=== PATIENT | male | born 1950 | race Caucasian/White ===

== ENCOUNTER 2016-10-20 20:02 | Emergency (ER) | payer OTHER, MEDICAID ==
[2016-10-20 20:21] VITALS: RESP 16; TEMP 97.9
--- NOTE | 2016-10-20 20:59 | DX ---
Chest, PA and Lateral History: Dyspnea, possible pneumonia, chest tightness, anxiety COMPARISON: October 10, 2015 AP, July 23, 2014 PA and lateral Findings: An element of interstitial lung disease is stable since 2013. There is no focal infiltrate, consolidation or pleural effusion. Heart size and pulmonary vascularity remain normal. Lung volumes are moderately prominent and there is chronic bronchial wall thickening consistent with underlying CO PD. There is stable orthopedic fixation hardware of the thoracic spine. No new thoracic compressions have developed. There are new healed left anterior sixth and seventh rib fractures. There is no mass or adenopathy or mass lesion. There is no pneumothorax. Impression: COPD/interstitial lung disease. Nothing acute identified.
--- NOTE | 2016-10-20 21:22 | EDPHY ---
HPI/HX/ROS/PE/MDM Narrative: Chief complaint: Shortness of breath, sent in by PCP for chest x-ray. HPI: 66-year-old male who states he has been having brief episodes of shortness of breath for the last week or so that last 2-3 minutes. He states these episodes make him very anxious and then resolve. He is having them to 3 times a day. States that mainly occurs at rest. No chest pain. No fevers or chills. No nausea or vomiting. He called his primary care physician 5 days ago and was told to come in for chest x-ray. He states he has not come until today because he has just been very anxious about this. Denies any fevers or chills. No nausea or vomiting. No recent leg swelling. He is a chronic smoker. Denies being told he has emphysema. ROS: 10 point Review of Systems is negative except as noted in the HPI. Physical exam: Gen: Awake, Alert, No Distress HEENT: Nose: no rhinorrhea Eyes: PERRLA, EOMI Mouth: Moist mucosa Neck: Supple, no JVD Chest: nontender, lungs clear to auscultation Heart: S1, S2 normal, no murmur Abd: Soft, non-tender, no guarding Back: no CVA tenderness, no midline tenderness Ext: no edema, non-tender Skin: no rash Neuro: CN II-XII intact, Sensation grossly intact, Strength 5/5 in bilateral upper and lower extremities ED Course: Chest x-ray:Impression: COPD/interstitial lung disease. Nothing acute identified. Dictated By: Daniel Swanson MD 66-year-old male with COPD with episodes of shortness of breath for 2-3 minutes and go away. These are associated with periods of anxious. His lungs are completely clear here. He is mildly hypoxemic which is his baseline. Not is not any chest pain or shortness of breath. Does not have any infectious symptoms. He is not wheezing on exam. Does not want to stay in the hospital for further evaluation. He would like to go home with follow-up with primary care physician. Patient is currently at his baseline. General Time Seen by Provider: 10/20/16 20:53 Initial Vital Signs: Initial Vital Signs Temperature (C) 36.6 C 10/20/16 20:18 Heart Rate 99 10/20/16 20:18 Respiratory Rate 16 10/20/16 20:18 Blood Pressure 182/123 H 10/20/16 20:18 O2 Sat (%) 89 L 10/20/16 20:18 O2 Delivery Mode Room Air Allergies/Adverse Reactions: No Known Allergies Allergy (Verified 10/20/16 20:16) Home Medications: Medication Instructions Recorded Donepezil HCl [Aricept] 20 mg PO HS 07/22/14 Promethazine HCl [Phenergan 25mg 25 mg PO DAILY PRN 07/22/14 (*)] tiaGABine [Gabitril 2MG (*)] 2 mg PO DAILY 07/22/14 tiaGABine [Gabitril 2MG (*)] 4 mg PO HS 07/22/14 Acetaminophen/ASA/Caffeine 1 each PO DAILY PRN 10/10/15 [Excedrin Tablet (*)] Centrum Silver Tablet 1 tab PO DAILY 10/10/15 Latanoprost 1 drop EACHEYE HS 10/10/15 SERTRALINE HCL 100 mg PO HS 10/10/15 ALPRAZolam [Xanax 1 MG (*)] 0.5 - 1 mg PO Q6 PRN #0 tab 10/15/15 Acetaminophen [Tylenol 325mg (*)] 650 mg PO Q4 PRN #0 tab 10/15/15 Tramadol HCl 50 mg PO Q6 PRN #0 tablet 10/15/15 Zolpidem Tartrate [Ambien 5MG (*)] 5 mg PO HS #0 tab 10/15/15 amLODIPine BESYLATE [Norvasc 10 mg 10 mg PO DAILY #0 tab 10/15/15 (*)] DIAZEPAM 10/20/16 Departure - Departure Disposition: Home, Routine, Self-Care Clinical Impression: Chronic obstructive pulmonary disease Condition: Good Instructions: COPD (Chronic Obstructive Pulmonary Disease) (ED) Additional Instructions: Follow up with her primary care physician in the next 1-2 days for further evaluation. Return to the emergency depart for increasing chest pain, shortness of breath, fevers, chills, or any other concerns. Referrals: Alcides Singh MD [Primary Care Provider] - As per Instructions
[2016-10-20 21:54] VITALS: BP 144/110; PULSE 88; O2SAT 90
== END 2016-10-20 21:54 | disposition home or self-care (01) ==
DX: J44.9 Chronic obstructive pulmonary disease, unspecified (principal)

== ENCOUNTER 2017-03-01 21:45 | Emergency (ER) | payer OTHER, MEDICAID ==
[2017-03-01 21:54] VITALS: TEMP 97.9
--- NOTE | 2017-03-01 21:54 | EDPHY ---
H & P HPI/ROS: HPI CHIEF COMPLAINT: Abdominal pain, bright red blood per rectum HISTORY OF PRESENT ILLNESS: This patient is a very pleasant 67-year-old male, significant past medical history for hypertension, anxiety, TBI, presents emergency room with 2 weeks of lower abdominal pain. Patient presents to the emergency room by EMS for 2 weeks of lower abdominal pain. He states this evening he had a bowel movement and there was dark red blood present with his stool. Denies a history of GI bleed. Denies surgical history of his abdomen. Denies fever. Denies nausea vomiting denies chest pain or shortness of breath. Main complaint is lower abdominal pain and then bright red blood per rectum this evening. Pain has been present for 2 weeks. Past Medical History: Anxiety, traumatic brain injury, hypertension Past Surgical History: Denies any surgical history Social History: Smokes tobacco, marijuana, occasional alcohol use, denies drugs Family History: Noncontributory ROS REVIEW OF SYSTEMS: A comprehensive 10 point review of systems is otherwise negative aside from elements mentioned in the history of present illness. Exam Constitutional triage nursing summary reviewed, vital signs reviewed, awake/ alert. Eyes normal conjunctivae and sclera, EOMI, PERRLA. HENT normal inspection, atraumatic, moist mucus membranes, no epistaxis, neck supple/ no meningismus, no raccoon eyes. Respiratory clear to auscultation bilaterally, normal breath sounds, no respiratory distress, no wheezing. Cardiovascular rate normal, regular rhythm, no murmur, no edema, distal pulses normal. Gastrointestinal soft, mild tender palpation lower abdomen, left lower quadrant and right lower quadrant, no rebound, no guarding, normal bowel sounds , no distension, no pulsatile mass. Genitourinary no CVA tenderness. Musculoskeletal no midline vertebral tenderness, full range of motion, no calf swelling, no tenderness of extremities, no meningismus, good pulses, neurovascularly intact. Skin pink, warm, & dry, no rash, skin atraumatic. Neurologic awake, alert and oriented x 3, AAOx3, moves all 4 extremities equally, motor intact, sensory intact, CN II-XII intact, normal cerebellar, normal vision, normal speech. Psychiatric normal mood/affect. Heme/Lymph/Immune no lymphadenopathy. Differential diagnosis includes but is not limited to and in no particular order : Bowel obstruction, appendicitis, gallbladder disease, diverticulitis, colitis , enteritis, perforated viscus, gastritis, GERD, esophagitis, urinary tract infection, pyelonephritis, kidney stones Medical Decision Making: Plan for this patient IV establishment, blood work, CT abdomen pelvis with IV contrast, IV fluid bolus, Zofran for nausea Dilaudid for acute pain control. Re-evaluation: 2257: Patient remained stable. Rectal exam shows bright red blood per rectum. No palpable mass. No palpable hemorrhoids. CT scan of the abdomen pelvis with IV contrast. The results of the study are this shows acute diverticulosis without diverticulitis no other acute inflammatory process The study was read by Dr. Feliciano. I viewed the images myself on the PACS system. 2316: This patient is hemodynamically stable. CT scan shows diverticulosis. Bright red blood per rectum on exam without palpable mass or hemorrhoids. I am concerned this may be a diverticular bleed. Patient will need admission to the hospital. He is hemodynamically stable this time. 2342: This patient remains hemodynamically stable. No active rectal bleeding here in emergency room. However given CT scan findings of diverticulosis, bright red blood per rectum this patient will need to be admitted to the hospital for further evaluation of bright red blood per rectum and most likely colonoscopy. Unfortunately the hospital is full and cannot accept the admission of this patient. We will need to transfer this patient to another hospital. I spoke with Dr. Vogt at [facility] who is accepted the transfer for lower GI bleed. The patient is completely stable hemodynamically H &H are stable. Patient is stable for transfer. EMTALA form filled out. Patient be transferred by ALS transport. I have updated this patient. Source: Patient - Personal History Tetanus Vaccine Date: no known - Medical/Surgical History Hx Asthma: No Hx Chronic Respiratory Disease: No Hx Diabetes: No Hx Cardiac Disease: No Hx Renal Disease: No Hx Cirrhosis: No Hx Alcoholism: No Hx HIV/AIDS: No Hx Splenectomy or Spleen Trauma: No Other PMH: CONSTIPATION,SPINAL FUSION, HTN, TBI in 1999, subdural bleed, anxiety , tremors - Social History Smoking Status: Current every day smoker Constitutional: Initial Vital Signs Temperature (C) 36.6 C 03/01/17 21:51 Heart Rate 91 03/01/17 21:51 Respiratory Rate 18 03/01/17 21:51 Blood Pressure 140/111 H 03/01/17 21:51 O2 Sat (%) 94 03/01/17 21:51 O2 Delivery Mode Room Air O2 (L/minute) 2 Allergies/Adverse Reactions: No Known Allergies Allergy (Verified 10/20/16 20:16) Home Medications: Medication Instructions Recorded Donepezil HCl [Aricept] 20 mg PO HS 07/22/14 Promethazine HCl [Phenergan 25mg 25 mg PO DAILY PRN 07/22/14 (*)] tiaGABine [Gabitril 2MG (*)] 2 mg PO DAILY 07/22/14 tiaGABine [Gabitril 2MG (*)] 4 mg PO HS 07/22/14 Acetaminophen/ASA/Caffeine 1 each PO DAILY PRN 10/10/15 [Excedrin Tablet (*)] Centrum Silver Tablet 1 tab PO DAILY 10/10/15 Latanoprost 1 drop EACHEYE HS 10/10/15 SERTRALINE HCL 100 mg PO HS 10/10/15 ALPRAZolam [Xanax 1 MG (*)] 0.5 - 1 mg PO Q6 PRN #0 tab 10/15/15 Acetaminophen [Tylenol 325mg (*)] 650 mg PO Q4 PRN #0 tab 10/15/15 Tramadol HCl 50 mg PO Q6 PRN #0 tablet 10/15/15 Zolpidem Tartrate [Ambien 5MG (*)] 5 mg PO HS #0 tab 10/15/15 amLODIPine BESYLATE [Norvasc 10 mg 10 mg PO DAILY #0 tab 10/15/15 (*)] DIAZEPAM 10/20/16 Donepezil HCl 03/01/17 Meloxicam 03/01/17 Medical Decision Making - Diagnostics Imaging Results: Imaging Impressions Abdomen CT 03/01/17 22:01 Impression: 1. Diverticulosis without diverticulitis. A source for rectal bleeding is not definitely identified. 2. See above report for additional findings. Results called and discussed with Dario Castillo MD on 03/01/2017 at 23:09 - Data Points Laboratory Results: Laboratory Results 03/01/17 21:40 03/01/17 21:40 03/01/17 03/01/17 03/01/17 23:00 22:34 21:46 WBC RBC Hgb POC Hgb 15.6 gm/dL gm/dL (13.7-17.5) Hct POC Hct 46 % % (40-51) MCV MCH MCHC RDW Plt Count MPV Neut % (Auto) Lymph % (Auto) [place] % (Auto) Eos % (Auto) Baso % (Auto) Nucleat RBC Rel Count Absolute Neuts (auto) Absolute Lymphs (auto) Absolute Monos (auto) Absolute Eos (auto) Absolute Basos (auto) Absolute Nucleated RBC Immature Gran % Immature Gran # PT INR APTT VBG Lactic Acid 0.9 mmol/L mmol/L (0.7-2.1) POC Sodium 144 mEq/L mEq/L (134-144) Sodium POC Potassium 4.0 mEq/L mEq/L (3.3-5.0) Potassium POC Chloride 106 mEq/L mEq/L (97-110) Chloride Carbon Dioxide Anion Gap POC BUN 15 mg/dL mg/dL (7-23) BUN Creatinine POC Creatinine 1.2 mg/dL mg/dL (0.7-1.3) Estimated GFR Glucose POC Glucose 87 mg/dL mg/dL (70-100) Calcium Total Bilirubin Conjugated Bilirubin Unconjugated Bilirubin AST ALT Alkaline Phosphatase Total Protein Albumin Lipase Stool Occult Bld Scrn Pending 03/01/17 03/01/17 03/01/17 21:40 21:40 21:40 WBC 9.96 10^3/uL H 10^3/uL (3.80-9.50) RBC 5.60 10^6/uL 10^6/uL (4.40-6.38) Hgb 15.1 g/dL g/dL (13.7-17.5) POC Hgb Hct 47.6 % % (40.0-51.0) POC Hct MCV 85.0 fL fL (81.5-99.8) MCH 27.0 pg L pg (27.9-34.1) MCHC 31.7 g/dL L g/dL (32.4-36.7) RDW 14.0 % % (11.5-15.2) Plt Count 325 10^3/uL 10^3/uL (150-400) MPV 10.7 fL fL (8.7-11.7) Neut % (Auto) 77.3 % H % (39.3-74.2) Lymph % (Auto) 11.3 % L % (15.0-45.0) Ell[place] % (Auto) 7.3 % % (4.5-13.0) Eos % (Auto) 2.9 % % (0.6-7.6) Baso % (Auto) 0.6 % % (0.3-1.7) Nucleat RBC Rel Count 0.0 % % (0.0-0.2) Absolute Neuts (auto) 7.69 10^3/uL H 10^3/uL (1.70-6.50) Absolute Lymphs (auto) 1.13 10^3/uL 10^3/uL (1.00-3.00) Absolute Monos (auto) 0.73 10^3/uL 10^3/uL (0.30-0.80) Absolute Eos (auto) 0.29 10^3/uL 10^3/uL (0.03-0.40) Absolute Basos (auto) 0.06 10^3/uL 10^3/uL (0.02-0.10) Absolute Nucleated RBC 0.00 10^3/uL 10^3/uL (0-0.01) Immature Gran % 0.6 % % (0.0-1.1) Immature Gran # 0.06 10^3/uL 10^3/uL (0.00-0.10) PT 14.1 SEC SEC (12.0-15.0) INR 1.10 (0.83-1.16) APTT 32.6 SEC SEC (23.0-38.0) VBG Lactic Acid POC Sodium Sodium 144 mEq/L mEq/L (134-144) POC Potassium Potassium 4.5 mEq/L mEq/L (3.5-5.2) POC Chloride Chloride 106 mEq/L mEq/L (97-110) Carbon Dioxide 26 mEq/l mEq/l (22-31) Anion Gap 12 mEq/L mEq/L (8-16) POC BUN BUN 16 mg/dL mg/dL (7-23) Creatinine 1.1 mg/dL mg/dL (0.7-1.3) POC Creatinine Estimated GFR > 60 Glucose 84 mg/dL mg/dL (70-100) POC Glucose Calcium 9.7 mg/dL mg/dL (8.5-10.4) Total Bilirubin 0.7 mg/dL mg/dL (0.1-1.4) Conjugated Bilirubin 0.6 mg/dL H mg/dL (0.0-0.5) Unconjugated Bilirubin 0.1 mg/dL mg/dL (0.0-1.1) AST 28 IU/L IU/L (17-59) ALT 32 IU/L IU/L (21-72) Alkaline Phosphatase 113 IU/L IU/L (38-126) Total Protein 7.6 g/dL g/dL (6.3-8.2) Albumin 4.4 g/dL g/dL (3.5-5.0) Lipase 49.0 IU/L IU/L (23-300) Stool Occult Bld Scrn Medications Given: Discontinued Medications Hydromorphone HCl (Dilaudid) 0.5 mg IVP EDNOW ONE Stop: 03/01/17 22:08 Last Admin: 03/01/17 22:39 Dose: 0.5 mg Sodium Chloride (Ns) 1,000 mls @ 0 mls/hr IV ONCE ONE PRN Reason: Wide Open Stop: 03/01/17 22:02 Last Admin: 03/01/17 22:05 Dose: 1,000 mls Point of Care Test Results: 03/01/17 21:46 POC Sodium 144 POC Potassium 4.0 POC Chloride 106 POC BUN 15 POC Creatinine 1.2 POC Glucose 87 Departure - Departure Disposition: Acute Care Hospital Critical access hospital Clinical Impression: Lower gastrointestinal bleed Diverticulosis Qualifiers: Diverticulosis site: unspecified location Diverticulosis bleeding: diverticulosis with bleeding Qualified Code(s): K57.91 - Diverticulosis of intestine, part unspecified, without perforation or abscess with bleeding Condition: Fair Referrals: Patient,NotPresent [Unknown] - As per Instructions
[2017-03-01] MEDS ORDERED: NS 1,000 ML IV ONE (22:01)
[2017-03-01] MEDS ORDERED: HYDROmorphONE/DILAUDID 1 MG/ML SYR IVP ONE (22:07)
[2017-03-01] MEDS ORDERED: IOPAMIDOL (ISOVUE-300) 100 ML BTL ONE (22:08)
[2017-03-01 22:09] LABS: % IMMATURE GRANULYOCYTES 0.6 % (0.0-1.1); ABSOLUTE IMMATURE GRANULOCYTES 0.06 10^3/uL (0.00-0.10); ADD DIFF? NO; ADD MORPH? NO; ADD SCAN? NO; ATYPICAL LYMPHOCYTE FLAG 0 (0-99); FRAGMENT RBC FLAG 0 (0-99); HEMATOCRIT 47.6 % (40.0-51.0); HEMOGLOBIN 15.1 g/dL (13.7-17.5); LEFT SHIFT FLG 0 (0-99); LIPEMIA HEMOLYSIS FLAG 80 (0-99); MEAN CELL HEMOGLOBIN CONCENTR. 31.7 g/dL (32.4-36.7); MEAN PLATELET VOLUME 10.7 fL (8.7-11.7); PLATELET CLUMPS FLAG 10 (0-99); PLATELET COUNT 325 10^3/uL (150-400)
[2017-03-01 22:17] LABS: ALANINE AMINOTRANSFERASE 32 IU/L (21-72); ALBUMIN 4.4 g/dL (3.5-5.0); ALKALINE PHOSPHATASE 113 IU/L (38-126); ANION GAP 12 mEq/L (8-16); ASPARTATE AMINOTRANSFERASE 28 IU/L (17-59); BILIRUBIN,TOTAL 0.7 mg/dL (0.1-1.4); BILIRUBIN-CONJUGATED 0.6 mg/dL (0.0-0.5); BILIRUBIN-UNCONJUGATED 0.1 mg/dL (0.0-1.1); CALCIUM 9.7 mg/dL (8.5-10.4); CARBON DIOXIDE 26 mEq/l (22-31); CHLORIDE 106 mEq/L (97-110); CREATININE 1.1 mg/dL (0.7-1.3); GLOMERULAR FILTRATION RATE > 60; GLUCOSE 84 mg/dL (70-100); POTASSIUM 4.5 mEq/L (3.5-5.2); SODIUM 144 mEq/L (134-144); TOTAL PROTEIN 7.6 g/dL (6.3-8.2)
[2017-03-01 22:18] LABS: INR 1.1 (0.83-1.16); PROTIME(PATIENT) 14.1 SEC (12.0-15.0)
[2017-03-01 22:19] LABS: APTT 32.6 SEC (23.0-38.0)
[2017-03-01] MEDS ORDERED: LORazepam 2 MG/ML INJ ONE (23:49)
[2017-03-01] MEDS ORDERED: LORazepam 2 MG/ML INJ IVP ONE (23:55)
[2017-03-02 02:15] VITALS: BP 143/99; PULSE 86; RESP 14; O2SAT 96
== END 2017-03-02 02:12 | disposition short-term general hospital (02) ==
LOC: EDUNIT#
DX: K57.91 Diverticulosis of intestine, part unspecified, without perforation or abscess with bleeding (principal); I10 Essential (primary) hypertension; F17.200 Nicotine dependence, unspecified, uncomplicated
CPT/HCPCS: 74177; 96361; 96374; 96375; 99285; J1170; J2060; Q9967; 82947-QW

== ENCOUNTER 2017-04-14 22:08 | Emergency (ER) | payer OTHER, MEDICAID ==
[2017-04-14] MEDS ORDERED: HYDROmorphONE/DILAUDID 1 MG/ML SYR IVP ONE (22:18)
[2017-04-14] MEDS ORDERED: ONDANSETRON 4 MG/2 ML VIAL IVP ONE (22:18)
[2017-04-14] MEDS ORDERED: NS 1,000 ML IV ONE (22:18)
[2017-04-14 22:28] LABS: % IMMATURE GRANULYOCYTES 0.4 % (0.0-1.1); ABSOLUTE IMMATURE GRANULOCYTES 0.04 10^3/uL (0.00-0.10); ADD DIFF? NO; ADD MORPH? NO; ADD SCAN? NO; ATYPICAL LYMPHOCYTE FLAG 10 (0-99); FRAGMENT RBC FLAG 0 (0-99); HEMOGLOBIN 14.1 g/dL (13.7-17.5); LEFT SHIFT FLG 0 (0-99); LIPEMIA HEMOLYSIS FLAG 80 (0-99); MEAN CELL HEMOGLOBIN 25.7 pg (27.9-34.1); MEAN CELL VOLUME 80.1 fL (81.5-99.8); MEAN PLATELET VOLUME 10.7 fL (8.7-11.7); PLATELET CLUMPS FLAG 0 (0-99); PLATELET COUNT 301 10^3/uL (150-400); RED BLOOD CELL COUNT 5.49 10^6/uL (4.40-6.38); RED CELL DISTRIBUTION WIDTH 13.7 % (11.5-15.2)
--- NOTE | 2017-04-14 22:28 | EDPHY ---
H & P Stated Complaint: ABD PAIN,SELF MED WITH VODKA, ULCER CAUTERIZE 2 MO AGO, CONSTIPATED Time Seen by Provider: 04/14/17 22:10 HPI/ROS: CHIEF COMPLAINT: Abdominal pain HISTORY OF PRESENT ILLNESS: The patient is a 67-year-old man who comes to the emergency department by ambulance complaining of diffuse abdominal pain. He told paramedics that was near his umbilicus. He also states that he has not had a bowel movement in 3 days. He denies chest pain or shortness of breath. He denies nausea vomiting or diarrhea. He has not had a fever. He does have a history of mild respiratory disease and wears oxygen occasionally at baseline but denies history of asthma or COPD. He is a smoker. He does have a history of traumatic brain injury. He is also slightly hypoxic on arrival but denies shortness of breath cough or recent infections. REVIEW OF SYSTEMS: Constitutional: denies: chills, fever, recent illness, recent injury EENTM: denies: blurred vision, double vision, nose congestion Respiratory: denies: cough, shortness of breath Cardiac: denies: chest pain, irregular heart rate, lightheadedness, palpitations Gastrointestinal/Abdominal: See HPIdenies: diarrhea, nausea, vomiting, blood streaked stools Genitourinary: denies: dysuria, frequency, hematuria, pain Musculoskeletal: denies: joint pain, muscle pain Skin: denies: lesions, rash, jaundice, bruising Neurological: denies: headache, numbness, paresthesia, tingling, dizziness, weakness Hematologic/Lymphatic: denies: blood clots, easy bleeding, easy bruising Immunologic/allergic: denies: HIV/AIDS, transplant EXAM: GENERAL: Well-appearing, well-nourished and in no acute distress. HEAD: Atraumatic, normocephalic. EYES: Pupils equal round and reactive to light, extraocular movements intact, sclera anicteric, conjunctiva are normal. ENT: TMs normal, nares patent, oropharynx clear without exudates. Moist mucous membranes. NECK: Normal range of motion, supple without lymphadenopathy or JVD. LUNGS: Breath sounds clear to auscultation bilaterally and equal. No wheezes rales or rhonchi. HEART: Regular rate and rhythm without murmurs, rubs or gallops. ABDOMEN: Mildly distended, right upper quadrant pain but nontender, normoactive bowel sounds. No guarding, no rebound. No masses appreciated. BACK: No CVA tenderness, no spinal tenderness, step-offs or deformities EXTREMITIES: Normal range of motion, no pitting or edema. No clubbing or cyanosis. NEUROLOGICAL: Cranial nerves II through XII grossly intact. Normal speech, normal gait. 5/5 strength, normal movement in all extremities, normal sensation PSYCH: Normal mood, normal affect. SKIN: Warm, dry, normal turgor, no visible rashes or lesions. Source: Patient Exam Limitations: No limitations - Personal History Tetanus Vaccine Date: no known - Medical/Surgical History Hx Asthma: No Hx Chronic Respiratory Disease: No Hx Diabetes: No Hx Cardiac Disease: No Hx Renal Disease: No Hx Cirrhosis: No Hx Alcoholism: No Hx HIV/AIDS: No Hx Splenectomy or Spleen Trauma: No Other PMH: CONSTIPATION,SPINAL FUSION, HTN, TBI in 1999, subdural bleed, anxiety , tremors, ULCER- CAUTERIZED 01/2017 - Family History Significant Family History: No pertinent family hx - Social History Smoking Status: Current every day smoker Alcohol Use: Sober Drug Use: None Constitutional: Initial Vital Signs Temperature (C) 36.9 C 04/14/17 22:10 Heart Rate 75 04/14/17 22:10 Respiratory Rate 20 04/14/17 22:10 Blood Pressure 169/111 H 04/14/17 22:10 O2 Sat (%) 75 L 04/14/17 22:10 O2 Delivery Mode Nasal Cannula O2 (L/minute) 3 Allergies/Adverse Reactions: No Known Allergies Allergy (Verified 10/20/16 20:16) Home Medications: Medication Instructions Recorded Donepezil HCl [Aricept] 20 mg PO HS 07/22/14 Promethazine HCl [Phenergan 25mg 25 mg PO DAILY PRN 07/22/14 (*)] Acetaminophen/ASA/Caffeine 1 each PO DAILY PRN 10/10/15 [Excedrin Tablet (*)] Centrum Silver Tablet 1 tab PO DAILY 10/10/15 Latanoprost 1 drop EACHEYE HS 10/10/15 SERTRALINE HCL 100 mg PO HS 10/10/15 ALPRAZolam [Xanax 1 MG (*)] 0.5 - 1 mg PO Q6 PRN #0 tab 10/15/15 Acetaminophen [Tylenol 325mg (*)] 650 mg PO Q4 PRN #0 tab 10/15/15 Tramadol HCl 50 mg PO Q6 PRN #0 tablet 10/15/15 Zolpidem Tartrate [Ambien 5MG (*)] 5 mg PO HS #0 tab 10/15/15 DIAZEPAM 10/20/16 Donepezil HCl 03/01/17 Meloxicam 03/01/17 Metoprolol Tartrate 04/14/17 Medical Decision Making - Diagnostics Imaging Results: Imaging Impressions Abdomen CT 04/14/17 22:19 Impression: 1. Stable diverticulosis without diverticulitis. 2. Normal appendix. A message was left for Dr. YOSELYN DAMON, at 04/14/2017 23:29 General information for patients regarding this examination can be found at [email or web address] If you have questions or comments about this report, please contact me at (hospital) or [phone] (cell). Abdomen Ultrasound 04/14/17 22:28 Impression: 1. New gallstones without biliary obstruction or ultrasound evidence of acute cholecystitis. The patient is not tender directly over the gallbladder. 2. Benign right renal cyst. Results discussed with Dr. Damon at 11:12 PM. Procedures: Ultrasound: Limited bedside ultrasonography performed. Gallbladder seen without wall thickening or distention. Multiple gallstones visible with shadowing. Common bile duct not visualized. ED Course/Re-evaluation: On bedside ultrasound the patient has multiple gallstones but no visible wall thickening. No gallbladder distension. Negative sonographic Scales's 11:35 p.m. the patient is feeling completely well. He states he is currently pain free. His abdominal exam is benign. His CT and ultrasound are reassuring. We discussed his gallstones visible. I will start him on MiraLax and have him follow up with his regular physician. I instructed him how to titrate MiraLax. He is happy with this and declines any further workup or testing at this time. Differential Diagnosis: Partial list of the Differential diagnosis considered include but were not limited to; constipation, biliary disease, appendicitis and although unlikely based on the history and physical exam, I also considered diverticulitis, obstruction, ischemia. I discussed these differential diagnoses and the plan with the patient as well as the usual and expected course. The patient understands that the diagnosis is provisional and that in medicine we are not always correct and that further workup is often warranted. Usual and customary warnings were given. All of the patient's questions were answered. The patient was instructed to return to the emergency department should the symptoms at all worsen or return, otherwise to followup with the physician as we discussed. - Data Points Laboratory Results: Laboratory Results 04/14/17 22:10 04/14/17 22:10 04/14/17 04/14/17 22:10 22:10 WBC 9.87 10^3/uL H 10^3/uL (3.80-9.50) RBC 5.49 10^6/uL 10^6/uL (4.40-6.38) Hgb 14.1 g/dL g/dL (13.7-17.5) Hct 44.0 % % (40.0-51.0) MCV 80.1 fL L fL (81.5-99.8) MCH 25.7 pg L pg (27.9-34.1) MCHC 32.0 g/dL L g/dL (32.4-36.7) RDW 13.7 % % (11.5-15.2) Plt Count 301 10^3/uL 10^3/uL (150-400) MPV 10.7 fL fL (8.7-11.7) Neut % (Auto) 77.8 % H % (39.3-74.2) Lymph % (Auto) 13.8 % L % (15.0-45.0) Cole % (Auto) 6.8 % % (4.5-13.0) Eos % (Auto) 0.7 % % (0.6-7.6) Baso % (Auto) 0.5 % % (0.3-1.7) Nucleat RBC Rel Count 0.0 % % (0.0-0.2) Absolute Neuts (auto) 7.68 10^3/uL H 10^3/uL (1.70-6.50) Absolute Lymphs (auto) 1.36 10^3/uL 10^3/uL (1.00-3.00) Absolute Monos (auto) 0.67 10^3/uL 10^3/uL (0.30-0.80) Absolute Eos (auto) 0.07 10^3/uL 10^3/uL (0.03-0.40) Absolute Basos (auto) 0.05 10^3/uL 10^3/uL (0.02-0.10) Absolute Nucleated RBC 0.00 10^3/uL 10^3/uL (0-0.01) Immature Gran % 0.4 % % (0.0-1.1) Immature Gran # 0.04 10^3/uL 10^3/uL (0.00-0.10) Sodium 146 mEq/L H mEq/L (134-144) Potassium 4.0 mEq/L mEq/L (3.5-5.2) Chloride 109 mEq/L mEq/L (97-110) Carbon Dioxide 19 mEq/l L mEq/l (22-31) Anion Gap 18 mEq/L H mEq/L (8-16) BUN 13 mg/dL mg/dL (7-23) Creatinine 1.1 mg/dL mg/dL (0.7-1.3) Estimated GFR > 60 Glucose 83 mg/dL mg/dL (70-100) Calcium 10.2 mg/dL mg/dL (8.5-10.4) Total Bilirubin 0.5 mg/dL mg/dL (0.1-1.4) Conjugated Bilirubin 0.4 mg/dL mg/dL (0.0-0.5) Unconjugated Bilirubin 0.1 mg/dL mg/dL (0.0-1.1) AST 23 IU/L IU/L (17-59) ALT 27 IU/L IU/L (21-72) Alkaline Phosphatase 102 IU/L IU/L (38-126) Total Protein 7.8 g/dL g/dL (6.3-8.2) Albumin 4.6 g/dL g/dL (3.5-5.0) Lipase 57.0 IU/L IU/L (23-300) Medications Given: Discontinued Medications Sodium Chloride (Ns) 1,000 mls @ 0 mls/hr IV EDNOW ONE; Wide Open PRN Reason: Protocol Stop: 04/14/17 22:19 Last Admin: 04/14/17 22:45 Dose: 1,000 mls Departure - Departure Disposition: Home, Routine, Self-Care Clinical Impression: Constipation Qualifiers: Constipation type: unspecified constipation type Qualified Code(s): K59.00 - Constipation, unspecified Condition: Fair Instructions: Polyethylene Glycol 3350 (By mouth), Constipation (ED) Additional Instructions: Take a cap full of MiraLax every 3 hours as we discussed until you have satisfactory bowel movements then discontinue or decrease as discussed. Referrals: Patient,NotPresent [Unknown] - As per Instructions
[2017-04-14 22:37] LABS: ALANINE AMINOTRANSFERASE 27 IU/L (21-72); ALBUMIN 4.6 g/dL (3.5-5.0); ALKALINE PHOSPHATASE 102 IU/L (38-126); ANION GAP 18 mEq/L (8-16); ASPARTATE AMINOTRANSFERASE 23 IU/L (17-59); BILIRUBIN,TOTAL 0.5 mg/dL (0.1-1.4); BILIRUBIN-CONJUGATED 0.4 mg/dL (0.0-0.5); BILIRUBIN-UNCONJUGATED 0.1 mg/dL (0.0-1.1); CALCIUM 10.2 mg/dL (8.5-10.4); CARBON DIOXIDE 19 mEq/l (22-31); CHLORIDE 109 mEq/L (97-110); CREATININE 1.1 mg/dL (0.7-1.3); GLOMERULAR FILTRATION RATE > 60; GLUCOSE 83 mg/dL (70-100); SODIUM 146 mEq/L (134-144); TOTAL PROTEIN 7.8 g/dL (6.3-8.2)
[2017-04-14] MEDS ORDERED: IOPAMIDOL (ISOVUE-300) 100 ML BTL ONE (22:53)
[2017-04-14 23:02] VITALS: RESP 18
--- NOTE | 2017-04-14 23:40 | CPEKG ---
Heart Rate: 60 RR Interval: 1000 P-R Interval: 172 QRSD Interval: 106 QT Interval: 476 QTC Interval: 476 P Story: 46 QRS Story: -43 T Wave Story: 36 EKG Severity - BORDERLINE ECG - EKG Impression: SINUS RHYTHM EKG Impression: ATRIAL PREMATURE COMPLEX EKG Impression: BORDERLINE IVCD WITH LAD EKG Impression: BORDERLINE PROLONGED QT INTERVAL Electronically Signed By: Erik Bernal 14-Apr-2017 23:40:39
[2017-04-15 00:02] LABS: COLOR YELLOW; LEUKOCYTE ESTERASE,URINE NEGATIVE (NEGATIVE); NITRITE,URINE NEGATIVE (NEGATIVE)
[2017-04-15 00:39] VITALS: BP 132/71; PULSE 73; TEMP 98.1; O2SAT 90
== END 2017-04-15 00:39 | disposition home or self-care (01) ==
LOC: EDUNIT#
DX: K59.00 Constipation, unspecified (principal); I10 Essential (primary) hypertension; F17.200 Nicotine dependence, unspecified, uncomplicated; E86.9 Volume depletion, unspecified
CPT/HCPCS: 74177; 76705; 93005; 96360; 99285; Q9967

== ENCOUNTER 2017-09-11 10:45 | Emergency (ER) | payer OTHER, MEDICAID ==
--- NOTE | 2017-09-11 10:55 | EDPHY ---
H & P Time Seen by Provider: 09/11/17 10:46 HPI/ROS: CHIEF COMPLAINT: Anxiety HISTORY OF PRESENT ILLNESS: The patient is a 67-year-old man with a history of severe anxiety who takes Xanax daily. He called EMS today because he states that his Xanax is not working. He told paramedics that his Xanax is usually filled at [facility] but he now has a new case management type service that filled his Xanax prescription at [facility]. He states that since that time it does not seem like it is working. He is followed by Dr. Orozco. He denies any chest pain or palpitations. He denies any recent fevers or illness. No nausea vomiting or diarrhea. He has some difficulty voicing his complaint here and primarily talks about his work history and things that he did when he worked for [employer]. Paramedics state that he is living at a hotel. He was admitted here in July for a bowel perforation from a chicken bone. He currently has no abdominal pain. REVIEW OF SYSTEMS: Constitutional: denies: chills, fever, recent illness, recent injury EENTM: denies: blurred vision, double vision, nose congestion Respiratory: denies: cough, shortness of breath Cardiac: denies: chest pain, irregular heart rate, lightheadedness, palpitations Gastrointestinal/Abdominal: denies: abdominal pain, diarrhea, nausea, vomiting, blood streaked stools Genitourinary: denies: dysuria, frequency, hematuria, pain Musculoskeletal: denies: joint pain, muscle pain Skin: denies: lesions, rash, jaundice, bruising Neurological: denies: headache, numbness, paresthesia, tingling, dizziness, weakness Hematologic/Lymphatic: denies: blood clots, easy bleeding, easy bruising Immunologic/allergic: denies: HIV/AIDS, transplant EXAM: GENERAL: Well-appearing, overweight, HEAD: Atraumatic, normocephalic. EYES: Pupils equal round and reactive to light, extraocular movements intact, sclera anicteric, conjunctiva are normal. ENT: TMs normal, nares patent, oropharynx clear without exudates. Moist mucous membranes. NECK: Normal range of motion, supple without lymphadenopathy or JVD. LUNGS: Breath sounds clear to auscultation bilaterally and equal. No wheezes rales or rhonchi. HEART: Regular rate and rhythm without murmurs, rubs or gallops. ABDOMEN: Soft, nontender, normoactive bowel sounds. No guarding, no rebound. No masses appreciated. BACK: No CVA tenderness, no spinal tenderness, step-offs or deformities EXTREMITIES: Normal range of motion, no pitting or edema. No clubbing or cyanosis. NEUROLOGICAL: Cranial nerves II through XII grossly intact. Normal speech, normal gait. 5/5 strength, normal movement in all extremities, normal sensation PSYCH: Anxious SKIN: Warm, dry, normal turgor, no visible rashes or lesions. Source: Patient, EMS Exam Limitations: No limitations - Personal History Tetanus Vaccine Date: no known - Medical/Surgical History Hx Asthma: No Hx Chronic Respiratory Disease: No Hx Diabetes: No Hx Cardiac Disease: No Hx Renal Disease: No Hx Cirrhosis: No Hx Alcoholism: No Hx HIV/AIDS: No Hx Splenectomy or Spleen Trauma: No Other PMH: CONSTIPATION,SPINAL FUSION, HTN, TBI in 1999, subdural bleed, anxiety , tremors, ULCER- CAUTERIZED 01/2017 - Family History Significant Family History: No pertinent family hx - Social History Smoking Status: Current every day smoker (50 pack-year history) Alcohol Use: Sober Constitutional: Initial Vital Signs Temperature (C) 36.8 C 09/11/17 11:09 Heart Rate 64 09/11/17 11:09 Respiratory Rate 16 09/11/17 11:09 Blood Pressure 175/100 H 09/11/17 11:09 O2 Sat (%) 96 09/11/17 11:09 O2 Delivery Mode Room Air Allergies/Adverse Reactions: No Known Allergies Allergy (Verified 07/11/17 10:59) Home Medications: Medication Instructions Recorded Promethazine HCl [Phenergan 25mg 25 mg PO Q6HRS PRN 07/22/14 (*)] Multivitamins [Multivitamin (*)] 1 each PO DAILY #0 10/10/15 ALPRAZolam [Xanax 1 MG (*)] 0.5 - 1 mg PO Q6 PRN #0 tab 10/15/15 Diazepam [Valium 5 MG (*)] 5 mg PO TID PRN 10/20/16 Donepezil HCl [Aricept 5 MG (*)] 20 mg PO HS 03/01/17 Meloxicam 15 mg PO DAILY 03/01/17 Metoprolol Succinate Xr [Toprol Xl 100 mg PO DAILY 04/14/17 100 mg (*)] Herbals/Supplements -Info Only 1 ea PO DAILY 07/11/17 Latanoprost 0.005% [Xalatan 0.005% 1 drops EACHEYE HS 07/11/17 (*)] Levocetirizine Dihydrochloride 5 mg PO DAILY PRN 07/11/17 [Xyzal] Pantoprazole Sodium [Protonix 40mg 40 mg PO DAILY 07/11/17 (*)] Sennosides/Docusate Sodium 1 each PO DAILY PRN 07/11/17 [Senna-S Tablet] Sertraline HCl [Zoloft 100mg (*)] 250 mg PO HS 07/11/17 Vitamin B Complex [B Complex] 1 each PO DAILY 07/11/17 Zolpidem Tartrate [Ambien 5MG (*)] 5 mg PO HS PRN 07/11/17 amLODIPine BESYLATE [Norvasc 10 mg 10 mg PO DAILY 07/11/17 (*)] diphenhydrAMINE [Benadryl 25 MG 25 mg PO DAILY PRN 07/11/17 (*)] hydrOXYzine HCL [hydrOXYzine HCL 37.5 mg PO HS PRN 07/11/17 (RX)] tiaGABine [Gabitril 2MG (*)] 2 mg PO DAILY 07/11/17 tiaGABine [Gabitril 2MG (*)] 4 mg PO HS 07/11/17 Amoxicillin/Clavulanate Pot 875 mg PO BID #14 tab 07/18/17 [Augmentin 875 MG TAB (*)] Fluconazole [Diflucan (*)] 400 mg PO DAILY #7 tab 07/18/17 Hydrocodone/APAP 5/325 [Latimer 1 - 2 tab PO Q4HRS PRN #20 tab 07/18/17 5/325 (*)] Nicotine [Nicoderm Cq 21 mg (*)] 21 mg TD DAILY #14 patch 07/18/17 Medical Decision Making ED Course/Re-evaluation: 11:00 a.m. after much discussion it is determined that the patient simply is requesting Ativan. He states that this works better than the Xanax. He has received it lately at several different hospitals. We will give him a dose here to help with his acute symptoms but otherwise he will have to follow up with his primary for prescription. I do not feel comfortable writing long-term prescription of benzodiazepines. He is already on Xanax. Differential Diagnosis: Partial list of the Differential diagnosis considered include but were not limited to; anxiety, substance abuse, bipolar and although unlikely based on the history and physical exam, I also considered suicidality, infection, head injury. - Data Points Medications Given: Discontinued Medications Lorazepam (Ativan) 1 mg PO EDNOW ONE Stop: 09/11/17 11:06 Last Admin: 09/11/17 12:09 Dose: 1 mg Departure - Departure Disposition: Home, Routine, Self-Care Clinical Impression: Anxiety Condition: Fair Instructions: Anxiety (ED) Referrals: Patient,NotPresent [Unknown] - As per Instructions Alcides Singh MD [Medical Doctor] - As per Instructions
[2017-09-11] MEDS ORDERED: LORazepam 1 MG TAB PO ONE (11:05)
[2017-09-11 11:12] VITALS: PULSE 64; RESP 16
--- NOTE | 2017-09-11 12:42 | ASMTCMCOM ---
CM Note CM Note Notes: Patient presented to the ED via EMS for anxiety, reporting that his Xanax prescription "wasn't working." This CM spoke with patient extensively about his current living situation and being a client/patient of the [facility] program. Patient had been enrolled in [facility] at the end of this last August. Patient had been followed by Dr Alcides Singh for around 6 years prior to switching to [facility]. 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 Patient gave verbal permission for me to contact [facility] ([phone]) and notify them of patient being in the ED. Patient specifically requested this CM speak to Katelyn Heredia. Spoke with ROSMERY Manriquez, and Teresa Flores NP ([phone]) at [facility]. They said patient has an appointment today at 1pm and would recommend he be provided a cab ride to keep the appointment. Patient agreeable to this plan. Can arranged and patient discharged to make his 1 pm appt with [facility]. CM available for further assistance if needed. Date Signed: 09/11/2017 12:41 PM Electronically Signed By:Hailey Maynard RN
--- NOTE | 2017-09-11 12:45 | ASDISCHSUM ---
Discharge Information Plan Status:Home with No Needs Medically Cleared to Leave: Discharge Date: CM D/C Disposition:Home, Routine, Self-Care ADT D/C Disposition:Home, Routine, Self-Care Projected Discharge Date: Transportation at D/C:Cab Voucher Discharge Delay Reason: Follow-Up Date: Discharge Slot: Final Diagnosis: Placement Information Patient Contact Information Contact Name:HOWIE Relationship:Alon Address: Work Phone: City: [facility] Phone: State/[place] Code: Email: Financial Information Financial Class: Primary Plan Desc:MEDICARE OUTPATIENT Primary Plan Number:[id number] Secondary Plan Desc:MEDICAID HEALTH FIRST [place] OP Secondary Plan Number:[id number] Assessment Information [facility] CM Progress Note CM Note CM Note Notes: Patient presented to the ED via EMS for anxiety, reporting that his Xanax prescription "wasn't working." This CM spoke with patient extensively about his current living situation and being a client/patient of the [facility]. Patient had been enrolled in [facility] at the end of this last August. Patient had been followed by Dr Alcides Singh for around 6 years prior to switching to [facility]. 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 Patient gave verbal permission for me to contact [facility] ([phone]) and notify them of patient being in the ED. Patient specifically requested this CM speak to Katelyn Heredia. Spoke with ROSMERY Manriquez, and Teresa Flores NP ([phone]) at [facility]. They said patient has an appointment today at 1pm and would recommend he be provided a cab ride to keep the appointment. Patient agreeable to this plan. Can arranged and patient discharged to make his 1 pm appt with [facility]. CM available for further assistance if needed. Date Signed: 09/11/2017 12:41 PM Electronically Signed By:Hailey Maynard RN [facility]ACE LACE Acuity / Level of Care Answers: No. Emergency dept visits in Answers: 4+ last 6 months Score: 4 Date Signed: 09/11/2017 12:42 PM Electronically Signed By:Hailey Maynard RN Intervention Information Intervention Type:Cab Vouchers Date of Service:09/11/2017 12:42 PM Patient Type:Emergency Room Staff Member:DORIS Maynard Sharon Hours:0.25 Discipline:Label Rewinder Severity: Comment:[facility] arranged to take patient to [facility]. Intervention Type:Health Clinic Date of Service:09/11/2017 12:42 PM Patient Type:Emergency Room Staff Member:DORIS Maynard Sharon Hours:0.5 Discipline:Label Rewinder Severity: Comment:[facility]
[2017-09-11 12:50] VITALS: BP 135/74; TEMP 97.7; O2SAT 98
== END 2017-09-11 12:56 | disposition home or self-care (01) ==
LOC: EDUNIT#
DX: F41.9 Anxiety disorder, unspecified (principal); I10 Essential (primary) hypertension; F17.200 Nicotine dependence, unspecified, uncomplicated

== ENCOUNTER 2017-10-12 22:01 | Emergency (ER) | payer OTHER, MEDICAID ==
[2017-10-12] MEDS ORDERED: ATENOLOL 50 MG TAB PO ONE (22:07)
--- NOTE | 2017-10-12 22:08 | EDPHY ---
H & P Stated Complaint: elevated blood pressure HPI/ROS: HPI The patient presents brought in by ambulance for elevated blood pressures found at [facility]. He was there this evening because he is out of his medications including his Xanax which she takes 1 mg every 6 hr of. He is having difficulties with his insurance and his medications have not been filled in the last 2 days. He has a plan in place to meet with an organization that may be able to help him with his medications tomorrow. He says he generally feels like his stomach is tight, he is having hot and cold flashes. Also his blood pressures have been elevated in the 200 systolic over 110 range. He does not have any chest pain. He has had a cough and paramedics gave him a nebulizer EN route. He says he takes atenolol for his blood pressure and says he took a dose today. REVIEW OF SYSTEMS Constitutional: No fever, no chills. Eyes: No discharge. ENT: No sore throat. Cardiovascular: No chest pain, no palpitations. Respiratory: No cough, no shortness of breath. Gastrointestinal: No abdominal pain, no vomiting. Genitourinary: No hematuria. Musculoskeletal: No back pain. Skin: No rashes. Neurological: No headache. PMHx: History of benzodiazepine use, anxiety, COPD, hypertension on atenolol Soc Hx: Lives at home, has a cat PHYSICAL General Appearance: Alert, no distress Eyes: Pupils equal and round no pallor or injection ENT, Mouth: Mucous membranes moist Respiratory: There are no retractions, lungs are clear to auscultation Cardiovascular: Regular rate and rhythm Gastrointestinal: Abdomen is soft and non-tender, no masses, bowel sounds normal Neurological: A&O, moves all extremities Skin: Warm and dry, no rashes Musculoskeletal: Neck is supple non tender Extremities: symmetrical, full range of motion Psychiatric: Patient is oriented X 3, there is no agitation Source: Patient Exam Limitations: No limitations - Personal History Tetanus Vaccine Date: no known - Medical/Surgical History Hx Asthma: No Hx Chronic Respiratory Disease: No Hx Diabetes: No Hx Cardiac Disease: No Hx Renal Disease: No Hx Cirrhosis: No Hx Alcoholism: No Hx HIV/AIDS: No Hx Splenectomy or Spleen Trauma: No Other PMH: CONSTIPATION,SPINAL FUSION, HTN, TBI in 1999, subdural bleed, anxiety , tremors, ULCER- CAUTERIZED 01/2017 - Social History Smoking Status: Current every day smoker (50 pack-year history) Constitutional: Initial Vital Signs Temperature (C) 36.8 C 10/12/17 22:06 Heart Rate 78 10/12/17 22:06 Respiratory Rate 16 10/12/17 22:06 Blood Pressure 202/124 H 10/12/17 22:06 O2 Sat (%) 94 10/12/17 22:06 O2 Delivery Mode Room Air O2 (L/minute) 2 Allergies/Adverse Reactions: No Known Allergies Allergy (Verified 07/11/17 10:59) Home Medications: Medication Instructions Recorded Promethazine HCl [Phenergan 25mg 25 mg PO Q6HRS PRN 07/22/14 (*)] Multivitamins [Multivitamin (*)] 1 each PO DAILY #0 10/10/15 ALPRAZolam [Xanax 1 MG (*)] 0.5 - 1 mg PO Q6 PRN #0 tab 10/15/15 Diazepam [Valium 5 MG (*)] 5 mg PO TID PRN 10/20/16 Donepezil HCl [Aricept 5 MG (*)] 20 mg PO HS 03/01/17 Meloxicam 15 mg PO DAILY 03/01/17 Metoprolol Succinate Xr [Toprol Xl 100 mg PO DAILY 04/14/17 100 mg (*)] Herbals/Supplements -Info Only 1 ea PO DAILY 07/11/17 Latanoprost 0.005% [Xalatan 0.005% 1 drops EACHEYE HS 07/11/17 (*)] Levocetirizine Dihydrochloride 5 mg PO DAILY PRN 07/11/17 [Xyzal] Pantoprazole Sodium [Protonix 40mg 40 mg PO DAILY 07/11/17 (*)] Sennosides/Docusate Sodium 1 each PO DAILY PRN 07/11/17 [Senna-S Tablet] Sertraline HCl [Zoloft 100mg (*)] 250 mg PO HS 07/11/17 Vitamin B Complex [B Complex] 1 each PO DAILY 07/11/17 Zolpidem Tartrate [Ambien 5MG (*)] 5 mg PO HS PRN 07/11/17 amLODIPine BESYLATE [Norvasc 10 mg 10 mg PO DAILY 07/11/17 (*)] diphenhydrAMINE [Benadryl 25 MG 25 mg PO DAILY PRN 07/11/17 (*)] hydrOXYzine HCL [hydrOXYzine HCL 37.5 mg PO HS PRN 07/11/17 (RX)] tiaGABine [Gabitril 2MG (*)] 2 mg PO DAILY 07/11/17 tiaGABine [Gabitril 2MG (*)] 4 mg PO HS 07/11/17 Amoxicillin/Clavulanate Pot 875 mg PO BID #14 tab 07/18/17 [Augmentin 875 MG TAB (*)] Fluconazole [Diflucan (*)] 400 mg PO DAILY #7 tab 07/18/17 Hydrocodone/APAP 5/325 [[place] 1 - 2 tab PO Q4HRS PRN #20 tab 07/18/17 5/325 (*)] Nicotine [Nicoderm Cq 21 mg (*)] 21 mg TD DAILY #14 patch 07/18/17 Medical Decision Making - Diagnostics EKG Interpretation: EKG: Complete interpretation has been separately recorded in the [facility] archive. Summary impression: Normal sinus rhythm, no ischemic change Imaging Results: Imaging Impressions Chest X-Ray 10/12/17 22:06 Impression: Chronic interstitial lung disease. No evidence for acute pneumonia. Chest x-ray two views shows COPD, unchanged from prior x-ray about 1 year ago, interpreted by me, radiology interpretation is pending. Imaging: I viewed and interpreted images myself Differential Diagnosis: This is a 67-year-old male, history of anxiety with extensive benzodiazepine use , hypertension, COPD who presents from [facility] with elevated blood pressure readings. On exam, his blood pressure is quite elevated about 200/100., otherwise his exam is normal. Plan for the basic labs, dose of his outpatient medication. Labs were checked and were unremarkable. Chest x-ray is normal and unchanged from prior. Patient was given a dose of atenolol with improvement in his blood pressures. He has no symptoms of hypertensive emergency. He will be discharged. He says he is homeless and does not have a place to go. We contacted [facility], and they will take him if he has Librium for benzodiazepine withdrawal. We will give him a pill pack of this. He is happy with this plan. - Data Points Laboratory Results: Laboratory Results 10/12/17 22:20 01/11/18 22:20 10/12/17 10/12/17 22:20 22:20 WBC 9.26 10^3/uL 10^3/uL (3.80-9.50) RBC 5.21 10^6/uL 10^6/uL (4.40-6.38) Hgb 14.0 g/dL g/dL (13.7-17.5) Hct 41.8 % % (40.0-51.0) MCV 80.2 fL L fL (81.5-99.8) MCH 26.9 pg L pg (27.9-34.1) MCHC 33.5 g/dL g/dL (32.4-36.7) RDW 16.1 % H % (11.5-15.2) Plt Count 279 10^3/uL 10^3/uL (150-400) MPV 10.1 fL fL (8.7-11.7) Neut % (Auto) 82.9 % H % (39.3-74.2) Lymph % (Auto) 7.0 % L % (15.0-45.0) [place] % (Auto) 9.1 % % (4.5-13.0) Eos % (Auto) 0.4 % L % (0.6-7.6) Baso % (Auto) 0.2 % L % (0.3-1.7) Nucleat RBC Rel Count 0.0 % % (0.0-0.2) Absolute Neuts (auto) 7.67 10^3/uL H 10^3/uL (1.70-6.50) Absolute Lymphs (auto) 0.65 10^3/uL L 10^3/uL (1.00-3.00) Absolute Monos (auto) 0.84 10^3/uL H 10^3/uL (0.30-0.80) Absolute Eos (auto) 0.04 10^3/uL 10^3/uL (0.03-0.40) Absolute Basos (auto) 0.02 10^3/uL 10^3/uL (0.02-0.10) Absolute Nucleated RBC 0.00 10^3/uL 10^3/uL (0-0.01) Immature Gran % 0.4 % % (0.0-1.1) Immature Gran # 0.04 10^3/uL 10^3/uL (0.00-0.10) Sodium 143 mEq/L mEq/L (135-145) Potassium 4.4 mEq/L mEq/L (3.5-5.2) Chloride 108 mEq/L mEq/L (97-110) Carbon Dioxide 21 mEq/l L mEq/l (22-31) Anion Gap 14 mEq/L mEq/L (8-16) BUN 13 mg/dL mg/dL (7-23) Creatinine 0.9 mg/dL mg/dL (0.7-1.3) Estimated GFR > 60 Glucose 117 mg/dL H mg/dL (70-100) Calcium 9.3 mg/dL mg/dL (8.5-10.4) Total Bilirubin 0.6 mg/dL mg/dL (0.1-1.4) AST 33 IU/L IU/L (17-59) ALT 40 IU/L IU/L (21-72) Alkaline Phosphatase 103 IU/L IU/L (38-126) Total Protein 6.3 g/dL g/dL (6.3-8.2) Albumin 3.6 g/dL g/dL (3.5-5.0) Medications Given: Discontinued Medications Atenolol (Tenormin) 50 mg PO EDNOW ONE Stop: 10/12/17 22:08 Last Admin: 10/12/17 22:34 Dose: 50 mg Chlordiazepoxide (Librium 25 Mg Prepack#6) 1 btl TAKEHOME EDNOW ONE Stop: 10/12/17 23:11 Last Admin: 10/12/17 23:26 Dose: 1 btl Departure - Departure Disposition: Home, Routine, Self-Care Clinical Impression: Anxiety HTN (hypertension) Qualifiers: Hypertension type: unspecified Qualified Code(s): I10 - Essential (primary) hypertension Benzodiazepine withdrawal Qualifiers: Complication of substance-induced condition: uncomplicated Qualified Code(s): F13.230 - Sedative, hypnotic or anxiolytic dependence with withdrawal, uncomplicated Condition: Good Instructions: Chlordiazepoxide (By mouth), Chronic Hypertension (ED) Additional Instructions: Please follow-up with your regular doctor as planned. You should return to the emergency department if your worse in any way. Referrals: [facility],. [Clinic] - As per Instructions
[2017-10-12 22:11] VITALS: TEMP 98.2
[2017-10-12 22:31] LABS: PLATELET COUNT 279 10^3/uL (150-400)
--- NOTE | 2017-10-12 22:38 | CPEKG ---
Heart Rate: 68 RR Interval: 882 P-R Interval: 144 QRSD Interval: 112 QT Interval: 444 QTC Interval: 473 P Rawson: 64 QRS Rawson: -51 T Wave Rawson: 35 EKG Severity - ABNORMAL ECG - EKG Impression: SINUS RHYTHM EKG Impression: LAD, CONSIDER LEFT ANTERIOR FASCICULAR BLOCK Electronically Signed By: Angelo Boyd 13-Oct-2017 12:38:32
[2017-10-12] MEDS ORDERED: CHLORDIAZEPOXIDE 25MG PREPK#6 BTL TAKEHOME ONE (23:10)
[2017-10-12 23:33] VITALS: BP 190/104; PULSE 74; RESP 16; O2SAT 92
== END 2017-10-12 23:33 | disposition home or self-care (01) ==
LOC: EDUNIT#
DX: I10 Essential (primary) hypertension (principal); F41.9 Anxiety disorder, unspecified; F13.230 Sedative, hypnotic or anxiolytic dependence with withdrawal, uncomplicated; J44.9 Chronic obstructive pulmonary disease, unspecified; F17.200 Nicotine dependence, unspecified, uncomplicated

== ENCOUNTER 2017-10-16 04:36 | Emergency (ER) | payer OTHER, MEDICAID ==
[2017-10-16] MEDS ORDERED: NS 1,000 ML IV ONE (04:46)
[2017-10-16] MEDS ORDERED: ACETAMINOPHEN 500 MG TAB PO ONE (04:46)
[2017-10-16 04:52] VITALS: BP 142/118; PULSE 76; RESP 20; TEMP 97.9; O2SAT 92
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
[2017-10-16 05:01] LABS: PLATELET COUNT 331 10^3/uL (150-400)
--- NOTE | 2017-10-16 10:18 | ASMTCMCOM ---
CM Note CM Note Notes: This CM and a [facility] RN Hendrum found pt sitting on stairs in parking garage this morning. He had been seen in ED and released. He is homeless and was transported from [facility] early this morning after calling 911. He was staying there for the night. Per Eulogio, [facility] and he has an appt at 1:00 with [facility] about housing. Given the weather and pt's difficulty walking, a cab voucher was provided to take him to his car. ED CM informed. Date Signed: 10/16/2017 10:17 AM Electronically Signed By:ROSMERY Veliz
== END 2017-10-16 07:01 | disposition home or self-care (01) ==
LOC: EDUNIT#
DX: R25.2 Cramp and spasm (principal); I10 Essential (primary) hypertension; F17.200 Nicotine dependence, unspecified, uncomplicated

== ENCOUNTER 2017-10-27 20:51 | Emergency (ER) | payer OTHER, MEDICAID ==
[2017-10-27 22:04] VITALS: TEMP 98.6
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
[2017-10-27 23:26] VITALS: BP 145/97; PULSE 71; RESP 12; O2SAT 93
== END 2017-10-27 23:30 | disposition home or self-care (01) ==
LOC: EDUNIT#
DX: S39.012A Strain of muscle, fascia and tendon of lower back, initial encounter (principal); I10 Essential (primary) hypertension; F17.200 Nicotine dependence, unspecified, uncomplicated; V43.02XA Car driver injured in collision with other type car in nontraffic accident, initial encounter; Y92.410 Unspecified street and highway as the place of occurrence of the external cause; Y93.89 Activity, other specified

== ENCOUNTER 2017-10-30 13:47 | Emergency (ER) | payer OTHER, MEDICAID ==
[2017-10-30 13:59] VITALS: BP 151/98; PULSE 100; RESP 20; TEMP 98.2; O2SAT 92
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
== END 2017-10-30 14:35 | disposition home or self-care (01) ==
DX: S20.219D Contusion of unspecified front wall of thorax, subsequent encounter (principal); F17.200 Nicotine dependence, unspecified, uncomplicated; I10 Essential (primary) hypertension; V89.2XXD Person injured in unspecified motor-vehicle accident, traffic, subsequent encounter

== ENCOUNTER 2017-10-31 10:56 | Emergency (ER) | payer OTHER, MEDICAID ==
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
[2017-10-31 11:34] LABS: PLATELET COUNT 334 10^3/uL (150-400)
[2017-10-31] MEDS ORDERED: METOPROLOL TARTRATE 5 MG/5 ML INJ IVP ONE (12:46)
[2017-10-31] MEDS ORDERED: METOPROLOL TARTRATE 5 MG/5 ML INJ ONE (12:58)
[2017-10-31] MEDS: ONDANSETRON 4 MG/2 ML VIAL IVP ONE ×2 (14:10→14:14)
[2017-10-31] MEDS ORDERED: ONDANSETRON DISINTEGRATING 4 MG TAB ONE (14:12)
[2017-10-31] MEDS ORDERED: ONDANSETRON DISINTEGRATING 4 MG TAB PO ONE (14:14)
--- NOTE | 2017-10-31 14:18 | CPEKG ---
Heart Rate: 74 RR Interval: 811 P-R Interval: 148 QRSD Interval: 108 QT Interval: 412 QTC Interval: 457 P Clyde: 61 QRS [place]de: -52 T Wave [place]: 48 EKG Severity - ABNORMAL ECG - EKG Impression: SINUS RHYTHM EKG Impression: LAD, CONSIDER LEFT ANTERIOR FASCICULAR BLOCK Electronically Signed By: Daniel Barragan 31-Oct-2017 14:50:55
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
[2017-10-31 15:09] VITALS: BP 165/90; PULSE 75; RESP 16; TEMP 98.1; O2SAT 95
--- NOTE | 2017-10-31 15:45 | ASMTCMCOM ---
CM Note CM Note Notes: Patient discharged from the ER with thorough instructions for follow up provided, including picking up medications at his pharmacy-[facility] , continued follow up with case management at [facility] and his care coordinators at [facility] and Dr. Singh. Patient's friend "Trae" is picking patient up and I have called Clara, patient's therapist at [facility] to inform her of patient's discharge from the ED Date Signed: 10/31/2017 03:45 PM Electronically Signed By:Mary Gibson RN
== END 2017-10-31 15:32 | disposition home or self-care (01) ==
LOC: EDUNIT#
DX: I10 Essential (primary) hypertension (principal)
CPT/HCPCS: 96374; J2405

== ENCOUNTER 2017-11-02 09:44 | Inpatient (IN) | payer OTHER, MEDICAID ==
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
[2017-11-02 10:30] LABS: PLATELET COUNT 280 10^3/uL (150-400)
[2017-11-02] MEDS ORDERED: IOPAMIDOL (ISOVUE 370) 100 ML BTL IV ONE (10:52)
[2017-11-02] MEDS ORDERED: NS 1,000 ML IV ONE ×2 (10:58→12:46)
[2017-11-02] MEDS ORDERED: LORazepam 2 MG/ML INJ IVP ONE ×2 (10:58→12:46)
--- NOTE | 2017-11-02 12:40 | CPEKG ---
Heart Rate: 81 RR Interval: 741 P-R Interval: 144 QRSD Interval: 106 QT Interval: 388 QTC Interval: 451 P [place]: 53 QRS [place]: -58 T Wave [place]: 48 EKG Severity - ABNORMAL ECG - EKG Impression: SINUS TACHYCARDIA EKG Impression: LAD, CONSIDER LEFT ANTERIOR FASCICULAR BLOCK Electronically Signed By: Kiara Guerrero 02-Nov-2017 15:10:42
[2017-11-02] MEDS ORDERED: ONDANSETRON DISINTEGRATING 4 MG TAB PO PRN (12:59)
[2017-11-02] MEDS ORDERED: ONDANSETRON 4 MG/2 ML VIAL IVP PRN (12:59)
[2017-11-02] MEDS: ACETAMINOPHEN 325 MG TAB PO PRN (14:23)
[2017-11-02] MEDS ORDERED: ZOLPIDEM TARTRATE 5 MG TAB PO PRN (14:27)
[2017-11-02] MEDS ORDERED: hydrOXYzine HCL 25 MG TAB PO PRN (14:27)
[2017-11-02] MEDS ORDERED: PROMETHAZINE HCL 25 MG TAB PO PRN (14:27)
[2017-11-02] MEDS ORDERED: ACETAMINOPHEN/ASA/CAFFEINE 1 EACH TAB PO PRN (14:27)
[2017-11-02] MEDS ORDERED: METOPROLOL SUCCINATE XR 100 MG TAB PO SCH (14:30)
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
[2017-11-02] MEDS: METOPROLOL SUCCINATE XR 50 MG TAB PO SCH (15:46)
[2017-11-02] MEDS: DIAZEPAM 5 MG TAB PO PRN (16:00)
[2017-11-02] MEDS: SUCRALFATE 1 GM/10 ML UDCUP PO SCH ×2 (17:26→22:31)
[2017-11-02] MEDS: BECLOMETHASONE QVAR 80 MDI IH SCH (18:07)
[2017-11-02] MEDS: traMADol 50 MG TAB PO PRN (18:09)
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
[2017-11-02] MEDS ORDERED: hydrALAZINE 20 MG/ML VIAL IVP PRN ×2 (18:26→20:28)
[2017-11-02] MEDS ORDERED: PROMETHAZINE HCL 25 MG/ML INJ IVP PRN (20:29)
[2017-11-02] MEDS ORDERED: hydrALAZINE 20 MG/ML VIAL IVP ONE (20:30)
[2017-11-02] MEDS ORDERED: ENOXAPARIN 100 MG/ML SYR SC SCH (21:00)
[2017-11-02] MEDS: DONEPEZIL HCL 5 MG TAB PO SCH (22:29)
[2017-11-02] MEDS: PANTOPRAZOLE SODIUM 40 MG TAB PO SCH (22:30)
[2017-11-02] MEDS: SERTRALINE HCL 100 MG TAB PO SCH (22:30)
[2017-11-02] MEDS: FLUTICASONE/SALMETER 250/50MCG DISKUS IH SCH (22:32)
[2017-11-02] MEDS: LATANOPROST 0.005% 2.5 ML OPHT DROPS EACHEYE SCH (22:35)
[2017-11-02] MEDS: oxyCODONE IR 5 MG TAB PO PRN (22:59)
[2017-11-02] MEDS: ENOXAPARIN 100 MG/ML SYR SC SCH (23:53)
[2017-11-03] MEDS: BECLOMETHASONE QVAR 80 MDI IH SCH ×4 (04:31→17:38)
[2017-11-03] MEDS: SUCRALFATE 1 GM/10 ML UDCUP PO SCH ×5 (05:50→21:57)
[2017-11-03] MEDS: traMADol 50 MG TAB PO PRN (06:05)
[2017-11-03 06:59] LABS: PLATELET COUNT 265 10^3/uL (150-400)
[2017-11-03 07:03] LABS: INR 1.22 (0.83-1.16); PROTIME(PATIENT) 15.6 SEC (12.0-15.0)
[2017-11-03] MEDS: METHOCARBAMOL 500 MG TAB PO PRN ×3 (08:17→20:00)
[2017-11-03] MEDS: ALPRAZolam 1 MG TAB PO PRN ×3 (08:18→19:59)
[2017-11-03] MEDS: METOPROLOL SUCCINATE XR 50 MG TAB PO SCH (08:18)
[2017-11-03] MEDS: PANTOPRAZOLE SODIUM 40 MG TAB PO SCH ×2 (09:04→21:56)
[2017-11-03] MEDS: MULTIVITAMINS 1 EACH TAB PO SCH (09:04)
[2017-11-03] MEDS: ENOXAPARIN 100 MG/ML SYR SC SCH ×2 (09:04→21:54)
[2017-11-03] MEDS ORDERED: PROMETHAZINE HCL 25 MG/ML INJ IVP PRN (09:09)
--- NOTE | 2017-11-03 09:10 | HOSPPROG ---
Hospitalist Progress Note Assessment/Plan: 67 yo M w pe PE: suspect acute and subacute on lmwh ideally would receive NOAc as outpt given homelessness and mental illness CM investigating a payer source htn: metoprolol improved mental illness: continue meds i suspect this is the etiology of his homelessness dispo: inpt Subjective: feels well. complimentary re: care Objective: Vital Signs Temp Pulse Resp BP Pulse Ox 36.4 C 98 16 184/96 H 95 11/03/17 07:52 11/03/17 08:18 11/03/17 07:52 11/03/17 08:18 11/03/17 07:52 Laboratory Results 11/03/17 04:16 11/03/17 04:16 11/02/17 11/03/17 11/04/17 05:59 05:59 05:59 Intake Total 2100 Output Total 1080 Balance 1020 PT 15.6 SEC (12.0-15.0) H 11/03/17 04:16 INR 1.22 (0.83-1.16) H 11/03/17 04:16 - Physical Exam Constitutional: no apparent distress, appears nourished Eyes: PERRL, anicteric sclera Ears, Nose, Mouth, Throat: moist mucous membranes, hearing normal Cardiovascular: regular rate and rhythym, no murmur, rub, or gallop, No tachycardia Respiratory: no respiratory distress, no rales or rhonchi Gastrointestinal: normoactive bowel sounds, soft, non-tender abdomen Genitourinary: no bladder fullness, No okeefe in urethra Skin: warm, normal color Musculoskeletal: full muscle strength Neurologic: AAOx3 ICD10 Worksheet Patient Problems: Problems Problem Status Onset Pulmonary embolism Acute Acute encephalopathy Acute Afib - Atrial fibrillation Acute Aspiration into airway Acute Assistance needed for ambulation and movement Acute Chest pain Acute Ubly toxicity Acute Perforation of sigmoid colon Acute
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
[2017-11-03] MEDS: FLUTICASONE/SALMETER 250/50MCG DISKUS IH SCH ×2 (10:40→20:10)
[2017-11-03] MEDS: PERMETHRIN 5% 60 GM CREAM TP SCH (10:41)
[2017-11-03] MEDS: TIOTROPIUM INHALER 18 MCG/DOSE 5 DOSE/MDI IH SCH (10:41)
[2017-11-03] MEDS: Meloxicam [Meloxicam] 15 MG PO SCH (10:43)
[2017-11-03] MEDS: TAMSULOSIN HCL 0.4 MG CAP PO SCH (11:25)
--- NOTE | 2017-11-03 15:46 | ASMTCMCOM ---
CM Note CM Note Notes: Valeriano from [facility] returned Hailey's phone call regarding admission to ED and up to floor. Valeriano expressed concerns for pt whereabouts and relayed that the pt has a significant TBI and has difficulty with Q/A on some occasions. Valeriano can be reached directly at [phone] EX 1 Date Signed: 11/03/2017 03:45 PM Electronically Signed By:Nathan Jacome LCSW
--- NOTE | 2017-11-03 16:07 | ASMTCMCOM ---
CM Note CM Note Notes: Pt was able to receive his Xarelto today, [facility] staff found out pt is covered for prescriptions with [employer] Pt D plan. Pt will d/c to care home. Date Signed: 11/03/2017 04:07 PM Electronically Signed By:ROSMERY Hayden
[2017-11-03] MEDS: oxyCODONE IR 5 MG TAB PO PRN (17:00)
[2017-11-03] MEDS: ACETAMINOPHEN 325 MG TAB PO PRN (19:59)
[2017-11-03] MEDS: DONEPEZIL HCL 5 MG TAB PO SCH (21:54)
[2017-11-03] MEDS: LATANOPROST 0.005% 2.5 ML OPHT DROPS EACHEYE SCH (21:56)
[2017-11-03] MEDS: SERTRALINE HCL 100 MG TAB PO SCH (21:56)
[2017-11-04] MEDS: METHOCARBAMOL 500 MG TAB PO PRN (04:41)
[2017-11-04] MEDS: DIAZEPAM 5 MG TAB PO PRN (04:42)
[2017-11-04] MEDS: ACETAMINOPHEN 325 MG TAB PO PRN (04:42)
[2017-11-04] MEDS: SUCRALFATE 1 GM/10 ML UDCUP PO SCH ×3 (06:09→13:56)
[2017-11-04] MEDS: BECLOMETHASONE QVAR 80 MDI IH SCH (06:16)
[2017-11-04] MEDS: ALPRAZolam 1 MG TAB PO PRN ×2 (06:41→15:16)
[2017-11-04 08:06] VITALS: RESP 16
[2017-11-04] MEDS: TIOTROPIUM INHALER 18 MCG/DOSE 5 DOSE/MDI IH SCH (08:38)
[2017-11-04] MEDS: FLUTICASONE/SALMETER 250/50MCG DISKUS IH SCH (08:38)
[2017-11-04] MEDS: ENOXAPARIN 100 MG/ML SYR SC SCH (10:06)
[2017-11-04] MEDS: TAMSULOSIN HCL 0.4 MG CAP PO SCH (10:09)
[2017-11-04] MEDS: METOPROLOL SUCCINATE XR 50 MG TAB PO SCH (10:09)
[2017-11-04] MEDS: MULTIVITAMINS 1 EACH TAB PO SCH (10:09)
[2017-11-04] MEDS: PANTOPRAZOLE SODIUM 40 MG TAB PO SCH (10:09)
[2017-11-04] MEDS: Meloxicam [Meloxicam] 15 MG PO SCH (10:14)
[2017-11-04] MEDS: PERMETHRIN 5% 60 GM CREAM TP SCH (10:14)
[2017-11-04 12:10] VITALS: BP 154/94; PULSE 77; TEMP 97.9; O2SAT 92
[2017-11-04] MEDS: oxyCODONE IR 5 MG TAB PO PRN (16:26)
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
--- NOTE | 2017-11-04 20:20 | GDS ---
[f rep st] DISCHARGE SUMMARY DISCHARGE DIAGNOSES: 1. Acute pulmonary emboli. 2. Hypertension, chronic. 3. History of atrial fibrillation. 4. Chronic obstructive pulmonary disease. 5. Traumatic brain injury. 6. Anxiety. 7. Chronic tremor. HISTORY OF PRESENT ILLNESS: A 67-year-old homeless male who presents with complaints of shortness of breath and needing medication refills. For details of the patient's initial presentation, please se e the history and physical dated 11/02/2017. CONSULTS ON THIS PATIENT: Case Management. PROCEDURES: On 11/02/2017, the patient had a CT of the chest with contrast that showed left lower lo be pulmonary emboli. HOSPITAL COURSE: 1. Acute pulmonary emboli. The patient was initially started on Lovenox, and is being transitioned at disposition to Xarelto. He had his script effectively filled through his insurance, and has medic ations in hand to leave the hospital. He will initiate his Xarelto dosing this evening. 2. Homelessness. Case management has put extensive time into supporting disposition for this patien t, including clothing and other resources. 3. Hypertension. The patient will be continued on his chronic home medications without change. MEDICATIONS AT THE TIME OF DISPOSITION: Please reference the med rec printed on 11/04/2017. FOLLOWUP APPOINTMENTS: Primary care provider in the next 2-3 weeks before the completion of his Xare lto load. PENDING STUDIES: At the time of this dictation are none. TIME SPENT: I spent greater than 30 minutes in the planning and coordination of this discharge. /[id number]/MODL
== END 2017-11-04 16:37 | disposition home or self-care (01) | DRG 176 ==
LOC: EDUNIT# → OBSVTOIN 12:59 → F3N 13:58
PROVIDERS: ADMIT Internal Medicine; ATTEND Internal Medicine
PROC: B32S1ZZ Computerized Tomography (CT Scan) of Right Pulmonary Artery using Low Osmolar Contrast (ICD-10-PCS; principal; 2017-11-02)
DX: I26.99 Other pulmonary embolism without acute cor pulmonale (principal); I10 Essential (primary) hypertension; I48.91 Unspecified atrial fibrillation; J44.9 Chronic obstructive pulmonary disease, unspecified; F41.9 Anxiety disorder, unspecified; G25.2 Other specified forms of tremor; Z59.0 Homelessness; Z72.0 Tobacco use
CPT/HCPCS: 92523-GN; 96374; 97161-GP; 97165-GO; G8978-GP-CI; G8979-GP-CI; G8980-GP-CI; G8987-GO-CI; G8988-GO-CI; G9165-GN-CH; G9166-GN-CH; G9167-GN-CH; J0360; J1650; J2060; J2405; J2550; Q9967

== ENCOUNTER 2017-11-05 09:48 | Emergency (ER) | payer OTHER, MEDICAID ==
--- NOTE | 2017-11-05 10:42 | CPEKG ---
Heart Rate: 62 RR Interval: 968 P-R Interval: 148 QRSD Interval: 104 QT Interval: 440 QTC Interval: 447 P Bryan: 54 QRS Bryan: -49 T Wave Bryan: 51 EKG Severity - ABNORMAL ECG - EKG Impression: SINUS RHYTHM EKG Impression: PROBABLE LEFT ATRIAL ABNORMALITY EKG Impression: LAD, CONSIDER LEFT ANTERIOR FASCICULAR BLOCK Electronically Signed By: Shayna Brito 06-Nov-2017 07:15:27
[2017-11-05 10:49] LABS: PLATELET COUNT 279 10^3/uL (150-400)
[2017-11-05 11:03] VITALS: RESP 18
[2017-11-05] MEDS ORDERED: traMADol 50 MG TAB PO ONE (13:11)
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
[2017-11-05 15:42] VITALS: BP 164/101; PULSE 75; TEMP 98.1; O2SAT 95
--- NOTE | 2017-11-05 16:29 | ASMTCMCOM ---
CM Note CM Note Notes: Pt presented to the ED via EMS for chest and back pain, from the [facility]. Patient reports onset of pain was "after the alf closed." Pt recently admitted to [facility] 11/02-11/04 for pulmonary embolisms. Pt dc'd yesterday to [facility], with Xarelto medication and instructions to follow up with his PCP Dr Singh. Patient states he has been taking the Xarelto as prescribed. Patient is current with [facility] case management. Spoke with Niraj at [facility] front load trash truck driver ([phone]) and he says patient was assessed at [facility] to be "a higher functional adult who will likely return to housing soon." Housing is still not available for patient at this time but Niraj and the other family service caseworker who knows the patient, Valeriano Marquez, will look for him tomorrow morning and try to assist him in any way they can. Patient requesting refills of his home medications (primarily asking for Xanax) and he was reminded that during his 11/02/17 ED visit his PDMP records were reviewed and he appears to have filled high-quanity amounts of his home medications multiple times in the last few weeks (most recently confirmed refills picked up on 10/31/17). Pt states he doesn't have the medications and doesn't know where they are. Patient has a long-standing history of abusing his Xanax and other controlled medications. Pt provided one dose of Tramadol in the ED today. Spoke with Batsheva at [facility] (pt signed an ED for [facility] to talk to [facility] during a previous visit) and pt doesn't have any appointments scheduled until December 03 with a prescriber. Batsheva is not able to find any information regarding [facility] helping pt with housing. Patient will be strongly encouraged to follow up with Clara (randee Shaffer) his therapist at [facility] this week for his ongoing anxiety. This CM to follow up with Clara tomorrow. Patient requesting to be admitted. Patient's ED labs and testing do not indicate criteria for admission. Patient dc'd to [facility] with instructions to follow up with PCP, [facility] and [facility] case mgmt. Date Signed: 11/05/2017 04:29 PM Electronically Signed By:Hailey Maynard RN
--- NOTE | 2017-11-05 16:33 | ASDISCHSUM ---
Discharge Information Plan Status:Homeless/Long-Term Medically Cleared to Leave: Discharge Date:11/05/2017 03:39 PM CM D/C Disposition:Streets (Homeless) ADT D/C Disposition:Home, Routine, Self-Care Projected Discharge Date:11/05/2017 03:39 PM Transportation at D/C:None or Unknown Discharge Delay Reason: Follow-Up Date:11/05/2017 03:39 PM Discharge Slot: Final Diagnosis: Placement Information Patient Contact Information Contact Name:PTDPTNONE Relationship:Friend Address: Work Phone: City: [facility] Phone: State/Zip Code: Email: Financial Information Financial Class: Primary Plan Desc:MEDICARE OUTPATIENT Primary Plan Number:[id number] Secondary Plan Desc:MEDICAID HEALTH FIRST 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 Patient reports onset of pain was "after the care home closed." Pt recently admitted to [facility] 11/02-11/04 for pulmonary embolisms. Pt dc'd yesterday to [facility], with Xarelto medication and instructions to follow up with his PCP Dr Singh. Patient states he has been taking the Xarelto as prescribed. Patient is current with [facility] case management. Spoke with Niraj at [facility] front counter clerk ([phone]) and he says patient was assessed at [facility] to be "a higher functional adult who will likely return to housing soon." Housing is still not available for patient at this time but Niraj and the other hospice case manager who knows the patient, Valeriano Marquez, will look for him tomorrow morning and try to assist him in any way they can. Patient requesting refills of his home medications (primarily asking for Xanax) and he was reminded that during his 11/02/17 ED visit his PDMP records were reviewed and he appears to have filled high-quanity amounts of his home medications multiple times in the last few weeks (most recently confirmed refills picked up on 10/31/17). Pt states he doesn't have the medications and doesn't know where they are. Patient has a long-standing history of abusing his Xanax and other controlled medications. Pt provided one dose of Tramadol in the ED today. Spoke with Batsheva at [facility] (pt signed an ED for [facility] to talk to [facility] during a previous visit) and pt doesn't have any appointments scheduled until December 03 with a prescriber. Batsheva is not able to find any information regarding [facility] helping pt with housing. Patient will be strongly encouraged to follow up with Clara (randee Shaffer) his therapist at [facility] this week for his ongoing anxiety. This CM to follow up with Clara tomorrow. Patient requesting to be admitted. Patient's ED labs and testing do not indicate criteria for admission. Patient dc'd to [facility] care home with instructions to follow up with PCP, P and [facility] case mgmt. Date Signed: 11/05/2017 04:29 PM Electronically Signed By:Hailey Maynard RN LACE LACE Acuity / Level of Answers: No Care: Did the patient have an inpatient admission? Comorbidities - select Answers: Chronic pulmonary disease all that apply Other # of Emergency department Answers: 9-12 visits in the last 6 months Social determinants Answers: History of substance abuse (ETHO, street drugs, prescription drugs, etc.) Homelessness (street, care home) Mental health diagnosis (anxiety, depression, pers onality disorders, etc.) Lack of community resources and/or lack of social support (no pcp, lives alone, transportation, rhea d) Score: 21 Date Signed: 11/05/2017 04:32 PM Electronically Signed By:Hailey Maynard RN Intervention Information
--- NOTE | 2017-11-06 11:09 | ASMTCMCOM ---
CM Note CM Note Notes: Call from Niraj at [facility] re: patient's recent ED visit yesterday. Per Niraj, patient has a bed at [facility], and they are working with him to help with better management of his anxiety. They have been in touch with EPS to consider a 12 day respite stay; however, they are also considering a referral to [facility] due to patient's inability to manage himself (has 7 ED visits already in 2018) and his prescription medications, most notably the benzodiazepines. If patient presents to the ED again, we should call [facility] at [phone] ext 1 Date Signed: 11/06/2017 11:08 AM Electronically Signed By:Carmina Howell RN
== END 2017-11-05 15:39 | disposition home or self-care (01) ==
LOC: EDUNIT#
DX: I26.99 Other pulmonary embolism without acute cor pulmonale (principal); I10 Essential (primary) hypertension; J44.9 Chronic obstructive pulmonary disease, unspecified; F17.200 Nicotine dependence, unspecified, uncomplicated

== ENCOUNTER 2017-11-06 11:35 | Emergency (ER) | payer OTHER, MEDICAID ==
--- NOTE | 2017-11-06 12:19 | CPEKG ---
Heart Rate: 73 RR Interval: 822 P-R Interval: 148 QRSD Interval: 102 QT Interval: 424 QTC Interval: 468 P [place]: 59 QRS [place]: -60 T Wave [place]: 49 EKG Severity - ABNORMAL ECG - EKG Impression: SINUS RHYTHM EKG Impression: MULTIPLE ATRIAL PREMATURE COMPLEXES EKG Impression: LAD, CONSIDER LEFT ANTERIOR FASCICULAR BLOCK Electronically Signed By: Sam Merrill 08-Nov-2017 17:29:06
[2017-11-06] MEDS ORDERED: ALPRAZolam 0.25 MG TAB PO ONE (12:57)
[2017-11-06] MEDS ORDERED: traMADol 50 MG TAB PO ONE (12:58)
--- NOTE | 2017-11-06 14:25 | EDPHY ---
H & P Time Seen by Provider: 11/06/17 12:21 HPI/ROS: CHIEF COMPLAINT: Shortness of breath, diffuse pain, anxiety HISTORY OF PRESENT ILLNESS: 67-year-old male presents to the emergency department with multiple complaints including feeling extremely anxious, shortness of breath and having diffuse pain. Patient was recently admitted to the hospital and diagnosed with bilateral pulmonary embolism. He has been taking Xarelto as prescribed. He states that he has been without his Xanax for several days and he feels extremely anxious. He is having difficulty controlling his pain. He is currently homeless. REVIEW OF SYSTEMS: Constitutional: No fever, no chills. Eyes: No double or blurry vision. ENT: No sore throat. Respiratory: Shortness of breath. No cough Cardiac: No chest pain. Gastrointestinal: Abdominal pain. No vomiting or diarrhea Genitourinary: No dysuria. Musculoskeletal: Neck and back pain Skin: No rashes. Neurological: No headache. Past Medical/Surgical History: Spinal fusion, hypertension, traumatic brain injury, subdural hematoma, anxiety , ulcer, pulmonary embolism Social History: Homeless Smoking Status: Light smoker Physical Exam: General Appearance: Extremely anxious. Hyperventilating. Vital signs are stable. Eyes: Pupils equal and round. Extraocular motions are all intact. ENT: Mouth: Mucous membranes moist. Respiratory: No wheezing, rhonchi, or rales, lungs are clear to auscultation. Cardiovascular: Regular rate and rhythm. Gastrointestinal: Abdomen is soft. Diffusely tender to palpate. No masses, rebound or guarding noted. Neurological: Uncooperative, cannot determine. Skin: Warm and dry, no rashes. Musculoskeletal: Nontender to palpate along the cervical, thoracic or lumbar spine. Neck is supple. Extremities: Full range of motion and no peripheral edema. Psychiatric: Agitated. Constitutional: Initial Vital Signs Temperature (C) 36.3 C 11/06/17 12:00 Heart Rate 90 11/06/17 12:00 Respiratory Rate 20 11/06/17 12:00 Blood Pressure 146/111 H 11/06/17 12:00 O2 Sat (%) 93 11/06/17 12:00 O2 Delivery Mode Room Air Allergies/Adverse Reactions: Penicillins Allergy (Verified 11/05/17 10:07) preservative in Lidocaine Allergy (Uncoded 10/27/17 21:46) Home Medications: Medication Instructions Recorded Promethazine HCl [Phenergan 25mg 25 mg PO Q6HRS PRN 07/22/14 (*)] Multivitamins [Multivitamin (*)] 1 each PO DAILY #0 10/10/15 ALPRAZolam [Xanax 1 MG (*)] 0.5 - 1 mg PO Q6 PRN #0 tab 10/15/15 Diazepam [Valium 5 MG (*)] 5 mg PO TID PRN 10/20/16 Meloxicam 15 mg PO DAILY 03/01/17 Metoprolol Succinate Xr [Toprol Xl 50 mg PO DAILY 04/14/17 100 mg (*)] Latanoprost 0.005% [Xalatan 0.005% 1 drops EACHEYE HS 07/11/17 (*)] Pantoprazole Sodium [Protonix 40mg 40 mg PO BID 07/11/17 (*)] Sertraline HCl [Zoloft 100mg (*)] 250 mg PO HS 07/11/17 hydrOXYzine HCL [hydrOXYzine HCL 37.5 mg PO HS PRN 07/11/17 (RX)] Acetaminophen [Tylenol 325mg (*)] 650 mg PO Q4HRS PRN 11/02/17 Acetaminophen/ASA/Caffeine 1 each PO DAILY PRN 11/02/17 [Excedrin Tablet (*)] Beclomethasone Qvar 80 [Qvar 80 1 puffs IH BIDI 11/02/17 (*)] Donepezil HCl [Aricept 5 MG (*)] 20 mg PO HS 11/02/17 Fluticasone/Salmeter 250/50Mcg 1 puffs IH BID 11/02/17 [Advair 250/50 (*)] Methocarbamol [Robaxin 500 mg (*)] 1,000 mg PO QID PRN 11/02/17 Permethrin 5% [Elimite 5%] 1 maximo TP DAILY 11/02/17 Sucralfate [Carafate 1gm/10ml Oral 1 gm PO 5XD 11/02/17 Liquid (*)] Tamsulosin HCl [Flomax 0.4 MG (*)] 0.4 mg PO DAILY 11/02/17 Tiotropium Inhaler [Spiriva 1 inh IH DAILY 11/02/17 Inhaler (RX)] Triamcinolone 0.1% [Triamcinolone 1 maximo TP BID PRN 11/02/17 0.1% Cream (*)] Zolpidem Tartrate [Ambien 5MG (*)] 5 mg PO HS PRN 11/02/17 traMADol [Ultram 50 mg (*)] 50 mg PO Q6HRS PRN 11/02/17 Rivaroxaban [Xarelto 15mg (*)] 15 mg PO BID #42 tab 11/04/17 Rivaroxaban [Xarelto] 20 mg PO DAILY #30 tab 11/04/17 Medical Decision Making ED Course/Re-evaluation: 67-year-old male presents to the emergency department feeling extremely anxious. He was recently discharged to the hospital with diagnosis of pulmonary embolism and anxiety. He was given all his medications. He states that the [employer] police took his medications. Patient was given 1 mg of Xanax p. o.. We are waiting case consultant who is in a meeting currently. I did speak with the [facility] where the patient was this morning and they sent him here for possible mental health evaluation for respite treatment. When I talked with the patient about this, the patient after he received his medications, was dressed and walking around and clearly in no apparent distress. I did explain to the patient that is very concerning that he continues to have ongoing symptoms of anxiety. The it sounds like he is having difficulty he controlling his medications. The staff from [facility] came to pick the patient up from the hospital and is taking him to [facility]. Patient was comfortable with this plan. The patient is not suicidal homicidal. I do not think the patient needs admission to the hospital. He has been taking his medications as prescribed with the exception of his Xanax which apparently was taken by the police. Differential Diagnosis: Including but not limited to drug-seeking behavior, anxiety, hyperventilation syndrome, pulmonary embolism, pulmonary infarct, pulmonary infectious process, COPD, asthma, congestive heart failure. - Data Points Medications Given: Discontinued Medications Alprazolam (Xanax) 1 mg PO EDNOW ONE Stop: 11/06/17 12:58 Last Admin: 11/06/17 13:15 Dose: 1 mg Tramadol HCl (Ultram) 50 mg PO EDNOW ONE Stop: 11/06/17 12:59 Last Admin: 11/06/17 13:15 Dose: 50 mg Departure - Departure Disposition: Home, Routine, Self-Care Clinical Impression: Anxiety Back pain Qualifiers: Back pain location: low back pain Chronicity: chronic Back pain laterality: unspecified Sciatica presence: without sciatica Qualified Code(s): M54.5 - Low back pain; G89.29 - Other chronic pain; G89.29 - Other chronic pain Condition: Good Instructions: Back Pain (ED), Anxiety (ED) Additional Instructions: Go directly to EPS for mental health evaluation. Continue your medications as prescribed. Referrals: Alcides Singh MD [Primary Care Provider] - As per Instructions
[2017-11-06 14:40] VITALS: BP 144/83; PULSE 80; RESP 18; TEMP 97.5; O2SAT 95
--- NOTE | 2017-11-07 20:59 | ASMTCMCOM ---
CM Note CM Note Notes: Late Entry from yesterday 11/06/17: Patient presented to the ED for chest and back pain and anxiety Patient's protective services case worker, Stacie, from [facility] ([phone]) later arrived to the ED and wanted to transport patient to [facility] for an emergency mental health eval and possible respite bed placement. Patient was medically stable for discharge and agreeable to this plan. Patient was discharged with tSacie. Today 11/07/17: [phone][facility] and she looked up patient's chart from his P/EPS visit yesterday. Patient was evaluated, assessed and accepted at [facility] for Withdrawal Management to detox off of his benzodiazepines. CM available for further assistance if needed. Date Signed: 11/07/2017 08:58 PM Electronically Signed By:Hailey Maynard RN
--- NOTE | 2017-11-07 21:00 | ASDISCHSUM ---
Discharge Information Plan Status:Home with No Needs Medically Cleared to Leave: Discharge Date:11/06/2017 02:45 PM CM D/C Disposition:Home, Routine, Self-Care ADT D/C Disposition:Home, Routine, Self-Care Projected Discharge Date:11/06/2017 02:45 PM Transportation at D/C:Friend Discharge Delay Reason: Follow-Up Date:11/06/2017 02:45 PM Discharge Slot: Final Diagnosis: Placement Information Patient Contact Information Contact Name:TOCLIFFEPATH Relationship:Other Address: Work Phone: City: [facility] Phone: State/Zip Code: Email: Financial Information Financial Class: Primary Plan Desc:MEDICARE OUTPATIENT Primary Plan Number:[id number] Secondary Plan Desc:MEDICAID HEALTH FIRST [place] Secondary Plan Number:[id number] Assessment Information [facility] CM Progress Note CM Note CM Note Notes: Late Entry from yesterday 11/06/17: Patient presented to the ED for chest and back pain and anxiety Patient's adult protective caseworker, Stacie, from [facility] ([phone]) later arrived to the ED and wanted to transport patient to [facility] for an emergency mental health eval and possible respite bed placement. Patient was medically stable for discharge and agreeable to this plan. Patient was discharged with Stacie. Today 11/07/17: [facility][phone][facility] and she looked up patient's [facility]. Patient was evaluated, assessed and accepted at [facility] for Withdrawal Management to detox off of his benzodiazepines. CM available for further assistance if needed. Date Signed: 11/07/2017 08:58 PM Electronically Signed By:Hailey Maynard RN Intervention Information
== END 2017-11-06 14:45 | disposition home or self-care (01) ==
LOC: EDUNIT# → EDBD
DX: F41.9 Anxiety disorder, unspecified (principal); M54.5 Low back pain; G89.29 Other chronic pain; I10 Essential (primary) hypertension; F17.200 Nicotine dependence, unspecified, uncomplicated

== ENCOUNTER 2017-11-25 08:05 | Emergency (ER) | payer OTHER, MEDICAID ==
--- NOTE | 2017-11-25 09:21 | EDPHY ---
H & P Time Seen by Provider: 11/25/17 08:20 HPI/ROS: CHIEF COMPLAINT: Fall, left hip pain HISTORY OF PRESENT ILLNESS: 67-year-old homeless male presents to the emergency department by ambulance complaining of pain in his left hip after he slipped on some ice around 7:00 p.m. Last night and fell on his left hip. He thinks that he also hit the left side of his head. He did not lose consciousness. He has a mild left-sided headache. Denies neck or back pain. Denies chest pain or difficulty breathing. Denies any presyncopal symptoms prior to his fall. Patient states when he woke up this morning he was unable to bear weight on his left hip because of pain. He denies pain in his left knee or ankle. Denies symptoms in the right lower extremity or in his upper extremities bilaterally. He denies paresthesias in his upper or lower extremities. REVIEW OF SYSTEMS: Constitutional: No fever, no chills. Eyes: No double or blurry vision. ENT: No sore throat. Respiratory: No cough, no shortness of breath. Cardiac: No chest pain. Gastrointestinal: No abdominal pain, vomiting or diarrhea. Genitourinary: No dysuria. Musculoskeletal: No neck or back pain. Skin: No rashes. Neurological: No headache. Past Medical/Surgical History: Traumatic brain injury with subdural hematoma, colon perforation due to bone fragment and diverticula hospitalized July 2017, atrial fibrillation, hypertension, COPD, pulmonary embolism with moderate clot burden November of 2017, spinal fusion, anxiety, tremor Social History: Currently homeless, Smoking Status: Light smoker Physical Exam: General Appearance: Alert, no distress. No visible signs of trauma to his head. He is mentating normally and answering questions appropriately. Eyes: Pupils equal and round. Extraocular motions are all intact. ENT: Mouth: Mucous membranes moist. Serous otitis noted on the left. Tympanic membrane is intact. There is some scarring noted on the most inferior aspect of the left tympanic membrane. There is no erythema or bulging. Right tympanic membrane is clear. Respiratory: No wheezing, rhonchi, or rales, lungs are clear to auscultation. Cardiovascular: Regular rate and rhythm. Gastrointestinal: Abdomen is soft and nontender, no masses, no rebound or guarding, bowel sounds normal. Neurological: Alert and oriented x 3, cranial nerves II through XII grossly intact Skin: Warm and dry, no rashes. Musculoskeletal: Nontender to palpate along the cervical, thoracic or lumbar spine. Neck is supple. Extremities: Patient has mild pain with palpation to the lateral aspect of the left hip. There is no abrasion or ecchymosis noted. He has pain with external and internal rotation of the left hip. He is unable to flex his left hip secondary to pain. I am unable to passively flex his left hip secondary to pain. Unable to flex the left knee secondary to pain in his hip. He has normal sensation to light touch with normal 2 point discrimination. Strong dorsalis pedis pulse on the dorsal aspect of the left foot. Full range of motion of the right lower extremity upper extremities bilaterally. Psychiatric: Patient is oriented X 3, there is no agitation. Constitutional: Initial Vital Signs O2 Sat (%) 95 11/25/17 09:09 O2 Delivery Mode Room Air O2 (L/minute) 2 Allergies/Adverse Reactions: Penicillins Allergy (Verified 11/05/17 10:07) preservative in Lidocaine Allergy (Uncoded 10/27/17 21:46) Home Medications: Medication Instructions Recorded Promethazine HCl [Phenergan 25mg 25 mg PO Q6HRS PRN 07/22/14 (*)] Multivitamins [Multivitamin (*)] 1 each PO DAILY #0 10/10/15 ALPRAZolam [Xanax 1 MG (*)] 0.5 - 1 mg PO Q6 PRN #0 tab 10/15/15 Diazepam [Valium 5 MG (*)] 5 mg PO TID PRN 10/20/16 Meloxicam 15 mg PO DAILY 03/01/17 Metoprolol Succinate Xr [Toprol Xl 50 mg PO DAILY 04/14/17 100 mg (*)] Latanoprost 0.005% [Xalatan 0.005% 1 drops EACHEYE HS 07/11/17 (*)] Pantoprazole Sodium [Protonix 40mg 40 mg PO BID 07/11/17 (*)] Sertraline HCl [Zoloft 100mg (*)] 250 mg PO HS 07/11/17 hydrOXYzine HCL [hydrOXYzine HCL 37.5 mg PO HS PRN 07/11/17 (RX)] Acetaminophen [Tylenol 325mg (*)] 650 mg PO Q4HRS PRN 11/02/17 Acetaminophen/ASA/Caffeine 1 each PO DAILY PRN 11/02/17 [Excedrin Tablet (*)] Beclomethasone Qvar 80 [Qvar 80 1 puffs IH BIDI 11/02/17 (*)] Donepezil HCl [Aricept 5 MG (*)] 20 mg PO HS 11/02/17 Fluticasone/Salmeter 250/50Mcg 1 puffs IH BID 11/02/17 [Advair 250/50 (*)] Methocarbamol [Robaxin 500 mg (*)] 1,000 mg PO QID PRN 11/02/17 Permethrin 5% [Elimite 5%] 1 maximo TP DAILY 11/02/17 Sucralfate [Carafate 1gm/10ml Oral 1 gm PO 5XD 11/02/17 Liquid (*)] Tamsulosin HCl [Flomax 0.4 MG (*)] 0.4 mg PO DAILY 11/02/17 Tiotropium Inhaler [Spiriva 1 inh IH DAILY 11/02/17 Inhaler (RX)] Triamcinolone 0.1% [Triamcinolone 1 maximo TP BID PRN 11/02/17 0.1% Cream (*)] Zolpidem Tartrate [Ambien 5MG (*)] 5 mg PO HS PRN 11/02/17 traMADol [Ultram 50 mg (*)] 50 mg PO Q6HRS PRN 11/02/17 Rivaroxaban [Xarelto 15mg (*)] 15 mg PO BID #42 tab 11/04/17 Rivaroxaban [Xarelto] 20 mg PO DAILY #30 tab 11/04/17 Medical Decision Making - Diagnostics Imaging Results: Imaging Impressions Head CT 11/25/17 08:20 Impression: 1. No acute intracranial findings. 2. Stable opacification of the right mastoid air cells and middle ear without evidence of osseous destruction. 3. Additional findings as above. Findings discussed with Key Han on November 25, 2017 at 9:01 a.m. Hip X-Ray 11/25/17 08:21 Impression: 1. No acute osseous findings. 2. Severe osteoarthritis. 3. Atherosclerosis. Extremity CT 11/25/17 09:15 Impression: Severe osteoarthritis with no acute findings. Findings discussed with Key Han on November 25, 2017 at 10:32 a.m. Imaging: Discussed imaging studies w/ banquet server on call Radiologist, I viewed and interpreted images myself ED Course/Re-evaluation: 67-year-old male presents to the emergency department with left hip pain. The patient is on Xarelto and hit his head last evening. CT scan of the brain has been ordered. X-rays of the left hip reveal no obvious fractures, however the patient has significant degenerative changes noted and is difficult to fully excluded fracture. Patient is unable to ambulate due to the pain. CT imaging of the left hip has been ordered. CT imaging reveals no evidence of fracture of the left hip. CT imaging of the brain was normal. The patient was able to ambulate in the emergency department. He was given a meal. [facility]. Patient was given orthopedic referral as he has significant degenerative changes noted in the left hip. Differential Diagnosis: Head injury including but not limited to concussion, skull fracture, intraparenchymal contusion, subarachnoid, subdural and epidural hematoma. Hip injury including but not limited to fracture, dislocation, contusion, sprain , osteoarthritis Departure - Departure Disposition: Home, Routine, Self-Care Clinical Impression: Contusion of left hip Qualifiers: Encounter type: initial encounter Qualified Code(s): S70.02XA - Contusion of left hip, initial encounter Degenerative joint disease (DJD) of hip Qualifiers: Osteoarthritis type: unspecified Laterality: left Qualified Code(s): M16.12 - Unilateral primary osteoarthritis, left hip Condition: Good Instructions: Osteoarthritis (ED), Contusion in Adults (ED) Additional Instructions: Weightbear and activity as tolerated. Return to the emergency department if you develop increasing pain or swelling or any other concerns. Referrals: Lawrence Farley MD [Medical Doctor] - 2-3 days, call for appt. (Orthopedic surgeon on-call)
[2017-11-25 10:55] VITALS: PULSE 87
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
[2017-11-25 18:50] VITALS: BP 176/92; RESP 17; TEMP 97.5; O2SAT 91
== END 2017-11-25 13:08 | disposition home or self-care (01) ==
LOC: EDUNIT#
DX: S70.02XA Contusion of left hip, initial encounter (principal); M16.12 Unilateral primary osteoarthritis, left hip; J44.9 Chronic obstructive pulmonary disease, unspecified; F17.200 Nicotine dependence, unspecified, uncomplicated; W00.0XXA Fall on same level due to ice and snow, initial encounter

== ENCOUNTER 2017-11-29 08:07 | Emergency (ER) | payer OTHER, MEDICAID ==
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
[2017-11-29 08:16] VITALS: TEMP 97.9
[2017-11-29 09:47] VITALS: BP 177/102; PULSE 89; RESP 16; O2SAT 92
== END 2017-11-29 10:30 | disposition home or self-care (01) ==
LOC: EDUNIT#
DX: S79.912A Unspecified injury of left hip, initial encounter (principal); I10 Essential (primary) hypertension; J44.9 Chronic obstructive pulmonary disease, unspecified; F17.200 Nicotine dependence, unspecified, uncomplicated; V78 Bus occupant injured in noncollision transport accident

== ENCOUNTER 2017-12-04 09:52 | Inpatient (IN) | payer OTHER, MEDICAID ==
--- NOTE | 2017-12-04 10:02 | CPEKG ---
Heart Rate: 75 RR Interval: 800 P-R Interval: 148 QRSD Interval: 102 QT Interval: 416 QTC Interval: 465 P [place]: 51 QRS [place]: -55 T Wave [place]: 44 EKG Severity - ABNORMAL ECG - EKG Impression: SINUS RHYTHM EKG Impression: MULTIPLE ATRIAL PREMATURE COMPLEXES EKG Impression: LAD, CONSIDER LEFT ANTERIOR FASCICULAR BLOCK Electronically Signed By: Bharat Gonsales 04-Dec-2017 10:53:47
[2017-12-04 10:38] LABS: PLATELET COUNT 248 10^3/uL (150-400)
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
--- NOTE | 2017-12-04 13:33 | ASMTCMCOM ---
CM Note CM Note Notes: Patient well known to CM and this ER presnts today and will likely be admitted with PNA. Patient is a high utilizer of the ER and details are available per CM notes from various ER visits. I have contacted patient's CM from [id number], Niraj to inform him of patient's visit and to discuss current alf/respite status. Per Niraj, patient did complete a 10 plus day stay at [facility] in November after coordination with our CM (Hailey Zuniga) during an ER visit on 11/07/17. Niraj and Valeriano from [facility] (pt's CM's) picked patient up from the ER at that time. They attempted to get patient into a medical respite bed after D/C from [facility] but patient was denied due to drug testing positive for benzodiazapines and/or barbituates. Niraj confirms that patient has been staying at the alf but does believe patient could benefit from a respite bed through [facility] if he were able to test "clean". I have LM for patient's therapist at [facility], Clara to inform of patient's visit today At this time it appears that patient will be admitted to the hospital for his PNA. I have met with patient and encouraged him to continue following up with Clara at [facility], as well as his CM's at [facility]. Patient tell's me, "I don't abuse any drugs and have no idea how I tested positive for barbituates". He admits to taking Benzodiazapines "infrequently" but denies that he has a "prescription" for them. If patient is not admitted today, patient is in agreement to take a Medicaid cab to [facility] to inquire about a respite bed and is able to take a cab from there to the alf this evening if need be CM will continue to follow this patient with his [facility] and community resources Date Signed: 12/04/2017 01:32 PM Electronically Signed By:Mary Gibson RN
--- NOTE | 2017-12-04 13:53 | ASMTLACE ---
ESAU Acuity / Level of Answers: Yes Care: Did the patient have an inpatient admission? # of Emergency department Answers: 12+ visits in the last 6 months Social determinants Answers: History of substance abuse (ETOH, street drugs, prescription drugs, etc.) Homelessness (street, alf) Mental health diagnosis (anxiety, depression, pers onality disorders, etc.) Score: 18 Date Signed: 12/04/2017 01:52 PM Electronically Signed By:Mary Gibson RN
[2017-12-04] MEDS ORDERED: ENOXAPARIN 100 MG/ML SYR SC ONE (13:59)
[2017-12-04 14:16] LABS: INR 1.11 (0.83-1.16); PROTIME(PATIENT) 14.5 SEC (12.0-15.0)
[2017-12-04] MEDS ORDERED: TRIAMCINOLONE 0.1% 15 GM CRTUBE TP PRN (14:56)
[2017-12-04] MEDS ORDERED: hydrOXYzine HCL 25 MG TAB PO PRN (14:56)
[2017-12-04] MEDS ORDERED: ACETAMINOPHEN/ASA/CAFFEINE 1 EACH TAB PO PRN (14:56)
[2017-12-04] MEDS ORDERED: IBUPROFEN 200 MG TAB PO PRN (14:56)
[2017-12-04] MEDS ORDERED: ALBUTEROL 60 PUFFS/8 GM MDI IH PRN (14:56)
[2017-12-04] MEDS ORDERED: ONDANSETRON 4 MG/2 ML VIAL IVP PRN (15:04)
[2017-12-04] MEDS: RIVAROXABAN 20 MG TAB PO SCH (16:55)
[2017-12-04] MEDS: BECLOMETHASONE QVAR 80 MDI IH SCH (16:58)
--- NOTE | 2017-12-04 17:51 | GHP ---
[f rep st] HISTORY AND PHYSICAL DATE OF ADMISSION: 12/04/2017 HISTORY OF PRESENT ILLNESS: The patient is a pleasant 67-year-old gentleman with a history of homele ssness, VTE and anxiety, who presents to the emergency department today with uncertain complaints. [place] I speak with him, he immediately starts discussing his story about how his longstanding primary c are physician is limiting his visits from 40 minutes down to 30 minutes, feels as if he is being brus hed off and he took the sign that he called in 12 months of prescriptions as a sign for his primary c are physician beginning to end his relationship with him. Once redirected, the patient comments that yesterday he felt generalized weakness. He has not had co ugh. He has not had sputum. He has not had shortness of breath. He is not on oxygen at home. He d id not get a flu shot this year. He has not had hemoptysis or sputum. He smokes 5 cigarettes a day. The ER note comments on chest pain, weakness, and decreased ability to ambulate. He has not had fever or chills, although he notes he is quite sensitive to the ambient temperature ou tside. It is not clear that he has been on Xarelto since psychiatric hospitalization at [facility]. I t appears to have been over the last few weeks. The patient relays that that was fairly upsetting to him and looking at the EMR looks like he was in there from the and for about 10 days. REVIEW OF SYSTEMS: Complete 10-point review of systems conducted, negative as noted in HPI. PAST MEDICAL HISTORY: 1. Anxiety with chronic benzodiazepine dependence sounds like somewhat stable use. 2. Colon perforation secondary bone fragment and diverticula in July 2017. 3. Atrial fibrillation. 4. Hypertension. 5. [place] toxicity. 6. COPD. 7. TBI with subdural hematoma. 8. Diverticulosis. 9. Upper GI bleed. 10. Spinal fusion. 11. Anxiety. 12. VTE. 13. Tremor. FAMILY HISTORY: No family history of venous thromboembolism. SOCIAL HISTORY: , homeless. 5 cigarettes a day. No alcohol. ALLERGIES: Penicillin. HOME MEDICATIONS: Excedrin, albuterol, alprazolam, beclomethasone 80, diphenhydramine, donepezil, Ad vair, hydroxyzine, ibuprofen, latanoprost, meloxicam, methocarbamol, metoprolol-XL 100, multivitamin, pantoprazole, permethrin, promethazine, rivaroxaban, sertraline, tamsulosin, tiotropium, tramadol, t riamcinolone cream, Ambien. PHYSICAL EXAMINATION: VITAL SIGNS: Temp 36.8, blood pressure 166/112, pulse 72, breathing 18 times a minute, 86% on room air, 92 on 2 L. GENERAL: No acute distress. HEENT: Sclerae anicteric. Orop harynx clear. Mucous membranes moist. NECK: Supple. No lymphadenopathy or JVD. LUNGS: Clear to auscultation bilaterally. HEART: S1, S2. ABDOMEN: Soft, nontender, nondistended. LOWER EXTREMITI ES: No edema, calves nontender. SKIN: Without rash. NEUROLOGIC: Nonfocal. LABS: White count 7.7, hematocrit 45, platelets are 240,000. INR is 1.11. Sodium 144, potassium 4. 4, chloride 106, bicarb 27, BUN 18, creatinine 0.9. Troponin less than 0.012. Procalcitonin is pend ing. Chest x-ray interpreted by me shows bilateral lower lobe airspace disease as well some hardware . EKG interpreted by me shows sinus with PACs, left axis deviation, normal intervals, no ST or T-wav e changes. I have discussed the case Dr. Valeriano Gonsales. ASSESSMENT/PLAN: A 67-year-old gentleman with nonspecific complaints, bilateral airspace disease and history of venous thromboembolism. 1. Query pneumonia. The patient has a chest x-ray very suggestive of pneumonia and he does have hyp oxemia, but he really has no infectious symptoms. We will check a procalcitonin. He received levofl oxacin in the emergency department. I will not continue antibiotics unless his procalcitonin is quit e high or he declares himself over the next 12 hours. 2. Acute hypoxemic respiratory failure. This is possibly secondary to what is going on his lungs ve rsus chronic smoking-related lung disease. I will add an incentive spirometer. 3. Pulmonary embolism. I have restarted his Xarelto, he received 100 mg of Lovenox in the emergency department. 4. Atrial fibrillation. He shows sinus, with premature atrial contractions now. 5. Benzodiazepine dependence. We will continue those. 6. Prophylaxis. He is therapeutically anticoagulated. DISPOSITION: He is admitted to observation status. This could change if he has pneumonia, but for n ow, I will leave him observation status. I have written for PT and OT to see him, he can go tomorrow if everything turns out okay. /[id number]/MODL
[2017-12-04] MEDS: FLUTICASONE/SALMETER 250/50MCG DISKUS IH SCH (20:48)
[2017-12-04] MEDS: PROMETHAZINE HCL 25 MG TAB PO PRN (22:44)
[2017-12-04] MEDS: PANTOPRAZOLE SODIUM 40 MG TAB PO SCH (22:44)
[2017-12-04] MEDS: SERTRALINE HCL 100 MG TAB PO SCH (22:45)
[2017-12-04] MEDS: METHOCARBAMOL 500 MG TAB PO PRN (22:45)
[2017-12-04] MEDS: DONEPEZIL HCL 5 MG TAB PO SCH (22:47)
[2017-12-04] MEDS: diphenhydrAMINE 25 MG CAP PO PRN (22:47)
[2017-12-04] MEDS: ZOLPIDEM TARTRATE 5 MG TAB PO PRN (22:49)
[2017-12-04] MEDS: LATANOPROST 0.005% 2.5 ML OPHT DROPS EACHEYE SCH (22:51)
[2017-12-05 05:20] LABS: PLATELET COUNT 226 10^3/uL (150-400)
[2017-12-05] MEDS: ALPRAZolam 1 MG TAB PO PRN ×4 (05:43→23:40)
[2017-12-05] MEDS: diphenhydrAMINE 25 MG CAP PO PRN ×2 (05:43→23:40)
[2017-12-05] MEDS: BECLOMETHASONE QVAR 80 MDI IH SCH ×2 (06:31→17:07)
[2017-12-05] MEDS: METOPROLOL SUCCINATE XR 50 MG TAB PO SCH (08:34)
[2017-12-05] MEDS: RIVAROXABAN 20 MG TAB PO SCH (08:35)
[2017-12-05] MEDS: PANTOPRAZOLE SODIUM 40 MG TAB PO SCH ×2 (08:35→23:40)
[2017-12-05] MEDS: TAMSULOSIN HCL 0.4 MG CAP PO SCH (08:35)
[2017-12-05] MEDS: MULTIVITAMINS 1 EACH TAB PO SCH (08:35)
--- NOTE | 2017-12-05 08:35 | HOSPPROG ---
Hospitalist Progress Note Assessment/Plan: 67-year-old man who is homeless and lifelong smoker comes in with exhaustion and confusion by history. Chest x-ray was personally reviewed and did show bilateral diffuse infiltrates in the lower lobes. His previous CT angiogram in early November noted subsegmental pulmonary embolism as well as a non distinct left lower lobe nodule versus atelectasis she recommendations for follow-up in 1 -3 months. He continues to be hypoxic but with fairly nonspecific complaints today. # history of pulmonary embolism currently on Xarelto. He was off his medication for at least a week possibly longer. Now he is more hypoxic than previous. * Recheck CT given recommendations from previous CT angiogram * Continue Xarelto # acute respiratory failure with abnormal chest x-ray findings consistent with either viral pneumonia versus bacterial pneumonia. He does not have a significant cough and a negative procalcitonin. * Follow-up CTA as above * Check renal panel * Treat for COPD exacerbation # acute COPD exacerbation with hypoxia and acute respiratory failure secondary to above * Add steroids * Scheduled duo nebs * Albuterol as needed * Because he is homeless he may not be able to be discharged until he is satting over 89% on room air * He will need greater than 2 midnight stay for the above issues # homelessness, per patient this is a relatively new problem for him will have case management work with us. # elevated blood pressure has been consistently high throughout his stay. * Currently on metoprolol daily * Will add amlodipine for blood pressure control and follow his readings. # history of dementia currently on Aricept will continue same # history of anxiety and panic disorder currently on sertraline and Valium. This may be contributing to some of his nonspecific symptoms that he presented with * Continue home meds # BPH on Flomax # chronic pain on some muscle relaxants as well as tramadol Subjective: Patient new to me and chart reviewed. Has some nonspecific complaints including exhaustion and anxiety. He denies cough has some shortness of breath. His oxygen saturations do drop in the 87-88 range on room air Objective: Vital Signs Temp Pulse Resp BP Pulse Ox 36.7 C 80 20 165/98 H 98 12/05/17 04:00 12/05/17 04:00 12/05/17 04:00 12/05/17 04:00 12/05/17 04:00 Laboratory Results 12/05/17 04:32 12/05/17 04:32 12/04/17 12/05/17 12/06/17 05:59 05:59 05:59 Intake Total 450 Output Total 450 Balance 0 PT 14.5 SEC (12.0-15.0) 12/04/17 10:03 INR 1.11 (0.83-1.16) 12/04/17 10:03 - Physical Exam Constitutional: no apparent distress, unkempt Eyes: PERRL, anicteric sclera Ears, Nose, Mouth, Throat: moist mucous membranes Cardiovascular: regular rate and rhythym, no murmur, rub, or gallop Respiratory: no respiratory distress, reduced air movement, No inspiratory crackles Gastrointestinal: normoactive bowel sounds, soft, non-tender abdomen Genitourinary: no bladder fullness Skin: warm, No rash Musculoskeletal: full muscle strength Neurologic: No facial droop Psychiatric: interacting appropriately, anxious ICD10 Worksheet Patient Problems: Problems Problem Status Onset Chronic pulmonary embolism Acute Pneumonia Acute Acute encephalopathy Acute Afib - Atrial fibrillation Acute Anxiety Acute Aspiration into airway Acute Assistance needed for ambulation and movement Acute Back pain Acute Chest pain Acute [place] toxicity Acute Perforation of sigmoid colon Acute Pulmonary embolism Acute
[2017-12-05] MEDS ORDERED: ALBUTEROL 3 ML DEYVIAL IH PRN (08:42)
[2017-12-05] MEDS ORDERED: IOPAMIDOL (ISOVUE 370) 100 ML BTL IV ONE (08:45)
[2017-12-05] MEDS: amLODIPine BESYLATE 5 MG TAB PO SCH (08:47)
[2017-12-05] MEDS: predniSONE 20 MG TAB PO SCH (08:47)
[2017-12-05] MEDS: TIOTROPIUM INHALER 18 MCG/DOSE 5 DOSE/MDI IH SCH (08:49)
[2017-12-05] MEDS: FLUTICASONE/SALMETER 250/50MCG DISKUS IH SCH ×2 (08:50→21:28)
[2017-12-05] MEDS ORDERED: PERMETHRIN 5% 60 GM CREAM TP SCH (09:00)
[2017-12-05] MEDS: IPRATROPIUM/ALBUTEROL 3 ML DEYVIAL IH SCH ×3 (11:23→21:32)
--- NOTE | 2017-12-05 13:55 | PDMN ---
Medical Necessity Medical necessity: change to IP; los>2mn for acute resp failure r/t viral vs bacterial PNA, acute COPD exacerbation w/ hypoxia, and elevated blood pressure; requires steroid initiation, scheduled nebs, supplemental O2 @ 5L, BP management ; may need to stay until O2 sat>89% r/t homelessness; comorbid dementia, anxiety , panic disorder, and hx recent PE on AC; per order and progress note 12/05/17
[2017-12-05] MEDS: PROMETHAZINE HCL 25 MG TAB PO PRN (14:07)
--- NOTE | 2017-12-05 16:47 | ASMTCMCOM ---
CM Note CM Note Notes: Pt has been admitted with PNA. He is homeless and has had multiple admissions over the past 6 months. Spoke with his [facility] direct casting operator Clara. Pt is thinking about signing a release of information for [facility] however Clara said he signed one at [facility] for [facility] a couple months ago. She provided information which coincides with ED CM information. She has only seen him twice and said he does not always follow through with appointments and there is a concern about his refusal to acknowledge his benzo abuse. She feels an APS report will put him on their radar. PT/OT are seeing pt, PT has not made recommendation yet; OT recommending SNF. CM will follow for any d/c needs. Date Signed: 12/05/2017 04:46 PM Electronically Signed By:ROSMERY Veliz
[2017-12-05] MEDS: traMADol 50 MG TAB PO PRN (17:56)
[2017-12-05] MEDS: LATANOPROST 0.005% 2.5 ML OPHT DROPS EACHEYE SCH (23:34)
[2017-12-05] MEDS: METHOCARBAMOL 500 MG TAB PO PRN (23:39)
[2017-12-05] MEDS: SERTRALINE HCL 100 MG TAB PO SCH (23:39)
[2017-12-05] MEDS: DONEPEZIL HCL 5 MG TAB PO SCH (23:39)
[2017-12-05] MEDS: ZOLPIDEM TARTRATE 5 MG TAB PO PRN (23:40)
[2017-12-06] MEDS: IPRATROPIUM/ALBUTEROL 3 ML DEYVIAL IH SCH ×4 (04:53→23:05)
[2017-12-06] MEDS: BECLOMETHASONE QVAR 80 MDI IH SCH ×2 (04:53→17:52)
[2017-12-06 07:42] LABS: PLATELET COUNT 219 10^3/uL (150-400)
[2017-12-06] MEDS: MULTIVITAMINS 1 EACH TAB PO SCH (08:17)
[2017-12-06] MEDS: amLODIPine BESYLATE 5 MG TAB PO SCH (08:18)
[2017-12-06] MEDS: RIVAROXABAN 20 MG TAB PO SCH (08:18)
[2017-12-06] MEDS: METHOCARBAMOL 500 MG TAB PO PRN ×3 (08:18→22:03)
[2017-12-06] MEDS: METOPROLOL SUCCINATE XR 50 MG TAB PO SCH (08:18)
[2017-12-06] MEDS: TAMSULOSIN HCL 0.4 MG CAP PO SCH (08:18)
[2017-12-06] MEDS: predniSONE 20 MG TAB PO SCH (08:18)
[2017-12-06] MEDS: ALPRAZolam 1 MG TAB PO PRN ×3 (08:19→22:01)
[2017-12-06] MEDS: PANTOPRAZOLE SODIUM 40 MG TAB PO SCH ×2 (08:19→21:10)
[2017-12-06] MEDS: TIOTROPIUM INHALER 18 MCG/DOSE 5 DOSE/MDI IH SCH (09:16)
[2017-12-06] MEDS: FLUTICASONE/SALMETER 250/50MCG DISKUS IH SCH ×2 (09:16→21:08)
[2017-12-06] MEDS ORDERED: ASCORBIC ACID 1000 MG PO PRN (12:43)
--- NOTE | 2017-12-06 17:01 | ASMTCMCOM ---
CM Note CM Note Notes: Reviewed chart. DC plan not clear yet. Awaiting PT's recommendation, OT recommending SNF. Pt asked to speak w/CM regarding concerns about obtaining documentation from his PCP, Dr Singh, regarding his prescription xanax. Pt is in [facility] program and is hoping to get respit housing prior to finding housing but he feels he needs to provide documnentation and justification of why he is on Xanax. Pt told me he di not want career development coordinator, Elsy from Dr De Los Santos office, involved but he said it would be ok for us to talk with Harper at his office. Pt left our # with Harper today but asked if we don't receive call from her if we could give her a call tomorrow ([phone]). Pt also signed release us to release info to [facility]. Also, received call from CRISTELA Hein w/[facility] [place]. She said that pt is in their system and his Behavioral health Mathematics Faculty Member is Christy Hernandez, . DC plan not clear yet but CM will follow. Date Signed: 12/06/2017 05:00 PM Electronically Signed By:Nahed Go RN
--- NOTE | 2017-12-06 17:48 | HOSPPROG ---
Hospitalist Progress Note Assessment/Plan: 67-year-old man who is homeless and lifelong smoker comes in with exhaustion and confusion by history. Chest x-ray was personally reviewed and did show bilateral diffuse infiltrates in the lower lobes. His previous CT angiogram in early November noted subsegmental pulmonary embolism as well as a non distinct left lower lobe nodule versus atelectasis she recommendations for follow-up in 1 -3 months. He continues to be hypoxic but with fairly nonspecific complaints today. # hx PE - cont Xarelto; no residual embolus seen on CTA # acute resp failure - suspect may be chronic with emphysema on CTA - cont pred, inhalers # acute COPD exacerbation - prednisone, inhalers # BCx with strep and GPR - suspect contaminant? - appreciate ID involvement; cont rocephin for now # homelessness # htn - cont metop - norvasc added her, may need to increase dose # dementia - aricept # history of anxiety and panic disorder currently on sertraline, xanax, hydroxyzine - may contribute to presentation # BPH - flomax # chronic pain on some muscle relaxants as well as tramadol Subjective: feels better today; breathing ok Objective: Vital Signs Temp Pulse Resp BP Pulse Ox 36.7 C 77 18 167/100 H 96 12/06/17 15:16 12/06/17 15:16 12/06/17 15:16 12/06/17 15:16 12/06/17 15:16 Microbiology 12/05/17 11:30 Respiratory Panel (PCR) - Final Nasal, Sinus - Swab No Organism Detected Laboratory Results 12/06/17 07:30 12/06/17 07:30 12/05/17 12/06/17 12/07/17 05:59 05:59 05:59 Intake Total 1900 650 Balance 1900 650 PT 14.5 SEC (12.0-15.0) 12/04/17 10:03 INR 1.11 (0.83-1.16) 12/04/17 10:03 chart reviewed CTA reviewed - Physical Exam Constitutional: no apparent distress, appears nourished Cardiovascular: regular rate and rhythym, no murmur, rub, or gallop Respiratory: no respiratory distress, no rales or rhonchi Gastrointestinal: soft, non-tender abdomen, no palpable masses ICD10 Worksheet Patient Problems: Problems Problem Status Onset Aspiration into airway Acute Afib - Atrial fibrillation Acute Assistance needed for ambulation and movement Acute Chest pain Acute [place] toxicity Acute Acute encephalopathy Acute Perforation of sigmoid colon Acute Pulmonary embolism Acute Anxiety Acute Back pain Acute Pneumonia Acute Chronic pulmonary embolism Acute
--- NOTE | 2017-12-06 20:55 | GCON ---
[f rep st] CONSULTATION INFECTIOUS DISEASE CONSULTATION DATE OF CONSULTATION: 12/06/2017 REFERRING PHYSICIAN: Jama Avalos MD REASON FOR CONSULTATION: Positive blood cultures. HISTORY OF PRESENT ILLNESS: Patient is a 67-year-old male, with a past medical history of perforated diverticulitis and anxiety, whom I am asked to see in consultation for positive blood cultures. Nichol narvaez is currently homeless and presented to the emergency department on 12/04/2017, with complaints o f exhaustion. History is difficult to obtain as the patient is significantly tangential in his descr iption of illness. Patient describes feeling extremely exhausted and notes that he was sleeping at [facility] with numerous other ill persons with respiratory symptoms. He describes being hospitalize d at [facility] at some point in the recent past. Patient does not note any preceding fevers, chills, cough, shortness of breath, chest pain, nausea, vomiting, or diarrhea. He has not had any ab dominal pain. He denies any recent skin issues. He has been noted to be hypoxic during his stay her e at [facility]. A CT scan of the chest was performed, which showed findings consistent with emphysema with some diffuse peribronchial thickening; atelectasis was noted in the inferior lingula a nd posterolateral right lower lobe. Patient did not have a fever documented at the time of presentat ion and white blood cell count was normal with neutrophil predominance. Blood cultures were obtained at the time of his presentation with 1 of 2 sets showing growth of a Streptococcus species, which is not group A, B or Streptococcus pneumoniae. The other set is currently showing growth of a gram-pos itive mariana. In discussion with the microbiology lab, culture plates from the initial positive specime n are showing probable Streptococcus as well as possible Corynebacterium. Respiratory pathogen PCR p james was performed and showed no organisms. Patient notes he feels significantly improved since hosp italization. Given the above findings, I am now asked to assist in his ongoing management. PAST MEDICAL HISTORY: 1. Perforated diverticulitis in July 2017. 2. Atrial fibrillation. 3. Hypertension. 4. COPD. 5. History of traumatic brain injury. 6. Upper GI bleed. 7. Anxiety. 8. History of VTE. PAST SURGICAL HISTORY: Partial colectomy. CURRENT MEDICATIONS: 1. Ceftriaxone 1 g IV daily. 2. Albuterol nebs. 3. Excedrin 1 p.o. daily as needed. 4. DuoNeb q.6 hours. 5. Norvasc 5 mg p.o. daily. 6. QVAR 1 puff twice daily. 7. Aricept 20 mg p.o. at bedtime. 8. Metoprolol XL 50 mg p.o. daily. 9. Multivitamin p.o. daily. 10. Protonix 40 mg p.o. twice daily. 11. Prednisone 60 mg p.o. daily. 12. Xarelto 20 mg p.o. daily. 13. Advair 1 puff twice daily. 14. Zoloft 250 mg p.o. at bedtime. 15. Flomax 0.4 mg p.o. daily. 16. Spiriva inhaler daily. ALLERGIES: Patient notes adverse reactions with preservatives. SOCIAL HISTORY: Patient smokes 5 cigarettes per day. No alcohol use. He is currently homeless, sta rosalie in the [facility]. FAMILY HISTORY: Noncontributory. REVIEW OF SYSTEMS: Outside that noted in the HPI, the remainder of a 10-system review is unremarkabl e. PHYSICAL EXAMINATION: VITAL SIGNS: Temperature 36.8, heart rate 71, respiratory rate 20, blood pres sure 169/101, oxygen saturation 94% on 2 L. GENERAL: Well-nourished, well-developed, in no acute di stress. He appears nontoxic. HEENT: No scleral icterus, conjunctival injection, or conjunctival pe techiae. Oropharynx shows moist mucous membranes. Dentition is in poor repair. There is no nasal d ischarge. There is no tenderness over the sinuses. NECK: Supple without palpable lymphadenopathy o r thyromegaly. CHEST: Clear to auscultation bilaterally without adventitious sounds. Respiratory e ffort is normal. CARDIOVASCULAR: Regular rate and rhythm without murmurs, gallops, or rubs. ABDOME N: Soft, nontender, nondistended. There is no palpable organomegaly. Bowel sounds are present. We ll-healed surgical scar. MUSCULOSKELETAL: 1+ lower extremity edema bilaterally. There is hyperpigm ented skin over the shins bilaterally. NEUROLOGIC: Patient is alert and interacts appropriately wit h examiner. Tangential in responses. Muscle tone and bulk are normal. SKIN: No stigmata of endoca rditis. Skin is warm and dry to touch. LYMPHATICS: No cervical or supraclavicular lymph nodes palp able. LABORATORY DATA: White blood cell count 7.2, hematocrit 39.7, platelets 219, neutrophils 75%. Serum creatinine 0.8. AST 21, ALT 36, bilirubin 0.5, alkaline phosphatase 90. Albumin 3.4, procalcitonin 0.05. INR is 1.1. Blood cultures with 1 of 2 sets showing gram-positive cocci and growth of Strept ococcus species, not A, B, or Streptococcus pneumoniae with possible other gram-positive organism altagracia wing on same plate; other set of blood culture shows gram-positive mariana in 1 bottle. Respiratory path ogen panel is negative by PCR. Chest CT as outlined above which was reviewed and interpreted by me mercy cameron. IMPRESSION: Positive blood cultures: Suspect positive blood cultures represent skin contaminant giv en multiplicity of organisms which likely will be consistent with skin palma. Presentation did not s uggest infection and patient has not demonstrated fever or leukocytosis. Additionally, procalcitonin is normal. CT of chest when reviewed does not show evidence of concomitant pneumonia. RECOMMENDATIONS: 1. Discontinue ceftriaxone. 2. Observe off antibiotics. 3. Await further identification of microorganisms from blood cultures to further assess and ensure o rganisms suggestive of skin contaminants. 4. Above findings and plan were discussed with patient and Dr. Avalos. Thank you for this consultation. We will continue to follow blood cultures over time. /[id number]/MODL
[2017-12-06] MEDS: DONEPEZIL HCL 5 MG TAB PO SCH (21:08)
[2017-12-06] MEDS: SERTRALINE HCL 100 MG TAB PO SCH (21:09)
[2017-12-06] MEDS: LATANOPROST 0.005% 2.5 ML OPHT DROPS EACHEYE SCH (21:20)
[2017-12-07] MEDS: IPRATROPIUM/ALBUTEROL 3 ML DEYVIAL IH SCH ×4 (05:10→22:27)
[2017-12-07] MEDS: BECLOMETHASONE QVAR 80 MDI IH SCH ×2 (05:10→17:02)
[2017-12-07] MEDS: ALPRAZolam 1 MG TAB PO PRN ×3 (06:20→20:54)
[2017-12-07] MEDS: traMADol 50 MG TAB PO PRN (06:20)
[2017-12-07] MEDS: predniSONE 20 MG TAB PO SCH (09:49)
[2017-12-07] MEDS: MULTIVITAMINS 1 EACH TAB PO SCH (09:49)
[2017-12-07] MEDS: TAMSULOSIN HCL 0.4 MG CAP PO SCH (09:50)
[2017-12-07] MEDS: diphenhydrAMINE 25 MG CAP PO PRN ×2 (09:50→18:48)
[2017-12-07] MEDS: METOPROLOL SUCCINATE XR 50 MG TAB PO SCH (09:50)
[2017-12-07] MEDS: METHOCARBAMOL 500 MG TAB PO PRN ×3 (09:50→20:53)
[2017-12-07] MEDS: RIVAROXABAN 20 MG TAB PO SCH (09:51)
[2017-12-07] MEDS: PANTOPRAZOLE SODIUM 40 MG TAB PO SCH ×2 (09:51→20:54)
[2017-12-07] MEDS: amLODIPine BESYLATE 5 MG TAB PO SCH ×2 (09:51→20:54)
[2017-12-07] MEDS: FLUTICASONE/SALMETER 250/50MCG DISKUS IH SCH ×2 (11:06→21:06)
[2017-12-07] MEDS: TIOTROPIUM INHALER 18 MCG/DOSE 5 DOSE/MDI IH SCH (11:06)
[2017-12-07] MEDS: ACETAMINOPHEN 325 MG TAB PO PRN ×3 (12:32→20:55)
--- NOTE | 2017-12-07 14:07 | HOSPPROG ---
Hospitalist Progress Note Assessment/Plan: 67-year-old man who is homeless and lifelong smoker comes in with exhaustion and confusion by history. CTA showed no residual thrombus and emphysema. # hx PE 11/02/17 - cont Xarelto; no residual embolus seen on CTA # acute resp failure - suspect may be chronic with emphysema on CTA - cont pred, inhalers # acute COPD exacerbation - prednisone, inhalers # BCx with strep and GPR - suspect contaminant? - appreciate ID involvement; abx stopped # homelessness # htn - cont metop - norvasc, increase dose today # dementia - aricept # history of anxiety and panic disorder currently on sertraline, xanax, hydroxyzine - may contribute to presentation # BPH - flomax # chronic pain on some muscle relaxants as well as tramadol Subjective: ambulated outside with PT Objective: Vital Signs Temp Pulse Resp BP Pulse Ox 36.6 C 70 17 163/105 H 92 12/07/17 11:17 12/07/17 11:17 12/07/17 11:17 12/07/17 11:17 12/07/17 11:17 Laboratory Results 12/06/17 07:30 12/06/17 07:30 12/06/17 12/07/17 12/08/17 05:59 05:59 05:59 Intake Total 1900 800 Balance 1900 800 PT 14.5 SEC (12.0-15.0) 12/04/17 10:03 INR 1.11 (0.83-1.16) 12/04/17 10:03 - Physical Exam Constitutional: no apparent distress, appears nourished Cardiovascular: regular rate and rhythym, no murmur, rub, or gallop Respiratory: no respiratory distress, other (diminished air movement) Gastrointestinal: soft, non-tender abdomen, no palpable masses ICD10 Worksheet Patient Problems: Problems Problem Status Onset Aspiration into airway Acute Afib - Atrial fibrillation Acute Assistance needed for ambulation and movement Acute Chest pain Acute [place] toxicity Acute Acute encephalopathy Acute Perforation of sigmoid colon Acute Pulmonary embolism Acute Anxiety Acute Back pain Acute Pneumonia Acute Chronic pulmonary embolism Acute
--- NOTE | 2017-12-07 17:35 | ASMTCMCOM ---
CM Note CM Note Notes: Cm was asked by pt to call his PCP's office, Dr Mccarthy to get info on why he takes xanax. Pt needs this for the [facility] program because he tested positive for benzodiazepines and barbiturates Harper at Dr Mccarthy's office stated that they are no longer the prescriber and to contact [facility]. Spoke with pt about this who denied that [facility] had prescribed and stated he would call Dr Mccarthy's office. Plan is to call pt's housing case manager Niraj with [facility] to see what other info they need and what their plan is. PT/OT are recommending SNF at this time. Pt has been at [facility] in past. They will consider him at this admission. He has become homeless since his adm to [facility] last Jul. Referral will be faxed tomorrow. Date Signed: 12/07/2017 05:34 PM Electronically Signed By:Opal Canales LCSW
[2017-12-07] MEDS: SERTRALINE HCL 100 MG TAB PO SCH (20:55)
[2017-12-07] MEDS: DONEPEZIL HCL 5 MG TAB PO SCH (20:56)
[2017-12-07] MEDS: PROMETHAZINE HCL 25 MG TAB PO PRN (23:10)
[2017-12-07] MEDS: ZOLPIDEM TARTRATE 5 MG TAB PO PRN (23:10)
[2017-12-07] MEDS: LATANOPROST 0.005% 2.5 ML OPHT DROPS EACHEYE SCH (23:14)
[2017-12-08] MEDS: ALPRAZolam 1 MG TAB PO PRN ×4 (03:13→21:22)
[2017-12-08] MEDS: IPRATROPIUM/ALBUTEROL 3 ML DEYVIAL IH SCH ×4 (05:41→23:16)
[2017-12-08] MEDS: BECLOMETHASONE QVAR 80 MDI IH SCH ×2 (05:43→17:14)
[2017-12-08] MEDS: amLODIPine BESYLATE 5 MG TAB PO SCH ×2 (08:33→21:23)
[2017-12-08] MEDS: METOPROLOL SUCCINATE XR 50 MG TAB PO SCH (08:34)
[2017-12-08] MEDS: PANTOPRAZOLE SODIUM 40 MG TAB PO SCH ×2 (08:35→21:21)
[2017-12-08] MEDS: MULTIVITAMINS 1 EACH TAB PO SCH (08:35)
[2017-12-08] MEDS: RIVAROXABAN 20 MG TAB PO SCH (08:35)
[2017-12-08] MEDS: predniSONE 20 MG TAB PO SCH (08:36)
[2017-12-08] MEDS: TAMSULOSIN HCL 0.4 MG CAP PO SCH (08:36)
[2017-12-08] MEDS: FLUTICASONE/SALMETER 250/50MCG DISKUS IH SCH ×2 (10:51→21:41)
[2017-12-08] MEDS: TIOTROPIUM INHALER 18 MCG/DOSE 5 DOSE/MDI IH SCH (10:51)
[2017-12-08] MEDS: PROMETHAZINE HCL 25 MG TAB PO PRN (11:20)
--- NOTE | 2017-12-08 14:14 | HOSPPROG ---
Hospitalist Progress Note Assessment/Plan: 67-year-old man who is homeless and lifelong smoker comes in with exhaustion and confusion by history. CTA showed no residual thrombus and emphysema. # anxiety/panic attacks - he has been on Xanax for a long time; he is concerned about who is going to prescribe on discharge - cont xanax for now # hx PE 11/02/17 - cont Xarelto; no residual embolus seen on CTA # acute resp failure - suspect may be chronic with emphysema on CTA - cont pred, inhalers # acute COPD exacerbation - prednisone, inhalers # BCx with strep and GPR - suspect contaminant? - appreciate ID involvement; abx stopped # homelessness # htn - cont metop - norvasc started here # dementia - aricept # history of anxiety and panic disorder currently on sertraline, xanax, hydroxyzine - may contribute to presentation # BPH - flomax # chronic pain on some muscle relaxants as well as tramadol Subjective: panic attack this morning; initially endorsed SI; he was seen by [facility] who cleared him from a psychiatric perspective; when i am seeing him the attack has resolved and he is clear that he does not have any SI Objective: Vital Signs Temp Pulse Resp BP Pulse Ox 36.5 C 73 16 134/96 H 94 12/08/17 11:30 12/08/17 11:30 12/08/17 11:30 12/08/17 11:30 12/08/17 11:30 Laboratory Results 12/06/17 07:30 12/06/17 07:30 12/07/17 12/08/17 12/09/17 05:59 05:59 05:59 Intake Total 800 1000 Balance 800 1000 PT 14.5 SEC (12.0-15.0) 12/04/17 10:03 INR 1.11 (0.83-1.16) 12/04/17 10:03 - Time Spent With Patient Time Spent with Patient: greater than 35 minutes Time Spent with Patient: Greater than 35 minutes spent on this patients care, greater than 50% of time spent counseling, educating, and coordinating care regarding the above mentioned plan. - Physical Exam Constitutional: no apparent distress, appears nourished ICD10 Worksheet Patient Problems: Problems Problem Status Onset Aspiration into airway Acute Afib - Atrial fibrillation Acute Assistance needed for ambulation and movement Acute Chest pain Acute [place] toxicity Acute Acute encephalopathy Acute Perforation of sigmoid colon Acute Pulmonary embolism Acute Anxiety Acute Back pain Acute Pneumonia Acute Chronic pulmonary embolism Acute
[2017-12-08] MEDS: diphenhydrAMINE 25 MG CAP PO PRN (15:10)
[2017-12-08] MEDS: METHOCARBAMOL 500 MG TAB PO PRN ×2 (15:10→21:22)
--- NOTE | 2017-12-08 16:56 | ASMTCMCOM ---
CM Note CM Note Notes: Pt interested in rehab. [facility] declined pt due to his [employer] Medicare insurance. They referred pt to their sister facility in [facility]. Have not heard back yet. Will send referral out to other facilities as well. Mike Mendes from [facility] met with pt today to discuss his anxiety and use of xanax. See his note under [facility] notes section. CM will continue to follow. Date Signed: 12/08/2017 04:56 PM Electronically Signed By:Opal Canales LCSW
[2017-12-08] MEDS: ACETAMINOPHEN 325 MG TAB PO PRN ×2 (17:21→21:21)
[2017-12-08] MEDS: DONEPEZIL HCL 5 MG TAB PO SCH (21:22)
[2017-12-08] MEDS: SERTRALINE HCL 100 MG TAB PO SCH (21:23)
[2017-12-08] MEDS: ZOLPIDEM TARTRATE 5 MG TAB PO PRN (21:29)
[2017-12-08] MEDS: LATANOPROST 0.005% 2.5 ML OPHT DROPS EACHEYE SCH (21:30)
[2017-12-09] MEDS: ALPRAZolam 1 MG TAB PO PRN ×4 (03:10→21:53)
[2017-12-09] MEDS: IPRATROPIUM/ALBUTEROL 3 ML DEYVIAL IH SCH ×4 (05:23→22:22)
[2017-12-09] MEDS: BECLOMETHASONE QVAR 80 MDI IH SCH ×2 (05:23→18:42)
[2017-12-09] MEDS: TAMSULOSIN HCL 0.4 MG CAP PO SCH (09:47)
[2017-12-09] MEDS: MULTIVITAMINS 1 EACH TAB PO SCH (09:47)
[2017-12-09] MEDS: RIVAROXABAN 20 MG TAB PO SCH (09:47)
[2017-12-09] MEDS: predniSONE 20 MG TAB PO SCH (09:47)
[2017-12-09] MEDS: PANTOPRAZOLE SODIUM 40 MG TAB PO SCH ×2 (09:47→21:54)
[2017-12-09] MEDS: amLODIPine BESYLATE 5 MG TAB PO SCH ×2 (09:48→21:53)
[2017-12-09] MEDS: METOPROLOL SUCCINATE XR 50 MG TAB PO SCH (09:49)
[2017-12-09] MEDS: ONDANSETRON DISINTEGRATING 4 MG TAB PO PRN ×2 (09:51→16:06)
[2017-12-09] MEDS: TIOTROPIUM INHALER 18 MCG/DOSE 5 DOSE/MDI IH SCH (09:58)
[2017-12-09] MEDS: FLUTICASONE/SALMETER 250/50MCG DISKUS IH SCH ×2 (09:58→22:23)
[2017-12-09] MEDS: PROMETHAZINE HCL 25 MG TAB PO PRN (13:48)
--- NOTE | 2017-12-09 13:54 | HOSPPROG ---
Hospitalist Progress Note Assessment/Plan: 67-year-old man who is homeless and lifelong smoker comes in with exhaustion and confusion by history. He also had respiratory complaints. CTA showed no residual thrombus and emphysema. # anxiety/panic attacks - he has been on Xanax for a long time; he is concerned about who is going to prescribe on discharge - cont xanax # hx PE 11/02/17 - cont Xarelto; no residual embolus seen on CTA # acute resp failure - suspect may be chronic with emphysema on CTA # acute COPD exacerbation - stop prednisone today with his panic attacks - cont inhalers # BCx with strep and GPR - suspect contaminant? - appreciate ID involvement; abx stopped # homelessness # htn - cont metop - norvasc started here # dementia - aricept # history of anxiety and panic disorder currently on sertraline, xanax, hydroxyzine - may contribute to presentation # BPH - flomax # chronic pain on some muscle relaxants as well as tramadol Subjective: we discussed his xanax use in detail today; he had a mild panic attack this morning Objective: Vital Signs Temp Pulse Resp BP Pulse Ox 36.8 C 75 18 140/90 H 93 12/09/17 11:25 12/09/17 11:25 12/09/17 11:25 12/09/17 11:25 12/09/17 11:25 Laboratory Results 12/06/17 07:30 12/06/17 07:30 12/08/17 12/09/17 12/10/17 05:59 05:59 06:59 Intake Total 1000 300 Balance 1000 300 PT 14.5 SEC (12.0-15.0) 12/04/17 10:03 INR 1.11 (0.83-1.16) 12/04/17 10:03 - Physical Exam Constitutional: appears nourished Eyes: anicteric sclera Ears, Nose, Mouth, Throat: hearing normal Cardiovascular: No edema Respiratory: no respiratory distress Gastrointestinal: No distension Genitourinary: No okeefe in urethra Skin: warm Musculoskeletal: full muscle strength Neurologic: AAOx3 Psychiatric: not anxious ICD10 Worksheet Patient Problems: Problems Problem Status Onset Aspiration into airway Acute Afib - Atrial fibrillation Acute Assistance needed for ambulation and movement Acute Chest pain Acute [place] toxicity Acute Acute encephalopathy Acute Perforation of sigmoid colon Acute Pulmonary embolism Acute Anxiety Acute Back pain Acute Pneumonia Acute Chronic pulmonary embolism Acute
--- NOTE | 2017-12-09 14:51 | ASMTCMCOM ---
CM Note CM Note Notes: Cleo from [facility] met with pt today. Cleo is not sure pt will be good fit but will discuss it with staff and let us know. Pt's level 2 PASRR is pending. CM to follow. Date Signed: 12/09/2017 02:50 PM Electronically Signed By:Opal Canales LCSW
[2017-12-09] MEDS: METHOCARBAMOL 500 MG TAB PO PRN ×2 (16:06→21:54)
[2017-12-09] MEDS: DONEPEZIL HCL 5 MG TAB PO SCH (21:53)
[2017-12-09] MEDS: ZOLPIDEM TARTRATE 5 MG TAB PO PRN (21:54)
[2017-12-09] MEDS: LATANOPROST 0.005% 2.5 ML OPHT DROPS EACHEYE SCH (21:54)
[2017-12-09] MEDS: SERTRALINE HCL 100 MG TAB PO SCH (21:54)
[2017-12-09] MEDS: diphenhydrAMINE 25 MG CAP PO PRN (21:58)
[2017-12-10] MEDS: ALPRAZolam 1 MG TAB PO PRN ×2 (04:08→11:06)
[2017-12-10] MEDS: METHOCARBAMOL 500 MG TAB PO PRN (04:08)
[2017-12-10] MEDS: IPRATROPIUM/ALBUTEROL 3 ML DEYVIAL IH SCH ×4 (06:17→23:32)
[2017-12-10] MEDS: MULTIVITAMINS 1 EACH TAB PO SCH (08:39)
[2017-12-10] MEDS: PANTOPRAZOLE SODIUM 40 MG TAB PO SCH ×2 (08:39→21:49)
[2017-12-10] MEDS: RIVAROXABAN 20 MG TAB PO SCH (08:39)
[2017-12-10] MEDS: TAMSULOSIN HCL 0.4 MG CAP PO SCH (08:39)
[2017-12-10] MEDS: amLODIPine BESYLATE 5 MG TAB PO SCH ×2 (08:43→21:48)
[2017-12-10] MEDS: METOPROLOL SUCCINATE XR 50 MG TAB PO SCH (08:43)
[2017-12-10] MEDS: BECLOMETHASONE QVAR 80 MDI IH SCH ×2 (08:49→17:34)
[2017-12-10] MEDS: TIOTROPIUM INHALER 18 MCG/DOSE 5 DOSE/MDI IH SCH (08:50)
[2017-12-10] MEDS: FLUTICASONE/SALMETER 250/50MCG DISKUS IH SCH ×2 (08:52→21:22)
[2017-12-10] MEDS ORDERED: ALPRAZolam 1 MG TAB PO SCH (12:02)
--- NOTE | 2017-12-10 12:05 | HOSPPROG ---
Hospitalist Progress Note Assessment/Plan: 67-year-old man who is homeless and lifelong smoker comes in with exhaustion and confusion by history. He also had respiratory complaints. CTA showed no residual thrombus and emphysema. He has been on high dose Xanax for about a decade. Today, he expresses frustration with his hospital care overall. # anxiety/panic attacks - he has been on Xanax for a long time; he is concerned about who is going to prescribe on discharge - cont xanax for now; he clearly has an addiction and immediate discontinuation would be physically dangerous - cont sertraline and hydroxyzine # hx PE 11/02/17 - cont Xarelto; no residual embolus seen on CTA # acute resp failure - suspect may be chronic with emphysema on CTA - will likely need O2 on dc # acute COPD exacerbation - prednisone stopped given his panic attacks - cont inhalers # BCx with multiple bacteria - suspect contaminant - appreciate ID involvement; abx stopped # homelessness # htn - cont metop - norvasc started here # dementia - aricept # BPH - flomax # chronic pain on some muscle relaxants as well as tramadol Subjective: frustrated with lack of consistency of his care Objective: Vital Signs Temp Pulse Resp BP Pulse Ox 36.5 C 63 18 149/93 H 95 12/10/17 08:00 12/10/17 10:38 12/10/17 10:38 12/10/17 08:43 12/10/17 10:38 Laboratory Results 12/06/17 07:30 12/06/17 07:30 12/09/17 12/10/17 12/11/17 04:59 05:59 05:59 Intake Total Balance PT 14.5 SEC (12.0-15.0) 12/04/17 10:03 INR 1.11 (0.83-1.16) 12/04/17 10:03 - Physical Exam Constitutional: no apparent distress, appears nourished Eyes: anicteric sclera Ears, Nose, Mouth, Throat: hearing normal Cardiovascular: No edema Respiratory: no respiratory distress Gastrointestinal: No distension Genitourinary: No okeefe in urethra Skin: warm Neurologic: AAOx3 Psychiatric: anxious ICD10 Worksheet Patient Problems: Problems Problem Status Onset Aspiration into airway Acute Afib - Atrial fibrillation Acute Assistance needed for ambulation and movement Acute Chest pain Acute [place] toxicity Acute Acute encephalopathy Acute Perforation of sigmoid colon Acute Pulmonary embolism Acute Anxiety Acute Back pain Acute Pneumonia Acute Chronic pulmonary embolism Acute
[2017-12-10] MEDS: traMADol 50 MG TAB PO PRN (15:36)
[2017-12-10] MEDS: ALPRAZolam 1 MG TAB PO SCH ×2 (16:49→23:00)
[2017-12-10] MEDS: diphenhydrAMINE 25 MG CAP PO PRN (16:49)
--- NOTE | 2017-12-10 18:02 | ASMTCMCOM ---
CM Note CM Note Notes: [facility] will not know until Monday if they can take pt. [facility] will also consider pt. Pt's level 2 should be approved Monday or Monday. CM to follow. Date Signed: 12/10/2017 03:19 PM Electronically Signed By:Opal Canales LCSW
[2017-12-10] MEDS: ACETAMINOPHEN 325 MG TAB PO PRN (21:47)
[2017-12-10] MEDS: DONEPEZIL HCL 5 MG TAB PO SCH (21:48)
[2017-12-10] MEDS: SERTRALINE HCL 100 MG TAB PO SCH (21:48)
[2017-12-10] MEDS: LATANOPROST 0.005% 2.5 ML OPHT DROPS EACHEYE SCH (21:50)
[2017-12-11 04:51] LABS: PLATELET COUNT 252 10^3/uL (150-400)
[2017-12-11] MEDS: ALPRAZolam 1 MG TAB PO SCH ×4 (05:06→23:06)
[2017-12-11] MEDS: BECLOMETHASONE QVAR 80 MDI IH SCH ×2 (05:48→16:12)
[2017-12-11] MEDS: IPRATROPIUM/ALBUTEROL 3 ML DEYVIAL IH SCH ×4 (05:48→23:10)
[2017-12-11] MEDS: amLODIPine BESYLATE 5 MG TAB PO SCH ×2 (08:24→21:29)
[2017-12-11] MEDS: METOPROLOL SUCCINATE XR 50 MG TAB PO SCH (08:24)
[2017-12-11] MEDS: PANTOPRAZOLE SODIUM 40 MG TAB PO SCH ×2 (08:25→21:29)
[2017-12-11] MEDS: MULTIVITAMINS 1 EACH TAB PO SCH (08:25)
[2017-12-11] MEDS: TAMSULOSIN HCL 0.4 MG CAP PO SCH (08:25)
[2017-12-11] MEDS: RIVAROXABAN 20 MG TAB PO SCH (08:25)
[2017-12-11] MEDS: TIOTROPIUM INHALER 18 MCG/DOSE 5 DOSE/MDI IH SCH (08:26)
[2017-12-11] MEDS: FLUTICASONE/SALMETER 250/50MCG DISKUS IH SCH ×2 (08:26→20:27)
[2017-12-11] MEDS: METHOCARBAMOL 500 MG TAB PO PRN ×2 (10:52→23:32)
[2017-12-11] MEDS ORDERED: FLU VACC QS 2017-18 (3YR+)/PF 0.5 ML SYR (FLUARIX QUAD) IM ONE (11:41)
[2017-12-11] MEDS ORDERED: PNEUMOC 13-VAL CONJ-DIP CRM/PF 0.5 ML SYR IM ONE (11:41)
--- NOTE | 2017-12-11 15:17 | HOSPPROG ---
Hospitalist Progress Note Assessment/Plan: # anxiety/panic attacks - he has been on Xanax for a long time but per review of [facility] his PCP Dr Singh had referred him to P for any further Rxs after his recent admission to [facility] for BDZ withdrawal - CM notes from [facility] revwd, need to discuss with CM here - cont sertraline and hydroxyzine -pending consult with Latasha Daniel -did not discuss with him today as info gathered after rounds, will discuss tomorrow -needs to discuss transition off short acting BDZ to longer acting # hx PE 11/02/17 - cont Xarelto; no residual embolus seen on CTA # acute resp failure - suspect may be chronic with emphysema on CTA - will likely need O2 on dc # acute COPD exacerbation - prednisone stopped given his panic attacks - cont inhalers # BCx with multiple bacteria - suspect contaminant - appreciate ID involvement; abx stopped # homelessness -CM working on placement # htn - cont metoprolol - norvasc started here # dementia - aricept as a home med, but needs formal psych eval ([facility] referral done prev as above) # BPH - flomax # chronic pain on some muscle relaxants as well as tramadol DISPO- awaiting placement per CM Subjective: Denies CP/SOB/v/d/pain. Awaititng PT session today. Objective: Vital Signs Temp Pulse Resp BP Pulse Ox 97.7 F 57 L 16 123/78 H 88 L 12/11/17 11:58 12/11/17 11:58 12/11/17 11:58 12/11/17 11:58 12/11/17 13:45 Laboratory Results 12/11/17 04:24 12/11/17 04:24 12/10/17 12/11/17 12/12/17 11:59 11:59 11:59 Intake Total 2810 Balance 2810 PT 14.5 SEC (12.0-15.0) 12/04/17 10:03 INR 1.11 (0.83-1.16) 12/04/17 10:03 - Time Spent With Patient Time Spent with Patient: greater than 35 minutes Time Spent with Patient: Greater than 35 minutes spent on this patients care, greater than 50% of time spent counseling, educating, and coordinating care regarding the above mentioned plan. - Physical Exam Constitutional: no apparent distress, appears nourished, not in pain Eyes: anicteric sclera, EOMI Ears, Nose, Mouth, Throat: moist mucous membranes, hearing normal Cardiovascular: regular rate and rhythym Respiratory: no respiratory distress, no rales or rhonchi, clear to auscultation Skin: warm Psychiatric: interacting appropriately, not anxious, not encephalopathic ICD10 Worksheet Patient Problems: Problems Problem Status Onset Chronic pulmonary embolism Acute Pneumonia Acute Acute encephalopathy Acute Afib - Atrial fibrillation Acute Anxiety Acute Aspiration into airway Acute Assistance needed for ambulation and movement Acute Back pain Acute Chest pain Acute [place] toxicity Acute Perforation of sigmoid colon Acute Pulmonary embolism Acute
[2017-12-11] MEDS: diphenhydrAMINE 25 MG CAP PO PRN (15:19)
--- NOTE | 2017-12-11 15:47 | ASMTCMCOM ---
CM Note CM Note Notes: [facility] has accepted pt. Still waiting for L2 PASRR - emailed Hailey José at [facility] to ask for anticipated completion. Apparently she never received it - refaxed L1 PASRR today and asked that it be expedited. Spoke with Rishabh to update her re PASRR delay. Date Signed: 12/11/2017 03:47 PM Electronically Signed By:ROSMERY Veliz
[2017-12-11] MEDS: DONEPEZIL HCL 5 MG TAB PO SCH (21:28)
[2017-12-11] MEDS: SERTRALINE HCL 100 MG TAB PO SCH (21:30)
[2017-12-11] MEDS: LATANOPROST 0.005% 2.5 ML OPHT DROPS EACHEYE SCH (21:32)
[2017-12-11] MEDS: ACETAMINOPHEN 325 MG TAB PO PRN (23:32)
[2017-12-12] MEDS: ZOLPIDEM TARTRATE 5 MG TAB PO PRN ×2 (00:14→22:51)
[2017-12-12] MEDS: ALPRAZolam 1 MG TAB PO SCH ×3 (04:33→22:51)
[2017-12-12] MEDS: IPRATROPIUM/ALBUTEROL 3 ML DEYVIAL IH SCH (05:25)
[2017-12-12] MEDS: BECLOMETHASONE QVAR 80 MDI IH SCH ×2 (05:25→15:56)
[2017-12-12] MEDS ORDERED: IPRATROPIUM/ALBUTEROL 3 ML DEYVIAL IH PRN (07:33)
[2017-12-12] MEDS: TIOTROPIUM INHALER 18 MCG/DOSE 5 DOSE/MDI IH SCH (10:15)
[2017-12-12] MEDS: FLUTICASONE/SALMETER 250/50MCG DISKUS IH SCH ×2 (10:15→20:35)
[2017-12-12] MEDS: RIVAROXABAN 20 MG TAB PO SCH (10:19)
[2017-12-12] MEDS: MULTIVITAMINS 1 EACH TAB PO SCH (10:19)
[2017-12-12] MEDS: amLODIPine BESYLATE 5 MG TAB PO SCH ×2 (10:19→20:49)
[2017-12-12] MEDS: PANTOPRAZOLE SODIUM 40 MG TAB PO SCH ×2 (10:19→20:44)
[2017-12-12] MEDS: METOPROLOL SUCCINATE XR 50 MG TAB PO SCH (10:20)
[2017-12-12] MEDS: TAMSULOSIN HCL 0.4 MG CAP PO SCH (10:20)
[2017-12-12] MEDS ORDERED: clonazePAM 1 MG TAB PO ONE (12:16)
--- NOTE | 2017-12-12 12:42 | PDIAF ---
- Diagnosis Code Status: Full Code - Medication Management Discharge Medications: Medications to Continue on Transfer Promethazine HCl [Phenergan 25mg (*)] 25 mg PO Q6HRS PRN 07/22/14 [Last Taken ] Multivitamins [Multivitamin (*)] 1 each PO DAILY #0 10/10/15 [Last Taken ] Meloxicam 15 mg PO HS 03/01/17 [Last Taken 12/03/17] Metoprolol Succinate Xr [Toprol Xl 100 mg (*)] 50 mg PO DAILY 04/14/17 [Last Taken 12/03/17] Latanoprost 0.005% [Xalatan 0.005% (*)] 1 drops EACHEYE HS 07/11/17 [Last Taken 3 Days Ago ~12/01/17] Pantoprazole Sodium [Protonix 40mg (*)] 40 mg PO BID 07/11/17 [Last Taken 21:00] Sertraline HCl [Zoloft 100mg (*)] 250 mg PO HS 07/11/17 [Last Taken 12/03/17] hydrOXYzine HCL [hydrOXYzine HCL (RX)] 37.5 mg PO HS PRN 07/11/17 [Last Taken ] Beclomethasone Qvar 80 [Qvar 80] 1 puffs IH BIDI 11/02/17 [Last Taken 12/03/17] Donepezil HCl [Aricept 5 MG (*)] 20 mg PO HS 11/02/17 [Last Taken 12/03/17] Fluticasone/Salmeter 250/50Mcg [Advair 250/50 (*)] 1 puffs IH BID 11/02/17 [ Last Taken 12/03/17] Methocarbamol [Robaxin 500 mg (*)] 1,000 mg PO QID PRN 11/02/17 [Last Taken Unknown] Tamsulosin HCl [Flomax 0.4 MG (*)] 0.4 mg PO DAILY 11/02/17 [Last Taken 12/03/17 ] Tiotropium Inhaler [Spiriva Inhaler (RX)] 1 inh IH DAILY 11/02/17 [Last Taken ] Triamcinolone 0.1% [Triamcinolone 0.1% Cream (*)] 1 maximo TP BID PRN 11/02/17 [ Last Taken Unknown] traMADol [Ultram 50 mg (*)] 50 mg PO Q6HRS PRN 11/02/17 [Last Taken 12/03/17 21: 00] Rivaroxaban [Xarelto] 20 mg PO DAILY #30 tab 11/04/17 [Last Taken 12/03/17] Albuterol [Proventil Inhaler HFA (*)] 1 - 2 puffs IH Q4H PRN 12/04/17 [Last Taken Unknown] Ibuprofen [Motrin (*)] 200 - 400 mg PO Q6HRS PRN 12/04/17 [Last Taken Unknown] Ascorbic Acid [Vitamin C] 1,000 mg PO TID 12/06/17 [Last Taken Unknown] ALPRAZolam [Xanax 1 MG (*)] 1 mg PO Q6H tab 12/12/17 [Last Taken Unknown] Acetaminophen [Tylenol 325mg (*)] 650 mg PO Q4HRS PRN tab 12/12/17 [Last Taken Unknown] Albuterol [Proventil Neb] 3 ml IH Q2 PRN deyvial 12/12/17 [Last Taken Unknown] Ondansetron Odt [Zofran Odt 4 mg (*)] 4 mg PO Q4HRS PRN tab 12/12/17 [Last Taken Unknown] amLODIPine BESYLATE [Norvasc 5 mg (*)] 5 mg PO BID tab 12/12/17 [Last Taken Unknown] Additional Medication Instructions: NEEDS close monitoring of benzo use, has been taking xanax q6 hours but agreeable and understands need for long acting ( does not want to taper/change at this time but suggest doing RYLAN upon arrival) , NEEDS [facility]/close follow up Discharge Medications: Refer to the Discharge Home Medication list for PRN reason. PICC Care - Routine: N/A - Orders Home Care Face to Face: 12/12/2017 Courtney Soto Isolation Type: None Diet Recommendation: no restrictions on diet Diet Texture: Regular Texture Diet Activity/Weight Bearing Restrictions: per pt/ot recommendations - Follow Up Care Current Providers and Referrals: Patient,NotPresent [Unknown] - As per Instructions
--- NOTE | 2017-12-12 14:04 | ASMTCMCOM ---
CM Note CM Note Notes: Received approved Level 2 PASSR; faxed PASSR to Jasmine at [facility]. Confirmed [facility] is willing to accept pt. Spoke with RN & . interested in discontinuing pt's Xanax & starting pt on Klonopin. Discussed medication change with Jasmine at [facility]; informed if pt discharges today, [facility] would prefer pt to remain on current medication regimen & have Lui ESCALONA switch meds once pt is at facility; [facility] agree[facility] to doing Dr to report to discuss. If meds are switched prior to dc, a new PASSR would need to be done & pt would need to remain here at the hospital until approval is received. Discussed with ; decision made to keep pt on current regimen & change meds once pt is at [facility]; agreeable to Dr to report; phone number provided. Updated RN. Pt provided with info on [facility]; agreeable to dc poc. Transportation arranged; pt & RN updated. Date Signed: 12/12/2017 02:04 PM Electronically Signed By:Elda Shaffer RN
--- NOTE | 2017-12-12 14:07 | ASDISCHSUM ---
Discharge Information Plan Status:SNF Medically Cleared to Leave:12/12/2017 Discharge Date:12/12/2017 CM D/C Disposition:Care Home Facility ADT D/C Disposition:Home, Routine, Self-Care Projected Discharge Date:12/12/2017 06:00 PM Transportation at D/C:Wheelchair Van Discharge Delay Reason: Follow-Up Date:12/12/2017 06:00 PM Discharge Slot: Final Diagnosis: Placement Information Referral Type:*Penitentiary/SNF Referral ID[facility]-[id number] [facility] [facility] Address 2: City:[place] Selection Factors: State:[place] Patient Contact Information Contact Name:HOWIE Relationship:Other Address: Work Phone: City: [facility] Phone: State/Zip Code: Email: Financial Information Financial Class:Medicare Primary Plan Desc:MEDICARE INPATIENT Primary Plan Number:[id number] Secondary Plan Desc:MED[place] Secondary Plan Number:[id number] Assessment Information [facility] Progress Note CM Note CM Note Notes: Patient well known to CM and this ER presnts today and will likely be admitted with PNA. Patient is a high utilizer of the ER and details are available per CM notes from various ER visits. I have contacted patient's CM from [id number], Niraj to inform him of patient's visit and to discuss current skilled nursing/respite status. Per Niraj, patient did complete a [address] [facility] in November after coordination with our CM (Hailey Zuniga) during an ER visit on 11/07/17. Niraj and Valeriano from [facility] (pt's CM's) picked patient up from the ER at that time. They attempted to get patient into a medical respite bed after D/C from [facility] but patient was denied due to drug testing positive for benzodiazapines and/or barbituates. Niraj confirms that patient has been staying at the skilled nursing but does believe patient could benefit from a respite bed through [facility] if he were able to test "clean". I have LM for patient's therapist at [facility], Clraa to inform of patient's visit today At this time it appears that patient will be admitted to the hospital for his PNA. I have met with patient and encouraged him to continue following up with Clara at [facility], as well as his CM's at [facility]. Patient tell's me, "I don't abuse any drugs and have no idea how I tested positive for barbituates". He admits to taking Benzodiazapines "infrequently" but denies that he has a "prescription" for them. If patient is not admitted today, patient is in agreement to take a Medicaid cab to [facility] to inquire about a respite bed and is able to take a cab from there to the skilled nursing this evening if need be CM will continue to follow this patient with his care and community resources Date Signed: 12/04/2017 01:32 PM Electronically Signed By:Mary Gibson RN ESAU ESAU Acuity / Level of Answers: Yes Care: Did the patient have an inpatient admission? # of Emergency department Answers: 12+ visits in the last 6 months Social determinants Answers: History of substance abuse (ETOH, street drugs, prescription drugs, etc.) Homelessness (street, skilled nursing) Mental health diagnosis (anxiety, depression, pers onality disorders, etc.) Score: 18 Date Signed: 12/04/2017 01:52 PM Electronically Signed By:Mary Gibson RN [facility] Progress Note CM Note CM Note Notes: Pt has been admitted with PNA. He is homeless and has had multiple admissions over the past 6 months. Spoke with his [facility] forest practices field coordinator Clara. Pt is thinking about signing a release of information for [facility] however Clraa said he signed one at [facility] for [facility] a couple months ago. She provided information which coincides with ED CM information. She has only seen him twice and said he does not always follow through with appointments and there is a concern about his refusal to acknowledge his benzo abuse. She feels an APS report will put him on their radar. PT/OT are seeing pt, PT has not made recommendation yet; OT recommending SNF. CM will follow for any d/c needs. Date Signed: 12/05/2017 04:46 PM Electronically Signed By:ROSMERY Veliz [facility] CM Progress Note CM Note CM Note Notes: Reviewed chart. DC plan not clear yet. Awaiting PT's recommendation, OT recommending SNF. Pt asked to speak w/CM regarding concerns about obtaining documentation from his PCP, Dr Singh, regarding his prescription xanax. Pt is in Path to Home program and is hoping to get respit housing prior to finding housing but he feels he needs to provide documnentation and justification of why he is on Xanax. Pt told me he di not want home care associate, Elsy from Dr De Los Santos office, involved but he said it would be ok for us to talk with aHrper at his office. Pt left our # with Harper today but asked if we don't receive call from her if we could give her a call tomorrow ([phone]). Pt also signed release us to release info to [facility]. Also, received call from CRISTELA Hein w/[facility]. She said that pt is in their system and his Behavioral health Broadcast Technician is Christy Hernandez, . DC plan not clear yet but CM will follow. Date Signed: 12/06/2017 05:00 PM Electronically Signed By:Nahed Go RN [facility] CM Progress Note CM Note CM Note Notes: Cm was asked by pt to call his PCP's office, Dr Mccarthy to get info on why he takes xanax. Pt needs this for the [facility] To Home program because he tested positive for benzodiazepines and barbiturates Harper at Dr Mccarthy's office stated that they are no longer the prescriber and to contact [facility]. Spoke with pt about this who denied that [facility] had prescribed and stated he would call Dr Mccarthy's office. Plan is to call pt's wrapper caser Niraj with [facility] to see what other info they need and what their plan is. PT/OT are recommending SNF at this time. Pt has been at [facility] in past. They will consider him at this admission. He has become homeless since his adm to [facility] last Jul. Referral will be faxed tomorrow. Date Signed: 12/07/2017 05:34 PM Electronically Signed By:Opal Canales LCSW [facility] CM Progress Note CM Note CM Note Notes: Pt interested in rehab. [facility] declined pt due to his [employer] Medicare insurance. They referred pt to their sister facility in [facility]. Have not heard back yet. Will send referral out to other facilities as well. Mike Mendes from [facility] met with pt today to discuss his anxiety and use of xanax. See his note under [facility] notes section. CM will continue to follow. Date Signed: 12/08/2017 04:56 PM Electronically Signed By:Opal Canales LCSW [facility] CM Progress Note CM Note CM Note Notes: Cleo from [facility] met with pt today. Cleo is not sure pt will be good fit but will discuss it with staff and let us know. Pt's level 2 PASRR is pending. CM to follow. Date Signed: 12/09/2017 02:50 PM Electronically Signed By:Opal Canales LCSW [facility] CM Progress Note CM Note CM Note Notes: [facility] will not know until Monday if they can take pt. [facility] will also consider pt. Pt's level 2 should be approved Monday or Monday. CM to follow. Date Signed: 12/10/2017 03:19 PM Electronically Signed By:Opal Canales LCSW [facility] CM Progress Note CM Note CM Note Notes: [facility] pt. Still waiting for L2 PASRR - emailed Hailey José at [facility] to ask for anticipated completion. Apparently she never received it - refaxed L1 PASRR today and asked that it be expedited. Spoke with Rishabh to update her re PASRR delay. Date Signed: 12/11/2017 03:47 PM Electronically Signed By:ROSMERY Veliz [facility] Progress Note CM Note CM Note Notes: Received approved Level 2 PASSR; faxed PASSR to Jasmine at [facility]. Confirmed [facility] is willing to accept pt. Spoke with RN & . interested in discontinuing pt's Xanax & starting pt on Klonopin. Discussed medication change with Jasmine at [facility]; informed if pt discharges today, [facility] would prefer pt to remain on current medication regimen & have [facility] switch meds once pt is at facility; [facility] agreeable to doing to report to discuss. If meds are switched prior to dc, a new PASSR would need to be done & pt would need to remain here at the hospital until approval is received. Discussed with ; decision made to keep pt on current regimen & change meds once pt is at [facility]; agreeable to Dr pankaj Herzog report; phone number provided. Updated RN. Pt provided with info on [facility]; agreeable to dc poc. Transportation arranged; pt & RN updated. Date Signed: 12/12/2017 02:04 PM Electronically Signed By:Elda Shaffer RN Intervention Information
--- NOTE | 2017-12-12 14:38 | ASMTCMCOM ---
CM Note CM Note Notes: Left a message with Kev ([phone]), at [facility], alerting him of pt dc. Also left VM for Clara ([phone]), at [facility] alerting her of pt's dc to [facility] today. Date Signed: 12/12/2017 02:37 PM Electronically Signed By:Elda Shaffer RN
[2017-12-12] MEDS ORDERED: ALPRAZolam 1 MG TAB PO ONE (17:03)
[2017-12-12] MEDS: SERTRALINE HCL 100 MG TAB PO SCH (20:44)
[2017-12-12] MEDS: DONEPEZIL HCL 5 MG TAB PO SCH (20:44)
[2017-12-12] MEDS: LATANOPROST 0.005% 2.5 ML OPHT DROPS EACHEYE SCH (20:51)
[2017-12-12] MEDS: ONDANSETRON DISINTEGRATING 4 MG TAB PO PRN (21:16)
[2017-12-13] MEDS: ALPRAZolam 1 MG TAB PO SCH ×2 (05:23→11:16)
[2017-12-13] MEDS: BECLOMETHASONE QVAR 80 MDI IH SCH (05:32)
[2017-12-13 06:27] VITALS: O2SAT 92
[2017-12-13 08:21] VITALS: BP 134/93; TEMP 98.3
--- NOTE | 2017-12-13 08:32 | GDS ---
[f rep st] DISCHARGE SUMMARY SERVICE: [facility] Hospitalist. CONSULTS: Infectious Disease. PROCEDURES: Chest thorax CTA showing resolution of previously seen small volume pulmonary thromboembolism in comparison to 12/05/2017 study. Moderately advanced central lobe lobular emphysema, residual atelectasis/infiltrates, extensive right left-sided coronary artery atherosclerosis, old compression fractures of thoracic spine, old healed bilateral rib fractures, mildly displaced mid sternal fracture, renal cortical cysts. H and P: please see previously dictated note by Dr. Avalos. ADMISSION DIAGNOSES: 1. Acute chronic obstructive pulmonary disease exacerbation. 2. History of pulmonary embolism diagnosed 11/02/2017. 3. Acute respiratory hypoxic failure. 4. Chronic emphysema. 5. Hypertension. 6. Dementia. 7. Anxiety, panic disorder with chronic benzodiazepine use. 8. Chronic pain. 9. Homelessness. DISCHARGE DIAGNOSES: 1. Acute chronic obstructive pulmonary disease exacerbation, resolved 2. History of pulmonary embolism diagnosed 11/02/2017. 3. Acute respiratory hypoxic failure, resolved 4. Chronic emphysema. 5. Hypertension. 6. Dementia. 7. Anxiety, panic disorder with chronic benzodiazepine use. 8. Chronic pain. 9. Homelessness. DISCHARGE MEDICATIONS: Please see [facility]. Please note: strong recommendation to change him from short-acting benzodiazepine to a longer-acting benzodiazepine with the ultimate goal of perhaps tapering off. This change was not made on the day of discharge, despite discussing it with the patient and his agreement to plan because of issues involved in transfer to the SNF. However, accepting facility was contacted and informed of this recommendation by Case Management also. HOSPITAL COURSE: The patient was readmitted to the hospital after multiple ER visits in October and November and a recent hospitalization in early November for new onset PE diagnosis. He had symptoms of COPD exacerbation and was admitted to the floor for stabilization/evaluattion and pulmonary toilet. There was initial concern of pneumonia on his chest x-ray and he was given a dose of Levaquin in the emergency department, but antibiotics were not continued. Over the course of his stay, his respiratory status greatly improved. Steroids were not needed during his stay as his pulmonary symptoms improved with more regularity of inhalers and nebulizers. He has required oxygen throughout his stay, varying between 2-3 L, mainly when he is sleeping. Initial blood culture was positive for Actinomyces, Streptococcus mitis and streptococcal. Respiratory panel showed no organisms. Infectious Disease was asked to consult regarding these findings and did not recommend any antibiotic treatment, felt to be a contaminant. He initially stated that he was taking alprazolam regularly as an outpatient. This was continued throughout his stay. However, on the day prior to discharge, I reviewed his outpatient medical record through [facility] [employer] system. Multiple entries are noted in his primary care provider's and care management team's notes of concerns about benzodiazepine use as he was requesting refills, which his primary care provider denied. A referral was made to [facility], but does not look like he ever followed through with that referral. On admission, he stated he was taking this medication as scheduled, so it was continued as scheduled. On the day of discharge, I had a ezequiel discussion with him regarding the increased withdrawal and addiction potential of benzodiazepines, but specifically very short-acting benzodiazepines. He is willing to try a longer- acting benzodiazepine and Klonopin was prescribed on the day of discharge. However, as noted above, because of issues with the accepting facility, it was changed back to Xanax with a strong recommendation that it be changed to a long- acting benzodiazepine for management by a psychiatric professional in the future , in line with his primary care provider's previous recommendations. On the day of discharge to [facility], he is ambulating, but does require rehab and therapy per Physical Therapy and Occupational Therapy evaluations. Otherwise, he is medically stable for transfer at this time. Follow up with Dr. Singh within a few days of discharge from [facility] is recommended. /[id number]/MODL MTDD
--- NOTE | 2017-12-13 08:37 | PDDCSUM ---
Discharge Summary Discharge Summary: Please see d/c summary dated 12/12/2017. Pt was discharged yesterday, but did not leave because he was unwilling to give up his marijuana supply and facility would not receive him in possession of marijuana. Therefore, his hospitalization was prolonged while he waited for his friend to come pick up man his marijuana today.
[2017-12-13] MEDS: amLODIPine BESYLATE 5 MG TAB PO SCH (08:53)
[2017-12-13] MEDS: RIVAROXABAN 20 MG TAB PO SCH (08:53)
[2017-12-13] MEDS: TAMSULOSIN HCL 0.4 MG CAP PO SCH (08:53)
[2017-12-13] MEDS: METOPROLOL SUCCINATE XR 50 MG TAB PO SCH (08:53)
[2017-12-13] MEDS: PANTOPRAZOLE SODIUM 40 MG TAB PO SCH (08:53)
[2017-12-13] MEDS: MULTIVITAMINS 1 EACH TAB PO SCH (08:53)
[2017-12-13] MEDS: TIOTROPIUM INHALER 18 MCG/DOSE 5 DOSE/MDI IH SCH (10:14)
[2017-12-13] MEDS: FLUTICASONE/SALMETER 250/50MCG DISKUS IH SCH (10:14)
[2017-12-13 10:23] VITALS: PULSE 65; RESP 14
[2017-12-13] MEDS: diphenhydrAMINE 25 MG CAP PO PRN (11:19)
--- NOTE | 2017-12-13 16:48 | ASMTCMCOM ---
CM Note CM Note Notes: Pt was unable to DC last night as planned because, per nurse charge rn, pt had a knife and marijuan in his backpack and transport plus [facility] would not take him. Pt's friend picked up his items and pt was able to go to [facility] at 1400 today. Date Signed: 12/13/2017 04:47 PM Electronically Signed By:Opal Canales LCSW
== END 2017-12-13 14:23 | disposition home or self-care (01) | DRG 189 ==
LOC: EDUNIT# → INTOOBSV 14:01 → F1N 15:19 → OBSVTOIN 12-05 11:03 → UNDODISIN 12-06 16:55
PROVIDERS: ADMIT Internal Medicine; ATTEND Internal Medicine
DX: J96.01 Acute respiratory failure with hypoxia (principal); J44.1 Chronic obstructive pulmonary disease with (acute) exacerbation; I10 Essential (primary) hypertension; F03.90 Unspecified dementia, unspecified severity, without behavioral disturbance, psychotic disturbance, mood disturbance, and anxiety; F41.0 Panic disorder [episodic paroxysmal anxiety]; G89.29 Other chronic pain; Z59.0 Homelessness; Z86.711 Personal history of pulmonary embolism; Z23 Encounter for immunization; Z79.01 Long term (current) use of anticoagulants; Z72.0 Tobacco use
CPT/HCPCS: 97116-GP; 97161-GP; 97165-GO; 97530-GO; 97535-GO; G0008; G0009; G0378; G8978-GP-CJ; G8979-GP-CH; G8979-GP-CI; G8980-GP-CI; G8987-GO-CJ; G8988-GO-CI; J0696; J1650; J1956; J7512; Q9967

== ENCOUNTER 2018-03-20 13:37 | Inpatient (IN) | payer OTHER, MEDICAID ==
--- NOTE | 2018-03-20 14:08 | EDPHY ---
HPI/HX/ROS/PE/MDM - Data Points Imaging: I viewed and interpreted images myself <Daniel Barragan - Last Filed: 03/20/18 15:27> - Data Points Imaging: Discussed imaging studies w/ outbound call center representative Radiologist <Shayna Brito - Last Filed: 03/22/18 16:05> Narrative: CHIEF COMPLAINT: Malaise, dyspnea. HPI: This patient is a homeless 68 year old male with history of hypertension, COPD, anxiety, and atrial fibrillation. He arrives via EMS for evaluation of mild dyspnea. He states this has been intermittent for "quite some time". He denies fever or cough. Yesterday morning, he had a syncopal episode while sitting and drinking coffee. He struck his chest during this fall. He denies striking his head or any loss of consciousness. He denies chest pain. He denies any other recent trauma. He is anticoagulated (Xarelto). Further HPI difficult to obtain as patient is rather sleepy and will not provide much history. REVIEW OF SYSTEMS: Aside from elements discussed in the HPI, a comprehensive 10-point review of systems was reviewed and is negative. PMH: Anxiety with chronic benzodiazepine dependence. Atrial fibrillation. Hypertension. COPD. HIstory of TBI. Diverticulosis. GI bleed. Colon perforation. Spinal fusion. VTE. Tremor. SOCIAL HISTORY: Homeless. . Daily tobacco use. Denies illicit drug use. PHYSICAL EXAM: General: Sleeping, had to wake patient. Patient is alert, in no acute distress. ENT:Eyes are normal to inspection. ENT inspection normal. Neck: Normal inspection. Full range of motion. Respiratory: No respiratory distress. Mild wheezes bilaterally. Cardiovascular: Regular rate and rhythm. Strong peripheral pulses. Normal cap refill. Abdomen:The abdomen is nontender to palpation. There are no peritoneal signs. There are normal bowel sounds. Back: Normal to inspection. No tenderness to palpation. Skin: Ecchymosis to right chest. Normal color. No rash. Warm and dry. Extremities: Normal appearance. Full range of motion. Neuro: Oriented x3. Normal motor function. Normal sensory function. (Daniel Barragan) ED Course: 68 y/o male presents with malaise and shortness of breath. Exam reveals a small area of ecchymosis over the patient's right chest wall. Plan for x-ray of ribs to rule out fracture or other acute processes. Plan for labs including CBC, chemistries, POC troponin. X-ray of ribs is negative for acute fracture. Troponin pending. Plan to consult with case management regarding follow up for this patient. ( Daniel Barragan) The patient is a 68 y/o male who presented initially complaining of malaise and dyspnea, but on my assessment is now complaining of severe upper abdominal pain. He is sitting up on the edge of the bed belching, coughing, and retching. He has no significant abdominal tenderness on exam and has not produced much emesis here. No hematemesis. No bowel movement since yesterday. He has a LLQ abdominal scar that is from "something caught in my colon." Current vitals: BP 220/145, HR 79, SpO2 variable between 88-92% on room air while talking. He is not compliant with his hypertension medications. Plan for pain medication and abdominal CT to rule out obstruction. 1mg IV Dilaudid, 12.5mg IV Phenergan, IV Metoprolol, and 1L IV NS ordered. LFTs and lipase reviewed and unremarkable. CT is negative for acute process. Gastric antrum thickening, possible gastritis /peptic ulcer disease. Plan for Protonix IV. Reassessed patient and discussed results. He continues to complain of abdominal pain and nausea. His BP has remained hypertensive above 220 systolic. I've ordered another dose of Metoprolol. I hoped that resuming his home medications would result in blood pressure control. However, he has been unable to take oral medication due to his persistent abdominal pain and retching. It is clear that IV metoprolol is not adequate for blood pressure control. I have not found an acute respiratory illness that would account for his dyspnea. No evidence of pneumonia or PE although PE has not been formally ruled out and he reportedly had a syncopal episode yesterday morning. He is anticoagulated, as he has a history of venous thromboembolic disease (DVT). He was given a DuoNeb in the emergency department, as he was wheezing with diminished air exchange at the time of my initial exam. He has a history of COPD and is not compliant with his home medications. COPD exacerbation seems a likely explanation for his dyspnea. He has a history of benzodiazepine use and did take a Xanax while in the emergency department--he took 1 of his own pills and then told the nurse that he had done so. I wonder if there is a component of withdrawal in his presentation. His mentation has remained normal throughout my exams. He has been on 1-2 L nasal cannula oxygen with saturation in mid 90s. Oxygen saturation low nineties on room air at time of my evaluation. Spoke with hospitalist service. Dr. Smith accepts admission. Will start nicardipine drip as per my discussion with Dr. Smith. He has multiple complaints but I feel that his blood pressure is the most pressing problem at this time. (Shayna Brito) - Data Points Imaging Results: Imaging Impressions Ribs w/Chest X-Ray 03/20/18 14:07 Impression: No acute fracture identified. Abdomen CT 03/20/18 18:44 Impression: 1. Mildly thickened gastric antrum. Consider gastritis or possible focal ulcer. 2. Emphysematous changes at the lung bases noted. 3. Nonobstructive 2 mm calculus at the right UVJ. 4. Stable central compression of L1 with new fractures posterior right ninth, 10th, and 11th ribs with nonunion. The rib fractures were actually present on prior CT chest study from 12/05/2017. Findings discussed with Shayna Brito M.D. at 19:56 hour, 03/20/2018. Laboratory Results: Laboratory Results 03/20/18 13:37 03/20/18 13:37 03/20/18 03/20/18 03/20/18 15:44 13:37 13:37 WBC RBC Hgb Hct MCV MCH MCHC RDW Plt Count MPV Neut % (Auto) Lymph % (Auto) [place] % (Auto) Eos % (Auto) Baso % (Auto) Nucleat RBC Rel Count Absolute Neuts (auto) Absolute Lymphs (auto) Absolute Monos (auto) Absolute Eos (auto) Absolute Basos (auto) Absolute Nucleated RBC Immature Gran % Immature Gran # Sodium 143 mEq/L mEq/L (135-145) Potassium 4.5 mEq/L mEq/L (3.3-5.0) Chloride 106 mEq/L mEq/L (97-110) Carbon Dioxide 25 mEq/l mEq/l (22-31) Anion Gap 12 mEq/L mEq/L (8-16) BUN 13 mg/dL mg/dL (7-23) Creatinine 0.9 mg/dL mg/dL (0.7-1.3) Estimated GFR > 60 Glucose 105 mg/dL H mg/dL (70-100) Calcium 9.6 mg/dL mg/dL (8.5-10.4) Total Bilirubin 0.9 mg/dL mg/dL (0.1-1.4) Conjugated Bilirubin 0.6 mg/dL H mg/dL (0.0-0.5) Unconjugated Bilirubin 0.3 mg/dL mg/dL (0.0-1.1) AST 40 IU/L IU/L (17-59) ALT 39 IU/L IU/L (21-72) Alkaline Phosphatase 120 IU/L IU/L (38-126) POC Troponin I 0.01 ng/mL ng/mL (0.00-0.08) Total Protein 7.3 g/dL g/dL (6.3-8.2) Albumin 4.1 g/dL g/dL (3.5-5.0) Lipase 80 IU/L IU/L (23-300) 03/20/18 13:37 WBC 8.47 10^3/uL 10^3/uL (3.80-9.50) RBC 6.35 10^6/uL 10^6/uL (4.40-6.38) Hgb 17.0 g/dL g/dL (13.7-17.5) Hct 50.8 % % (40.0-51.0) MCV 80.0 fL L fL (81.5-99.8) MCH 26.8 pg L pg (27.9-34.1) MCHC 33.5 g/dL g/dL (32.4-36.7) RDW 15.5 % H % (11.5-15.2) Plt Count 265 10^3/uL 10^3/uL (150-400) MPV 10.9 fL fL (8.7-11.7) Neut % (Auto) 84.6 % H % (39.3-74.2) Lymph % (Auto) 7.4 % L % (15.0-45.0) [place] % (Auto) 5.9 % % (4.5-13.0) Eos % (Auto) 1.3 % % (0.6-7.6) Baso % (Auto) 0.4 % % (0.3-1.7) Nucleat RBC Rel Count 0.0 % % (0.0-0.2) Absolute Neuts (auto) 7.17 10^3/uL H 10^3/uL (1.70-6.50) Absolute Lymphs (auto) 0.63 10^3/uL L 10^3/uL (1.00-3.00) Absolute Monos (auto) 0.50 10^3/uL 10^3/uL (0.30-0.80) Absolute Eos (auto) 0.11 10^3/uL 10^3/uL (0.03-0.40) Absolute Basos (auto) 0.03 10^3/uL 10^3/uL (0.02-0.10) Absolute Nucleated RBC 0.00 10^3/uL 10^3/uL (0-0.01) Immature Gran % 0.4 % % (0.0-1.1) Immature Gran # 0.03 10^3/uL 10^3/uL (0.00-0.10) Sodium Potassium Chloride Carbon Dioxide Anion Gap BUN Creatinine Estimated GFR Glucose Calcium Total Bilirubin Conjugated Bilirubin Unconjugated Bilirubin AST ALT Alkaline Phosphatase POC Troponin I Total Protein Albumin Lipase Medications Given: Albuterol/Ipratropium (Duoneb) 3 ml IH QID SALMA Stop: 09/16/18 20:59 Last Admin: 03/20/18 21:42 Dose: Not Given Amlodipine Besylate (Norvasc) 10 mg PO DAILY SALMA Stop: 09/16/18 20:31 Last Admin: 03/20/18 22:05 Dose: 10 mg Nicardipine/Sodium Chloride (Cardene 0.1 Mg/Ml (Premix)) 200 mls @ 0 mls/hr IV CONT SALMA; Titrate PRN Reason: Protocol Stop: 09/16/18 20:29 Last Admin: 03/20/18 20:42 Dose: 200 mls Miscellaneous Medication (Fluticasone/Vilanterol [Breo Ellipta 200-25 Mcg Inh]) 1 puffs IH DAILY SALMA Stop: 09/16/18 20:29 Last Admin: 03/20/18 21:43 Dose: Not Given Pantoprazole Sodium (Protonix) 40 mg IVP BID SALMA Stop: 09/16/18 20:59 Last Admin: 03/20/18 23:17 Dose: 40 mg Promethazine HCl (Phenergan) 25 mg PO Q6H PRN PRN Reason: Nausea/Vomiting, Use 1st Stop: 09/16/18 20:29 Last Admin: 03/20/18 23:15 Dose: 25 mg Sertraline HCl (Zoloft) 250 mg PO HS SALMA Stop: 09/16/18 20:59 Last Admin: 03/20/18 23:15 Dose: 250 mg Discontinued Medications Albuterol/Ipratropium (Duoneb) 3 ml IH EDNOW ONE Stop: 03/20/18 17:45 Last Admin: 03/20/18 19:35 Dose: 3 ml Hydromorphone HCl (Dilaudid) 1 mg IVP EDNOW ONE Stop: 03/20/18 18:41 Last Admin: 03/20/18 18:49 Dose: 1 mg Sodium Chloride (Ns) 1,000 mls @ 0 mls/hr IV EDNOW ONE; Wide Open PRN Reason: Protocol Stop: 03/20/18 18:41 Last Admin: 03/20/18 18:51 Dose: 1,000 mls Lisinopril (Zestril) 10 mg PO EDNOW ONE Stop: 03/20/18 17:28 Last Admin: 03/20/18 18:41 Dose: Not Given Metoprolol Tartrate (Lopressor) 50 mg PO EDNOW ONE Stop: 03/20/18 17:28 Last Admin: 03/20/18 23:02 Dose: Not Given Metoprolol Tartrate (Lopressor Injection) 5 mg IVP EDNOW ONE Stop: 03/20/18 17:46 Last Admin: 03/20/18 17:51 Dose: 5 mg Metoprolol Tartrate (Lopressor Injection) 5 mg IVP EDNOW ONE Stop: 03/20/18 18:36 Last Admin: 03/20/18 18:49 Dose: 5 mg Metoprolol Tartrate (Lopressor Injection) 10 mg IVP EDNOW ONE Stop: 03/20/18 19:50 Last Admin: 03/20/18 20:02 Dose: 10 mg Ondansetron HCl (Zofran) 4 mg IVP EDNOW ONE Stop: 03/20/18 16:04 Last Admin: 03/20/18 16:06 Dose: 4 mg Promethazine HCl (Phenergan) 12.5 mg IVP EDNOW ONE Stop: 03/20/18 17:36 Last Admin: 03/20/18 17:44 Dose: 12.5 mg Promethazine HCl (Phenergan) 12.5 mg IVP EDNOW ONE Stop: 03/20/18 18:43 Last Admin: 03/20/18 18:50 Dose: 12.5 mg Promethazine HCl (Phenergan) 12.5 mg IVP EDNOW ONE Stop: 03/20/18 18:41 Last Admin: 03/20/18 18:50 Dose: Not Given Point of Care Test Results: Chemistry 03/20/18 15:44 POC Troponin I 0.01 ng/mL ng/mL (0.00-0.08) General <Daniel Barragan - Last Filed: 03/20/18 15:27> <Shayna Brito - Last Filed: 03/22/18 16:05> Time Seen by Provider: 03/20/18 14:03 Initial Vital Signs: Initial Vital Signs Temperature (C) 36.9 C 03/20/18 13:43 Heart Rate 74 03/20/18 13:43 Respiratory Rate 14 03/20/18 13:43 Blood Pressure 168/117 H 03/20/18 13:43 O2 Sat (%) 84 L 03/20/18 13:43 O2 Delivery Mode Nasal Cannula O2 (L/minute) 4 Allergies/Adverse Reactions: preservative in Lidocaine Allergy (Uncoded 10/27/17 21:46) Home Medications: Medication Instructions Recorded ALPRAZolam [Xanax 1 MG (*)] 1 mg PO Q6H PRN 03/20/18 Donepezil HCl 20 mg PO HS 03/20/18 Fluticasone/Vilanterol [Breo 1 puffs IH DAILY 03/20/18 Ellipta 200-25 Mcg INH] Lisinopril [Zestril 10 mg (*)] 10 mg PO DAILY 03/20/18 Metoprolol Succinate Xr [Toprol Xl 50 mg PO DAILY 03/20/18 50 mg (*)] Promethazine HCl [Phenergan 25mg 25 mg PO Q6H PRN 03/20/18 (*)] Rivaroxaban [Xarelto] 20 mg PO DAILY 03/20/18 Sertraline HCl [Zoloft 100mg (*)] 250 mg PO HS 03/20/18 Tamsulosin HCl [Flomax 0.4 MG (*)] 0.4 mg PO DAILY 03/20/18 Tiotropium Inhaler [Spiriva 18 mcg IH DAILY 03/20/18 Handihaler] amLODIPine BESYLATE [Norvasc 5 mg 5 mg PO DAILY 03/20/18 (*)] hydrOXYzine HCL [hydrOXYzine HCL 25 mg PO HS PRN 03/20/18 (RX)] traMADol [Ultram 50 mg (*)] 50 mg PO Q6H PRN 03/20/18 Departure <Daniel Barragan - Last Filed: 03/20/18 15:27> <Shayna Brito - Last Filed: 03/22/18 16:05> - Departure Disposition: [facility] Inpatient Acute Clinical Impression: Malaise, Hypertensive emergency without congestive heart failure Abdominal pain Qualifiers: Abdominal location: epigastric Qualified Code(s): R10.13 - Epigastric pain Condition: Fair Report Scribed for: Daniel Barragan Report Scribed by: Nayana Hsu Date of Report: 03/20/18 Time of Report: 14:07 Physician Review and Approval Statement: Portions of this note were transcribed by an ED scribe. I personally performed the history, physical exam, and medical decision making; and confirm the accuracy of the information in the transcribed note. <Daniel Barragan - Last Filed: 03/20/18 15:27>
[2018-03-20 15:15] LABS: PLATELET COUNT 265 10^3/uL (150-400)
[2018-03-20] MEDS ORDERED: ONDANSETRON 4 MG/2 ML VIAL IVP ONE (16:03)
[2018-03-20] MEDS ORDERED: LISINOPRIL 20 MG TAB PO ONE (17:27)
[2018-03-20] MEDS ORDERED: METOPROLOL TARTRATE 50 MG TAB PO ONE (17:27)
[2018-03-20] MEDS ORDERED: PROMETHAZINE HCL 25 MG/ML INJ IVP ONE ×3 (17:35→18:42)
[2018-03-20] MEDS ORDERED: IPRATROPIUM/ALBUTEROL 3 ML DEYVIAL IH ONE (17:44)
[2018-03-20] MEDS ORDERED: METOPROLOL TARTRATE 5 MG/5 ML INJ IVP ONE ×3 (17:45→19:49)
[2018-03-20] MEDS ORDERED: HYDROmorphONE/DILAUDID 2 MG/ML INJ IVP ONE (18:40)
[2018-03-20] MEDS ORDERED: NS 1,000 ML IV ONE (18:40)
[2018-03-20] MEDS ORDERED: IOPAMIDOL (ISOVUE-300) 100 ML BTL ONE (19:03)
--- NOTE | 2018-03-20 19:39 | ASMTLACE ---
LORENZOE Comorbidities - select Answers: Chronic pulmonary disease all that apply Other Notes: A-fib, HTN, hx of TBI, hx of colon perforation # of Emergency department Answers: 9-12 visits in the last 6 months Social determinants Answers: History of substance abuse (ETOH, street drugs, prescription drugs, etc.) Homelessness (street, [place] [facility]) Mental health diagnosis (anxiety, depression, pers onality disorders, etc.) Lack of community resources and/or lack of social support (no pcp, lives alone, transportation, rhea d) Score: 21 Date Signed: 03/20/2018 07:38 PM Electronically Signed By:Hailey Maynard RN
--- NOTE | 2018-03-20 20:12 | ASMTCMCOM ---
CM Note CM Note Notes: Pt presented to the ED via ambulance for malaise, dyspnea and nausea. Pt reports he had a syncopal episode yesterday morning while sitting, and he fell and hit his chest. Pt has history of PE, rib fractures. Please refer to last CM notes under Reports 12/12/17 and various CM notes prior to that admission for additional background. While in the ED, pt then started experiencing severe upper abdominal pain. Pt's SpO2 varies between 88-92% on Room Air. Pt has a history of COPD. Pt to be admitted for further eval and monitoring. Pt is homeless and states he is still staying at the [facility]. Pt reports his CM at [facility] range between Valeriano Healy and other CMs; he is still working with them to find transitional housing. Pt states he still follows up regularly with his therapist, Jose Juan (last [facility] visit his therapist was Clara) at [facility] ([phone]). Pt's PCP is still Dr Singh and his last visit w/him was this past Monday03/14/18. When asked if patient has been contacted by/followed up with [facility] ([phone]) through [facility], or by Kaylee cheng/[facility] but pt seemed to not know who they were or what [facility] is. Pt had a friend, Jose Juan, stop by in the ED and visit him. Pt states Jose Juan also stays at [facility] and "is a good friend." Pt feels like things have been going well the past few months and that his medication regimen is working out well for him (as r/t to his anxiety, chronic pain, etc). Pt was d/c'd to [facility] 12/[facility]. Pt has also been to [facility] in the past. Exact DC needs unknown/TBD. CM to follow. Date Signed: 03/20/2018 08:12 PM Electronically Signed By:Hailey Maynard RN
[2018-03-20] MEDS ORDERED: ALBUTEROL 3 ML DEYVIAL IH PRN (20:26)
[2018-03-20] MEDS ORDERED: ALPRAZolam 1 MG TAB PO PRN (20:30)
[2018-03-20] MEDS ORDERED: hydrOXYzine HCL 25 MG TAB PO PRN (20:30)
[2018-03-20] MEDS: niCARdipine/NACL 200 ML IV SCH (20:42)
--- NOTE | 2018-03-20 21:33 | PDGENHP ---
History and Physical - Chief Complaint abdominal pain, N/V, headache, recent syncope - History of Present Illness 68 yo homeless male with h/o hypertension, COPD and DVT on Xarelto presents to ED with abdominal pain and recent syncope. He states he passed out yesterday while eating breakfast. He denies pre-syncopal symptoms such as dizziness, lightheadedness or heart palpitations. When he regained consciousness, he began to have epigastric abdominal pain. Today, he presented to the ED for evaluation. At this time, he complains of headache. He denies CP or SOB. He vomited multiple times in the ED. He denies hematemesis, coffee ground emesis, hematochezia or melanotic stools. He denies recent alcohol use. In the ED, he had severely elevated blood pressure, as high as 230/160. He received several doses of IV Metoprolol with little effect. He is admitted to the hospital for further management. History Information - Allergies/Home Medication List Allergies/Adverse Reactions: preservative in Lidocaine Allergy (Uncoded 10/27/17 21:46) Home Medications: ALPRAZolam [Xanax 1 MG (*)] 1 mg PO Q6H PRN 03/20/18 [Last Taken 03/19/18] Donepezil HCl 20 mg PO HS 03/20/18 [Last Taken 03/19/18] Fluticasone/Vilanterol [Breo Ellipta 200-25 Mcg INH] 1 puffs IH DAILY 03/20/18 [ Last Taken 03/19/18] Lisinopril [Zestril 10 mg (*)] 10 mg PO DAILY 03/20/18 [Last Taken 03/20/18] Metoprolol Succinate Xr [Toprol Xl 50 mg (*)] 50 mg PO DAILY 03/20/18 [Last Taken 03/19/18] Promethazine HCl [Phenergan 25mg (*)] 25 mg PO Q6H PRN 03/20/18 [Last Taken Unknown] Rivaroxaban [Xarelto] 20 mg PO DAILY 03/20/18 [Last Taken 03/19/18 14:00] Sertraline HCl [Zoloft 100mg (*)] 250 mg PO HS 03/20/18 [Last Taken 03/19/18] Tamsulosin HCl [Flomax 0.4 MG (*)] 0.4 mg PO DAILY 03/20/18 [Last Taken 03/19/18 ] Tiotropium Inhaler [Spiriva Handihaler] 18 mcg IH DAILY 03/20/18 [Last Taken ] amLODIPine BESYLATE [Norvasc 5 mg (*)] 5 mg PO DAILY 03/20/18 [Last Taken ] hydrOXYzine HCL [hydrOXYzine HCL (RX)] 25 mg PO HS PRN 03/20/18 [Last Taken ] traMADol [Ultram 50 mg (*)] 50 mg PO Q6H PRN 03/20/18 [Last Taken 03/19/18] I have personally reviewed and updated: family history, medical history, social history, surgical history - Past Medical History COPD, DVT, hypertension Additional medical history: H/O GIB. Colon perforation 07/2017. A fib. Anxiety. Chronic bzd dependence. TBI. H/O subdural hematoma - Surgical History Reports: no pertinent surgical hx - Family History Positive for: non-pertinent - Social History Smoking Status: Light smoker Alcohol Use: None Drug Use: None Additional social history: Homeless, says he hasn't had etoh for months. Denies drug use. Review of Systems Review of Systems: ROS: 10pt was reviewed & negative except for what was stated in HPI & below Physical Exam Physical Exam: Temp Pulse Resp BP Pulse Ox 36.9 C 80 14 182/119 H 99 03/20/18 13:43 03/20/18 20:46 03/20/18 20:46 03/20/18 21:03 03/20/18 20:46 O2 (L/minute) 4 Constitutional: no apparent distress Eyes: PERRL Ears, Nose, Mouth, Throat: moist mucous membranes Cardiovascular: regular rate and rhythym Respiratory: no respiratory distress, reduced air movement Gastrointestinal: normoactive bowel sounds, soft, non-tender abdomen Skin: warm Musculoskeletal: full muscle strength Neurologic: AAOx3, CN II-XII Intact, other (no facial droop, neg pronator drift) Psychiatric: interacting appropriately Lab Data & Imaging Review 03/20/18 13:37 03/20/18 13:37 WBC 8.47 10^3/uL (3.80-9.50) 03/20/18 13:37 RBC 6.35 10^6/uL (4.40-6.38) 03/20/18 13:37 Hgb 17.0 g/dL (13.7-17.5) 03/20/18 13:37 Hct 50.8 % (40.0-51.0) 03/20/18 13:37 MCV 80.0 fL (81.5-99.8) L 03/20/18 13:37 MCH 26.8 pg (27.9-34.1) L 03/20/18 13:37 MCHC 33.5 g/dL (32.4-36.7) 03/20/18 13:37 RDW 15.5 % (11.5-15.2) H 03/20/18 13:37 Plt Count 265 10^3/uL (150-400) 03/20/18 13:37 MPV 10.9 fL (8.7-11.7) 03/20/18 13:37 Neut % (Auto) 84.6 % (39.3-74.2) H 03/20/18 13:37 Lymph % (Auto) 7.4 % (15.0-45.0) L 03/20/18 13:37 [place] % (Auto) 5.9 % (4.5-13.0) 03/20/18 13:37 Eos % (Auto) 1.3 % (0.6-7.6) 03/20/18 13:37 Baso % (Auto) 0.4 % (0.3-1.7) 03/20/18 13:37 Nucleat RBC Rel Count 0.0 % (0.0-0.2) 03/20/18 13:37 Absolute Neuts (auto) 7.17 10^3/uL (1.70-6.50) H 03/20/18 13:37 Absolute Lymphs (auto) 0.63 10^3/uL (1.00-3.00) L 03/20/18 13:37 Absolute Monos (auto) 0.50 10^3/uL (0.30-0.80) 03/20/18 13:37 Absolute Eos (auto) 0.11 10^3/uL (0.03-0.40) 03/20/18 13:37 Absolute Basos (auto) 0.03 10^3/uL (0.02-0.10) 03/20/18 13:37 Absolute Nucleated RBC 0.00 10^3/uL (0-0.01) 03/20/18 13:37 Immature Gran % 0.4 % (0.0-1.1) 03/20/18 13:37 Immature Gran # 0.03 10^3/uL (0.00-0.10) 03/20/18 13:37 Sodium 143 mEq/L (135-145) 03/20/18 13:37 Potassium 4.5 mEq/L (3.3-5.0) 03/20/18 13:37 Chloride 106 mEq/L (97-110) 03/20/18 13:37 Carbon Dioxide 25 mEq/l (22-31) 03/20/18 13:37 Anion Gap 12 mEq/L (8-16) 03/20/18 13:37 BUN 13 mg/dL (7-23) 03/20/18 13:37 Creatinine 0.9 mg/dL (0.7-1.3) 03/20/18 13:37 Estimated GFR > 60 03/20/18 13:37 Glucose 105 mg/dL (70-100) H 03/20/18 13:37 Calcium 9.6 mg/dL (8.5-10.4) 03/20/18 13:37 Total Bilirubin 0.9 mg/dL (0.1-1.4) 03/20/18 13:37 Conjugated Bilirubin 0.6 mg/dL (0.0-0.5) H 03/20/18 13:37 Unconjugated Bilirubin 0.3 mg/dL (0.0-1.1) 03/20/18 13:37 AST 40 IU/L (17-59) 03/20/18 13:37 ALT 39 IU/L (21-72) 03/20/18 13:37 Alkaline Phosphatase 120 IU/L (38-126) 03/20/18 13:37 POC Troponin I 0.01 ng/mL (0.00-0.08) 03/20/18 15:44 Total Protein 7.3 g/dL (6.3-8.2) 03/20/18 13:37 Albumin 4.1 g/dL (3.5-5.0) 03/20/18 13:37 Lipase 80 IU/L (23-300) 03/20/18 13:37 Visualized and Interpreted Chest x-ray results: Yes Chest X-Ray results: no infiltrate Assessment & Plan Assessment: Hypertensive emergency - Currently with headache, vision changes and N/V. BP did not respond to multiple doses of Metoprolol in ED. -start nicardipine drip for target SBP 170-180 over next several hours -resume oral meds (Toprol XL, Lisinopril, and increased norvasc 10 mg) and titrate down drip as able -EKG now, trend trop -brain MRI now Epigastric abdominal pain - suspect gastritis or PUD based on gastric antral thickening on CT. -IV Protonix 40 mg BID -Sucralfate N/V - suspect 2/2 to gastritis / PUD process. However, given severe hypertension, consider central source -brain MRI to r/o cerebellar stroke or increased intra-cranial pressure -PPI, supportive care as above -consider GI consult for consideration of EGD if symptoms not improving, but need better BP control prior to procedure AHRF 2/2 COPD - no significant wheezing on exam, requiring 2 LPM -scheduled duonebs, prn albuterol nebs -defer steroids for now H/O DVT - cont Xarelto Syncope - occurred >24 hrs prior to arrival, possibly vasovagal event -check echo -trend trop A fib - rate controlled on Toprol, CVA prevention with Xarelto Anxiety with chronic BZD dependence - cont outpt bzd regimen to prevent w/d TBI H/O SDH Full code Dispo - admit to inpt, anticipate >48 hrs hospitalization for ongoing management of hypertensive crisis, abdominal pain, N/V
[2018-03-20] MEDS: IPRATROPIUM/ALBUTEROL 3 ML DEYVIAL IH SCH (21:42)
[2018-03-20] MEDS: VILANTEROL IH SCH (21:43)
[2018-03-20] MEDS: FLUTICASONE IH SCH (21:43)
--- NOTE | 2018-03-20 21:55 | CPEKG ---
Heart Rate: 95 RR Interval: 632 P-R Interval: 172 QRSD Interval: 108 QT Interval: 388 QTC Interval: 488 P [place]: 61 QRS [place]: -68 T Wave [place]: 51 EKG Severity - ABNORMAL ECG - EKG Impression: SINUS RHYTHM EKG Impression: PROBABLE LEFT ATRIAL ABNORMALITY EKG Impression: LEFT ANTERIOR FASCICULAR BLOCK EKG Impression: BORDERLINE PROLONGED QT INTERVAL Electronically Signed By: Sam Merrill 21-Mar-2018 11:01:44
[2018-03-20] MEDS: amLODIPine BESYLATE 5 MG TAB PO SCH (22:05)
[2018-03-20] MEDS: PROMETHAZINE HCL 25 MG TAB PO PRN (23:15)
[2018-03-20] MEDS: SERTRALINE HCL 100 MG TAB PO SCH (23:15)
[2018-03-20] MEDS: PANTOPRAZOLE SODIUM 40 MG VIAL IVP SCH (23:17)
[2018-03-21] MEDS: ALPRAZolam 1 MG TAB PO PRN ×4 (00:05→19:19)
[2018-03-21] MEDS: ONDANSETRON DISINTEGRATING 4 MG TAB PO PRN (00:39)
[2018-03-21] MEDS ORDERED: SUCRALFATE 1 GM TAB PO ONE (00:45)
[2018-03-21] MEDS: niCARdipine/NACL 200 ML IV SCH (02:14)
[2018-03-21] MEDS: IPRATROPIUM/ALBUTEROL 3 ML DEYVIAL IH SCH ×4 (04:49→21:15)
[2018-03-21] MEDS: SUCRALFATE 1 GM/10 ML UDCUP PO SCH ×2 (08:13→13:32)
[2018-03-21] MEDS: PANTOPRAZOLE SODIUM 40 MG VIAL IVP SCH ×2 (08:15→20:56)
[2018-03-21] MEDS: ONDANSETRON 4 MG/2 ML VIAL IVP PRN (08:35)
[2018-03-21] MEDS ORDERED: METOPROLOL SUCCINATE XR 50 MG TAB PO SCH (09:00)
[2018-03-21] MEDS: PROMETHAZINE HCL 25 MG/ML INJ IVP PRN (09:34)
[2018-03-21] MEDS ORDERED: NS 1,000 ML IV ONE (10:29)
[2018-03-21] MEDS ORDERED: NALOXONE HCL 0.4 MG/ML INJ IVP PRN (10:34)
[2018-03-21] MEDS ORDERED: HYDROmorphONE/DILAUDID 1 MG/ML INJ IVP ONE (10:34)
[2018-03-21 10:51] LABS: PLATELET COUNT 281 10^3/uL (150-400)
[2018-03-21] MEDS: VILANTEROL IH SCH (11:04)
[2018-03-21] MEDS: FLUTICASONE IH SCH (11:04)
[2018-03-21] MEDS: HYDROmorphONE/DILAUDID 6 MG/30 ML PCA IV PRN (11:39)
[2018-03-21] MEDS: NS 1,000 ML IV SCH ×2 (12:15→20:32)
--- NOTE | 2018-03-21 12:16 | PDMN ---
Medical Necessity Medical necessity: Pt meets IP criteria per MD; est los >2 mn for eval/tx of hypertensive emergency w/BP as high as 230/160, headache, vision changes, N/V, abdominal pain & recent syncope; admit for further workup/monitoring, Nicardipine drip, IVFs, IV Protonix & med management; hx homelessness, HTN, COPD , DVT on AC; per H&P & order 03/20/18
--- NOTE | 2018-03-21 12:36 | ASMTCMCOM ---
CM Note CM Note Notes: Pts case discussed in morning rounds. Pt is a 68 y/o man admitted for hypertensive emergency and vomiting. OT has been ordered and awaiting recommendations. Needs are TBD at this time. CM to follow. Plan: TBD Date Signed: 03/21/2018 12:35 PM Electronically Signed By:VAN Parks
[2018-03-21] MEDS: amLODIPine BESYLATE 5 MG TAB PO SCH (13:30)
[2018-03-21] MEDS: LISINOPRIL 10 MG TAB PO SCH (13:30)
[2018-03-21] MEDS: RIVAROXABAN 20 MG TAB PO SCH (13:31)
[2018-03-21] MEDS: TAMSULOSIN HCL 0.4 MG CAP PO SCH (13:31)
--- NOTE | 2018-03-21 14:52 | ECHO ---
[email or web address] [address] [address] Main: [phone] Fax: Transthoracic Echocardiogram Name: LUCHO MONTEIRO MR#: [id number] Study Date: 03/21/2018 Study Time: 09:25 AM Date of : 1950 Age: 68 year(s) Height: 188 cm (74 in.) Weight: 89.36 kg (197 lb.) BSA: 2.16 m2 Gender: Male Examination: Echo Indication: Hypertensive Crisis, COPD, Vomiting Image Quality: Contrast: Requested by: Jazmyne Smith BP: 159 mmHg/87 mmHg Heart Rate: Rhythm: Tachycardia Indication: Hypertensive Crisis, COPD, Vomiting Procedure Staff Primer And Powder Canning Leader: Micah Figueroa RDCS Reading Physician: Jordon Ramon MD Requesting Provider: Conclusions: Normal size left ventricle. No LV hypertrophy. Normal global systolic LV function. EF is 69 %. No regional wall motion abnormality. Diastolic dysfunction is present. . Normal RV function. Mild mitral valve leaflet calcification is present. There is no mitral valve regurgitation. The aortic valve is normal in appearance and function. The tricuspid valve is normal in appearance and function. Trivial tricuspid valve regurgitation. No previous Measurements: Chambers Valvular Assessment AV/MV Valvular Assessment TV/PV Normal Normal Normal Name Value Range Name Value Range Name Value Range Ao Melanie (MM): 3.3 cm (2.2 cm-3.7 AV Vmax: 1.55 m/s (1 m/s-1.7 TR Vmax: 2.08 mm/s ( - ) cm) m/s) TR PGmax: 17 mmHg ( - ) IVSd (2D): 0.8 cm (0.6 cm-1.1 AV maxP mmHg ( - ) syst. PAP: 22 mmHg ( - ) cm) LVOT Vmax: 1.15 m/s (0.7 m/s-1.1 PV Vmax: 0.79 m/s (0.6 m/s-0.9 LVDd (2D): 5.3 cm (4.2 cm-5.9 m/s) m/s) cm) MV E Vmax: 0.40 m/s ( - ) PV PGmax: 2 mmHg ( - ) LVDs (2D): 3.2 cm (2.1 cm-4 MV A Vmax: 0.92 m/s ( - ) cm) MV E/A: 0.43 ( - ) LVPWd (2D): 1.1 cm (0.6 cm-1 cm) LVEF (2D): 69 (>=54 %) Patient: LUCHO MONTEIRO Study Date: 03/21/2018 Page 1 of 2 09:25 AM Continued Measurements: Chambers Valvular Assessment AV/MV Valvular Assessment TV/PV Name Value Name Value Name Value LADs Lon.3 cm MV E' Septal: 0.05 m/s CVP (est.): 5 mmHg LA Area: 15.5 cm2 MV E/E' Septal: 8.30 LA Volume: 48 ml MV E/E' Lateral: 6.80 LA Volume Index: 22.2 ml/m2 Findings: Left Ventricle: Normal size left ventricle. No LV hypertrophy. Normal global systolic LV function. EF is 69 %. No regional wall motion abnormality. Diastolic dysfunction is present. . Right Ventricle: Normal size right ventricle. Normal RV function. Left Atrium: The left atrium is normal in size. Right Atrium: The right atrium is normal in size. Mitral Valve: The mitral valve is normal in appearance and function. Mild mitral valve leaflet calcification is present. There is no mitral valve regurgitation. Aortic Valve: The aortic valve is tri-leaflet. The aortic valve is normal in appearance and function. Tricuspid Valve: The tricuspid valve appears normal. The tricuspid valve is normal in appearance and function. Trivial tricuspid valve regurgitation. Pulmonic Valve: The pulmonic valve is normal in appearance and function. Aorta: The aorta is normal. Pericardium: No pericardial effusion. (No Signature Object) Patient: LUCHO MONTEIRO Study Date: 03/21/2018 Page 2 of 2 09:25 AM [id number]
[2018-03-21] MEDS: ACETAMINOPHEN 325 MG TAB PO PRN (20:33)
[2018-03-21] MEDS: SERTRALINE HCL 100 MG TAB PO SCH (20:55)
--- NOTE | 2018-03-21 21:22 | HOSPPROG ---
Hospitalist Progress Note Assessment/Plan: DIAGNOSES: -acute abdominal pain of uncertain etiology, but given the x-ray findings would be concerned about the possibility of partial small bowel obstruction or some type of focal inflammatory process not currently identified; CT and normal lipase rule out pancreatitis; so far nothing to suggest ischemia -hypertension and tachycardia likely represent a combination of response to pain as well as some withdrawal from beta-jack as he is not likely been able to take his oral medicines at home -syncope at home approximately 24 hr prior to presentation; uncertain etiology -microcytosis but without anemia and with high red cell count likely represent a hemoglobinopathy and not iron deficiency -chronic hypoxemic respiratory failure due to COPD appears stable at this time -history of DVT on anticoagulant -AFib rate controlled on beta-jack at home, on chronic anticoagulant PLANS: -continue pain management -follow his abdominal exam very closely -repeat abdominal x-rays in the morning -NPO for now -continue IV hydration -will try and begin his oral medicines again at this time -continue observe on monitoring and evaluation advisor Patient seen by me on hospitalist rounds with 2 visits today Also seen by me on multidisciplinary rounds SUBJECTIVE: This morning had dramatically increased abdominal pain with some nausea but no vomiting; the pain is diffuse States no bowel movement for the last 2-3 days Not short of breath No chills or sweats OBJECTIVE Vitals reviewed: The his blood pressure and pulse were both quite high this morning but are improving through the day with improved pain control; no fevers 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, my review: Sinus tach Exam: alert oriented skin warm dry color ok resps not labored lungs clear BSs heart regular abd soft nondistended nontender, bowel sounds present limbs warm, no edema iv site ok Laboratory data: White blood cell count higher 11,000 but still no anemia and platelets good Metabolic panel and liver panel both normal Ordered x-rays of the abdomen today which on my review of the images showed some dilated loops of small bowel with air-fluid levels in the left mid and upper abdomen, these were not seen on the CT scan on my review of those images from yesterday Objective: Vital Signs Temp Pulse Resp BP Pulse Ox 36.8 C 102 H 16 95/64 L 93 03/21/18 20:14 03/21/18 20:14 03/21/18 20:14 03/21/18 20:14 03/21/18 20:14 Laboratory Results 03/21/18 10:35 03/21/18 10:35 03/20/18 03/21/18 03/22/18 06:59 06:59 06:59 Intake Total 1604 1735 Output Total 1175 555 Balance 429 1180 - Time Spent With Patient Time Spent with Patient: greater than 35 minutes Time Spent with Patient: Greater than 35 minutes spent on this patients care, greater than 50% of time spent counseling, educating, and coordinating care regarding the above mentioned plan. ICD10 Worksheet Patient Problems: Problems Problem Status Onset Abdominal pain Acute Hypertensive emergency without congestive heart failure Acute Malaise Acute Acute encephalopathy Acute Afib - Atrial fibrillation Acute Anxiety Acute Aspiration into airway Acute Assistance needed for ambulation and movement Acute Back pain Acute Chest pain Acute Chronic pulmonary embolism Acute [place] toxicity Acute Perforation of sigmoid colon Acute Pneumonia Acute Pulmonary embolism Acute
[2018-03-22] MEDS: HYDROmorphONE/DILAUDID 6 MG/30 ML PCA IV PRN ×2 (00:08→19:16)
[2018-03-22] MEDS: ALPRAZolam 1 MG TAB PO PRN ×4 (01:19→20:29)
[2018-03-22] MEDS: IPRATROPIUM/ALBUTEROL 3 ML DEYVIAL IH SCH ×5 (05:51→19:57)
[2018-03-22] MEDS: NS 1,000 ML IV SCH ×2 (06:03→16:38)
[2018-03-22] MEDS: TAMSULOSIN HCL 0.4 MG CAP PO SCH (08:14)
[2018-03-22] MEDS: PANTOPRAZOLE SODIUM 40 MG VIAL IVP SCH ×2 (08:15→20:29)
--- NOTE | 2018-03-22 11:02 | HOSPPROG ---
Hospitalist Progress Note Assessment/Plan: DIAGNOSES: -acute abdominal pain of uncertain etiology, but given the x-ray findings would be concerned about the possibility of partial small bowel obstruction or some type of focal inflammatory process not currently identified; CT and normal lipase rule out pancreatitis; so far nothing to suggest ischemia -hypertension and tachycardia likely represent a combination of response to pain as well as some withdrawal from beta-jack and they have resolved at present -syncope at home approximately 24 hr prior to presentation; uncertain etiology -microcytosis but without anemia and with high red cell count likely represent a hemoglobinopathy and not iron deficiency -chronic hypoxemic respiratory failure due to COPD appears stable at this time -history of DVT on anticoagulant -AFib rate controlled on beta-jack at home, on chronic anticoagulant PLANS: -continue pain management -repeat abdominal x-rays today and if this still shows dilated loops of bowel will get small-bowel follow-through; if no dilated bowel will consider trial of p.o. 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: Sinus tach Exam: alert oriented skin warm dry color ok resps not labored lungs clear BSs heart regular abd soft nondistended but there is some tenderness particular in the left abdomen today, bowel sounds present limbs warm, no edema iv site ok Objective: Vital Signs Temp Pulse Resp BP Pulse Ox 36.7 C 67 15 126/78 H 95 03/22/18 08:00 03/22/18 08:00 03/22/18 08:00 03/22/18 08:00 03/22/18 08:00 Laboratory Results 03/21/18 10:35 03/21/18 10:35 03/21/18 03/22/18 03/23/18 06:59 06:59 06:59 Intake Total 1604 3091 Output Total 1175 755 Balance 429 4416 - Time Spent With Patient Time Spent with Patient: greater than 35 minutes Time Spent with Patient: Greater than 35 minutes spent on this patients care, greater than 50% of time spent counseling, educating, and coordinating care regarding the above mentioned plan. ICD10 Worksheet Patient Problems: Problems Problem Status Onset Abdominal pain Acute Hypertensive emergency without congestive heart failure Acute Malaise Acute Acute encephalopathy Acute Afib - Atrial fibrillation Acute Anxiety Acute Aspiration into airway Acute Assistance needed for ambulation and movement Acute Back pain Acute Chest pain Acute Chronic pulmonary embolism Acute [place] toxicity Acute Perforation of sigmoid colon Acute Pneumonia Acute Pulmonary embolism Acute
[2018-03-22] MEDS: FLUTICASONE IH SCH (11:58)
[2018-03-22] MEDS: VILANTEROL IH SCH (11:58)
[2018-03-22] MEDS: ENOXAPARIN 40 MG/0.4 ML SYR SC SCH (14:24)
[2018-03-22] MEDS: ACETAMINOPHEN 325 MG TAB PO PRN (16:32)
[2018-03-22] MEDS: SERTRALINE HCL 100 MG TAB PO SCH (20:28)
[2018-03-23] MEDS: NS 1,000 ML IV SCH ×2 (01:44→11:34)
[2018-03-23] MEDS: ALPRAZolam 1 MG TAB PO PRN ×4 (02:52→21:43)
[2018-03-23] MEDS: IPRATROPIUM/ALBUTEROL 3 ML DEYVIAL IH SCH ×3 (05:34→16:12)
[2018-03-23] MEDS: ENOXAPARIN 40 MG/0.4 ML SYR SC SCH (09:13)
[2018-03-23] MEDS: PANTOPRAZOLE SODIUM 40 MG VIAL IVP SCH (09:13)
[2018-03-23] MEDS: TAMSULOSIN HCL 0.4 MG CAP PO SCH (09:13)
[2018-03-23] MEDS: VILANTEROL IH SCH (10:48)
[2018-03-23] MEDS: FLUTICASONE IH SCH (10:48)
[2018-03-23] MEDS ORDERED: POLYETHYLENE GLYCOL 3350 17 GM PKT PO PRN (11:11)
[2018-03-23] MEDS ORDERED: MAGNESIUM HYDROXIDE 30 ML UDCUP PO PRN (11:11)
[2018-03-23] MEDS ORDERED: LACTULOSE 20 GM/30 ML UDCUP PO PRN (11:11)
[2018-03-23] MEDS ORDERED: BISACODYL 10 MG SUPP PR PRN (11:11)
[2018-03-23] MEDS ORDERED: MAGNESIUM CITRATE 300 ML BOTTLE PO ONE (11:11)
[2018-03-23] MEDS: ACETAMINOPHEN 325 MG TAB PO PRN (11:33)
--- NOTE | 2018-03-23 12:41 | ASMTCMCOM ---
CM Note CM Note Notes: Pts case discussed in tx rounds. PT has been ordered. OT has cleared pt. CM met w/ pt for dispo planning. Pt reports feeling out of it and not thinking straight because he has not had anything to eat. CM encouraged pt to take a walk around the unit and get some fresh air outside. Pt needs to have a BM before his diet can be advanced. CM to follow. Plan: TBD Date Signed: 03/23/2018 12:40 PM Electronically Signed By:VAN Parks
[2018-03-23] MEDS: SENNOSIDES/DOCUSATE SODIUM TAB PO SCH ×2 (13:04→21:32)
[2018-03-23] MEDS: METOPROLOL SUCCINATE XR 50 MG TAB PO SCH (14:48)
[2018-03-23] MEDS: PROMETHAZINE HCL 25 MG TAB PO PRN (16:39)
--- NOTE | 2018-03-23 18:35 | HOSPPROG ---
Hospitalist Progress Note Assessment/Plan: Assessment: 68-year-old male presents with acute syncope in the setting of hypertensive crisis, acute abdominal pain, suspected chronic hypoxic respiratory failure Plan: 1. Syncope. Unclear etiology, occurred 24 hr prior to presentation, most likely multifactorial in the setting of possible hypoxia, pain, hypertensive crisis -no recurrence -continue monitor on telemetry 2. Suspected chronic hypoxic respiratory failure. Patient with underlying COPD , no evidence of acute exacerbation, patient reports that he has not been using supplemental oxygen prior to admission but he may have an underlying oxygen need -suspect a component of acute atelectasis, encourage incentive spirometer -continue to encourage ambulation -continue attempts to wean oxygen to room air and gauge effect 3. Hypertensive crisis. Evidenced by systolic blood pressure in the 200s as well as brain MRI demonstrating some mild blood in the left medial thalamus, unclear whether this contributed to patient's syncopal presentation -systolic blood pressure has been substantially improved, continue current meds and pain control 4. Acute abdominal pain. 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 History of deep venous thrombosis. Continue on systemic anticoagulation 6. Atrial fibrillation. Paroxysmal, continue beta-jack and systemic anticoagulation Diet. Advance to solids Prophylaxis. High risk patient, on systemic anticoagulation Code. Full Disposition. Anticipated discharge is 03/24, pending stabilization of conditions outlined above. Subjective: Patient reports that his abdominal pain is improving, he is beginning to become hungry for solid foods, he has not passed any stool Objective: Vital Signs Temp Pulse Resp BP Pulse Ox 37.1 C 87 15 146/90 H 90 L 03/23/18 16:34 03/23/18 16:34 03/23/18 16:34 03/23/18 16:34 03/23/18 16:34 Laboratory Results 03/21/18 10:35 03/21/18 10:35 03/22/18 03/23/18 03/24/18 05:59 05:59 05:59 Intake Total 2139 2566 1460 Output Total 755 350 Balance 1384 2216 1460 - Time Spent With Patient Time Spent with Patient: greater than 35 minutes Time Spent with Patient: Greater than 35 minutes spent on this patients care, greater than 50% of time spent counseling, educating, and coordinating care regarding the above mentioned plan. - Pending Discharge Pending Discharge Within 24 Hours: Yes Pending Discharge Date: 03/24/18 Pending Discharge Time: 11:00 - Physical Exam Constitutional: no apparent distress, not in pain, chronically ill appearing, No uncomfortable Cardiovascular: regular rate and rhythym, no murmur, rub, or gallop, No edema Respiratory: expiratory wheeze (Faint bilaterally), No reduced air movement, No inspiratory crackles, No bronchial breath sounds, No respiratory distress Gastrointestinal: normoactive bowel sounds, soft, non-tender abdomen, no palpable masses, No distension Neurologic: AAOx3 Psychiatric: interacting appropriately, not anxious, not encephalopathic, thought process linear ICD10 Worksheet Patient Problems: Problems Problem Status Onset Aspiration into airway Acute Afib - Atrial fibrillation Acute Assistance needed for ambulation and movement Acute Chest pain Acute [place] toxicity Acute Acute encephalopathy Acute Perforation of sigmoid colon Acute Pulmonary embolism Acute Anxiety Acute Back pain Acute Pneumonia Acute Chronic pulmonary embolism Acute Abdominal pain Acute Malaise Acute Hypertensive emergency without congestive heart failure Acute
[2018-03-23] MEDS ORDERED: IPRATROPIUM/ALBUTEROL 3 ML DEYVIAL IH PRN (18:37)
[2018-03-23] MEDS: SERTRALINE HCL 100 MG TAB PO SCH (21:33)
[2018-03-23] MEDS: amLODIPine BESYLATE 5 MG TAB PO SCH ×2 (21:34→21:45)
[2018-03-23] MEDS: ONDANSETRON DISINTEGRATING 4 MG TAB PO PRN (21:43)
[2018-03-24] MEDS: PROMETHAZINE HCL 25 MG TAB PO PRN ×2 (01:31→20:37)
[2018-03-24] MEDS: HYDROmorphONE/DILAUDID 2 MG TAB PO PRN ×2 (02:42→08:20)
[2018-03-24] MEDS: traMADol 50 MG TAB PO PRN ×2 (03:03→15:57)
[2018-03-24] MEDS: ALPRAZolam 1 MG TAB PO PRN ×3 (03:44→20:16)
[2018-03-24] MEDS: DICYCLOMINE 20 MG TAB PO PRN ×3 (03:48→15:57)
[2018-03-24] MEDS: SENNOSIDES/DOCUSATE SODIUM TAB PO SCH ×2 (08:19→20:16)
[2018-03-24] MEDS: TAMSULOSIN HCL 0.4 MG CAP PO SCH (08:20)
[2018-03-24] MEDS: amLODIPine BESYLATE 5 MG TAB PO SCH (08:20)
[2018-03-24] MEDS: RIVAROXABAN 20 MG TAB PO SCH (08:20)
[2018-03-24] MEDS: PANTOPRAZOLE SODIUM 40 MG TAB PO SCH (08:20)
[2018-03-24] MEDS: METOPROLOL SUCCINATE XR 50 MG TAB PO SCH (08:20)
[2018-03-24] MEDS: ONDANSETRON 4 MG/2 ML VIAL IVP PRN (08:22)
[2018-03-24] MEDS: VILANTEROL IH SCH (09:10)
[2018-03-24] MEDS: TIOTROPIUM INHALER 18 MCG/DOSE 5 DOSE/MDI IH SCH (09:10)
[2018-03-24] MEDS: FLUTICASONE IH SCH (09:10)
[2018-03-24] MEDS: LISINOPRIL 10 MG TAB PO SCH (09:24)
[2018-03-24] MEDS: PROMETHAZINE HCL 25 MG/ML INJ IVP PRN (09:25)
[2018-03-24] MEDS ORDERED: ONDANSETRON 4 MG/2 ML VIAL IVP PRN (09:39)
[2018-03-24 10:35] LABS: PLATELET COUNT 266 10^3/uL (150-400)
--- NOTE | 2018-03-24 13:01 | ASMTCMCOM ---
CM Note CM Note Notes: Discussed pt in rounds this AM. See CM note from ED 03/20/18 for more background. In rounds this AM pt stated that he has been staying at the [facility] and is working w/CM there to find housing. He plans to return to this jail at md. May need bus pass at that time. CM will follow. Date Signed: 03/24/2018 01:00 PM Electronically Signed By:Nahed Go RN
[2018-03-24] MEDS: ACETAMINOPHEN 325 MG TAB PO PRN (17:01)
[2018-03-24] MEDS ORDERED: hydrALAZINE 20 MG/ML VIAL IVP PRN (18:17)
[2018-03-24] MEDS ORDERED: LISINOPRIL 10 MG TAB PO ONE (18:18)
--- NOTE | 2018-03-24 18:28 | HOSPPROG ---
Hospitalist Progress Note Assessment/Plan: Assessment: 68-year-old male presents with acute syncope in the setting of hypertensive crisis, acute abdominal pain, suspected chronic hypoxic respiratory failure Plan: 1. Syncope. Unclear etiology, occurred 24 hr prior to presentation, most likely multifactorial in the setting of possible hypoxia, pain, hypertensive crisis -no recurrence -continue monitor on telemetry 2. Possible chronic hypoxic respiratory failure. Patient with underlying COPD, no evidence of acute exacerbation, patient reports that he has not been using supplemental oxygen prior to admission but he may have an underlying oxygen need -suspect a component of acute atelectasis, encourage ongoing incentive spirometer -continue to encourage ambulation -monitor success of RA challenge 3. Hypertensive crisis. Evidenced by systolic blood pressure in the 200s as well as brain MRI demonstrating some mild blood in the left medial thalamus, unclear whether this contributed to patient's syncopal presentation -systolic blood pressure initially improved, now worsening w/ ongoing pain -given presence of thalamic blood, check HCT to r/o expansion -increase lisinopril to 20mg, cont amlodipine 10mg, cont metoprolol succ 50mg -add PRN hydralazine for > 160 -hold xarelto 4. Acute abdominal pain. Worsening, new problem, further w/u indicated. HIDA w/ o GB uptake, possible cholecystitis -d/w Dr. Landon, he recommends RUQ US, hold on surg unless more convincing evidence -monitor LFTs -no e/o active nephrolithiasis on UA -cont PRN pain Rx 5. History of deep venous thrombosis. Hold xarelto given above 6. Atrial fibrillation. Paroxysmal, continue beta-jack and hold xarelto 7. Nephrolithiasis. Chronic, present on CT w/ 2mm stone on R, current pain not e /o active stone Diet. NPO while above w/u Prophylaxis. High risk patient, hold pharm, start SCDs Code. Full Disposition. Anticipated discharge is uncertain, highly medically complex and high risk of worsening morbidity 2/2 above. Subjective: worsening abd pain and nausea, had BM last PM Objective: Vital Signs Temp Pulse Resp BP Pulse Ox 36.8 C 92 15 179/111 H 95 03/24/18 16:00 03/24/18 16:00 03/24/18 16:00 03/24/18 16:00 03/24/18 16:00 Laboratory Results 03/24/18 10:05 03/24/18 10:05 03/23/18 03/24/18 03/25/18 05:59 05:59 05:59 Intake Total 2566 3160 300 Output Total 350 300 Balance 2216 3160 0 - Physical Exam Constitutional: chronically ill appearing, uncomfortable, No no apparent distress (moderate), No not in pain (moderate) Cardiovascular: regular rate and rhythym, no murmur, rub, or gallop, No edema Respiratory: no respiratory distress, no rales or rhonchi, clear to auscultation Gastrointestinal: normoactive bowel sounds, tenderness (RUQ to mild depth palpation), guarding (voluntary RUQ), other (no flank tenderness), No distension Neurologic: AAOx3 Psychiatric: not encephalopathic, thought process linear, anxious, No agitated ICD10 Worksheet Patient Problems: Problems Problem Status Onset Aspiration into airway Acute Afib - Atrial fibrillation Acute Assistance needed for ambulation and movement Acute Chest pain Acute [place] toxicity Acute Acute encephalopathy Acute Perforation of sigmoid colon Acute Pulmonary embolism Acute Anxiety Acute Back pain Acute Pneumonia Acute Chronic pulmonary embolism Acute Abdominal pain Acute Malaise Acute Hypertensive emergency without congestive heart failure Acute
--- NOTE | 2018-03-24 19:55 | GCON ---
[f rep st] CONSULTATION REFERRING PHYSICIAN: Dr. Savage Cutler REASON FOR CONSULTATION: Possible biliary process. HISTORY OF PRESENT ILLNESS: This patient is a homeless patient, who has multiple medical problems. He came in the day after a syncopal event that occurred when he was eating breakfast on 03/20/2018. He passed out. When he did wake up, he had concerns for epigastric pain. He did subsequently vomit in the ER. There were concerns because he had a small bleed in his thalamus on head CT. He is on Xarelto for AFib and history of DVT. He was in hypertensive crisis with a blood pressure of 230/160. He has been in the hospital for several days. Today he complained more of a right upper quadrant pain. LABORATORIES: Reveal his white count has gone up from 8.4 to 12.5 with 91% neutrophil count. His alkaline phosphatase has gone from 116 to 134. His bilirubin has gone from 1.1 to 1.9. His AST has gone from 40 to 52. His ALT has gone from 39 to 51. His lipase is normal. HIDA scan was performed, which showed nonvisualization of the gallbladder. On the prior CT, stones were not identified. Since admission, he had not been on his Xarelto, but that was restarted this morning. MEDICATIONS: He is on multiple medications which include lisinopril, metoprolol , and Norvasc for his hypertension. He is taking Xanax 1 mg every 6 hours as needed. He takes benazepril 20 mg h.s. For his COPD, he takes Breo Ellipta 200 -25 mcg daily. He also uses Spiriva 18 mcg daily. He uses Flomax 0.4 mg daily. CHRONIC ILLNESSES: Include a subdural hematoma; traumatic brain injury from, I believe, 2000. He has anxiety, COPD, hypertension, DVT, as mentioned above, AFib which is rate controlled. He has history of diverticulosis and spinal fusion. He has chronic benzo dependence. History of upper GI bleed. Colon perforation, 2017, which led to a diverting colostomy with subsequent reestablishment of continuity. On further questioning, his abdominal pain is intermittent and low level. It is not the classic abdominal pain with cholecystitis where he cannot find a comfortable position. PHYSICAL EXAMINATION: GENERAL: He is tender to palpation in the left upper quadrant, 1 on a scale of 1-10, 2 in the left mid abdomen, 3 in the left lower quadrant, 7 in the epigastrium, 7 in the periumbilical region, 5 in the suprapubic area, 9 in the right upper quadrant with a slight augmentation with deep breath, 7 in the right mid abdomen, 7 in the right lower quadrant. IMPRESSION: Patient who is still hypertensive with blood pressure 179/111, who was anticoagulated today with Xarelto, who does not have the best history for a biliary dysfunction, but I do not have an alternative diagnosis for him at this time as he does not really have any signs of bowel obstruction. PLAN: I do recommend a followup head CT for the bleed into the thalamus to see if that is true and/or changing. I recommended a sonogram to see if we can determine gallstones and see if we have sonographically positive Scales sign. I will continue to follow with you. /[id number]/MODL MTDD
[2018-03-24] MEDS: NICOTINE 21 MG/24 HR PATCH TD SCH (20:15)
[2018-03-24] MEDS: SERTRALINE HCL 100 MG TAB PO SCH (20:16)
[2018-03-25] MEDS: DICYCLOMINE 20 MG TAB PO PRN (01:41)
[2018-03-25] MEDS: ALPRAZolam 1 MG TAB PO PRN ×4 (01:41→21:48)
[2018-03-25 04:00] LABS: PLATELET COUNT 260 10^3/uL (150-400)
[2018-03-25] MEDS: HYDROmorphONE/DILAUDID 2 MG TAB PO PRN (04:49)
--- NOTE | 2018-03-25 07:57 | SOAPPROG ---
SOAP Progress Note Assessment/Plan: 03/25/18 07:53 Assessment: Had a "rough" night due to pain. Sono shows stones, Bili ( total and equally direct and indirect elevated) WBC up Plan: Antibiotics and intervention. Will discuss with Dr. Cutler patients suitability for surgery or percutaneous drainage by IR as a temporizing maneuver. Subjective: Pain kept me awake last night Objective: Vital Signs Temp Pulse Resp BP Pulse Ox 36.9 C 108 H 20 135/92 H 93 03/25/18 03:55 03/25/18 03:55 03/25/18 03:55 03/25/18 03:55 03/25/18 04:25 Laboratory Results 03/25/18 03:18 03/25/18 03:18 03/24/18 03/25/18 03/26/18 05:59 05:59 05:59 Intake Total 3160 300 Output Total 475 Balance 3160 -175 - Time Spent With Patient Time Spent With Patient: 15 - Pending Discharge Pending Discharge Within 24 Hours: No Pending Discharge Within 48 Hours: No Physical Exam - Physical Exam General Appearance: WD/WN, alert, moderate distress Abdomen: distended, guarding, other (hypoactive bowel sounds, Positive Scales's sign) ICD10 Worksheet Patient Problems: Problems Problem Status Onset Abdominal pain Acute Hypertensive emergency without congestive heart failure Acute Malaise Acute Acute encephalopathy Acute Afib - Atrial fibrillation Acute Anxiety Acute Aspiration into airway Acute Assistance needed for ambulation and movement Acute Back pain Acute Chest pain Acute Chronic pulmonary embolism Acute [place] toxicity Acute Perforation of sigmoid colon Acute Pneumonia Acute Pulmonary embolism Acute
[2018-03-25] MEDS: PANTOPRAZOLE SODIUM 40 MG TAB PO SCH (08:27)
[2018-03-25] MEDS: METOPROLOL SUCCINATE XR 50 MG TAB PO SCH (08:27)
[2018-03-25] MEDS: TAMSULOSIN HCL 0.4 MG CAP PO SCH (08:27)
[2018-03-25] MEDS: amLODIPine BESYLATE 5 MG TAB PO SCH (08:27)
[2018-03-25] MEDS: NICOTINE 21 MG/24 HR PATCH TD SCH (08:28)
[2018-03-25] MEDS: SENNOSIDES/DOCUSATE SODIUM TAB PO SCH ×2 (08:28→21:44)
[2018-03-25] MEDS: ceFAZolin 2 GM/DEXTROSE 100 ML IV SCH ×3 (08:35→21:44)
[2018-03-25] MEDS ORDERED: LISINOPRIL 20 MG TAB PO SCH (09:00)
[2018-03-25] MEDS: TIOTROPIUM INHALER 18 MCG/DOSE 5 DOSE/MDI IH SCH (09:18)
[2018-03-25] MEDS: VILANTEROL IH SCH (09:18)
[2018-03-25] MEDS: FLUTICASONE IH SCH (09:18)
[2018-03-25] MEDS ORDERED: HYDROmorphONE/DILAUDID 1 MG/ML INJ IVP PRN ×2 (09:40→13:05)
[2018-03-25] MEDS ORDERED: NS W/ 20 KCl/L 1,000 ML IV SCH (09:45)
[2018-03-25] MEDS ORDERED: HEPARIN 5,000 UNIT/0.5 ML INJ ONE (10:48)
[2018-03-25] MEDS: ceFAZolin 1 GM/5 ML SYR ONE ×2 (10:51→12:43)
[2018-03-25] MEDS ORDERED: MIDAZOLAM 2 MG/2 ML VIAL IVP ONE (11:03)
[2018-03-25] MEDS ORDERED: IOTHALAMATE MEG (CONRAY) 50 ML VIAL IV ONE (11:06)
--- NOTE | 2018-03-25 11:09 | PDANEPAE ---
ANE History of Present Illness Laparoscopic cholecystectomy ANE Past Medical History - Cardiovascular History Hx Hypertension: Yes Hx Arrhythmias: Yes Hx Chest Pain: No Hx Coronary Artery / Peripheral Vascular Disease: No Hx CHF / Valvular Disease: No Hx Palpitations: Yes - Pulmonary History Hx COPD: Yes Hx Asthma/Reactive Airway Disease: Yes Hx Recent Upper Respiratory Infection: No Hx Oxygen in Use at Home: No Hx Sleep Apnea: Yes Sleep Apnea Screening Result - Last Documented: Positive - Endocrine History Hx Diabetes: No Hypothyroid: No Hyperthyroid: No Obesity: no - Neurological & Psychiatric Hx Hx Neurological and Psychiatric Disorders: Yes - Chronic Pain History Chronic Pain: No ANE Review of Systems Review of Systems: - Exercise capacity METS (RN): 3 METS ANE Patient History - Allergies Allergies/Adverse Reactions: preservative in Lidocaine Allergy (Uncoded 10/27/17 21:46) - Home Medications Home medications: home medication list seen and reviewed Home Medications: ALPRAZolam [Xanax 1 MG (*)] 1 mg PO Q6H PRN 03/20/18 [Last Taken 03/19/18] Donepezil HCl 20 mg PO HS 03/20/18 [Last Taken 03/19/18] Fluticasone/Vilanterol [Breo Ellipta 200-25 Mcg INH] 1 puffs IH DAILY 03/20/18 [ Last Taken 03/19/18] Lisinopril [Zestril 10 mg (*)] 10 mg PO DAILY 03/20/18 [Last Taken 03/20/18] Metoprolol Succinate Xr [Toprol Xl 50 mg (*)] 50 mg PO DAILY 03/20/18 [Last Taken 03/19/18] Promethazine HCl [Phenergan 25mg (*)] 25 mg PO Q6H PRN 03/20/18 [Last Taken Unknown] Rivaroxaban [Xarelto] 20 mg PO DAILY 03/20/18 [Last Taken 03/19/18 14:00] Sertraline HCl [Zoloft 100mg (*)] 250 mg PO HS 03/20/18 [Last Taken 03/19/18] Tamsulosin HCl [Flomax 0.4 MG (*)] 0.4 mg PO DAILY 03/20/18 [Last Taken 03/19/18 ] Tiotropium Inhaler [Spiriva Handihaler] 18 mcg IH DAILY 03/20/18 [Last Taken ] amLODIPine BESYLATE [Norvasc 5 mg (*)] 5 mg PO DAILY 03/20/18 [Last Taken ] hydrOXYzine HCL [hydrOXYzine HCL (RX)] 25 mg PO HS PRN 03/20/18 [Last Taken ] traMADol [Ultram 50 mg (*)] 50 mg PO Q6H PRN 03/20/18 [Last Taken 03/19/18] - NPO status NPO Status: no food or drink >8 hours - Anes Hx Anes Hx: no prior problems - Smoking Hx Smoking Status: Light smoker - Alcohol Use Alcohol Use: None - Family Anes Hx Family Anes Hx: neg - N/A ANE Labs/Vital Signs - Labs Result Diagrams: 03/25/18 03:18 03/25/18 03:18 - Vital Signs Blood Pressure: 122/91 Heart Rate: 119 Respiratory Rate: 15 O2 Sat (%): 92 Height: 187.96 cm Weight: 87.3 kg ANE Physical Exam - Airway Neck exam: decreased ROM Mallampati Score: Class 2 Mouth exam: poor dentition - Pulmonary Pulmonary: reduced air movement - Cardiovascular Cardiovascular: regular rate and rhythym, no murmur, rub, or gallop - ASA Status ASA Status: III ANE Anesthesia Plan Anesthesia Plan: general endotracheal anesthesia
[2018-03-25] MEDS ORDERED: fentaNYL 250 MCG/5 ML INJ ONE (11:14)
[2018-03-25] MEDS ORDERED: PROPOFOL 200 MG/20 ML VIAL ONE (11:15)
[2018-03-25] MEDS ORDERED: PROPOFOL/EMULSION 500 MG/50 ML BOTTLE IV ONE (11:15)
[2018-03-25] MEDS ORDERED: MIDAZOLAM 2 MG/2 ML VIAL ONE (11:16)
[2018-03-25] MEDS ORDERED: PHENYLEPHRINE HCL 100 MCG/ML SYR ONE (11:49)
[2018-03-25] MEDS ORDERED: ONDANSETRON 4 MG/2 ML VIAL ONE (12:58)
[2018-03-25] MEDS ORDERED: ROCURONIUM 50 MG/5 ML VIAL ONE ×2 (12:58)
[2018-03-25] MEDS ORDERED: NEOSTIGMINE METHYLSULFATE 3 MG/3 ML SYR ONE (13:00)
[2018-03-25] MEDS ORDERED: GLYCOPYRROLATE 0.2 MG/1 ML VIAL ONE ×3 (13:00)
[2018-03-25] MEDS ORDERED: fentaNYL 100 MCG/2 ML INJ ONE ×3 (13:01→15:19)
[2018-03-25] MEDS ORDERED: NALOXONE HCL 0.4 MG/ML INJ IVP PRN (13:05)
[2018-03-25] MEDS ORDERED: DIAZEPAM 5 MG/ML 1 ML SYR IVP PRN (13:05)
[2018-03-25] MEDS: fentaNYL 100 MCG/2 ML INJ IVP PRN ×4 (13:43→15:28)
--- NOTE | 2018-03-25 14:15 | ASMTCMCOM ---
CM Note CM Note Notes: 03/25/2018 Case Management Note Pt in surgery today for lap lori. Per PT pt was unable to participate d/t pain. PT recommending SNF rehab. Case Management d/c poc: to be determined. Case Management to follow. Date Signed: 03/25/2018 02:15 PM Electronically Signed By:Anay Eubanks RN
--- NOTE | 2018-03-25 14:37 | POSTOPPROG ---
Post Op Note Date of Operation: 03/25/18 Surgeon: Petar Landon Anesthesia: GET(General Endotracheal) Pre-op Diagnosis: Acute cholecystitis with cholelithiasis Post-op Diagnosis: Acute gangrenous cholecystitis with cholelithiasis Indication: Acute cholecystitis with cholelithiasis Findings: Acute gangrenous cholecystitis with cholelithiasis Inf/Abcess present in the surg proc area at time of surgery?: Yes Depth: Organ Space EBL: Minimal Total fluids administered: 700 Complications: none Drains: Foreign Lizama Specimen(s): gallbladder, bile for culture
[2018-03-25] MEDS: ACETAMINOPHEN 325 MG TAB PO SCH ×2 (15:33→21:44)
--- NOTE | 2018-03-25 15:35 | GOP ---
[f rep st] OPERATIVE REPORT DATE OF OPERATION: 03/25/2018 SURGEON: Petar Landon MD PREOPERATIVE DIAGNOSIS: Acute cholecystitis with cholelithiasis. POSTOPERATIVE DIAGNOSIS: Acute gangrenous cholecystitis with cholelithiasis. PROCEDURE PERFORMED: FINDINGS: Acute gangrenous cholecystitis, cholelithiasis. SPECIMENS: Gallbladder and bile for culture. INDICATIONS: Acute cholecystitis with cholelithiasis. DESCRIPTION OF PROCEDURE: The patient was placed on the operating table in supine position. After induction of adequate general endotracheal anesthesia, the abdomen was carefully clipped, prepped, and draped. A surgical time-out was carried out and agreed to by all members of the operative team. A curvilinear incision was made at the umbilicus. Dissection was continued down to the anterior rectus sheath which was elevated on either side of the midline with Allis clamps. The midline was incised. A pursestring of #0 PDS was placed. The peritoneum was carefully entered. The 11-12 mm disposable Da trocar was positioned and intraabdominal insufflation was carried out to 15 mmHg. He was placed in a slight Trendelenburg position. The gallbladder was black/green and intensely distended with adhesions of the omentum to the gall bladder. It was drained with a needle catheter. Approximately 240 cc were removed. 2 right upper quadrant 5 mm ports have been placed. The gallbladder was grasped at its fundus through the lateral port, on the infundibulum through the medial port. Careful dissection was carried out with adhesions near the infundibulum. This was carried out with a Harmonic scalpel. The cystic duct was identified. It was carefully cleaned proximally and distally. What appeared to be the cystic artery was carefully cleaned proximally and distally. The cystic duct was triply clipped on the patient's side and doubly clipped on the gallbladder side. It was divided. Cystic artery was transected with the Harmonic scalpel. Dissection was continued down to the biliary fossa going just along the edge of the gallbladder using the Harmonic scalpel. Note was made a critical view had been obtained before starting this dissection. Once the gallbladder was elevated and dissection continued to the point where the gallbladder from its fossa, the endoscopes were changed from 10 to 5 mm, and the EndoCatch bag was passed through the 11, 12 mm port site. The gallbladder was placed in the EndoCatch bag. It was released, and the bag was closed. Note was made irrigation with heparin and Ancef-containing irrigant had carried out throughout the procedure. There had been no bile leak. The gallbladder was removed via the umbilical port site. It was grasped with a ring forceps through the open EndoCatch bag and carefully extracted. Pneumoperitoneum was re-established. Copious irrigation was carried out. The biliary fossa was carefully checked. There were several minimal oozing points, which were treated with electrocautery at 30 watt seconds. Hemostasis was now felt to be excellent. Because he was on Xarelto, an 11 flat LORENZO drain was placed in the biliary fossa and led out through the lateral 5 mm port site. This was secured at the skin level with a 3-0 silk suture. It was connected to a suction bulb. The other ports were removed under direct vision. Hemostasis was excellent. The umbilical port was removed. Inverted simple suture of #0 PDS was placed in the midline fascial defect and tied. The pursestring was now tied. The subcutaneous tissue was well irrigated with the heparin and Ancef- containing irrigant. Interrupted inverted simple sutures of #4-0 Vicryl were placed. Mastisol and Steri-Strips were positioned. Band-Aids were positioned. The patient was transferred to recovery in stable and satisfactory condition. /[id number]/MODL MTDD
[2018-03-25] MEDS: KETOROLAC 15 MG/1 ML SDV IVP SCH ×2 (17:30→23:14)
--- NOTE | 2018-03-25 19:35 | HOSPPROG ---
Hospitalist Progress Note Assessment/Plan: Assessment: 68-year-old male presents with acute syncope in the setting of hypertensive crisis, acute abdominal pain, suspected chronic hypoxic respiratory failure c/b acute cholecystitis and hypotension Plan: 1. Syncope. Unclear etiology, occurred 24 hr prior to presentation, most likely multifactorial in the setting of possible hypoxia, pain, hypertensive crisis -no recurrence -continue monitor on telemetry (in Afib, personally interpreted) 2. Possible chronic hypoxic respiratory failure. Patient with underlying COPD, no evidence of acute exacerbation, patient reports that he has not been using supplemental oxygen prior to admission but he may have an underlying oxygen need -suspect a component of acute atelectasis, encourage ongoing incentive spirometer -continue to encourage ambulation -monitor success of RA challenge 3. Hypertensive crisis. Evidenced by systolic blood pressure in the 200s, HCT confirmed no bleed -hold xarelto -cont hold Rx in AM if BP tolerates 4. Acute cholecystitis. New problem, further w/u indicated. Evidenced by RUQ tenderness + worsening leukocytosis + positive HIDA + stones on US -d/w Dr. Landon, he reports gangrenous GB in OR today, safely removed, sent of Cx -cont IV Ancef D#1 -repeat LFT/lipase/CBC, trend -cont pain control 5. History of deep venous thrombosis. Hold xarelto given above 6. Atrial fibrillation. Paroxysmal, continue beta-jack and hold xarelto 7. Nephrolithiasis. Chronic, present on CT w/ 2mm stone on R, current pain not e /o active stone 8. Hypotension. Post-op, does not appear to be hypoperfusing, cont NS, check lactic if febrile or tachycardic 9. Acute atelectasis. 83% o/n, 2/2 pain, IS Diet. NPO while above w/u Prophylaxis. High risk patient, hold pharm, start SCDs Code. Full Disposition. Anticipated discharge is uncertain, highly medically complex and high risk of worsening morbidity 2/2 above. Subjective: worsening RUQ pain o/n, patient feels terrible Objective: Vital Signs Temp Pulse Resp BP Pulse Ox 36.8 C 77 16 94/65 L 95 03/25/18 18:56 03/25/18 18:56 03/25/18 18:56 03/25/18 18:56 03/25/18 18:56 Microbiology 03/25/18 12:05 Gram Stain - Final Bile - Eswab Laboratory Results 03/25/18 03:18 03/25/18 03:18 03/24/18 03/25/18 03/26/18 05:59 05:59 05:59 Intake Total 3160 300 2225 Output Total 475 205 Balance 3160 -175 2019 - Physical Exam Constitutional: chronically ill appearing, uncomfortable, No no apparent distress (mild), No not in pain (moderate) Cardiovascular: irregularly irregular, tachycardia, No systolic murmur, No edema Respiratory: reduced air movement (in bilat bases 2/2 abd pain), inspiratory crackles, No expiratory wheeze, No bronchial breath sounds Gastrointestinal: tenderness (RUQ to mild depth palpation), guarding (RUQ voluntary), No normoactive bowel sounds (hypoactive bowel sounds), No distension Neurologic: AAOx3 Psychiatric: interacting appropriately, not encephalopathic, anxious, No agitated ICD10 Worksheet Patient Problems: Problems Problem Status Onset Abdominal pain Acute Hypertensive emergency without congestive heart failure Acute Malaise Acute Acute encephalopathy Acute Afib - Atrial fibrillation Acute Anxiety Acute Aspiration into airway Acute Assistance needed for ambulation and movement Acute Back pain Acute Chest pain Acute Chronic pulmonary embolism Acute [place] toxicity Acute Perforation of sigmoid colon Acute Pneumonia Acute Pulmonary embolism Acute
[2018-03-25] MEDS: SERTRALINE HCL 100 MG TAB PO SCH (21:44)
[2018-03-26] MEDS: ALPRAZolam 1 MG TAB PO PRN ×3 (05:07→17:58)
[2018-03-26] MEDS: KETOROLAC 15 MG/1 ML SDV IVP SCH (05:07)
[2018-03-26] MEDS: ACETAMINOPHEN 325 MG TAB PO SCH ×3 (05:07→21:00)
[2018-03-26] MEDS: PROMETHAZINE HCL 25 MG/ML INJ IVP PRN ×2 (05:07→23:03)
[2018-03-26] MEDS: ceFAZolin 2 GM/DEXTROSE 100 ML IV SCH ×3 (05:07→21:00)
[2018-03-26 05:19] LABS: PLATELET COUNT 199 10^3/uL (150-400)
[2018-03-26] MEDS: NS 1,000 ML IV SCH ×3 (08:37→23:03)
[2018-03-26] MEDS: METOPROLOL SUCCINATE XR 50 MG TAB PO SCH (08:38)
[2018-03-26] MEDS: SENNOSIDES/DOCUSATE SODIUM TAB PO SCH ×2 (08:39→20:58)
[2018-03-26] MEDS: TAMSULOSIN HCL 0.4 MG CAP PO SCH (08:39)
[2018-03-26] MEDS: PANTOPRAZOLE SODIUM 40 MG TAB PO SCH (08:39)
[2018-03-26] MEDS: RIVAROXABAN 20 MG TAB PO SCH (08:39)
[2018-03-26] MEDS: VILANTEROL IH SCH (10:16)
[2018-03-26] MEDS: FLUTICASONE IH SCH (10:16)
[2018-03-26] MEDS: TIOTROPIUM INHALER 18 MCG/DOSE 5 DOSE/MDI IH SCH (10:58)
[2018-03-26] MEDS: ONDANSETRON DISINTEGRATING 4 MG TAB PO PRN (11:53)
--- NOTE | 2018-03-26 12:59 | SOAPPROG ---
SOAP Progress Note Assessment/Plan: 03/25/18 07:53 Assessment: Had a "rough" night due to pain. Sono shows stones, Bili ( total and equally direct and indirect elevated) WBC up Plan: Antibiotics and intervention. Will discuss with Dr. Cutler patients suitability for surgery or percutaneous drainage by IR as a temporizing maneuver. 03/26/18 12:56 POD#1 Assessment: ACUTE GANGRENOUS CHOLECYSTITIS WITH CHOLELITHIASIS Doing well from a surgical perspective. LFTS improving, Bilirubin Improved, HTN under goo control. He does c/o nausea and has not eaten much yet. LORENZO with minimal drainage (removed) Plan: Differ to Medical team Subjective: I have some nausea Objective: Vital Signs Temp Pulse Resp BP Pulse Ox 36.6 C 66 16 112/80 95 03/26/18 11:26 03/26/18 11:26 03/26/18 11:26 03/26/18 11:26 03/26/18 11:26 Microbiology 03/24/18 10:30 Urine Culture - Final Urine,Clean Catch 03/25/18 12:05 Gram Stain - Final Bile - Eswab Laboratory Results 03/26/18 04:55 03/26/18 04:55 03/25/18 03/26/18 03/27/18 05:59 05:59 05:59 Intake Total 300 2825 Output Total 475 880 270 Balance -175 1945 -270 - Time Spent With Patient Time Spent With Patient: 25 Physical Exam - Physical Exam General Appearance: WD/WN, no apparent distress, other (sleepy) Respiratory: chest non-tender, lungs clear, normal breath sounds Cardiac/Chest: regular rate, rhythm Abdomen: normal bowel sounds, non-tender, soft, other (Incisions clean and dry) Male Genitalia: deferred Rectal: deferred Back: Normal inspection Skin: normal color, warm/dry Neuro/Psych: no motor/sensory deficits, normal mood/affect ICD10 Worksheet Patient Problems: Problems Problem Status Onset Abdominal pain Acute Hypertensive emergency without congestive heart failure Acute Malaise Acute Acute encephalopathy Acute Afib - Atrial fibrillation Acute Anxiety Acute Aspiration into airway Acute Assistance needed for ambulation and movement Acute Back pain Acute Chest pain Acute Chronic pulmonary embolism Acute [place] toxicity Acute Perforation of sigmoid colon Acute Pneumonia Acute Pulmonary embolism Acute
[2018-03-26] MEDS: hydrOXYzine HCL 25 MG TAB PO PRN (15:30)
--- NOTE | 2018-03-26 19:25 | HOSPPROG ---
Hospitalist Progress Note Assessment/Plan: Assessment: 68-year-old male presents with acute syncope in the setting of hypertensive crisis, acute abdominal pain, suspected chronic hypoxic respiratory failure c/b acute cholecystitis and GOLDY, now POD#[address] Landon and likely to DC 03/27. Plan: # Acute cholecystitis. Was not apparent on presentation w/ no radiographic evidence on his presenting CT and normal Tbili, but on 03/24 RUQ pain escalated, HIDA positive, and Tbili rising, taken to OR 03/25 -gangrenous GB, sent for Cx, cont D#2 Abx today as leukocytosis persists, likely DC 03/27 -POD#1, d/w Dr. Landon, he recs outpt f/u w/ Dr. Leach in 1-2 weeks -cont pain control # GOLDY. 2/2 hypovolemia and hypotension, low UOP today -started on NS at 150/hr -monitor UOP/Cr -hold ACEi # Syncope. Unclear etiology, occurred 24 hr prior to presentation, most likely multifactorial in the setting of possible hypoxia, pain, hypertensive crisis -this was his presenting symptom, no recurrence -off tele, no events # Possible chronic hypoxic respiratory failure. Patient with underlying COPD, no evidence of acute exacerbation, patient reports that he has not been using supplemental oxygen prior to admission but he may have an underlying oxygen need -suspect a component of acute atelectasis, encourage ongoing incentive spirometer -monitor success of RA challenge -cont Spiriva and Alb PRN # Hypertensive crisis. Evidenced by systolic blood pressure in the 200s, HCT confirmed no bleed, likely exacerbated by pain -hypotensive in setting of cholecystitis and increased pain mgmt, stopped ACEi ( 2/2 GOLDY 03/26) and amlodipine -continuing on metoprolol given underlying Afib, may need to reintroduce amlodipine 03/27 if BP requires # History of deep venous thrombosis. Restart xarelto 03/27 AM # Suspected irritable bowel syndrome. Prior to patient's cholecystitis, he describes long hx of abd and anxiety symptoms which are intricately related -suspect concomitant IBS -started PRN bentyl -suspect that patient will not be able to be completely abd-sx free for DC, recommend outpt GI f/u as well as his surg f/u # Atrial fibrillation. Paroxysmal, continue beta-jack and xarelto # Nephrolithiasis. Chronic, present on CT w/ 2mm stone on R # Hypotension. Post-op, does not appear to be hypoperfusing, cont NS, check lactic if febrile or tachycardic # Acute atelectasis. 83% o/n, 2/2 pain, IS Diet. NPO while above w/u Prophylaxis. High risk patient, SCDs, xarelto tomorrow Code. Full Disposition. Anticipated discharge is 03/27, pending stabilization of GOLDY and pain Subjective: less pain today than day prior, passing flatus Objective: Vital Signs Temp Pulse Resp BP Pulse Ox 37.4 C 76 18 91/61 L 93 03/26/18 16:00 03/26/18 16:00 03/26/18 16:00 03/26/18 16:00 03/26/18 16:00 Microbiology 03/24/18 10:30 Urine Culture - Final Urine,Clean Catch 03/25/18 12:05 Gram Stain - Final Bile - Eswab Laboratory Results 03/26/18 04:55 03/26/18 04:55 03/25/18 03/26/18 03/27/18 05:59 05:59 05:59 Intake Total 300 2825 1474 Output Total 475 880 570 Balance -175 1945 904 - Pending Discharge Pending Discharge Within 24 Hours: Yes Pending Discharge Date: 03/27/18 Pending Discharge Time: 11:00 - Physical Exam Constitutional: no apparent distress, appears nourished, not in pain, No uncomfortable Cardiovascular: regular rate and rhythym, no murmur, rub, or gallop, No edema Respiratory: no respiratory distress, no rales or rhonchi, clear to auscultation Gastrointestinal: normoactive bowel sounds, no palpable masses, tenderness ( mild in R abd), other (R side drain in place), No guarding, No distension Skin: other (no erythema/induration/ecchymoses/tenderness at surg sites) ICD10 Worksheet Patient Problems: Problems Problem Status Onset Aspiration into airway Acute Afib - Atrial fibrillation Acute Assistance needed for ambulation and movement Acute Chest pain Acute [place] toxicity Acute Acute encephalopathy Acute Perforation of sigmoid colon Acute Pulmonary embolism Acute Anxiety Acute Back pain Acute Pneumonia Acute Chronic pulmonary embolism Acute Abdominal pain Acute Malaise Acute Hypertensive emergency without congestive heart failure Acute
[2018-03-26] MEDS: SERTRALINE HCL 100 MG TAB PO SCH (20:58)
[2018-03-26] MEDS: traMADol 50 MG TAB PO PRN (23:03)
[2018-03-27] MEDS: ALPRAZolam 1 MG TAB PO PRN ×4 (00:07→20:07)
[2018-03-27] MEDS: ceFAZolin 2 GM/DEXTROSE 100 ML IV SCH ×3 (05:03→21:13)
[2018-03-27] MEDS: ACETAMINOPHEN 325 MG TAB PO SCH ×2 (05:04→15:06)
[2018-03-27 05:20] LABS: PLATELET COUNT 183 10^3/uL (150-400)
[2018-03-27] MEDS: PROMETHAZINE HCL 25 MG/ML INJ IVP PRN (07:22)
[2018-03-27] MEDS: RIVAROXABAN 20 MG TAB PO SCH (08:43)
[2018-03-27] MEDS: SENNOSIDES/DOCUSATE SODIUM TAB PO SCH ×2 (08:43→21:13)
[2018-03-27] MEDS: METOPROLOL SUCCINATE XR 50 MG TAB PO SCH (08:43)
[2018-03-27] MEDS: TAMSULOSIN HCL 0.4 MG CAP PO SCH (08:43)
[2018-03-27] MEDS: PANTOPRAZOLE SODIUM 40 MG TAB PO SCH (08:43)
[2018-03-27] MEDS: traMADol 50 MG TAB PO PRN ×2 (08:43→17:34)
[2018-03-27] MEDS: NS 1,000 ML IV SCH (08:56)
[2018-03-27] MEDS: FLUTICASONE IH SCH (09:34)
[2018-03-27] MEDS: VILANTEROL IH SCH (09:34)
[2018-03-27] MEDS: TIOTROPIUM INHALER 18 MCG/DOSE 5 DOSE/MDI IH SCH (09:35)
--- NOTE | 2018-03-27 09:37 | HOSPPROG ---
Hospitalist Progress Note Assessment/Plan: Patient is a 68-year-old male presents with acute syncope in the setting of hypertensive crisis, acute abdominal pain, suspected chronic hypoxic respiratory failure c/b acute cholecystitis and GOLDY, now POD#[address] Landon. Today is my first encounter with the patient, chart reviewed. # Acute cholecystitis s/p cholecystectomy POD #2 -f/u with Dr Cooper in 1-2 weeks -eating without difficulty -cefazolin # GOLDY. 2/2 hypovolemia and hypotension -resolved w hydration, dc iv fluids -ACEi had been on hold # Syncope -likely multifactorial, had cholecystitis, pain #possible chronic hypoxemic resp fx -underlying copd -Spiriva -will check O2 sats on room air # Hypertensive crisis. -resolved -underlying afib, on metoprolol -can resume amlodipine if needed # History of deep venous thrombosis - Xarelto resumed today # Suspected irritable bowel syndrome -c/o these symptoms this morning -cont bently -f/u w GI as an OP # Atrial fibrillation, Paroxysmal -continue beta-jack and Xarelto # Nephrolithiasis. Chronic, present on CT w/ 2mm stone on R # Hypotension -resolved # Acute atelectasis. 83% o/n, 2/2 pain, IS #Homelessness: patient enrolled in the transitional care housing, will have CM check in w him #Plan: Eulogio said he is having a headache and some IBS; told him I would come back on check on him later today. Hopefully, can dc soon Subjective: Eulogio said he is feeling poorly, has a headache and stomach is bothering him. Objective: Vital Signs Temp Pulse Resp BP Pulse Ox 36.5 C 65 18 133/62 H 94 03/27/18 07:05 03/27/18 08:43 03/27/18 07:05 03/27/18 08:43 03/27/18 07:05 Microbiology 03/24/18 10:30 Urine Culture - Final Urine,Clean Catch 03/25/18 12:05 Gram Stain - Final Bile - Eswab Laboratory Results 03/27/18 05:00 03/27/18 05:00 03/26/18 03/27/18 03/28/18 05:59 05:59 05:59 Intake Total 2825 2924 Output Total 880 1370 300 Balance 1945 1554 -300 - Physical Exam Constitutional: appears nourished, not in pain, chronically ill appearing, uncomfortable Eyes: PERRL Ears, Nose, Mouth, Throat: hearing normal Cardiovascular: regular rate and rhythym Respiratory: no respiratory distress Gastrointestinal: soft, non-tender abdomen, No normoactive bowel sounds ( hypoactive) Skin: warm Neurologic: AAOx3 Psychiatric: anxious ICD10 Worksheet Patient Problems: Problems Problem Status Onset Abdominal pain Acute Hypertensive emergency without congestive heart failure Acute Malaise Acute Acute encephalopathy Acute Afib - Atrial fibrillation Acute Anxiety Acute Aspiration into airway Acute Assistance needed for ambulation and movement Acute Back pain Acute Chest pain Acute Chronic pulmonary embolism Acute [place] toxicity Acute Perforation of sigmoid colon Acute Pneumonia Acute Pulmonary embolism Acute
--- NOTE | 2018-03-27 12:04 | SOAPPROG ---
SOAP Progress Note Assessment/Plan: Assessment: 68yo M s/p lap lori for gangrenous cholecystitis - VSS, HDs - pain is well controlled - abdomen is soft, Incisions are c/d/i. Tolerating diet - nothing to add from surgery standpoint. DC when appropriate. Plan: 03/27/18 12:02 Subjective: feels well, some nausea. Tolerating diet Objective: Vital Signs Temp Pulse Resp BP Pulse Ox 36.5 C 65 16 133/62 H 93 03/27/18 07:05 03/27/18 09:35 03/27/18 09:35 03/27/18 08:43 03/27/18 09:35 Microbiology 03/25/18 12:05 Gram Stain - Final Bile - Eswab 03/24/18 10:30 Urine Culture - Final Urine,Clean Catch Laboratory Results 03/27/18 05:00 03/27/18 05:00 03/26/18 03/27/18 03/28/18 05:59 05:59 05:59 Intake Total 2825 2924 Output Total 880 1370 600 Balance 1945 1554 -600 ICD10 Worksheet Patient Problems: Problems Problem Status Onset Abdominal pain Acute Hypertensive emergency without congestive heart failure Acute Malaise Acute Acute encephalopathy Acute Afib - Atrial fibrillation Acute Anxiety Acute Aspiration into airway Acute Assistance needed for ambulation and movement Acute Back pain Acute Chest pain Acute Chronic pulmonary embolism Acute [place] toxicity Acute Perforation of sigmoid colon Acute Pneumonia Acute Pulmonary embolism Acute
--- NOTE | 2018-03-27 13:00 | ASMTCMCOM ---
CM Note CM Note Notes: Spoke with patient about upcoming discharge. He expressed extreme anxiety about leaving hospital today; hospitalist ok'ed discharge tomorrow. We talked about patient's management of his psychiatric illness, and he feels that he is managed fine with his medications and therapy. We did discuss inpatient psychiatric treatment, and patient is not interested right now. He understands that he is very triggered by external forces right now (eg he feels that he is given a lot of misinformation by service providers - he used [facility] as an example), as well as feeling that all of his friends and service providers have turned their backs on him. Patient saw his PCP Dr Singh last week and cites him as a figure of trust in his life. He has also been in touch with his therapist Jose Juan at [facility] but does not have an appointment scheduled with him. Patient will discharge to [facility]. I have let the director of casework there know to expect him tomorrow. Patient is ok with this plan. I have also written an excuse note for him since he missed an appointment at [facility] on 03/26. He is worried they are going to charge him for this. Please provide him with this note before discharge. Date Signed: 03/27/2018 12:59 PM Electronically Signed By:Carmina Howell RN
[2018-03-27] MEDS ORDERED: ACETAMINOPHEN 500 MG TAB PO PRN (14:00)
[2018-03-27] MEDS: ONDANSETRON DISINTEGRATING 4 MG TAB PO PRN (17:34)
--- NOTE | 2018-03-27 18:20 | POSTANESTH ---
Post Anesthetic Evaluation Cardiovascular Status: Normal, Stable Respiratory Status: Normal, Stable Level of Consciousness/Mental Status: Can Participate in Eval Pain Control: Adequate, Prn Tx Ordered Nausea/Vomiting Control: Adequate, Prn Tx Ordered Complications Possibly Related to Anesthesia: None Noted
[2018-03-27] MEDS: SERTRALINE HCL 100 MG TAB PO SCH (21:13)
[2018-03-28] MEDS: traMADol 50 MG TAB PO PRN (00:22)
[2018-03-28] MEDS: ALPRAZolam 1 MG TAB PO PRN ×4 (02:12→21:15)
[2018-03-28] MEDS: ceFAZolin 2 GM/DEXTROSE 100 ML IV SCH ×3 (05:11→21:17)
[2018-03-28] MEDS: ONDANSETRON DISINTEGRATING 4 MG TAB PO PRN (07:34)
[2018-03-28] MEDS: METOPROLOL SUCCINATE XR 50 MG TAB PO SCH (07:39)
[2018-03-28] MEDS: PANTOPRAZOLE SODIUM 40 MG TAB PO SCH (08:31)
[2018-03-28] MEDS: RIVAROXABAN 20 MG TAB PO SCH (08:31)
[2018-03-28] MEDS: TAMSULOSIN HCL 0.4 MG CAP PO SCH (08:32)
[2018-03-28] MEDS: SENNOSIDES/DOCUSATE SODIUM TAB PO SCH ×2 (08:32→21:15)
--- NOTE | 2018-03-28 08:56 | SOAPPROG ---
SOAP Progress Note Assessment/Plan: Assessment: 68yo M s/p lap lori for gangrenous cholecystitis S: Laying bed, reports he's not doing well today. Has not eaten much of anything solid. Doesn't have appetite. Reports pain near previous drain site. O: Sleepy Afebrile No increased WOB Abdomen: soft, tender in RUQ, otherwise nontender, incisions and dressings are cdi, +BS Plan: Continue to follow. Can be discharged from surgery standpoint. 03/28/18 08:53 Objective: Vital Signs Temp Pulse Resp BP Pulse Ox 36.8 C 65 18 162/100 H 83 L 03/28/18 07:12 03/28/18 07:12 03/28/18 07:12 03/28/18 08:00 03/28/18 07:12 Microbiology 03/25/18 12:05 Gram Stain - Final Bile - Eswab Laboratory Results 03/27/18 05:00 03/27/18 05:00 03/27/18 03/28/18 03/29/18 05:59 05:59 05:59 Intake Total 2924 400 Output Total 1370 600 900 Balance 1554 -200 -900 ICD10 Worksheet Patient Problems: Problems Problem Status Onset Abdominal pain Acute Hypertensive emergency without congestive heart failure Acute Malaise Acute Acute encephalopathy Acute Afib - Atrial fibrillation Acute Anxiety Acute Aspiration into airway Acute Assistance needed for ambulation and movement Acute Back pain Acute Chest pain Acute Chronic pulmonary embolism Acute Herlong toxicity Acute Perforation of sigmoid colon Acute Pneumonia Acute Pulmonary embolism Acute
[2018-03-28] MEDS: VILANTEROL IH SCH ×2 (09:25→09:33)
[2018-03-28] MEDS: TIOTROPIUM INHALER 18 MCG/DOSE 5 DOSE/MDI IH SCH ×2 (09:25→09:34)
[2018-03-28] MEDS: FLUTICASONE IH SCH ×2 (09:25→09:33)
--- NOTE | 2018-03-28 13:35 | HOSPPROG ---
Hospitalist Progress Note Assessment/Plan: Patient is a 68-year-old male presents with acute syncope in the setting of hypertensive crisis, acute abdominal pain, suspected chronic hypoxic respiratory failure c/b acute cholecystitis and GOLDY, now POD#[address] Landon. Today is my first encounter with the patient, chart reviewed. # Acute cholecystitis s/p cholecystectomy POD #3 -f/u with Dr Cooper in 1-2 weeks -not eating -cefazolin # GOLDY. -2/2 hypovolemia and hypotension -resolved w hydration, dc iv fluids -ACEi had been on hold # Syncope -likely multifactorial, had cholecystitis, pain #possible chronic hypoxemic resp fx -underlying copd -Spiriva -will check O2 sats on room air # Hypertensive crisis. -resolved -underlying afib, on metoprolol -resume amlodipine 5mg # History of deep venous thrombosis - Xarelto resumed # Suspected irritable bowel syndrome -c/o these symptoms -cont bently -f/u w GI as an OP # Atrial fibrillation, Paroxysmal -continue beta-jack and Xarelto # Nephrolithiasis. Chronic, present on CT w/ 2mm stone on R # Hypotension -resolved # Acute atelectasis. 83% o/n, 2/2 pain, IS OOB TID #Homelessness: patient enrolled in the transitional care housing, will have CM check in w him #Plan: Eulogio said he is not feeling well toady. abd pain and nasuea told him I would come back on check on him later today. Hopefully, can dc soon Subjective: Not feeling well. Not eating. Still having pain and nausea Objective: Vital Signs Temp Pulse Resp BP Pulse Ox 36.9 C 65 16 155/100 H 94 03/28/18 11:19 03/28/18 11:19 03/28/18 11:19 03/28/18 11:19 03/28/18 11:19 Microbiology 03/25/18 12:05 Gram Stain - Final Bile - Eswab Laboratory Results 03/27/18 05:00 03/27/18 05:00 03/27/18 03/28/18 03/29/18 05:59 05:59 05:59 Intake Total 2924 400 Output Total 6546 006 7401 Balance 1554 -200 -1500 - Physical Exam Constitutional: chronically ill appearing, obese, uncomfortable Eyes: PERRL, anicteric sclera, EOMI Ears, Nose, Mouth, Throat: moist mucous membranes, hearing normal, ears appear normal Cardiovascular: edema, No JVD, No tachycardia Respiratory: no respiratory distress, no rales or rhonchi, reduced air movement Gastrointestinal: normoactive bowel sounds, tenderness, No ascites, No guarding Skin: warm, normal color, No mottled Musculoskeletal: normal joint ROM, no joint effusions, generalized weakness Neurologic: AAOx3 Psychiatric: not encephalopathic, thought process linear, poor insight, poor judgement ICD10 Worksheet Patient Problems: Problems Problem Status Onset Aspiration into airway Acute Afib - Atrial fibrillation Acute Assistance needed for ambulation and movement Acute Chest pain Acute Felsenthal toxicity Acute Acute encephalopathy Acute Perforation of sigmoid colon Acute Pulmonary embolism Acute Anxiety Acute Back pain Acute Pneumonia Acute Chronic pulmonary embolism Acute Abdominal pain Acute Malaise Acute Hypertensive emergency without congestive heart failure Acute
[2018-03-28] MEDS: PROMETHAZINE HCL 25 MG TAB PO PRN (14:59)
[2018-03-28] MEDS: amLODIPine BESYLATE 5 MG TAB PO SCH (15:02)
[2018-03-28] MEDS: hydrOXYzine HCL 25 MG TAB PO PRN (18:18)
[2018-03-28] MEDS: SERTRALINE HCL 100 MG TAB PO SCH (21:15)
[2018-03-28] MEDS: DONEPEZIL HCL 5 MG TAB PO SCH (21:16)
[2018-03-29] MEDS: hydrALAZINE 20 MG/ML VIAL IVP PRN ×2 (01:35→04:13)
[2018-03-29] MEDS: PROMETHAZINE HCL 25 MG TAB PO PRN ×2 (04:09→17:21)
[2018-03-29] MEDS: ALPRAZolam 1 MG TAB PO PRN ×4 (04:09→23:07)
[2018-03-29] MEDS: ceFAZolin 2 GM/DEXTROSE 100 ML IV SCH ×2 (05:05→15:14)
[2018-03-29] MEDS: METOPROLOL SUCCINATE XR 50 MG TAB PO SCH (10:34)
[2018-03-29] MEDS: amLODIPine BESYLATE 5 MG TAB PO SCH (10:34)
[2018-03-29] MEDS: TAMSULOSIN HCL 0.4 MG CAP PO SCH (10:35)
[2018-03-29] MEDS: PANTOPRAZOLE SODIUM 40 MG TAB PO SCH (10:35)
[2018-03-29] MEDS: RIVAROXABAN 20 MG TAB PO SCH (10:35)
[2018-03-29] MEDS: SENNOSIDES/DOCUSATE SODIUM TAB PO SCH ×2 (10:35→21:27)
[2018-03-29] MEDS: FLUTICASONE IH SCH (10:36)
[2018-03-29] MEDS: VILANTEROL IH SCH (10:36)
[2018-03-29] MEDS: TIOTROPIUM INHALER 18 MCG/DOSE 5 DOSE/MDI IH SCH (10:36)
--- NOTE | 2018-03-29 11:24 | ASMTCMCOM ---
CM Note CM Note Notes: Spoke w/MALWARE ANALYST, RN, and pt, PT/OT recommend SNF, pt is agreeable. Referral sent to [facility] but has triggering pasrr, will fax to [facility] DC Plan: SNF Date Signed: 03/29/2018 11:23 AM Electronically Signed By:Latasha Joshi RN
--- NOTE | 2018-03-29 13:57 | HOSPPROG ---
Hospitalist Progress Note Assessment/Plan: Patient is a 68-year-old male presents with acute syncope in the setting of hypertensive crisis, acute abdominal pain, suspected chronic hypoxic respiratory failure c/b acute cholecystitis and GOLDY, now POD#[address] Landon. # Acute cholecystitis s/p cholecystectomy POD #4 -f/u with Dr Cooper in 1-2 weeks -some nausea -cefazolin # GOLDY. -2/2 hypovolemia and hypotension -resolved w hydration, dc iv fluids -ACEi had been on hold # Syncope -likely multifactorial, had cholecystitis, pain #possible chronic hypoxemic resp fx -underlying copd -Spiriva -will check O2 sats on room air # Hypertensive crisis. -resolved -underlying afib, on metoprolol -resume amlodipine 5mg # History of deep venous thrombosis - Xarelto resumed # Suspected irritable bowel syndrome -c/o these symptoms -cont bently -f/u w GI as an OP # Atrial fibrillation, Paroxysmal -continue beta-jack and Xarelto # Nephrolithiasis. Chronic, present on CT w/ 2mm stone on R # Hypotension -resolved # Acute atelectasis. 83% o/n, 2/2 pain, IS OOB TID #Homelessness: patient enrolled in the transitional care housing, will have CM check in w him #Plan: Eulogio said he is not feeling well toady. abd pain and nasuea PT/OT rec SNF eval today Hopefully, dc to snf in am Subjective: Still having some nausea. Doesn't feel great. Weakness. Objective: Vital Signs Temp Pulse Resp BP Pulse Ox 37.0 C 71 16 132/89 H 87 L 03/29/18 11:27 03/29/18 11:27 03/29/18 11:27 03/29/18 11:27 03/29/18 11:27 Microbiology 03/25/18 12:05 Gram Stain - Final Bile - Eswab Laboratory Results 03/27/18 05:00 03/27/18 05:00 03/28/18 03/29/18 03/30/18 05:59 05:59 05:59 Intake Total 400 Output Total 600 3500 Balance -200 -3500 - Physical Exam Constitutional: chronically ill appearing, obese, uncomfortable Eyes: PERRL, anicteric sclera, EOMI Ears, Nose, Mouth, Throat: moist mucous membranes, hearing normal, ears appear normal Cardiovascular: No JVD, No tachycardia, No edema Respiratory: no respiratory distress, no rales or rhonchi, reduced air movement Gastrointestinal: normoactive bowel sounds, tenderness, No ascites Skin: warm, normal color, No mottled Musculoskeletal: normal joint ROM, no joint effusions, generalized weakness Neurologic: AAOx3 Psychiatric: poor insight, poor judgement, poor memory ICD10 Worksheet Patient Problems: Problems Problem Status Onset Aspiration into airway Acute Afib - Atrial fibrillation Acute Assistance needed for ambulation and movement Acute Chest pain Acute Tovey toxicity Acute Acute encephalopathy Acute Perforation of sigmoid colon Acute Pulmonary embolism Acute Anxiety Acute Back pain Acute Pneumonia Acute Chronic pulmonary embolism Acute Abdominal pain Acute Malaise Acute Hypertensive emergency without congestive heart failure Acute
--- NOTE | 2018-03-29 14:32 | ASMTCMCOM ---
CM Note CM Note Notes: Spoke w/pt re; dc snf. Pasrr did not trigger per S. Arnav pt accepted to [facility] can dc tomorrow. DC Plan: [facility] Date Signed: 03/29/2018 02:31 PM Electronically Signed By:Latasha Joshi RN
--- NOTE | 2018-03-29 16:20 | ASMTCMCOM ---
CM Note CM Note Notes: Received call from [facility], they cannot accept pt. CM sent referrals to , [facility], [facility], and [facility]. DC Plan: SNF Date Signed: 03/29/2018 04:20 PM Electronically Signed By:Latasha Joshi RN
[2018-03-29] MEDS: traMADol 50 MG TAB PO PRN ×2 (17:22)
[2018-03-29] MEDS: SERTRALINE HCL 100 MG TAB PO SCH (21:00)
[2018-03-29] MEDS: DONEPEZIL HCL 5 MG TAB PO SCH (21:00)
[2018-03-30] MEDS: traMADol 50 MG TAB PO PRN (07:39)
[2018-03-30] MEDS: ONDANSETRON DISINTEGRATING 4 MG TAB PO PRN (07:41)
[2018-03-30] MEDS: ALPRAZolam 1 MG TAB PO PRN ×2 (07:41→13:39)
[2018-03-30] MEDS: METOPROLOL SUCCINATE XR 50 MG TAB PO SCH (09:41)
[2018-03-30] MEDS: SENNOSIDES/DOCUSATE SODIUM TAB PO SCH (09:42)
[2018-03-30] MEDS: RIVAROXABAN 20 MG TAB PO SCH (09:42)
[2018-03-30] MEDS: TAMSULOSIN HCL 0.4 MG CAP PO SCH (09:42)
[2018-03-30] MEDS: PANTOPRAZOLE SODIUM 40 MG TAB PO SCH (09:42)
[2018-03-30] MEDS: amLODIPine BESYLATE 5 MG TAB PO SCH (09:42)
[2018-03-30] MEDS: FLUTICASONE IH SCH (10:15)
[2018-03-30] MEDS: VILANTEROL IH SCH (10:15)
[2018-03-30] MEDS: TIOTROPIUM INHALER 18 MCG/DOSE 5 DOSE/MDI IH SCH (10:15)
--- NOTE | 2018-03-30 10:50 | PDIAF ---
- Diagnosis Diagnosis: choles Code Status: Full Code - Medication Management Discharge Medications: Medications to Continue on Transfer ALPRAZolam [Xanax 1 MG (*)] 1 mg PO Q6H PRN 03/20/18 [Last Taken 03/19/18] Donepezil HCl 20 mg PO HS 03/20/18 [Last Taken 03/19/18] Fluticasone/Vilanterol [Breo Ellipta 200-25 Mcg INH] 1 puffs IH DAILY 03/20/18 [ Last Taken 03/19/18] Metoprolol Succinate Xr [Toprol Xl 50 mg (*)] 50 mg PO DAILY 03/20/18 [Last Taken 03/19/18] Promethazine HCl [Phenergan 25mg (*)] 25 mg PO Q6H PRN 03/20/18 [Last Taken Unknown] Rivaroxaban [Xarelto] 20 mg PO DAILY 03/20/18 [Last Taken 03/19/18 14:00] Sertraline HCl [Zoloft 100mg (*)] 250 mg PO HS 03/20/18 [Last Taken 03/19/18] Tamsulosin HCl [Flomax 0.4 MG (*)] 0.4 mg PO DAILY 03/20/18 [Last Taken 03/19/18 ] Tiotropium Inhaler [Spiriva Handihaler] 18 mcg IH DAILY 03/20/18 [Last Taken ] traMADol [Ultram 50 mg (*)] 50 mg PO Q6H PRN 03/20/18 [Last Taken 03/19/18] Acetaminophen [Tylenol ES 500 mg (*)] 1,000 mg PO Q8H PRN tab 03/30/18 [Last Taken Unknown] Dicyclomine [Bentyl 20 MG (*)] 20 mg PO QID PRN tab 03/30/18 [Last Taken Unknown] Pantoprazole Sodium [Protonix 40mg (*)] 40 mg PO DAILY tab 03/30/18 [Last Taken Unknown] Sennosides/Docusate Sodium [Senokot-S] 1 - 2 tab PO BID tab 03/30/18 [Last Taken Unknown] amLODIPine BESYLATE [Norvasc 5 mg (*)] 5 mg PO DAILY tab 03/30/18 [Last Taken Unknown] Discharge Medications: Refer to the Discharge Home Medication list for PRN reason. - Orders Services needed: Registered Nurse, Physical Therapy, Occupational Therapy Isolation Type: None Diet Recommendation: no restrictions on diet Diet Texture: Regular Texture Diet Additional Instructions: for three weeks: lift less than 10 pounds shower only keep steri strips in place take a multivitamin with 100% of [employer] of Zinc, Copper and "C" watch for signs of infection: Superficial : warmth, swelling, tenderness or redness Deep space : fevers, chills, loss of appetite, malaise, abdominal pain - Follow Up Care Current Providers and Referrals: Chiki Leach MD [Medical Doctor] - follow up in 2 weeks Patient,NotPresent [Unknown] - As per Instructions
[2018-03-30 11:17] VITALS: BP 104/79
--- NOTE | 2018-03-30 13:34 | ASMTCMCOM ---
CM Note CM Note Notes: [facility]y Mel[facility] accepted pt, d/w pt and he agrees with plan. Carmel at notified and she will set up transport. DC Plan: [facility]/ Santy Mel[facility] Date Signed: 03/30/2018 01:33 PM Electronically Signed By:Latasha Joshi RN
--- NOTE | 2018-03-31 04:05 | GDS ---
[f rep st] DISCHARGE SUMMARY DISCHARGE DIAGNOSES: 1. Acute cholecystitis. 2. Acute kidney injury. 3. Syncope. 4. Likely chronic hypoxemic respiratory failure in the setting of chronic obstructive pulmonary dise ase. 5. Hypertensive crisis. 6. History of deep venous thrombosis. 7. Paroxysmal atrial fibrillation. 8. Nephrolithiasis. 9. Hypotension. 10. Hypertension. 11. Acute atelectasis. 12. Homelessness. CONSULTATIONS: Dr. Landon of General Surgery. PHYSICAL EXAM: GENERAL: The patient is alert. VITAL SIGNS: Afebrile at 36.7, pulse 75, respirator y rate 93, blood pressure is 104/79. He is saturating greater than 90% on room air. I have seen and evaluated the patient on the day of discharge. HOSPITAL COURSE: The patient is a 68-year-old male who presented to the emergency room with syncopal episode and hypertensive crisis. He was evaluated and diagnosed with: 1. Acute cholecystitis. During this hospitalization, he received surgical intervention. He is post op day 5 today at the time of disposition. His symptoms are significantly improving. He is tolerati ng a regular diet. 2. Acute kidney injury. This in the setting of hypovolemia and hypotension. This has resolved with IV hydration. 3. Syncope. This is multifactorial and has not reoccurred since admission. 4. Likely underlying COPD. The patient is responding well to room air and Spiriva. We will continu e this in the outpatient setting. 5. Hypertensive crisis. This has resolved. 6. History of deep vein thrombosis. His Xarelto has been continued. 7. Paroxysmal atrial fibrillation. Beta blockers continued as well as Xarelto. 8. Nephrolithiasis. This is chronic with no intervention warranted. 9. Hypotension. This has resolved. 10. Acute atelectasis. This has resolved. 11. Homelessness. DISPOSITION: The patient will be discharged to [facility] for further rehabilitation and manageme given his significant weakness. FOLLOWUP: Followup will be with Dr. Leach as well as the patient's primary care physician. DISCHARGE MEDICATIONS: Please refer to EMR form. I have discontinued patient's lisinopril, as well as hydroxyzine. I spent greater than 35 minutes in the care, coordination, and management of this patient's dispositi on. /[id number]/MODL
--- NOTE | 2018-03-31 17:26 | ASDISCHSUM ---
Discharge Information Plan Status:SNF Medically Cleared to Leave: Discharge Date:03/30/2018 04:01 PM D/C Disposition:Half-Way Facility ADT D/C Disposition:Half-Way Facility Projected Discharge Date:03/30/2018 11:00 AM Transportation at D/C:Wheelchair Van Discharge Delay Reason: Follow-Up Date:03/30/2018 11:00 AM Discharge Slot: Final Diagnosis: Placement Information Referral Type:*Skilled Nursing/SNF Referral ID:[id number] Provider Name:Santy Melendez/MUNIRA Novak Address 1:[address] [facility] Phone Number: Address 2: Fax Number: [facility]:[place] Selection Factors: State:[place] Patient Contact Information Contact Name:HOWIE Relationship:Other Address: Work Phone: City: [facility] Phone: [facility] Code: Email: Financial Information Financial Class:Medicare Primary Plan Desc:MEDICARE INPATIENT Primary Plan Number:[id number] Secondary Plan Desc:MED[place] Secondary Plan Number:[id number] Assessment Information LACE LACE Comorbidities - select Answers: Chronic pulmonary disease all that apply Other Notes: A-fib, HTN, hx of TBI, hx of colon perforation # of Emergency department Answers: 9-12 visits in the last 6 months Social determinants Answers: History of substance abuse (ETOH, street drugs, prescription drugs, etc.) Homelessness (street, jail) Mental health diagnosis (anxiety, depression, pers onality disorders, etc.) Lack of community resources and/or lack of social support (no pcp, lives alone, transportation, rhea d) Score: 21 Date Signed: 03/20/2018 07:38 PM Electronically Signed By:Hailey Maynard RN [facility] CM Progress Note CM Note CM Note Notes: Pt presented to the ED via ambulance for malaise, dyspnea and nausea. Pt reports he had a syncopal episode yesterday morning while sitting, and he fell and hit his chest. Pt has history of PE, rib fractures. Please refer to last CM notes under Reports 12/12/17 and various CM notes prior to that admission for additional background. While in the ED, pt then started experiencing severe upper abdominal pain. Pt's SpO2 varies between 88-92% on Room Air. Pt has a history of COPD. Pt to be admitted for further eval and monitoring. Pt is homeless and states he is still staying at the [facility]. Pt reports his CM at [facility] range between Valeriano Healy and other CMs; he is still working with them to find transitional housing. Pt states he still follows up regularly with his therapist, Jose Juan (last [facility] visit his therapist was Clara) at [facility] ([phone]). Pt's PCP is still Dr Singh and his last visit w/him was this past Monday03/14/18. When asked if patient has been contacted by/followed up with [facility] CM ([phone]) through [facility], or by Kaylee cheng/[facility] but pt seemed to not know who they were or what [facility] is. Pt had a friend, Jose Juan, stop by in the ED and visit him. Pt states Jose Juan also stays at [facility] and "is a good friend." Pt feels like things have been going well the past few months and that his medication regimen is working out well for him (as r/t to his anxiety, chronic pain, etc). Pt was d/c'd to [facility] 12/[facility]. Pt has also been to [facility] in the past. Exact DC needs unknown/TBD. CM to follow. Date Signed: 03/20/2018 08:12 PM Electronically Signed By:Hailey Maynard RN [facility] CM Progress Note CM Note CM Note Notes: Pts case discussed in morning rounds. Pt is a 68 y/o man admitted for hypertensive emergency and vomiting. OT has been ordered and awaiting recommendations. Needs are TBD at this time. CM to follow. Plan: TBD Date Signed: 03/21/2018 12:35 PM Electronically Signed By:VAN Parks [facility] Progress Note CM Note CM Note Notes: Pts case discussed in tx rounds. PT has been ordered. OT has cleared pt. CM met w/ pt for dispo planning. Pt reports feeling out of it and not thinking straight because he has not had anything to eat. CM encouraged pt to take a walk around the unit and get some fresh air outside. Pt needs to have a BM before his diet can be advanced. CM to follow. Plan: TBD Date Signed: 03/23/2018 12:40 PM Electronically Signed By:VAN Parks [facility] CM Progress Note CM Note CM Note Notes: Discussed pt in rounds this AM. See CM note from ED 03/20/18 for more background. In rounds this AM pt stated that he has been staying at the [facility] and is working w/CM there to find housing. He plans to return to this jail at wi. May need bus pass at that time. CM will follow. Date Signed: 03/24/2018 01:00 PM Electronically Signed By:Nahed Go RN [facility] Progress Note CM Note CM Note Notes: 03/25/2018 Case Management Note Pt in surgery today for lap lori. Per PT pt was unable to participate d/t pain. PT recommending SNF rehab. Case Management d/c poc: to be determined. Case Management to follow. Date Signed: 03/25/2018 02:15 PM Electronically Signed By:Anay Eubanks RN [facility] Progress Note CM Note CM Note Notes: Spoke with patient about upcoming discharge. He expressed extreme anxiety about leaving hospital today; hospitalist ok'ed discharge tomorrow. We talked about patient's management of his psychiatric illness, and he feels that he is managed fine with his medications and therapy. We did discuss inpatient psychiatric treatment, and patient is not interested right now. He understands that he is very triggered by external forces right now (eg he feels that he is given a lot of misinformation by service providers - he used [facility] as an example), as well as feeling that all of his friends and service providers have turned their backs on him. Patient saw his PCP Dr Singh last week and cites him as a figure of trust in his life. He has also been in touch with his therapist Jose Juan at [facility] but does not have an appointment scheduled with him. [facility] will discharge [facility] I have let the correctional counselor/case manager there know to expect him tomorrow. Patient is ok with this plan. I have also written an excuse note for him since he missed an appointment at [facility] on 03/26. He is worried they are going to charge him for this. Please provide him with this note before discharge. Date Signed: 03/27/2018 12:59 PM Electronically Signed By:Carmina Howell RN [facility] CM Progress Note CM Note CM Note Notes: Spoke w/CLIENT SERVICE REPRESENTATIVEDORIS, and pt, PT/OT recommend SNF, pt is agreeable. Referral sent to [facility] but has triggering pasrr, will fax to [facility] DC Plan: SNF Date Signed: 03/29/2018 11:23 AM Electronically Signed By:Latasha Joshi RN [facility] CM Progress Note CM Note CM Note Notes: Spoke w/pt re; dc snf. Pasrr did not trigger per Efrain José pt accepted to [facility] can dc tomorrow. DC Plan: [facility] Date Signed: 03/29/2018 02:31 PM Electronically Signed By:Latasha Joshi RN [facility] CM Progress Note CM Note CM Note Notes: Received call from [facility], they cannot accept pt. CM sent referrals to , [facility], [facility], and . DC Plan: [facility] Date Signed: 03/29/2018 04:20 PM Electronically Signed By:Latasha Joshi RN [facility] CM Progress Note CM Note CM Note Notes: [facility]y [facility] accepted pt, d/w pt and he agrees with plan. Carmel at notified and she will set up transport. DC Plan: [facility]/ [facility] Date Signed: 03/30/2018 01:33 PM Electronically Signed By:Latasha Joshi RN Intervention Information Intervention Type:Health Clinic Date of Service:03/20/2018 08:12 PM Patient Type:Emergency Room Staff Member:DORIS Maynard, Hailey Hours:0.25 Discipline:Teachers Aide Severity: Comment:Contacted pt's PCP Dr Singh. Intervention Type:*IM-Signed Date of Service:03/30/2018 01:22 PM Patient Type:Inpatient Staff Member:Lisa Cat Hours: Discipline: Severity: Comment:
== END 2018-03-30 16:01 | DRG 418 ==
LOC: EDUNIT# → F2W 21:35 → F3E 03-25 15:53
PROVIDERS: ADMIT Hospitalist; ATTEND Hospitalist
PROC: 0FT44ZZ Resection of Gallbladder, Percutaneous Endoscopic Approach (ICD-10-PCS; principal; 2018-03-25 11:00)
DX: K80.00 Calculus of gallbladder with acute cholecystitis without obstruction (principal); I16.9 Hypertensive crisis, unspecified; I96 Gangrene, not elsewhere classified; N17.9 Acute kidney failure, unspecified; J98.11 Atelectasis; J96.11 Chronic respiratory failure with hypoxia; F13.20 Sedative, hypnotic or anxiolytic dependence, uncomplicated; E86.9 Volume depletion, unspecified; R55 Syncope and collapse; I48.0 Paroxysmal atrial fibrillation; N20.0 Calculus of kidney; I95.9 Hypotension, unspecified; J44.9 Chronic obstructive pulmonary disease, unspecified; F41.9 Anxiety disorder, unspecified; Z72.0 Tobacco use; Z79.01 Long term (current) use of anticoagulants; Z59.0 Homelessness; Z86.718 Personal history of other venous thrombosis and embolism
CPT/HCPCS: 80307; 84484-PO; 96374; 97116-GP; 97161-GP; 97164-GP; 97165-GO; 97530-GP; 97535-GO; A9537; G0480; G8978-GP-CI; G8978-GP-CK; G8979-GP-CI; G8979-GP-CJ; G8987-GO-CI; G8988-GO-CI; J0360; J0690; J1170; J1644; J1650; J1885; J2250; J2270; J2370; J2405; J2550; J2704; J2710; J3010; Q9961; Q9967

== ENCOUNTER 2018-06-06 06:36 | Emergency (ER) | payer OTHER, MEDICAID ==
--- NOTE | 2018-06-06 07:25 | EDPHY ---
H & P Stated Complaint: SOB, hard time urinating Time Seen by Provider: 06/06/18 06:47 HPI/ROS: CHIEF COMPLAINT: Unable to urinate HISTORY OF PRESENT ILLNESS: This is a 68-year-old male with a medical history that includes hypertension, COPD, and DVT. He presents around 7:00 a.m. this morning stating that he is not urinated since sometime last evening. He does mention that he has been leaking during the night but has not been able to start a strong urinary stream and empty his bladder. He is experiencing lower abdominal pressure and discomfort. He denies fever and dysuria. He also reports feeling short of breath. This has been going on for 2-3 days. On further questioning, it turns out that he does not have his breathing medications which include Spiriva and Breo Ellipta. He has not used any of his respiratory medications for at least the past 2-3 days. This also is the case for his antihypertensives and his Flomax. However, he does state that he has Xanax and has not missed any doses of this. REVIEW OF SYSTEMS: A ten system review of systems was performed and is negative with the exception of the items mentioned in the HPI. Past medical history: 1. Hypertension 2. COPD 3. DVT 4. History of GI bleed 5. Atrial fibrillation 6. Anxiety with chronic benzodiazepine dependence 7. Traumatic brain injury with history of subdural hematoma Past surgical history: 1. Cholecystitis in April of this year with cholecystectomy performed 2. Colon perforation 2016 Social history: He is homeless. He has a history of alcohol abuse and is currently sober. No illicit drug use. He is a light smoker. General Appearance: Alert. Vital signs reviewed. Blood pressure 153/126 at triage. Eyes: Pupils equal and round, no conjunctival injection, no discharge. Anicteric. ENT, Mouth: Moist oral mucosa, no erythema or edema. Neck: No lymphadenopathy, supple. Respiratory: Lungs sounds are distant. Cardiovascular: Regular rate and rhythm; no murmur, rub, or gallop. Gastrointestinal: Abdomen is soft with mild distention and tenderness in the suprapubic region, bowel sounds normal. Skin: Warm and dry, no rashes on exposed skin, normal color. Scattered bruises on his forearms. Back: Nontender to palpation over the thoracolumbar spine. No CVAT. Extremities: No lower extremity edema, no calf tenderness or swelling. Neurological: Alert and oriented. Moving all four extremities easily and equally. Psychiatric: Normal affect. - Personal History Current Tetanus/Diphtheria Vaccine: Yes Current Tetanus Diphtheria and Acellular Pertussis (TDAP): Yes Tetanus Vaccine Date: < 10 YEARS - Medical/Surgical History Hx Asthma: Yes Hx Chronic Respiratory Disease: No Hx Diabetes: No Hx Cardiac Disease: No Hx Renal Disease: No Hx Cirrhosis: No Hx Alcoholism: No Hx HIV/AIDS: No Hx Splenectomy or Spleen Trauma: No Other PMH: CONSTIPATION,SPINAL FUSION, HTN, TBI in 1999, subdural bleed, anxiety , tremors, ULCER- CAUTERIZED 01/2017/PE, bowel obstruction. - Social History Smoking Status: Light smoker Constitutional: Initial Vital Signs Temperature (C) 37.1 C 06/06/18 06:39 Heart Rate 91 06/06/18 06:39 Respiratory Rate 18 06/06/18 06:39 Blood Pressure 153/126 H 06/06/18 06:39 O2 Sat (%) 90 L 06/06/18 06:39 O2 Delivery Mode Room Air O2 (L/minute) 2 Allergies/Adverse Reactions: preservative in Lidocaine Allergy (Uncoded 06/06/18 06:38) Home Medications: Medication Instructions Recorded ALPRAZolam [Xanax 1 MG (*)] 1 mg PO Q6H PRN 03/20/18 Donepezil HCl 20 mg PO HS 03/20/18 Fluticasone/Vilanterol [Breo 1 puffs IH DAILY 03/20/18 Ellipta 200-25 Mcg INH] Metoprolol Succinate Xr [Toprol Xl 50 mg PO DAILY 03/20/18 50 mg (*)] Promethazine HCl [Phenergan 25mg 25 mg PO Q6H PRN 03/20/18 (*)] Rivaroxaban [Xarelto] 20 mg PO DAILY 03/20/18 Sertraline HCl [Zoloft 100mg (*)] 250 mg PO HS 03/20/18 Tamsulosin HCl [Flomax 0.4 MG (*)] 0.4 mg PO DAILY 03/20/18 Tiotropium Inhaler [Spiriva 18 mcg IH DAILY 03/20/18 Handihaler] traMADol [Ultram 50 mg (*)] 50 mg PO Q6H PRN 03/20/18 Acetaminophen [Tylenol ES 500 mg 1,000 mg PO Q8H PRN tab 03/30/18 (*)] Dicyclomine [Bentyl 20 MG (*)] 20 mg PO QID PRN tab 03/30/18 Pantoprazole Sodium [Protonix 40mg 40 mg PO DAILY tab 03/30/18 (*)] Sennosides/Docusate Sodium 1 - 2 tab PO BID tab 03/30/18 [Senokot-S] amLODIPine BESYLATE [Norvasc 5 mg 5 mg PO DAILY tab 03/30/18 (*)] Fluticasone/Vilanterol [Breo 1 each IH DAILY #1 blst.w.dev 06/06/18 Ellipta 200-25 Mcg INH] Lisinopril 10 mg PO DAILY #30 tablet 06/06/18 Metoprolol Succinate Xr [Toprol Xl 50 mg PO DAILY #30 tab.sr 06/06/18 50 mg (*)] Tamsulosin HCl [Flomax 0.4 MG (*)] 0.4 mg PO DAILY #30 cap 06/06/18 Tiotropium Inhaler [Spiriva 18 mcg IH DAILY #1 mdi 06/06/18 Handihaler] amLODIPine BESYLATE [Norvasc 5 mg 5 mg PO DAILY #30 tab 06/06/18 (*)] Medical Decision Making ED Course/Re-evaluation: Bladder scan shows 275 mL in the patient's bladder. He voided spontaneously at approximately 7:45 a.m.. Urine sample was not obtained at that time. I do not think that he has significant urinary retention. However, he does not have his medications and has not been taking his Flomax, which is likely the problem. He has not taken his antihypertensives or his respiratory medications. He will be given his antihypertensives, Flomax, and DuoNeb in the emergency department. He tells me that he takes all of his antihypertensives together in the morning and that this is never a problem for him in terms of hypotension. We will observe him after he receives these medications to be sure that his blood pressure does not dip too low. Patient was re-evaluated by me at 9:45 a.m.. He is resting comfortably. He has not been hypotensive since taking his medications over an hour ago. In fact , his blood pressure remains high at 154/110. I note that he has not taken his metoprolol. He has voided approximately 400 mL and does not feel any bladder discomfort or abdominal pain. I think that he can safely return home. I am recommending close follow-up of his blood pressure. I will write prescriptions for him for the medications that he does not have but I have encouraged him to take all of his medications as prescribed and to follow up with Dr. Singh. BP at MN is 132/100. He is not reporting any symptoms that make me concerned about hypertensive emergency/urgency. Differential Diagnosis: I considered a ddx that includes but is not limited to urinary retention, BPH, urinary tract infection, medication noncompliance. - Data Points Medications Given: Discontinued Medications Albuterol/Ipratropium (Duoneb) 3 ml IH EDNOW ONE Stop: 06/06/18 07:58 Last Admin: 06/06/18 08:04 Dose: 3 ml Amlodipine Besylate (Norvasc) 5 mg PO EDNOW ONE Stop: 06/06/18 07:59 Last Admin: 06/06/18 08:04 Dose: 5 mg Lisinopril (Zestril) 10 mg PO EDNOW ONE Stop: 06/06/18 07:59 Last Admin: 06/06/18 08:04 Dose: 10 mg Metoprolol Succinate (Toprol Xl) 50 mg PO DAILY SALMA Stop: 12/03/18 08:59 Last Admin: 06/06/18 08:14 Dose: 50 mg Tamsulosin HCl (Flomax) 0.4 mg PO EDNOW ONE Stop: 06/06/18 08:00 Last Admin: 06/06/18 08:04 Dose: 0.4 mg Departure - Departure Disposition: Home, Routine, Self-Care Clinical Impression: Difficulty urinating Hypertension Qualifiers: Hypertension type: essential hypertension Qualified Code(s): I10 - Essential ( primary) hypertension Condition: Good Instructions: Chronic Hypertension (ED) Additional Instructions: Please take all of your medications as prescribed. I am writing prescriptions for the medications that you do not have. If there are others that you do not have you should contact Dr. Misael nunez and asked him to refill them. Your blood pressure has been high in the emergency department. Please see Dr. Singh later this month for a recheck. Referrals: Alcides Singh MD [Primary Care Provider] - As per Instructions Prescriptions: amLODIPine BESYLATE [Norvasc 5 mg (*)] 5 mg PO DAILY #30 tab Fluticasone/Vilanterol [Breo Ellipta 200-25 Mcg INH] 1 each IH DAILY #1 blst.w.dev Lisinopril 10 mg PO DAILY #30 tablet Metoprolol Succinate Xr [Toprol Xl 50 mg (*)] 50 mg PO DAILY #30 tab.sr Tamsulosin HCl [Flomax 0.4 MG (*)] 0.4 mg PO DAILY #30 cap Tiotropium Inhaler [Spiriva Handihaler] 18 mcg IH DAILY #1 mdi
[2018-06-06] MEDS ORDERED: IPRATROPIUM/ALBUTEROL 3 ML DEYVIAL IH ONE (07:57)
[2018-06-06] MEDS ORDERED: amLODIPine BESYLATE 5 MG TAB PO ONE (07:58)
[2018-06-06] MEDS ORDERED: LISINOPRIL 20 MG TAB PO ONE (07:58)
[2018-06-06] MEDS ORDERED: TAMSULOSIN HCL 0.4 MG CAP PO ONE (07:59)
[2018-06-06] MEDS ORDERED: METOPROLOL SUCCINATE XR 50 MG TAB PO SCH (09:00)
[2018-06-06 10:35] VITALS: BP 132/100
--- NOTE | 2018-06-06 13:47 | ASMTCMCOM ---
CM Note CM Note Notes: Pt presented to the ED via [facility] for SOB x 2days, incontinence and difficulty urinating. Pt also reports not having his medications including his Spiriva and Breo Ellipta inhalers, Norvasc, Lisinopril, Metoprolol or Flomax. But pt does have his Xanax prescription and has been taking it as prescribed. Spoke with patient and offered get his prescriptions filled at the [facility] through his Medicaid and via our bedside delivery program, but pt declined and states he wants to get them filled at his usual [facility] pharmacy. Pt provided all of the prescriptions. Pt states he plans on calling his PCP Dr Singh to schedule a follow-up and let him know about his ED visit today. Pt states he has an appointment with [facility] at their [place] location tomorrow at 3pm. Pt states he doesn't have a way of getting there so he will have to call and cancel. Pt states he has used up the available bus passes that [facility] has provided him and that a Medicaid cab is not an option because "it is not to a medical appt." This CM confirmed with Medicaid that they will not provide cab transportation to "non-medical" appts including appts w/therapists or social workers; but if pt were being seen by a psychiatrist director of environmental services they would approve the transportation request. Pt to be discharged back to the [facility] location; Medicaid cab provided (CONF# [id number]). This CM called [facility] and spoke w/Valeriano, Card Table Attendant at [facility]; updated on [facility] and Valeriano states they can provide pt a bus pass to get to his appt tomorrow; pt updated and aware he doesn't need to cancel his [facility] appt. Pt very pleasant, agreeable and appreciative of assistance. CM available for further assistance if needed. Date Signed: 06/06/2018 01:46 PM Electronically Signed By:Hailey Maynard RN
== END 2018-06-06 10:35 | disposition home or self-care (01) ==
LOC: EDUNIT#
DX: R39.198 Other difficulties with micturition (principal); I10 Essential (primary) hypertension; F10.11 Alcohol abuse, in remission; J44.9 Chronic obstructive pulmonary disease, unspecified; I48.91 Unspecified atrial fibrillation; F41.8 Other specified anxiety disorders; F11.20 Opioid dependence, uncomplicated; Z87.820 Personal history of traumatic brain injury; Z59.0 Homelessness; Z86.718 Personal history of other venous thrombosis and embolism

== ENCOUNTER 2018-06-20 11:03 | Emergency (ER) | payer OTHER, MEDICAID ==
[2018-06-20 11:30] LABS: PLATELET COUNT 270 10^3/uL (150-400)
--- NOTE | 2018-06-20 11:57 | EDPHY ---
H & P Stated Complaint: CP, dyspnea after emotional upset Time Seen by Provider: 06/20/18 11:32 HPI/ROS: CHIEF COMPLAINT: Chest pain, dyspnea, x 5 days HISTORY OF PRESENT ILLNESS: The at 68-year-old homeless male with multiple comorbidities including, but not limited to, DVT, paroxysmal atrial fibrillation , COPD, [facility] [place] [facility] complaining of 5 days of chest pain, dyspnea, dizziness. No syncope or near syncope. No abdominal pain. Normal urinary habits in output. No recent illness. No cold or flu-like symptoms. No cough. No nasal congestion. No myalgia. REVIEW OF SYSTEMS: 10 systems reviewed and negative with the exception of the elements mentioned in the history of present illness PAST MEDICAL & SURGICAL HISTORY: Cholecystitis. COPD. DVT. Atrial fibrillation. Off of Xarelto. SOCIAL HISTORY: Homeless. PHYSICAL EXAM (Prior to examination, patient consented to physical exam, hands were washed and my usual and customary physical exam procedures followed) 1) GENERAL: Well-developed, well-nourished, alert and oriented. Appears to be in no acute distress. 2) HEAD: Normocephalic, atraumatic 3) HEENT: Pupils equal, round, reactive to light bilaterally. Sclera anicteric. Nasopharynx, oropharynx, clear, no lesions. Moist Mucous membranes. 4) NECK: Full range of motion, no meningeal signs. 5) LUNGS: Clear auscultation bilaterally, no wheezes, no rhonchi, no retractions. 6) HEART: Regular rate and rhythm, no murmur, no heave, no gallop. 7) ABDOMEN: No guarding, no rebound, no focal tenderness, negative McBurney's, negative Scales's, negative Rovsing's, negative peritoneal sign, 8) MUSCULOSKELETAL: Moving all extremities, no focal areas of tenderness, no obvious trauma. No peripheral edema or discoloration. 9) BACK: No CVA tenderness, no midline vertebral tenderness, no fluctuance, no step-off, no obvious trauma, no visual or palpable abnormality. 10) SKIN: No rash, no petechiae. 11) Psychiatric: Patient is oriented X 3, there is no agitation. DIFFERENTIAL DIAGNOSIS: In no particular order, including but not limited to myocardial ischemia, pulmonary embolus, chest wall pain, pleural inflammation and pulmonary infectious causes. - Personal History Current Tetanus/Diphtheria Vaccine: Yes Current Tetanus Diphtheria and Acellular Pertussis (TDAP): Yes Tetanus Vaccine Date: < 10 YEARS - Medical/Surgical History Hx Asthma: Yes Hx Chronic Respiratory Disease: No Hx Diabetes: No Hx Cardiac Disease: Yes Hx Renal Disease: No Hx Cirrhosis: No Hx Alcoholism: No Hx HIV/AIDS: No Hx Splenectomy or Spleen Trauma: No Other PMH: CONSTIPATION,SPINAL FUSION, HTN, TBI in 1999, subdural bleed, anxiety , tremors, ULCER- CAUTERIZED 01/2017/PE, bowel obstruction. - Social History Smoking Status: Light smoker Constitutional: Initial Vital Signs Temperature (C) 36.6 C 06/20/18 11:18 Heart Rate 121 H 06/20/18 11:18 Respiratory Rate 18 06/20/18 11:18 Blood Pressure 95/60 L 06/20/18 11:18 O2 Sat (%) 96 06/20/18 11:18 O2 Delivery Mode Room Air O2 (L/minute) 2 Allergies/Adverse Reactions: No Known Allergies Allergy (Unverified 06/20/18 13:25) Home Medications: Medication Instructions Recorded ALPRAZolam [Xanax 1 MG (*)] 1 mg PO Q6H PRN 03/20/18 Donepezil HCl 20 mg PO HS 03/20/18 Fluticasone/Vilanterol [Breo 1 puffs IH DAILY 03/20/18 Ellipta 200-25 Mcg INH] Promethazine HCl [Phenergan 25mg 25 mg PO Q6H PRN 03/20/18 (*)] Sertraline HCl [Zoloft 100mg (*)] 250 mg PO HS 03/20/18 Tiotropium Inhaler [Spiriva 18 mcg IH DAILY 03/20/18 Handihaler] traMADol [Ultram 50 mg (*)] 50 mg PO Q6H PRN 03/20/18 Acetaminophen [Tylenol ES 500 mg 1,000 mg PO Q8H PRN tab 03/30/18 (*)] Dicyclomine [Bentyl 20 MG (*)] 20 mg PO QID PRN tab 03/30/18 Pantoprazole Sodium [Protonix 40mg 40 mg PO DAILY tab 03/30/18 (*)] Metoprolol Succinate Xr [Toprol Xl 50 mg PO DAILY #30 tab.sr 06/06/18 50 mg (*)] Tamsulosin HCl [Flomax 0.4 MG (*)] 0.4 mg PO DAILY #30 cap 06/06/18 amLODIPine BESYLATE [Norvasc 5 mg 5 mg PO DAILY #30 tab 06/06/18 (*)] Lisinopril [Zestril 5 mg (*)] 5 mg PO DAILY 06/20/18 Naproxen [Naprosyn] 500 mg PO BID PRN 06/20/18 hydrOXYzine HCL [hydrOXYzine HCL 25 mg PO DAILY 06/20/18 (RX)] Medical Decision Making - Diagnostics Imaging Results: Imaging Impressions Chest X-Ray 06/20/18 11:21 Impression: 1. Possibly borderline CHF. A routine PA and lateral chest would be helpful if and when the patient is clinically able. 2. Possible right lower lung zone mass. Results called to Dr. Grissom. Chest/Thorax CTA 06/20/18 11:52 Impression: 1. No pulmonary embolic disease, pneumonia or failure. 2. Severe emphysema with 1 mucous plug in the left lower lobe. 3. Triple-vessel coronary artery disease and left ventricular hypertrophy. A prior pericardial effusion has completely resolved. Results called to Chris Rod at 1:45 PM. General information for patients regarding this examination can be found at [email or web address]. If you have questions or comments about this report, please contact me at [phone] (hospital) or [phone] (cell). Images reviewed myself ED Course/Re-evaluation: 11:53 a.m.: I reviewed the patient's old medical records. He has multiple comorbidities including history of paroxysmally defibrillation, history of DVT, off of Xarelto time 6 weeks, currently tachycardic, complaining of chest pain, dyspnea. High pretest probable for pulmonary embolus. Recommend CT angiography. Indications risks benefits discussed with patient and he consents. Care of patient under supervision of secondary supervising physician Dr Grissom with whom I discussed case at this time. 1:59 p.m.: Re-evaluation, patient is sleeping. Discussed his imaging results. No evidence of DVT. No evidence of infiltrate or heart failure. He would like to be discharged. Will ambulate the patient in the ER. 2:30 p.m.: Patient has ambulated without assistance in the ER, maintaining normal saturations, no complaints of chest pain, no dyspnea, no lightheadedness. I have offered admission which she declines. He wants to be discharged. I stressed the importance of close follow-up with primary care and cardiology given his multiple medical comorbidities. He verbalizes that he will follow-up. 2:37 p.m.: Recheck troponin 0.01. Plan will be discharge. Doubt acute coronary syndrome. - Data Points Laboratory Results: Laboratory Results 06/20/18 11:00 06/20/18 11:00 06/20/18 06/20/18 06/20/18 14:12 11:24 11:00 WBC RBC Hgb Hct MCV MCH MCHC RDW Plt Count MPV Neut % (Auto) Lymph % (Auto) [place] % (Auto) Eos % (Auto) Baso % (Auto) Nucleat RBC Rel Count Absolute Neuts (auto) Absolute Lymphs (auto) Absolute Monos (auto) Absolute Eos (auto) Absolute Basos (auto) Absolute Nucleated RBC Immature Gran % Immature Gran # Sodium Potassium Chloride Carbon Dioxide Anion Gap BUN Creatinine Estimated GFR Glucose Calcium POC Troponin I 0.01 ng/mL ng/mL 0.01 ng/mL ng/mL (0.00-0.08) (0.00-0.08) NT-Pro-B Natriuret Pep 897 pg/mL H pg/mL (0-125) 06/20/18 06/20/18 11:00 11:00 WBC 10.38 10^3/uL H 10^3/uL (3.80-9.50) RBC 5.92 10^6/uL 10^6/uL (4.40-6.38) Hgb 16.0 g/dL g/dL (13.7-17.5) Hct 49.2 % % (40.0-51.0) MCV 83.1 fL fL (81.5-99.8) MCH 27.0 pg L pg (27.9-34.1) MCHC 32.5 g/dL g/dL (32.4-36.7) RDW 16.7 % H % (11.5-15.2) Plt Count 270 10^3/uL 10^3/uL (150-400) MPV 10.6 fL fL (8.7-11.7) Neut % (Auto) 79.5 % H % (39.3-74.2) Lymph % (Auto) 8.9 % L % (15.0-45.0) [place] % (Auto) 9.2 % % (4.5-13.0) Eos % (Auto) 1.3 % % (0.6-7.6) Baso % (Auto) 0.4 % % (0.3-1.7) Nucleat RBC Rel Count 0.0 % % (0.0-0.2) Absolute Neuts (auto) 8.26 10^3/uL H 10^3/uL (1.70-6.50) Absolute Lymphs (auto) 0.92 10^3/uL L 10^3/uL (1.00-3.00) Absolute Monos (auto) 0.96 10^3/uL H 10^3/uL (0.30-0.80) Absolute Eos (auto) 0.13 10^3/uL 10^3/uL (0.03-0.40) Absolute Basos (auto) 0.04 10^3/uL 10^3/uL (0.02-0.10) Absolute Nucleated RBC 0.00 10^3/uL 10^3/uL (0-0.01) Immature Gran % 0.7 % % (0.0-1.1) Immature Gran # 0.07 10^3/uL 10^3/uL (0.00-0.10) Sodium 144 mEq/L mEq/L (135-145) Potassium 4.4 mEq/L mEq/L (3.3-5.0) Chloride 108 mEq/L mEq/L (97-110) Carbon Dioxide 22 mEq/l mEq/l (22-31) Anion Gap 14 mEq/L mEq/L (8-16) BUN 39 mg/dL H mg/dL (7-23) Creatinine 1.0 mg/dL mg/dL (0.7-1.3) Estimated GFR > 60 Glucose 96 mg/dL mg/dL (70-100) Calcium 10.1 mg/dL mg/dL (8.5-10.4) POC Troponin I NT-Pro-B Natriuret Pep Point of Care Test Results: Chemistry 06/20/18 06/20/18 14:12 11:24 POC Troponin I 0.01 ng/mL ng/mL 0.01 ng/mL ng/mL (0.00-0.08) (0.00-0.08) Departure - Departure Disposition: Home, Routine, Self-Care Clinical Impression: COPD (chronic obstructive pulmonary disease) Qualifiers: COPD type: chronic bronchitis Chronic bronchitis type: unspecified Qualified Code(s): J42 - Unspecified chronic bronchitis Condition: Good Instructions: Emphysema (ED) Additional Instructions: Seek medical attention if you develop chest pain, if you develop new or worsening shortness of breath, or any other symptoms that concern you. Take a daily aspirin 81 mg Referrals: [facility],. [Clinic] - As per Instructions
[2018-06-20] MEDS ORDERED: IOPAMIDOL (ISOVUE 370) 100 ML BTL IV ONE (12:03)
--- NOTE | 2018-06-20 13:33 | ASMTLACE ---
[facility] Comorbidities - select Answers: Chronic pulmonary disease all that apply Other Notes: Atrial Fibrillation # of Emergency department Answers: 12+ visits in the last 6 months Social determinants Answers: Homelessness (street, correction) Mental health diagnosis (anxiety, depression, pers onality disorders, etc.) Lack of community resources and/or lack of social support (no pcp, lives alone, transportation, rhea d) Score: 19 Date Signed: 06/20/2018 01:20 PM Electronically Signed By:Mary Gibson RN
--- NOTE | 2018-06-20 13:35 | ASMTCMCOM ---
CM Note CM Note Notes: Patient is well known to CM and this CM from previous ER visits, admissions, and through the [facility] program. Patient was recently "dismissed" from the [facility] (still active with [facility] services), due to non-compliance such as being "asked to leave" 3 prior housing situations that were arranged for him through /[facility]. CM will follow patient with knowledge that placement and resources will be limited. Date Signed: 06/20/2018 01:27 PM Electronically Signed By:Mary Gibson RN
--- NOTE | 2018-06-20 14:28 | CPEKG ---
Test Reason : OPEN Blood Pressure : / mmHG Vent. Rate : 093 BPM Atrial Rate : 095 BPM P-R Int : 145 ms QRS Dur : 104 ms QT Int : 367 ms P-R-T Axes : 042 -49 035 degrees QTc Int : 457 ms Sinus tachycardia Atrial premature complexes in couplets Probable left atrial enlargement LAD, consider left anterior fascicular block Confirmed by Blanca Grissom ([id number]) on 06/20/2018 2:27:44 PM Referred By: Confirmed By:Blanca Grissom
[2018-06-20 15:21] VITALS: BP 135/84
--- NOTE | 2018-06-20 17:43 | ASMTCMCOM ---
CM Note CM Note Notes: patient was not admitted to the hospital and did not request to see CM prior to discharge from the ER Date Signed: 06/20/2018 05:43 PM Electronically Signed By:Mary Gibson RN
== END 2018-06-20 15:19 | disposition home or self-care (01) ==
LOC: EDUNIT#
DX: J43.9 Emphysema, unspecified (principal); I25.10 Atherosclerotic heart disease of native coronary artery without angina pectoris; I51.7 Cardiomegaly; Z59.0 Homelessness; F17.200 Nicotine dependence, unspecified, uncomplicated
CPT/HCPCS: 71045; 71275; 93005; 99285; Q9967; 84484-PO

== ENCOUNTER 2018-06-24 04:29 | Emergency (ER) | payer OTHER, MEDICAID ==
[2018-06-24] MEDS: IPRATROPIUM/ALBUTEROL 3 ML DEYVIAL IH ONE (04:49)
--- NOTE | 2018-06-24 06:17 | EDPHY ---
H & P Stated Complaint: resp diff. Time Seen by Provider: 06/24/18 04:35 HPI/ROS: HPI The patient presents with shortness of breath and dry cough which has been present for over 1 week now though became worse last night when he was trying to sleep. He says it is difficult to get a full breath. He does not have any chest pain. He has been up during the night tonight because of his trouble breathing. He does not have any leg swelling. He normally walks with a walker and is able to do so. He was seen in the emergency department on June 20 for the same symptoms. He had a full workup which demonstrated severe emphysema with mucous plugging of his right long without any pulmonary embolism or heart failure. He says he does use Spiriva and Breo Ellipta and possibly albuterol. REVIEW OF SYSTEMS 10 systems were reviewed and negative with the exception of the elements mentioned in the history of present illness. PMHx: Known COPD, history of atrial fibrillation, history of DVT, anxiety, traumatic brain injury Soc Hx: Homeless, paramedics picked him up in a field near [facility] PHYSICAL General Appearance: Alert, no distress Eyes: Pupils equal and round no pallor or injection ENT, Mouth: Mucous membranes moist Respiratory: There are no retractions, lungs with occasional wheezes Cardiovascular: Regular rate and rhythm Gastrointestinal: Abdomen is soft and non-tender, no masses, bowel sounds normal Neurological: A&O, moves all extremities Skin: Warm and dry, no rashes Musculoskeletal: Neck is supple non tender Extremities: symmetrical, full range of motion Psychiatric: Patient is oriented X 3, there is no agitation Source: Patient, EMS, Old records Exam Limitations: No limitations - Personal History Current Tetanus/Diphtheria Vaccine: Unsure Current Tetanus Diphtheria and Acellular Pertussis (TDAP): Unsure Tetanus Vaccine Date: < 10 YEARS - Medical/Surgical History Hx Asthma: Yes Hx Chronic Respiratory Disease: No Hx Diabetes: No Hx Cardiac Disease: Yes Hx Renal Disease: No Hx Cirrhosis: No Hx Alcoholism: No Hx HIV/AIDS: No Hx Splenectomy or Spleen Trauma: No Other PMH: CONSTIPATION,SPINAL FUSION, HTN, TBI in 1999, subdural bleed, anxiety , tremors, ULCER- CAUTERIZED 01/2017/PE, bowel obstruction. - Social History Smoking Status: Light smoker Allergies/Adverse Reactions: No Known Allergies Allergy (Unverified 06/20/18 13:25) Home Medications: Medication Instructions Recorded ALPRAZolam [Xanax 1 MG (*)] 1 mg PO Q6H PRN 03/20/18 Donepezil HCl 20 mg PO HS 03/20/18 Fluticasone/Vilanterol [Breo 1 puffs IH DAILY 03/20/18 Ellipta 200-25 Mcg INH] Promethazine HCl [Phenergan 25mg 25 mg PO Q6H PRN 03/20/18 (*)] Sertraline HCl [Zoloft 100mg (*)] 250 mg PO HS 03/20/18 Tiotropium Inhaler [Spiriva 18 mcg IH DAILY 03/20/18 Handihaler] traMADol [Ultram 50 mg (*)] 50 mg PO Q6H PRN 03/20/18 Acetaminophen [Tylenol ES 500 mg 1,000 mg PO Q8H PRN tab 03/30/18 (*)] Dicyclomine [Bentyl 20 MG (*)] 20 mg PO QID PRN tab 03/30/18 Pantoprazole Sodium [Protonix 40mg 40 mg PO DAILY tab 03/30/18 (*)] Metoprolol Succinate Xr [Toprol Xl 50 mg PO DAILY #30 tab.sr 06/06/18 50 mg (*)] Tamsulosin HCl [Flomax 0.4 MG (*)] 0.4 mg PO DAILY #30 cap 06/06/18 amLODIPine BESYLATE [Norvasc 5 mg 5 mg PO DAILY #30 tab 06/06/18 (*)] Lisinopril [Zestril 5 mg (*)] 5 mg PO DAILY 06/20/18 Naproxen [Naprosyn] 500 mg PO BID PRN 06/20/18 hydrOXYzine HCL [hydrOXYzine HCL 25 mg PO DAILY 06/20/18 (RX)] Doxycycline Hyclate 100 mg PO BID #14 tab 06/24/18 predniSONE [Prednisone] 40 mg PO DAILY 4 Days tablet 06/24/18 Medical Decision Making - Diagnostics Imaging Results: Chest x-ray two view is unchanged from prior, interpreted by me, radiology interpretation is pending. Imaging: I viewed and interpreted images myself Differential Diagnosis: This is a 68-year-old male with history of COPD, atrial fibrillation, DVT who presents with shortness of breath which has been present for the last 1 week though became worse last night. On exam, he has normal oxygen saturations and other vital signs are normal. He is in no respiratory distress whatsoever. He has occasional wheezing on lung exam. In the emergency department, he was given a DuoNeb. He was asymptomatic afterwards. Chest x-ray is unchanged from prior. I will treat him as a COPD exacerbation with prednisone, doxycycline, patient RD has albuterol. - Data Points Medications Given: Discontinued Medications Albuterol/Ipratropium (Duoneb) 3 ml IH EDNOW ONE Stop: 06/24/18 04:43 Last Admin: 06/24/18 04:49 Dose: 3 ml Departure - Departure Disposition: Home, Routine, Self-Care Clinical Impression: Chronic obstructive pulmonary disease with acute exacerbation Condition: Good Instructions: COPD (Chronic Obstructive Pulmonary Disease) (ED) Additional Instructions: [facility] in the next 1-2 days. Referrals: [facility],. [Clinic] - As per Instructions
[2018-06-24] MEDS: DOXYCYCLINE HYCLATE 100 MG CAP/TAB PO ONE (06:29)
[2018-06-24] MEDS: DOXYCYCLINE 100 MG PREPACK#2 BTL TAKEHOME ONE (06:29)
[2018-06-24] MEDS: predniSONE 20 MG TAB PO ONE (06:29)
[2018-06-24 06:43] VITALS: BP 134/71
== END 2018-06-24 06:34 | disposition home or self-care (01) ==
LOC: EDUNIT#
DX: J44.1 Chronic obstructive pulmonary disease with (acute) exacerbation (principal); I48.91 Unspecified atrial fibrillation; Z59.0 Homelessness; Z87.820 Personal history of traumatic brain injury; Z86.718 Personal history of other venous thrombosis and embolism
CPT/HCPCS: 71046; 99283; J7512

== ENCOUNTER 2018-07-24 11:43 | Emergency (ER) | payer OTHER, MEDICAID ==
[~2018-07-24 11:43] MED LIST: TAMSULOSIN HCL 0.4 MG CAP PO SCH
[2018-07-24] MEDS ORDERED: TAMSULOSIN HCL 0.4 MG CAP PO ONE (14:06)
--- NOTE | 2018-07-24 14:09 | EDPHY ---
H & P Time Seen by Provider: 07/24/18 12:58 HPI/ROS: HPI Out of Flomax. Frequent urination. 68-year-old male. He is homeless. He is here on foot. He presents to the emergency department stating that he has been out of Flomax for the last 2 days and has been up at night every couple of hours urinating. He is asking for a refill of his Flomax prescription. He denies any other complaints at this time. ROS: Constitutional: No fever, no chills. No weakness. Eyes: No discharge. No changes in vision. ENT: No sore throat. No nasal congestion or rhinorrhea. Respiratory: No cough. No shortness of breath. Cardiac: No chest pain, no palpitations. Gastrointestinal: No abdominal pain, no vomiting, no diarrhea. Genitourinary: No hematuria. No dysuria. As above. Musculoskeletal: No back pain. No neck pain. No myalgias or arthralgias. Skin: No rashes. Neurological: No headache. No focal weakness or altered sensation. Past medical history: Constipation, spinal fusion, traumatic brain injury, anxiety, tremor, bowel obstruction, COPD. His primary care physician is Dr. Jeffries. Social history: Smoker. Homeless. Drinks alcohol. Recently band from the homeless retirement secondary to reasons he states are not his fault. Physical Exam: General Appearance: Alert, unkept somewhat disheveled. This patient is responding to questions appropriately and in full sentences. This patient appears well-hydrated and well-nourished. Eyes: Pupils equal and round no pallor or injection. No lid edema, erythema or injection. Respiratory: There are no retractions, lungs are clear to auscultation with good air movement bilaterally. Cardiovascular: Regular rate and rhythm. No murmur. Gastrointestinal: Abdomen is soft and nontender, no masses, bowel sounds normal. No focal tenderness at McBurney's point. No Scales sign. Neurological: Motor sensory function is grossly intact. Cranial nerves are normal. Gait is normal. Skin: Warm and dry, no rashes. Musculoskeletal: Neck is supple and nontender. Extremities are symmetrical. All joints range without pain or impingement. Psychiatric: No agitation. No depression. Database: EKG: Imaging: Procedures: Emergency department course: Triage vital signs reviewed. He is mildly hypertensive. Vital signs are otherwise unremarkable. He was given 0.4 mg of Flomax in the emergency department. I have written a prescription for him which will be filled through our map program. He is to follow up with his primary care physician in the next 1-2 days for re-evaluation. He feels comfortable being discharged. Return to emergency department precautions were discussed with him. All of his questions were answered. He was discharged from the emergency department in good condition. Differential Diagnosis: The differential diagnosis on this patient includes but is not limited to prescription refill, homeless currently. CVA, acute coronary syndrome, serious bacterial infection unlikely. This represents a partial list of diagnoses considered. These considerations are based on history, physical exam, past history, reassessment and diagnostic testing. Smoking Status: Heavy smoker Constitutional: Initial Vital Signs Temperature (C) 36.9 C 07/24/18 11:53 Heart Rate 64 07/24/18 11:53 Respiratory Rate 20 07/24/18 11:53 Blood Pressure 146/92 H 07/24/18 11:53 O2 Sat (%) 94 07/24/18 11:53 O2 Delivery Mode Room Air Allergies/Adverse Reactions: No Known Allergies Allergy (Unverified 07/24/18 11:50) Home Medications: Medication Instructions Recorded ALPRAZolam [Xanax 1 MG (*)] 1 mg PO Q6H PRN 03/20/18 Donepezil HCl 20 mg PO HS 03/20/18 Fluticasone/Vilanterol [Breo 1 puffs IH DAILY 03/20/18 Ellipta 200-25 Mcg INH] Promethazine HCl [Phenergan 25mg 25 mg PO Q6H PRN 03/20/18 (*)] Sertraline HCl [Zoloft 100mg (*)] 250 mg PO HS 03/20/18 Tiotropium Inhaler [Spiriva 18 mcg IH DAILY 03/20/18 Handihaler] traMADol [Ultram 50 mg (*)] 50 mg PO Q6H PRN 03/20/18 Acetaminophen [Tylenol ES 500 mg 1,000 mg PO Q8H PRN tab 03/30/18 (*)] Dicyclomine [Bentyl 20 MG (*)] 20 mg PO QID PRN tab 03/30/18 Pantoprazole Sodium [Protonix 40mg 40 mg PO DAILY tab 06/29/18 (*)] Metoprolol Succinate Xr [Toprol Xl 50 mg PO DAILY #30 tab.sr 06/06/18 50 mg (*)] Tamsulosin HCl [Flomax 0.4 MG (*)] 0.4 mg PO DAILY #30 cap 06/06/18 amLODIPine BESYLATE [Norvasc 5 mg 5 mg PO DAILY #30 tab 06/06/18 (*)] Lisinopril [Zestril 5 mg (*)] 5 mg PO DAILY 06/20/18 Naproxen [Naprosyn] 500 mg PO BID PRN 06/20/18 hydrOXYzine HCL [hydrOXYzine HCL 25 mg PO DAILY 06/20/18 (RX)] Doxycycline Hyclate 100 mg PO BID #14 tab 06/24/18 predniSONE [Prednisone] 40 mg PO DAILY 4 Days tablet 06/24/18 Albuterol 07/24/18 Tamsulosin HCl [Flomax 0.4 MG (*)] 0.4 mg PO DAILY #20 cap 07/24/18 Medical Decision Making - Data Points Medications Given: Discontinued Medications Tamsulosin HCl (Flomax) 0.4 mg PO EDNOW ONE Stop: 07/24/18 14:07 Last Admin: 07/24/18 14:11 Dose: 0.4 mg Departure - Departure Disposition: Home, Routine, Self-Care Clinical Impression: Prescription refill Condition: Good Instructions: Benign Prostatic Hypertrophy (ED) Additional Instructions: Read and follow provided instructions. Follow-up with your primary care physician in 1-2 days for re-evaluation as discussed. Take medication as prescribed. Return to the emergency department for any serious concerns. Referrals: Alcides Singh MD [Medical Doctor] - As per Instructions Prescriptions: Tamsulosin HCl [Flomax 0.4 MG (*)] 0.4 mg PO DAILY #20 cap
[2018-07-24 14:50] VITALS: BP 137/84
--- NOTE | 2018-07-24 18:25 | ASMTCMCOM ---
CM Note CM Note Notes: Pt presented to the ED via EMS for frequent urination and being out of his Flomax medication for the past 2 days. Spoke w/pt and he states that he was provided a Rxn for his Flomax some time ago but the pharmacy couldn't fill for awhile so he held onto the Rxn. Pt states he then lost the Rxn. Pt states that if we just gave him another Rxn that he would still not be able to have it filled yet. PT provided 10days worth via MAP. Spoke w/Elsy Patel at pt's PCP Dr Singh's office [facility]. Elsy was able to schedule pt a followup appt w/Dr Singh this Monday07/27/18 at 1pm. Pt states he should be able to make it to the appt and knows how to arrange for a Medicaid cab through [employer]. Pt states he has been sleeping outside in a park. Pt states he had a meeting last week w/members from [facility] and another community program. Pt states "they said I could stay at their skilled nursing again as long as I produce a lease I've signed with someone else...which doesn't make any sense." Pt states he plans on following up as instructed and continuing to hopefully work the options he is provided. Pt discharged to the waiting area with all of his belongings including various bags, Rxns, coats, a sleeping bag, his walker, etc. CM available for further assistance if needed. Date Signed: 07/24/2018 06:25 PM Electronically Signed By:Hailey Maynard RN
== END 2018-07-24 15:53 | disposition home or self-care (01) ==
LOC: EDUNIT#
DX: Z76.0 Encounter for issue of repeat prescription (principal); R35.0 Frequency of micturition; F17.200 Nicotine dependence, unspecified, uncomplicated; Z59.0 Homelessness

== ENCOUNTER 2018-08-01 16:18 | Inpatient (IN) | payer OTHER, MEDICAID ==
[2018-08-01] MEDS ORDERED: LORazepam 2 MG/ML INJ IVP ONE (16:31)
--- NOTE | 2018-08-01 16:31 | EDPHY ---
H & P Stated Complaint: fall, left hip pain Time Seen by Provider: 08/01/18 16:25 HPI/ROS: HPI: This is a 68-year-old male who presents with Chief Complaint: Fall, left hip pain Location: Left hip Quality: Injury Duration: Approximately at 3:00 a.m., and 0.5 hr prior to arrival Signs and Symptoms: No bleeding, no radiation, no numbness, no weakness, no tingling, no incontinence, + decreased range of motion, no swelling, + pain, no fever Timing: Acute Severity: Moderate Context: Patient presents via EMS and is homeless, was using his scooter to walk down a past, when he lost control of the scooter and fell directly onto his left hip. Denies LOC/head injury/neck pain/dizziness/nausea/vomiting/ amnesia. He reports that he was unable to get up off of the ground on his own. He is unable to bear weight. He reports that he has been followed outpatient for physical therapy for prior history this year of left hip injury. Denies any radiation, weakness. He does report decreased range of motion at the hip. Last meal was this morning around 7:00 a.m. At [employer]. Modifying Factors: None Comment: ROS: A comprehensive 10 system review of systems is otherwise negative aside from elements mentioned in the history of present illness. MEDICAL/SURGICAL/SOCIAL HISTORY: Medical/Surgical history: CONSTIPATION,SPINAL FUSION, HTN, TBI in 1999, subdural bleed, anxiety, tremors, ULCER- CAUTERIZED 01/2017/PE, bowel obstruction. COPD Social history: Light smoker. CONSTITUTIONAL: Polite and cooperative, elderly white male, untidy awake and alert, no obvious distress HEENT: Atraumatic and normocephalic. NECK: supple, no midline tenderness, flexion 45 degrees, extension 45 degrees, right and left lateral flexion 45 degrees. No meningismus. Cardiovascular: Normal S1/S2, regular rate, regular rhythm, without murmur rub or gallop. PULMONARY/CHEST: Symmetrical and nontender. no crepitus. Clear to auscultation bilaterally. Good air movement. No accessory muscle usage. ABDOMEN: Soft, nondistended, nontender, no ecchymosis. EXTREMITIES: 2/2 pulses, strength 5/5, left HIP: Tenderness over the greater trochanter; will not flex, extend or hyperextend. Patient is in a supine position. Knee and ankle have full range of motion. Left leg is externally rotated with mild decrease in length when compared to the right leg. good light touch sensation. no deformities, no clubbing, no cyanosis or edema. NEUROLOGICAL: no focal neuro deficits. GCS 15. Light touch sensation intact. SKIN: Warm and dry, no erythema. no rash. Good capillary refill. Source: Patient Exam Limitations: No limitations - Personal History Current Tetanus/Diphtheria Vaccine: Yes Current Tetanus Diphtheria and Acellular Pertussis (TDAP): Yes Tetanus Vaccine Date: < 10 YEARS - Medical/Surgical History Hx Asthma: Yes Hx Chronic Respiratory Disease: Yes Hx Diabetes: No Hx Cardiac Disease: Yes Hx Renal Disease: No Hx Cirrhosis: No Hx Alcoholism: No Hx HIV/AIDS: No Hx Splenectomy or Spleen Trauma: No Other PMH: CONSTIPATION,SPINAL FUSION, HTN, TBI in 1999, subdural bleed, anxiety , tremors, ULCER- CAUTERIZED 01/2017/PE, bowel obstruction. COPD - Social History Smoking Status: Light smoker Constitutional: Initial Vital Signs Temperature (C) 36.7 C 08/01/18 16:22 Heart Rate 68 08/01/18 16:22 Respiratory Rate 16 08/01/18 16:22 Blood Pressure 171/112 H 08/01/18 16:22 O2 Sat (%) 93 08/01/18 16:22 O2 Delivery Mode Room Air Allergies/Adverse Reactions: No Known Allergies Allergy (Unverified 07/24/18 11:50) Home Medications: Medication Instructions Recorded ALPRAZolam [Xanax 1 MG (*)] 1 mg PO Q6H PRN 03/20/18 Donepezil HCl 20 mg PO HS 03/20/18 Fluticasone/Vilanterol [Breo 1 puffs IH DAILY 03/20/18 Ellipta 200-25 Mcg INH] Promethazine HCl [Phenergan 25mg 25 mg PO Q6H PRN 03/20/18 (*)] Sertraline HCl [Zoloft 100mg (*)] 250 mg PO HS 03/20/18 Tiotropium Inhaler [Spiriva 18 mcg IH DAILY 03/20/18 Handihaler] traMADol [Ultram 50 mg (*)] 50 mg PO Q6H PRN 03/20/18 Acetaminophen [Tylenol ES 500 mg 1,000 mg PO Q8H PRN tab 03/30/18 (*)] Dicyclomine [Bentyl 20 MG (*)] 20 mg PO QID PRN tab 03/30/18 Pantoprazole Sodium [Protonix 40mg 40 mg PO DAILY tab 03/30/18 (*)] Metoprolol Succinate Xr [Toprol Xl 50 mg PO DAILY #30 tab.sr 06/06/18 50 mg (*)] Tamsulosin HCl [Flomax 0.4 MG (*)] 0.4 mg PO DAILY #30 cap 06/06/18 amLODIPine BESYLATE [Norvasc 5 mg 5 mg PO DAILY #30 tab 06/06/18 (*)] Lisinopril [Zestril 5 mg (*)] 5 mg PO DAILY 06/20/18 Naproxen [Naprosyn] 500 mg PO BID PRN 06/20/18 hydrOXYzine HCL [hydrOXYzine HCL 25 mg PO DAILY 06/20/18 (RX)] Doxycycline Hyclate 100 mg PO BID #14 tab 06/24/18 predniSONE [Prednisone] 40 mg PO DAILY 4 Days tablet 06/24/18 Albuterol 07/24/18 Tamsulosin HCl [Flomax 0.4 MG (*)] 0.4 mg PO DAILY #20 cap 07/24/18 Medical Decision Making - Diagnostics Imaging Results: Imaging Impressions Femur X-Ray 08/01/18 16:31 Impression: 1. Acute left femoral intertrochanteric fracture with partial comminution and varus angulation. 2. Severe degenerative osteoarthritic change of the left hip. ED Course/Re-evaluation: Vital signs reviewed and show elevated blood pressure upon arrival suspect secondary to anxiety and pain. IV access obtained by EMS. Given IV morphine 4 mg and IV Ativan 1 mg upon arrival Left hip x-ray ordered bedside imaging shows femoral intertrochanteric fracture with angulation. Laboratory studies ordered. Fall is mechanical in nature. 1645: ED decision to consult Orthopedics. Spoke with Dr. Vikram Feliz who kindly agrees to consult on patient and operate on the patient in the morning. NPO status after midnight. Request hospitalist admission due to multiple medical problems. Spoke with Dr. Toth who kindly agrees to admit the patient. Laboratory studies results pending at time of consults. 1715: Laboratory studies reviewed. No signs of leukocytosis, anemia, platelet dysfunction, electrolyte imbalance. INR 1.24, BUN 33, creatinine 1.7. 1730: Final radiology read of left hip x-ray shows: Acute left femoral intertrochanteric fracture with partial comminution and varus angulation. No signs of neurovascular compromise/tenting of skin/compartment syndrome/ extremities and joints examined above and below area of concern and are neurovascularly intact. This patient was seen under the supervision of my secondary supervising physician. I evaluated care for this patient independently. Discussed this patient with Dr. Grissom. Differential Diagnosis: Differential diagnosis includes but is not limited to femur fracture, pelvic fracture, knee injury, hip contusion. - Data Points Laboratory Results: Laboratory Results 08/01/18 16:28 08/01/18 16:28 08/01/18 08/01/18 08/01/18 16:28 16:28 16:28 WBC 7.97 10^3/uL 10^3/uL (3.80-9.50) RBC 5.29 10^6/uL 10^6/uL (4.40-6.38) Hgb 14.3 g/dL g/dL (13.7-17.5) Hct 43.6 % % (40.0-51.0) MCV 82.4 fL fL (81.5-99.8) MCH 27.0 pg L pg (27.9-34.1) MCHC 32.8 g/dL g/dL (32.4-36.7) RDW 15.8 % H % (11.5-15.2) Plt Count 223 10^3/uL 10^3/uL (150-400) MPV 11.5 fL fL (8.7-11.7) Neut % (Auto) 76.7 % H % (39.3-74.2) Lymph % (Auto) 11.7 % L % (15.0-45.0) [place] % (Auto) 8.5 % % (4.5-13.0) Eos % (Auto) 1.9 % % (0.6-7.6) Baso % (Auto) 0.4 % % (0.3-1.7) Nucleat RBC Rel Count 0.0 % % (0.0-0.2) Absolute Neuts (auto) 6.12 10^3/uL 10^3/uL (1.70-6.50) Absolute Lymphs (auto) 0.93 10^3/uL L 10^3/uL (1.00-3.00) Absolute Monos (auto) 0.68 10^3/uL 10^3/uL (0.30-0.80) Absolute Eos (auto) 0.15 10^3/uL 10^3/uL (0.03-0.40) Absolute Basos (auto) 0.03 10^3/uL 10^3/uL (0.02-0.10) Absolute Nucleated RBC 0.00 10^3/uL 10^3/uL (0-0.01) Immature Gran % 0.8 % % (0.0-1.1) Immature Gran # 0.06 10^3/uL 10^3/uL (0.00-0.10) PT 15.8 SEC H SEC (12.0-15.0) INR 1.24 H (0.83-1.16) APTT 29.7 SEC SEC (23.0-38.0) Sodium 141 mEq/L mEq/L (135-145) Potassium 4.1 mEq/L mEq/L (3.3-5.0) Chloride 108 mEq/L mEq/L (97-110) Carbon Dioxide 22 mEq/l mEq/l (22-31) Anion Gap 11 mEq/L mEq/L (6-14) BUN 33 mg/dL H mg/dL (7-23) Creatinine 1.7 mg/dL H mg/dL (0.7-1.3) Estimated GFR 40 Glucose 105 mg/dL H mg/dL (70-100) Calcium 9.8 mg/dL mg/dL (8.5-10.4) Medications Given: Discontinued Medications Lorazepam (Ativan Injection) 1 mg IVP EDNOW ONE Stop: 08/01/18 16:32 Last Admin: 08/01/18 16:55 Dose: 1 mg Morphine Sulfate (Morphine) 4 mg IVP EDNOW ONE Stop: 08/01/18 16:32 Last Admin: 08/01/18 16:55 Dose: 4 mg Departure - Departure Disposition: [facility] Inpatient Acute Clinical Impression: Closed left hip fracture Qualifiers: Encounter type: initial encounter Qualified Code(s): S72.002A - Fracture of unspecified part of neck of left femur, initial encounter for closed fracture Condition: Fair
[2018-08-01 17:09] LABS: INR 1.24 (0.83-1.16); PROTIME(PATIENT) 15.8 SEC (12.0-15.0)
[2018-08-01 17:11] LABS: PLATELET COUNT 223 10^3/uL (150-400)
[2018-08-01] MEDS ORDERED: ONDANSETRON 4 MG/2 ML VIAL IVP PRN (17:40)
[2018-08-01] MEDS ORDERED: PROMETHAZINE HCL 25 MG/ML INJ IVP PRN (17:40)
[2018-08-01] MEDS ORDERED: ACETAMINOPHEN 325 MG TAB PO PRN (17:40)
[2018-08-01] MEDS ORDERED: ALPRAZolam 0.5 MG TAB PO PRN (17:43)
[2018-08-01] MEDS ORDERED: NS 1,000 ML IV SCH (17:45)
[2018-08-01] MEDS: HYDROCODONE/APAP 5/325 TAB PO PRN (18:42)
[2018-08-01] MEDS ORDERED: FAMOTIDINE 20 MG TAB PO ONE (18:52)
[2018-08-01] MEDS ORDERED: TRANEXAMIC ACID 1,000 MG in NS 100 ML IV ONE (18:52)
[2018-08-01] MEDS ORDERED: ceFAZolin 2 GM/DEXTROSE 100 ML IV ONE (18:52)
[2018-08-01] MEDS ORDERED: ACETAMINOPHEN 325 MG TAB PO ONE (18:52)
[2018-08-01] MEDS ORDERED: IBUPROFEN PO PRN (20:30)
[2018-08-01] MEDS ORDERED: DIPHENHYDRAMINE CIT PO PRN (20:30)
[2018-08-01] MEDS ORDERED: PROMETHAZINE HCL 25 MG TAB PO PRN (20:30)
[2018-08-01] MEDS ORDERED: DICYCLOMINE 20 MG TAB PO PRN (20:30)
--- NOTE | 2018-08-01 20:55 | PDGENHP ---
History and Physical - Chief Complaint fall, hip pain - History of Present Illness 68 yo M with hx of COPD, HTN and homelessness presenting s/p mechanical fall. He notes he was walking outside the custodial he stayed at when he tripped and fell over some of his belongings, landing on his left hip. He immediately had severe pain and was essentially unable to move his left lower extremity. He notes that when he is not moving at all the pain is relatively well controlled, but with any movement his pain is severe. He notes he has been having issues with increasing gait instability and feels as if he is unsteady on his feet frequently for unclear reasons. He does have a bit of a tremor as well that has been stable. He notes he is dealing with a lot of issues around his social situation, he states he has been banned from the shelters for various reasons that are all based on lies and he has been dealing with a lot of stress and anxiety around that. It is also the one year anniversary of the of his tomorrow and that has been another stressful issue for him. History Information - Allergies/Home Medication List Allergies/Adverse Reactions: No Known Allergies Allergy (Unverified 07/24/18 11:50) Home Medications: ALPRAZolam [Xanax 1 MG (*)] 0.5 - 1 mg PO Q6H PRN 03/20/18 [Last Taken 08/01/18 11:00] Donepezil HCl 20 mg PO HS 03/20/18 [Last Taken 07/31/18] Fluticasone/Vilanterol [Breo Ellipta 200-25 Mcg INH] 1 puffs IH DAILY 03/20/18 [ Last Taken 08/01/18] Promethazine HCl [Phenergan 25mg (*)] 25 mg PO Q6H PRN 03/20/18 [Last Taken Unknown] Sertraline HCl [Zoloft 100mg (*)] 250 mg PO HS 03/20/18 [Last Taken 07/31/18] Tiotropium Inhaler [Spiriva Handihaler] 1 puffs IH DAILY 03/20/18 [Last Taken ] traMADol [Ultram 50 mg (*)] 50 mg PO Q6H PRN 03/20/18 [Last Taken 06/19/18 21:00 ] Naproxen [Naprosyn] 500 mg PO BID PRN 06/20/18 [Last Taken 06/19/18 21:00] hydrOXYzine HCL [hydrOXYzine HCL (RX)] 25 mg PO HS PRN 06/20/18 [Last Taken ] Ibuprofen/Diphenhydramine Cit [Advil Pm Caplet] 1 each PO HS PRN 08/01/18 [Last Taken Unknown] Lisinopril [Zestril 10 mg (*)] 10 mg PO DAILY 08/01/18 [Last Taken 08/01/18] Sennosides [Senna Lax] 8.6 mg PO BID PRN 08/01/18 [Last Taken Unknown] Tamsulosin HCl [Flomax 0.4 MG (*)] 0.4 mg PO BID 08/01/18 [Last Taken 08/01/18 11:00] I have personally reviewed and updated: family history, medical history, social history, surgical history - Past Medical History atrial fibrillation, COPD, DVT, hypertension Additional medical history: H/O GIB. Colon perforation 07/2017. A fib. Anxiety. Chronic bzd dependence. TBI. H/O subdural hematoma - Surgical History Reports: cholecystectomy Additional surgical history: intestinal surgery - Family History Positive for: non-pertinent - Social History Smoking Status: Light smoker Alcohol Use: Sober Drug Use: None Additional social history: Homeless, says he hasn't had etoh for months. Denies drug use. x 1 year Review of Systems Review of Systems: ROS: 10pt was reviewed & negative except for what was stated in HPI & below Physical Exam Physical Exam: Temp Pulse Resp BP Pulse Ox 36.4 C 85 16 155/102 H 92 08/01/18 20:00 08/01/18 20:00 08/01/18 20:00 08/01/18 20:00 08/01/18 20:00 O2 (L/minute) 2 Constitutional: no apparent distress, appears nourished, unkempt Eyes: PERRL, anicteric sclera Ears, Nose, Mouth, Throat: moist mucous membranes, hearing normal, poor dentition Cardiovascular: regular rate and rhythym, no murmur, rub, or gallop, No edema Respiratory: no respiratory distress, no rales or rhonchi Gastrointestinal: normoactive bowel sounds, soft, non-tender abdomen Genitourinary: no bladder tenderness Skin: warm, normal color Musculoskeletal: no muscle tenderness, pain with ROM Neurologic: AAOx3 Psychiatric: interacting appropriately, not anxious, not encephalopathic Lab Data & Imaging Review 08/01/18 16:28 08/01/18 16:28 WBC 7.97 10^3/uL (3.80-9.50) 08/01/18 16:28 RBC 5.29 10^6/uL (4.40-6.38) 08/01/18 16:28 Hgb 14.3 g/dL (13.7-17.5) 08/01/18 16:28 Hct 43.6 % (40.0-51.0) 08/01/18 16:28 MCV 82.4 fL (81.5-99.8) 08/01/18 16:28 MCH 27.0 pg (27.9-34.1) L 08/01/18 16:28 MCHC 32.8 g/dL (32.4-36.7) 08/01/18 16:28 RDW 15.8 % (11.5-15.2) H 08/01/18 16:28 Plt Count 223 10^3/uL (150-400) 08/01/18 16:28 MPV 11.5 fL (8.7-11.7) 08/01/18 16:28 Neut % (Auto) 76.7 % (39.3-74.2) H 08/01/18 16:28 Lymph % (Auto) 11.7 % (15.0-45.0) L 08/01/18 16:28 [place] % (Auto) 8.5 % (4.5-13.0) 08/01/18 16:28 Eos % (Auto) 1.9 % (0.6-7.6) 08/01/18 16:28 Baso % (Auto) 0.4 % (0.3-1.7) 08/01/18 16:28 Nucleat RBC Rel Count 0.0 % (0.0-0.2) 08/01/18 16:28 Absolute Neuts (auto) 6.12 10^3/uL (1.70-6.50) 08/01/18 16:28 Absolute Lymphs (auto) 0.93 10^3/uL (1.00-3.00) L 08/01/18 16:28 Absolute Monos (auto) 0.68 10^3/uL (0.30-0.80) 08/01/18 16:28 Absolute Eos (auto) 0.15 10^3/uL (0.03-0.40) 08/01/18 16:28 Absolute Basos (auto) 0.03 10^3/uL (0.02-0.10) 08/01/18 16:28 Absolute Nucleated RBC 0.00 10^3/uL (0-0.01) 08/01/18 16:28 Immature Gran % 0.8 % (0.0-1.1) 08/01/18 16:28 Immature Gran # 0.06 10^3/uL (0.00-0.10) 08/01/18 16:28 PT 15.8 SEC (12.0-15.0) H 08/01/18 16:28 INR 1.24 (0.83-1.16) H 08/01/18 16:28 APTT 29.7 SEC (23.0-38.0) 08/01/18 16:28 Sodium 141 mEq/L (135-145) 08/01/18 16:28 Potassium 4.1 mEq/L (3.3-5.0) 08/01/18 16:28 Chloride 108 mEq/L (97-110) 08/01/18 16:28 Carbon Dioxide 22 mEq/l (22-31) 08/01/18 16:28 Anion Gap 11 mEq/L (6-14) 08/01/18 16:28 BUN 33 mg/dL (7-23) H 08/01/18 16:28 Creatinine 1.7 mg/dL (0.7-1.3) H 08/01/18 16:28 Estimated GFR 40 08/01/18 16:28 Glucose 105 mg/dL (70-100) H 08/01/18 16:28 Calcium 9.8 mg/dL (8.5-10.4) 08/01/18 16:28 Visualized and Interpreted imaging results: Yes Interpretation: femur xray: left femoral intertrochanteric fracture Assessment & Plan Assessment: Closed left hip fracture (Acute) 68 yo M with hx of copd, anxiety and homelessness s/p mechanical fall with left femur fx # left intertrochanteric femur fx: ortho consulted, plan for surgical repair in the am, no medical contraindications to surgery to proceed without further evaluation at this point, npo p mn # mechanical fall/gait instability: patient notes his gait has been deteriorating, he does use a walker currently, with associated tremor query early Parkinsonian sxs, will need pt/ot eval once he is able to ambulate post op. May no longer be safe to be living on the street, CM involved # copd: without e/o acute exacerbation at this time, continue home medications # anxiety/chronic benzo use and dependency: patient very anxious today around his current situation and seems to have some underlying paranoia about various events going on in his life, will continue prn alprazolam, may benefit from nurse if this continues to worsen # paroxysmal afib: has occurred in the past in perioperative setting, will monitor, continue metoprolol # hx of DVT: no longer on AC # hx of TBI # IP status, will require > 48 hours stay for eval/mgmt of above Patient new to my care. Old records reviewed and summarized as above. Care plan reviewed with ER doctor as above.
[2018-08-02] MEDS: HYDROCODONE/APAP 5/325 TAB PO PRN (00:11)
[2018-08-02] MEDS: SERTRALINE HCL 100 MG TAB PO SCH ×2 (00:26→21:44)
[2018-08-02] MEDS: DONEPEZIL HCL 5 MG TAB PO SCH ×2 (00:26→21:44)
[2018-08-02] MEDS: TAMSULOSIN HCL 0.4 MG CAP PO SCH ×3 (00:26→21:44)
[2018-08-02] MEDS: ALPRAZolam 1 MG TAB PO PRN ×3 (04:56→19:54)
[2018-08-02 05:38] LABS: PLATELET COUNT 164 10^3/uL (150-400)
[2018-08-02] MEDS ORDERED: ceFAZolin 2 GM/DEXTROSE 100 ML IV ONE ×2 (06:00→12:45)
[2018-08-02] MEDS ORDERED: ACETAMINOPHEN 325 MG TAB PO ONE ×2 (06:00→12:45)
[2018-08-02] MEDS ORDERED: FAMOTIDINE 20 MG TAB PO ONE ×2 (06:00→12:45)
[2018-08-02] MEDS: oxyCODONE IR 5 MG TAB PO PRN ×5 (08:36→21:44)
[2018-08-02] MEDS: METOPROLOL SUCCINATE XR 50 MG TAB PO SCH (09:15)
[2018-08-02] MEDS: LISINOPRIL 10 MG TAB PO SCH (09:15)
[2018-08-02] MEDS: amLODIPine BESYLATE 5 MG TAB PO SCH (09:15)
[2018-08-02] MEDS: TIOTROPIUM INHALER 18 MCG/DOSE 5 DOSE/MDI IH SCH (09:59)
[2018-08-02] MEDS: BREO ELLIPTA IH SCH (10:00)
--- NOTE | 2018-08-02 10:20 | ASMTLACE ---
ESAU Acuity / Level of Answers: Yes Care: Did the patient have an inpatient admission? Comorbidities - select Answers: Chronic pulmonary disease all that apply Other Notes: HTN; TBI; Hx of DVT # of Emergency department Answers: 5-8 visits in the last 6 months Social determinants Answers: Homelessness (street, prison) Mental health diagnosis (anxiety, depression, pers onality disorders, etc.) Score: 16 Date Signed: 08/02/2018 10:19 AM Electronically Signed By:Lisa Cat
--- NOTE | 2018-08-02 10:30 | PDMN ---
Medical Necessity Medical necessity: Pt meets IP criteria per MD and MCG MG-MD(musculoskeletal disease); est los >2 MN for femur fx s/p fall, requiring surgical intervention, pain management, IVF, therapies.
--- NOTE | 2018-08-02 10:49 | ASMTCMCOM ---
CM Note CM Note Notes: Patient admitted with a left hip fracture, sustained after a mechanical fall. This patient has a complex medical and psychosocial history as well as an unfortunate history of being asked to leave various programs/shelters/resources centers. He has been sleeping outside for the past few weeks after being removed from the [facility]. His PCP is Dr Singh whose office has also provided countless hours of case management. Below is an email from Dr Singh's primary health care nurse Elsy Patel: "The transportation driver of utilization for Mr. Ennis is anxiety, social issues, behavioral issues. He has used up all the resources in the area. I removed him from care management as he does not take responsibility for his actions or his care. he is homeless and has been banned from all the shelters for not following the rules. He accepts no responsibility for this. We had him with [facility] - they found him independent housing. He messed that up. He was at [facility] - they would have allowed him to live there, however, he would not sign over his medicaid and receive a stipend. He was at [facility] - he messed that up as he was smoking in his room and his roommate uses oxygen. he fell yesterday and broke his hip, he will have surgery today. I will reach out to the for him. I think [facility] would accept him again - they allow him to smoke - I think it may be the best place for him - he will have to sign over his medicaid. Dr. Singh has tried to talk to him about this in the past. In fact, Dr. Singh wrote him a letter and recommended this. [facility] - has banned him for continued use of marijuana on property. we will see what recommendations are for him during this hospital course." For obvious reasons, it will likely be recommended that patient d/c to a SNF and Case Management will do all that we can to help. However, patient's historical lack of compliance may be an obstacle, and we might need to consider alternative options. Patient does not qualify for medical respite, and he is not able to participate in many of the community resources. [facility] of aware of his hospitalization. We will follow. Date Signed: 08/02/2018 10:49 AM Electronically Signed By:Carmina Howell RN
[2018-08-02] MEDS ORDERED: BUPIVACAINE 0.5% 30 ML SDV ONE (11:43)
[2018-08-02] MEDS ORDERED: POLYMYXIN B SULFATE 500,000 UNIT/10 ML SYR IRR ONE (11:44)
[2018-08-02] MEDS ORDERED: EPINEPHrine 1 MG/ML INJ ONE (11:45)
--- NOTE | 2018-08-02 12:11 | HOSPPROG ---
Hospitalist Progress Note Assessment/Plan: 68 yo M with hx of copd, anxiety and homelessness s/p mechanical fall with left femur fx. Patient new to my care, chart reviewed. # left intertrochanteric femur fx -surgery today # mechanical fall/gait instability -was walking down a steep hill with his walker and lost control # copd: without e/o acute exacerbation at this time # anxiety/chronic benzo use and dependency -prn Alprazolam # paroxysmal afib: has occurred in the past in perioperative setting, -on Metoprolol, will monitor # hx of DVT: no longer on AC -will need prophylaxis treatment after surgery # hx of TBI # Plan: surgery today, appreciate Dr Ojeda, repeat labs tomorrow Subjective: Eulogio said his pain is well managed, has no cp, not short of breath. Objective: Vital Signs Temp Pulse Resp BP Pulse Ox 36.6 C 87 14 141/108 H 87 L 08/02/18 08:00 08/02/18 08:00 08/02/18 08:00 08/02/18 08:00 08/02/18 08:00 Laboratory Results 08/02/18 04:51 08/02/18 04:51 08/01/18 08/02/18 08/03/18 05:59 05:59 05:59 Intake Total 350 225 Output Total 200 475 Balance 150 -250 PT 15.8 SEC (12.0-15.0) H 08/01/18 16:28 INR 1.24 (0.83-1.16) H 08/01/18 16:28 - Physical Exam Constitutional: chronically ill appearing, uncomfortable Eyes: PERRL Ears, Nose, Mouth, Throat: hearing normal Cardiovascular: regular rate and rhythym Respiratory: no respiratory distress, reduced air movement Gastrointestinal: normoactive bowel sounds Musculoskeletal: full muscle strength, other (left leg shortened and externally rotated) Neurologic: AAOx3 Psychiatric: interacting appropriately ICD10 Worksheet Patient Problems: Problems Problem Status Onset Closed left hip fracture Acute Abdominal pain Acute Acute encephalopathy Acute Afib - Atrial fibrillation Acute Anxiety Acute Aspiration into airway Acute Assistance needed for ambulation and movement Acute Back pain Acute Chest pain Acute Chronic pulmonary embolism Acute Difficulty urinating Acute Hypertension Acute Hypertensive emergency without congestive heart failure Acute [place] toxicity Acute Malaise Acute Perforation of sigmoid colon Acute Pneumonia Acute Pulmonary embolism Acute
[2018-08-02] MEDS ORDERED: TRANEXAMIC ACID 1,000 MG in NS 100 ML IV ONE (12:45)
[2018-08-02] MEDS ORDERED: ALBUTEROL 3 ML DEYVIAL ONE (13:17)
[2018-08-02] MEDS ORDERED: IPRATROPIUM/ALBUTEROL 3 ML DEYVIAL IH ONE (13:17)
[2018-08-02] MEDS ORDERED: MIDAZOLAM 2 MG/2 ML VIAL IVP ONE (13:17)
--- NOTE | 2018-08-02 13:18 | POSTANESTH ---
Post Anesthetic Evaluation Cardiovascular Status: Normal, Stable Respiratory Status: Normal, Stable Level of Consciousness/Mental Status: Can Participate in Eval, Mildly Sleepy, Arousable Pain Control: Adequate, Prn Tx Ordered Nausea/Vomiting Control: Adequate, Prn Tx Ordered Complications Possibly Related to Anesthesia: None Noted
--- NOTE | 2018-08-02 13:21 | PDANEPAE ---
ANE History of Present Illness 68 yo male s/p L hip fracture. ANE Past Medical History - Cardiovascular History Hx Hypertension: Yes Hx Arrhythmias: Yes Hx Chest Pain: No Hx Coronary Artery / Peripheral Vascular Disease: No Hx CHF / Valvular Disease: No Hx Palpitations: Yes - Pulmonary History Hx COPD: Yes Hx Asthma/Reactive Airway Disease: Yes Hx Recent Upper Respiratory Infection: No Hx Oxygen in Use at Home: No Hx Sleep Apnea: No Sleep Apnea Screening Result - Last Documented: Positive - Endocrine History Hx Diabetes: No Hypothyroid: Yes Hyperthyroid: Yes Obesity: no - Renal History Hx Renal Disorders: No Renal History Comment: BPH - Liver History Hx Hepatic Disorders: No - Neurological & Psychiatric Hx Hx Neurological and Psychiatric Disorders: Yes - GI History GERD: mild Hx Gastrointestinal Disorders: Yes Gastrointestinal History Comment: IBS on Bentyl - Other Health History Other Health History: h/o TBI, benzo addiction - Chronic Pain History Chronic Pain: No ANE Review of Systems Review of Systems: ANE Patient History - Allergies Allergies/Adverse Reactions: No Known Allergies Allergy (Unverified 07/24/18 11:50) - Home Medications Home Medications: ALPRAZolam [Xanax 1 MG (*)] 0.5 - 1 mg PO Q6H PRN 03/20/18 [Last Taken 08/01/18 11:00] Donepezil HCl 20 mg PO HS 03/20/18 [Last Taken 07/31/18] Fluticasone/Vilanterol [Breo Ellipta 200-25 Mcg INH] 1 puffs IH DAILY 03/20/18 [ Last Taken 08/01/18] Promethazine HCl [Phenergan 25mg (*)] 25 mg PO Q6H PRN 03/20/18 [Last Taken Unknown] Sertraline HCl [Zoloft 100mg (*)] 250 mg PO HS 03/20/18 [Last Taken 07/31/18] Tiotropium Inhaler [Spiriva Handihaler] 1 puffs IH DAILY 03/20/18 [Last Taken ] traMADol [Ultram 50 mg (*)] 50 mg PO Q6H PRN 03/20/18 [Last Taken 06/19/18 21:00 ] Naproxen [Naprosyn] 500 mg PO BID PRN 06/20/18 [Last Taken 06/19/18 21:00] hydrOXYzine HCL [hydrOXYzine HCL (RX)] 25 mg PO HS PRN 06/20/18 [Last Taken ] Ibuprofen/Diphenhydramine Cit [Advil Pm Caplet] 1 each PO HS PRN 08/01/18 [Last Taken Unknown] Lisinopril [Zestril 10 mg (*)] 10 mg PO DAILY 08/01/18 [Last Taken 08/01/18] Sennosides [Senna Lax] 8.6 mg PO BID PRN 08/01/18 [Last Taken Unknown] Tamsulosin HCl [Flomax 0.4 MG (*)] 0.4 mg PO BID 08/01/18 [Last Taken 08/01/18 11:00] - NPO status NPO Since - Liquids (Date): 08/01/18 NPO Since - Liquids (Time): 00:00 NPO Since - Solids (Date): 08/01/18 NPO Since - Solids (Time): 00:00 - Smoking Hx Smoking Status: Light smoker - Alcohol Use Alcohol Use: Sober ANE Labs/Vital Signs - Labs Result Diagrams: 08/02/18 04:51 08/02/18 04:51 - Vital Signs Blood Pressure: 161/119 Heart Rate: 77 Respiratory Rate: 18 O2 Sat (%): 95 Height: 187.96 cm Weight: 78.018 kg
[2018-08-02] MEDS ORDERED: ROCURONIUM 50 MG/5 ML VIAL ONE (13:30)
[2018-08-02] MEDS ORDERED: LIDOCAINE 2% 5 ML SDV ONE (13:30)
[2018-08-02] MEDS ORDERED: DEXAMETHASONE 4 MG/ML VIAL ONE (13:30)
[2018-08-02] MEDS ORDERED: PROPOFOL/EMULSION 500 MG/50 ML BOTTLE IV ONE (13:31)
[2018-08-02] MEDS ORDERED: BACITRACIN 50,000 UNITS/10 ML SYR IRR ONE (14:33)
[2018-08-02] MEDS ORDERED: PHENYLEPHRINE HCL 100 MCG/ML SYR ONE (14:58)
[2018-08-02] MEDS ORDERED: MIDAZOLAM 2 MG/2 ML VIAL ONE (15:15)
[2018-08-02] MEDS ORDERED: NALOXONE HCL 0.4 MG/ML INJ IVP PRN (15:36)
[2018-08-02] MEDS ORDERED: ONDANSETRON 4 MG/2 ML VIAL IVP PRN (15:36)
[2018-08-02] MEDS ORDERED: ALBUTEROL 3 ML DEYVIAL IH PRN (15:36)
[2018-08-02] MEDS ORDERED: PROMETHAZINE HCL 25 MG/ML INJ IVP PRN (15:36)
[2018-08-02] MEDS ORDERED: LR 500 ML IV PRN (15:36)
[2018-08-02] MEDS ORDERED: fentaNYL 100 MCG/2 ML INJ ONE (16:24)
[2018-08-02] MEDS ORDERED: DIAZEPAM 5 MG/ML 1 ML SYR ONE (16:25)
[2018-08-02] MEDS: DIAZEPAM 5 MG/ML 1 ML SYR IVP PRN ×2 (16:27→16:41)
[2018-08-02] MEDS: fentaNYL 100 MCG/2 ML INJ IVP PRN ×2 (16:27→16:41)
[2018-08-02] MEDS ORDERED: oxyCODONE IR 5 MG TAB ONE (17:08)
[2018-08-02] MEDS: SENNOSIDES 1 TAB PO PRN (21:43)
[2018-08-03] MEDS: HYDROCODONE/APAP 5/325 TAB PO PRN ×3 (00:45→15:27)
[2018-08-03] MEDS: hydrOXYzine HCL 25 MG TAB PO PRN (00:47)
[2018-08-03] MEDS: ALPRAZolam 1 MG TAB PO PRN ×4 (02:41→22:32)
[2018-08-03] MEDS: traMADol 50 MG TAB PO PRN ×3 (02:41→21:02)
[2018-08-03 05:19] LABS: PLATELET COUNT 160 10^3/uL (150-400)
--- NOTE | 2018-08-03 07:57 | SOAPPROG ---
SOAP Progress Note Assessment/Plan: Assessment: Postop day 1 status post left intertrochanteric hip fracture treated with long cephalomedullary nail Plan: Foot flat weight-bearing with assistance, PT/OT DVT prophylaxis: Lovenox 40 daily, Hamzah Hose Incentive spirometry 10 times per hour Wean off narcotics as soon as tolerated Follow up in 10-14 days Disposition: Pending 08/03/18 07:54 Subjective: No acute events. Pain well controlled. Pain improved from prior surgery status. Denies fevers chills nausea vomiting chest pain shortness of breath numbness or tingling Objective: Vital Signs Temp Pulse Resp BP Pulse Ox 37.0 C 74 15 113/81 H 93 08/03/18 04:00 08/03/18 04:00 08/03/18 04:00 08/03/18 04:00 08/03/18 04:00 Laboratory Results 08/03/18 04:20 08/03/18 04:20 08/02/18 08/03/18 08/04/18 05:59 05:59 05:59 Intake Total 350 2709 Output Total 200 1350 Balance 150 1359 PT 15.8 SEC (12.0-15.0) H 08/01/18 16:28 INR 1.24 (0.83-1.16) H 08/01/18 16:28 Awake alert and oriented x3 No acute distress Easy nonlabored breathing Left hip: Dressings clean dry intact no erythema drainage or signs of infection Thigh and calf compartments soft compressible Sensation intact to light touch in L3-S1 Motor intact to EHL FHL tibialis anterior gastrocsoleus Palpable DP PT pulses - Time Spent With Patient Time Spent With Patient: 10 ICD10 Worksheet Patient Problems: Problems Problem Status Onset Closed left hip fracture Acute Abdominal pain Acute Acute encephalopathy Acute Afib - Atrial fibrillation Acute Anxiety Acute Aspiration into airway Acute Assistance needed for ambulation and movement Acute Back pain Acute Chest pain Acute Chronic pulmonary embolism Acute Difficulty urinating Acute Hypertension Acute Hypertensive emergency without congestive heart failure Acute [place] toxicity Acute Malaise Acute Perforation of sigmoid colon Acute Pneumonia Acute Pulmonary embolism Acute
--- NOTE | 2018-08-03 08:18 | HOSPPROG ---
Hospitalist Progress Note Assessment/Plan: 68 yo M with hx of copd, anxiety and homelessness s/p mechanical fall with left femur fx. # left intertrochanteric femur fx -POD #1 w nail placement # mechanical fall/gait instability -was walking down a steep hill with his walker and lost control #anemia -follow and check again in a.m. # copd: without e/o acute exacerbation at this time -on 3 liters today, will need good pulm toileting # anxiety/chronic benzo use and dependency -prn Alprazolam # paroxysmal afib: has occurred in the past in perioperative setting, -on Metoprolol, will monitor # hx of DVT: no longer on AC -started on Lovenox today # hx of TBI # Plan: recheck labs in a.m., add bowel protocol Subjective: Eulogio wants to sleep, says his sleep pattern is different than the hospital schedule one. Objective: Vital Signs Temp Pulse Resp BP Pulse Ox 37.0 C 81 16 129/89 H 90 L 08/03/18 08:00 08/03/18 08:00 08/03/18 08:00 08/03/18 08:00 08/03/18 08:00 Laboratory Results 08/03/18 04:20 08/03/18 04:20 08/02/18 08/03/18 08/04/18 05:59 05:59 05:59 Intake Total 350 2709 Output Total 200 1350 Balance 150 1359 PT 15.8 SEC (12.0-15.0) H 08/01/18 16:28 INR 1.24 (0.83-1.16) H 08/01/18 16:28 - Physical Exam Constitutional: no apparent distress, uncomfortable Eyes: PERRL Ears, Nose, Mouth, Throat: hearing normal Cardiovascular: regular rate and rhythym Respiratory: no respiratory distress, reduced air movement Skin: warm, other (left hip w dressing in place, no drainage, min swelling) Musculoskeletal: generalized weakness Psychiatric: interacting appropriately, not anxious ICD10 Worksheet Patient Problems: Problems Problem Status Onset Closed left hip fracture Acute Abdominal pain Acute Acute encephalopathy Acute Afib - Atrial fibrillation Acute Anxiety Acute Aspiration into airway Acute Assistance needed for ambulation and movement Acute Back pain Acute Chest pain Acute Chronic pulmonary embolism Acute Difficulty urinating Acute Hypertension Acute Hypertensive emergency without congestive heart failure Acute [place] toxicity Acute Malaise Acute Perforation of sigmoid colon Acute Pneumonia Acute Pulmonary embolism Acute
[2018-08-03] MEDS: BREO ELLIPTA IH SCH (09:40)
[2018-08-03] MEDS: TIOTROPIUM INHALER 18 MCG/DOSE 5 DOSE/MDI IH SCH (09:40)
[2018-08-03] MEDS: TAMSULOSIN HCL 0.4 MG CAP PO SCH ×2 (09:42→21:02)
[2018-08-03] MEDS: amLODIPine BESYLATE 5 MG TAB PO SCH (09:45)
[2018-08-03] MEDS: METOPROLOL SUCCINATE XR 50 MG TAB PO SCH (09:45)
[2018-08-03] MEDS: LISINOPRIL 10 MG TAB PO SCH (09:46)
[2018-08-03] MEDS: ENOXAPARIN 40 MG/0.4 ML SYR SC SCH (09:46)
--- NOTE | 2018-08-03 18:02 | ASMTCMCOM ---
CM Note CM Note Notes: PT/OT rec SNF today, referrals sent to several SNFs known to accept challenging pts in [employer]. Pt reports he is interested in SNF placement but he is not willing to sign over his Medicaid to [facility] if they are willing to take him back. Pt non-triggering PASRR completed, pt could not recall the diagnosis he takes Zoloft for or how long he has been on the medication. CM to follow. Date Signed: 08/03/2018 06:01 PM Electronically Signed By:ROSMERY Hayden
[2018-08-03] MEDS: SERTRALINE HCL 100 MG TAB PO SCH (21:03)
[2018-08-03] MEDS: DONEPEZIL HCL 5 MG TAB PO SCH (21:05)
[2018-08-03] MEDS: ONDANSETRON DISINTEGRATING 4 MG TAB PO PRN (22:32)
[2018-08-04] MEDS: ONDANSETRON DISINTEGRATING 4 MG TAB PO PRN (04:27)
[2018-08-04] MEDS: ALPRAZolam 1 MG TAB PO PRN ×4 (04:27→22:58)
[2018-08-04] MEDS: TIOTROPIUM INHALER 18 MCG/DOSE 5 DOSE/MDI IH SCH (07:30)
[2018-08-04] MEDS: BREO ELLIPTA IH SCH (07:30)
[2018-08-04 08:22] LABS: CREATINE KINASE 120 IU/L (0-224)
--- NOTE | 2018-08-04 08:56 | HOSPPROG ---
Hospitalist Progress Note Assessment/Plan: 68 yo M with hx of copd, anxiety and homelessness s/p mechanical fall with left femur fx. # left intertrochanteric femur fx -POD #2 w nail placement # mechanical fall/gait instability -was walking down a steep hill with his walker and lost control #anemia -stable #chest pain -trop is negative, EKG shows no ischemia -suspect it is anxiety related, he is very upset about a situation in which he was accused of smoking a cigarette where it wasn't allowed # copd: without e/o acute exacerbation at this time # anxiety/chronic benzo use and dependency -prn Alprazolam # paroxysmal afib: in sinus -on Metoprolol, will monitor # hx of DVT: no longer on AC -Lovenox # hx of TBI # Plan: spoke w CM and they are looking into placement for Eulogio Subjective: Eulogio is very upset about a situation that occurred prior to his admission, had some chest pain earlier, is worried about a nodule on his diaphram. Objective: Vital Signs Temp Pulse Resp BP Pulse Ox 36.4 C 78 14 163/100 H 95 08/04/18 07:54 08/04/18 07:54 08/04/18 07:54 08/04/18 07:54 08/04/18 07:54 Laboratory Results 08/04/18 04:39 08/03/18 04:20 08/03/18 08/04/18 08/05/18 05:59 05:59 04:59 Intake Total 2709 1650 Output Total 1350 1250 400 Balance 1359 400 -400 PT 15.8 SEC (12.0-15.0) H 08/01/18 16:28 INR 1.24 (0.83-1.16) H 08/01/18 16:28 - Physical Exam Constitutional: appears nourished, uncomfortable Eyes: PERRL Ears, Nose, Mouth, Throat: hearing normal Cardiovascular: regular rate and rhythym Respiratory: no respiratory distress, reduced air movement Skin: warm Musculoskeletal: abnormal gait Neurologic: AAOx3 Psychiatric: anxious ICD10 Worksheet Patient Problems: Problems Problem Status Onset Closed left hip fracture Acute Abdominal pain Acute Acute encephalopathy Acute Afib - Atrial fibrillation Acute Anxiety Acute Aspiration into airway Acute Assistance needed for ambulation and movement Acute Back pain Acute Chest pain Acute Chronic pulmonary embolism Acute Difficulty urinating Acute Hypertension Acute Hypertensive emergency without congestive heart failure Acute [place] toxicity Acute Malaise Acute Perforation of sigmoid colon Acute Pneumonia Acute Pulmonary embolism Acute
[2018-08-04] MEDS: TAMSULOSIN HCL 0.4 MG CAP PO SCH ×2 (09:30→20:52)
[2018-08-04] MEDS: LISINOPRIL 10 MG TAB PO SCH (09:30)
[2018-08-04] MEDS: ENOXAPARIN 40 MG/0.4 ML SYR SC SCH (09:30)
[2018-08-04] MEDS: METOPROLOL SUCCINATE XR 50 MG TAB PO SCH (09:30)
[2018-08-04] MEDS: amLODIPine BESYLATE 5 MG TAB PO SCH (09:31)
[2018-08-04] MEDS: HYDROCODONE/APAP 5/325 TAB PO PRN ×3 (10:34→20:52)
[2018-08-04] MEDS ORDERED: MAG HYDROX/AL HYDROX/SIMETH 30 ML UDCUP PO PRN (12:18)
--- NOTE | 2018-08-04 14:18 | ASMTCMCOM ---
CM Note CM Note Notes: [facility] SN[facility] called - they are going to review patient's case, and if he has enough Medicare days remaining, they anticipate being able to accept. They will let us know on Monday 08/06. Date Signed: 08/04/2018 02:17 PM Electronically Signed By:Carmina Howell RN
[2018-08-04] MEDS: DONEPEZIL HCL 5 MG TAB PO SCH (20:53)
[2018-08-04] MEDS: SERTRALINE HCL 100 MG TAB PO SCH (20:54)
[2018-08-04] MEDS: oxyCODONE IR 5 MG TAB PO PRN (23:10)
[2018-08-05] MEDS: traMADol 50 MG TAB PO PRN ×2 (04:58→17:34)
[2018-08-05] MEDS: ALPRAZolam 1 MG TAB PO PRN ×3 (04:58→18:11)
[2018-08-05] MEDS: TIOTROPIUM INHALER 18 MCG/DOSE 5 DOSE/MDI IH SCH (08:19)
[2018-08-05] MEDS: BREO ELLIPTA IH SCH (08:19)
[2018-08-05] MEDS: TAMSULOSIN HCL 0.4 MG CAP PO SCH ×2 (08:47→22:13)
[2018-08-05] MEDS: amLODIPine BESYLATE 5 MG TAB PO SCH (08:47)
[2018-08-05] MEDS: METOPROLOL SUCCINATE XR 50 MG TAB PO SCH (08:47)
[2018-08-05] MEDS: LISINOPRIL 10 MG TAB PO SCH (08:47)
[2018-08-05] MEDS: oxyCODONE IR 5 MG TAB PO PRN ×4 (08:48→22:19)
[2018-08-05] MEDS: ENOXAPARIN 40 MG/0.4 ML SYR SC SCH (08:54)
[2018-08-05] MEDS: SENNOSIDES 1 TAB PO PRN (12:17)
[2018-08-05] MEDS ORDERED: PSEUDOEPHEDRINE HCL 30 MG TAB PO PRN (13:27)
--- NOTE | 2018-08-05 13:29 | HOSPPROG ---
Hospitalist Progress Note Assessment/Plan: 68 yo M with hx of copd, anxiety and homelessness s/p mechanical fall with left femur fx. # left intertrochanteric femur fx -POD #3 w nail placement -place on scheduled Tylenol and prn pain meds #sinus headache -added prn Sudafed # mechanical fall/gait instability -was walking down a steep hill with his walker and lost control #anemia -stable #chest pain -trop is negative, EKG shows no ischemia -none further # copd: without e/o acute exacerbation at this time # anxiety/chronic benzo use and dependency -prn Alprazolam # paroxysmal afib: in sinus -on Metoprolol, will monitor # hx of DVT: no longer on AC -Lovenox # hx of TBI # Plan: will need rehab when bed is available, scheduled Tylenol, and Sudafed Subjective: Eulogio is c/o sinus pressure headache, his hip feels fine until he walks. Objective: Vital Signs Temp Pulse Resp BP Pulse Ox 37.1 C 77 18 111/70 93 08/05/18 11:58 08/05/18 11:58 08/05/18 11:58 08/05/18 11:58 08/05/18 11:58 Laboratory Results 08/04/18 04:39 08/03/18 04:20 08/04/18 08/05/18 08/06/18 06:59 05:59 05:59 Intake Total 300 Output Total 300 Balance 0 PT 15.8 SEC (12.0-15.0) H 08/01/18 16:28 INR 1.24 (0.83-1.16) H 08/01/18 16:28 - Physical Exam Constitutional: no apparent distress, appears nourished, uncomfortable Eyes: PERRL Ears, Nose, Mouth, Throat: hearing normal Cardiovascular: regular rate and rhythym Respiratory: no respiratory distress Gastrointestinal: normoactive bowel sounds Skin: warm, other (left hip w minimal swelling) Musculoskeletal: generalized weakness Neurologic: AAOx3 Psychiatric: interacting appropriately ICD10 Worksheet Patient Problems: Problems Problem Status Onset Closed left hip fracture Acute Abdominal pain Acute Acute encephalopathy Acute Afib - Atrial fibrillation Acute Anxiety Acute Aspiration into airway Acute Assistance needed for ambulation and movement Acute Back pain Acute Chest pain Acute Chronic pulmonary embolism Acute Difficulty urinating Acute Hypertension Acute Hypertensive emergency without congestive heart failure Acute [place] toxicity Acute Malaise Acute Perforation of sigmoid colon Acute Pneumonia Acute Pulmonary embolism Acute
[2018-08-05] MEDS: ACETAMINOPHEN 500 MG TAB PO SCH ×2 (14:57→22:13)
--- NOTE | 2018-08-05 14:57 | CPEKG ---
Test Reason : OPEN Blood Pressure : / mmHG Vent. Rate : 078 BPM Atrial Rate : 078 BPM P-R Int : 144 ms QRS Dur : 110 ms QT Int : 390 ms P-R-T Axes : 065 -52 068 degrees QTc Int : 445 ms Sinus rhythm Probable left atrial enlargement LAD, consider left anterior fascicular block Nonspecific T abnormalities, lateral leads Confirmed by Krish Richmond ([id number]) on 08/05/2018 2:57:11 PM Referred By: Confirmed By:Krish Richmond
--- NOTE | 2018-08-05 17:27 | ASMTCMCOM ---
CM Note CM Note Notes: Long talk with patient. He wants to participate in [facility] and feels as though he's been given a bad rap from [facility]. He would like to talk with their Director- CM can check into that Monday. He has been to [facility] a long time ago and would prefer to go their for rehab. They allow smoking in their smoking areas. CM to learn how many Medicare days he has left for SNF Rehab. This CM wonders if he might be a candidate for In-pt Rehab? Date Signed: 08/05/2018 05:27 PM Electronically Signed By:Samantha Castañeda LCSW
[2018-08-05 18:46] LABS: CREATINE KINASE 73 IU/L (0-224)
[2018-08-05] MEDS: DONEPEZIL HCL 5 MG TAB PO SCH (22:12)
[2018-08-05] MEDS: SERTRALINE HCL 100 MG TAB PO SCH (22:13)
[2018-08-06] MEDS: ALPRAZolam 1 MG TAB PO PRN ×4 (00:41→18:22)
[2018-08-06] MEDS: oxyCODONE IR 5 MG TAB PO PRN ×5 (01:24→20:42)
[2018-08-06] MEDS: CYCLOBENZAPRINE 10 MG TAB PO PRN (02:55)
[2018-08-06] MEDS: traMADol 50 MG TAB PO PRN (02:56)
[2018-08-06] MEDS: ACETAMINOPHEN 500 MG TAB PO SCH ×3 (06:10→22:47)
[2018-08-06] MEDS: LISINOPRIL 10 MG TAB PO SCH (09:40)
[2018-08-06] MEDS: ENOXAPARIN 40 MG/0.4 ML SYR SC SCH (09:40)
[2018-08-06] MEDS: TAMSULOSIN HCL 0.4 MG CAP PO SCH ×2 (09:40→20:39)
[2018-08-06] MEDS: METOPROLOL SUCCINATE XR 50 MG TAB PO SCH (09:40)
[2018-08-06] MEDS: amLODIPine BESYLATE 5 MG TAB PO SCH (09:40)
[2018-08-06] MEDS: BREO ELLIPTA IH SCH (09:41)
[2018-08-06] MEDS: TIOTROPIUM INHALER 18 MCG/DOSE 5 DOSE/MDI IH SCH (09:42)
--- NOTE | 2018-08-06 11:43 | SOAPPROG ---
SOAP Progress Note Assessment/Plan: Assessment: Postop day 4 status post left intertrochanteric hip fracture treated with long cephalomedullary nail Plan: Chest pain w/u negative Foot flat weight-bearing with assistance, PT/OT DVT prophylaxis: Lovenox 40 daily, Hamzah Hose Incentive spirometry 10 times per hour Wean off narcotics as soon as tolerated Follow up in 10-14 days Disposition: Pending 08/03/18 07:54 08/06/18 11:42 Subjective: Patient reported some chest pain yesterday feels as though this was brought on by an "emotional disturbance." Feeling fine now. Denies fevers chills nausea vomiting chest pain shortness of breath numbness or tingling Objective: Vital Signs Temp Pulse Resp BP Pulse Ox 36.9 C 75 18 110/76 3 L 08/06/18 10:59 08/06/18 09:40 08/06/18 10:59 08/06/18 10:59 08/06/18 10:59 Laboratory Results 08/04/18 04:39 08/03/18 04:20 08/05/18 08/06/18 08/07/18 05:59 05:59 05:59 Intake Total 900 Output Total 1050 175 Balance -150 -175 PT 15.8 SEC (12.0-15.0) H 08/01/18 16:28 INR 1.24 (0.83-1.16) H 08/01/18 16:28 Awake alert and oriented x3 No acute distress Easy nonlabored breathing Left hip: Dressings clean dry intact no erythema drainage or signs of infection Thigh and calf compartments soft compressible No pain with gentle log roll Sensation intact to light touch in L3-S1 Motor intact to EHL FHL tibialis anterior gastrocsoleus Palpable DP PT pulses - Time Spent With Patient Time Spent With Patient: 10 ICD10 Worksheet Patient Problems: Problems Problem Status Onset Closed left hip fracture Acute Abdominal pain Acute Acute encephalopathy Acute Afib - Atrial fibrillation Acute Anxiety Acute Aspiration into airway Acute Assistance needed for ambulation and movement Acute Back pain Acute Chest pain Acute Chronic pulmonary embolism Acute Difficulty urinating Acute Hypertension Acute Hypertensive emergency without congestive heart failure Acute [place] toxicity Acute Malaise Acute Perforation of sigmoid colon Acute Pneumonia Acute Pulmonary embolism Acute
--- NOTE | 2018-08-06 13:07 | HOSPPROG ---
Hospitalist Progress Note Assessment/Plan: 68 yo M with hx of copd, anxiety and homelessness s/p mechanical fall with left femur fx. # left intertrochanteric femur fx -POD #4 w nail placement -place on scheduled Tylenol and prn pain meds #sinus headache -added prn Sudafed -resolved # mechanical fall/gait instability -was walking down a steep hill with his walker and lost control #anemia -stable #chest pain -trop is negative, EKG shows no ischemia -none further # copd: without e/o acute exacerbation at this time # anxiety/chronic benzo use and dependency -prn Alprazolam # paroxysmal afib: in sinus -on Metoprolol, will monitor # hx of DVT: no longer on AC -Lovenox # hx of TBI #homelessness # Plan: CM working on options for dc/ [facility] to meet w patient today. He gets very anxious w changes but is very willing to discuss options. Objective: Vital Signs Temp Pulse Resp BP Pulse Ox 36.9 C 75 18 110/76 3 L 08/06/18 10:59 08/06/18 09:40 08/06/18 10:59 08/06/18 10:59 08/06/18 10:59 Laboratory Results 08/04/18 04:39 08/03/18 04:20 08/05/18 08/06/18 08/07/18 05:59 05:59 05:59 Intake Total 900 Output Total 1050 175 Balance -150 -175 PT 15.8 SEC (12.0-15.0) H 08/01/18 16:28 INR 1.24 (0.83-1.16) H 08/01/18 16:28 - Physical Exam Constitutional: no apparent distress, appears nourished, uncomfortable Eyes: PERRL Ears, Nose, Mouth, Throat: hearing normal Cardiovascular: regular rate and rhythym Respiratory: no respiratory distress Gastrointestinal: normoactive bowel sounds Skin: warm, other (mild swelling at left hip area) Neurologic: AAOx3 Psychiatric: interacting appropriately ICD10 Worksheet Patient Problems: Problems Problem Status Onset Closed left hip fracture Acute Abdominal pain Acute Acute encephalopathy Acute Afib - Atrial fibrillation Acute Anxiety Acute Aspiration into airway Acute Assistance needed for ambulation and movement Acute Back pain Acute Chest pain Acute Chronic pulmonary embolism Acute Difficulty urinating Acute Hypertension Acute Hypertensive emergency without congestive heart failure Acute [place] toxicity Acute Malaise Acute Perforation of sigmoid colon Acute Pneumonia Acute Pulmonary embolism Acute
--- NOTE | 2018-08-06 15:43 | ASMTCMCOM ---
CM Note CM Note Notes: Received call from Annia at [facility]. She came in today to assess pt. They are willing to accept pt and are checking to see if he has used any Medicare days. [facility] has also accepted pt. Genevieve from [facility] was supposed to see pt today as well however have not received any feedback on whether she did. Pt is open to [facility]. He is ready for d/c when there is an accepting facility and his Medicare days are known. CM will continue to follow. D/C Plan: SNF Date Signed: 08/06/2018 03:42 PM Electronically Signed By:ROSMERY Veliz
[2018-08-06] MEDS: DONEPEZIL HCL 5 MG TAB PO SCH (20:40)
[2018-08-06] MEDS: SERTRALINE HCL 100 MG TAB PO SCH (20:40)
[2018-08-06] MEDS: hydrOXYzine HCL 25 MG TAB PO PRN (22:47)
[2018-08-07] MEDS: ALPRAZolam 1 MG TAB PO PRN ×3 (00:11→12:04)
[2018-08-07] MEDS: oxyCODONE IR 5 MG TAB PO PRN ×3 (05:34→15:36)
[2018-08-07] MEDS: ACETAMINOPHEN 500 MG TAB PO SCH ×2 (07:20→13:44)
--- NOTE | 2018-08-07 08:39 | GCON ---
ORTHOPEDIC CONSULTATION DATE OF CONSULTATION: 08/02/2018 REASON FOR CONSULTATION: Mechanical fall and left hip pain. HISTORY OF PRESENT ILLNESS: A 68-year-old male with multiple medical problems, including COPD, hypertension, anxiety, and homelessness, presents after mechanical fall. Patient states he was walking outside for a fair amount of time with his walker and did not realize how tired he had become. He tripped and fell over onto his left hip and had severe pain. He was unable to move or weight bear. He does have known arthritis in his hip, which is painful and limiting even prior to his fall and injury. He does have a history of a spinal surgery as well. The patient has multiple social issues, including being banned from various shelters for various reasons. He states these are all based on lies and he has been dealing with excessive amounts of stress and anxiety surrounding these issues. PAST MEDICAL HISTORY: As above. Also, patient has a history of atrial fibrillation and DVT, but does not take anticoagulation, as well as traumatic brain injury, subdural hematoma, chronic benzodiazepine dependence, and abdominal surgery. ALLERGIES: None. HOME MEDICATIONS: Reviewed. SOCIAL HISTORY: Patient is a light smoker, smoking 3 to 4 cigarettes per day and denies alcohol use. PHYSICAL EXAM: GENERAL: He is in no acute distress. Appears nourished, but unkempt. LUNGS: He has easy, nonlabored breathing. EXTREMITIES: His left lower extremity is shortened in externally rotated position. Pain with any attempts of motion, active or passive. Skin is intact. He is neurovascularly intact distally. Sensation intact to light touch L4-S1 and motor intact to EHL , FHL, tibialis anterior, and gastroc soleus. IMAGING: Reveals a left intertrochanteric femur fracture. ASSESSMENT/PLAN: A 68-year-old male with history of multiple medical problems with a left intertrochanteric femur fracture. We discussed the treatment options. Recommend operative fixation for early mobilization and decreased morbidity and mortality. We discussed the risks of surgery, which include, but are not limited to bleeding, infection, damage to surrounding anatomic structures, specifically with this procedure, malunion, nonunion, symptomatic hardware, hip pain, knee pain. The patient acknowledged the importance of nicotine cessation. He understood, agreed, and wished to proceed, and signed his consent. /[id number]/MODL MTDD
[2018-08-07] MEDS: amLODIPine BESYLATE 5 MG TAB PO SCH (08:54)
--- NOTE | 2018-08-07 08:54 | GOP ---
DATE OF OPERATION: 08/02/2018 SURGEON: Vikram Ojeda MD CAN FILLING AND CLOSING MACHINE TENDER: Khurram Shirley CSA. Documentation Liaison was required for the procedure due to complexity of th e case and patient's condition for positioning, prepping, draping, retraction and closure. ANESTHESIA: General. PREOPERATIVE DIAGNOSIS: Left femur intertrochanteric fracture. POSTOPERATIVE DIAGNOSIS: Left femur intertrochanteric fracture. PROCEDURE PERFORMED: Left hip intertrochanteric fracture, closed reduction, intramedullary nailing, fluoroscopic supervision, greater than 1 hour. FINDINGS: SPECIMENS: None. ESTIMATED BLOOD LOSS: 350 cc. INDICATIONS: Patient had a mechanical fall, sustained a left intertrochanteric hip fracture, unable to weight bear. He verbalized the risks, benefits, pros, cons of surgical intervention, specifically , the pros of improved immobilization and decreased morbidity and mortality. The patient verbalized understanding of the risks and procedures and signed informed consent prior to the procedure. DESCRIPTION OF PROCEDURE: Patient was seen in the holding area. Operative consent and extremity sig nabor. Patient was taken to the operative room. After smooth induction of general anesthesia, he was placed supine on the [facility] fracture table. The hip was prepped and draped in the usual sterile [facility] ion. Operative site was confirmed by signature. The close reduction was performed during unsterile conditions. Then the left hip was prepped and draped in the usual sterile fashion. Operative time-o ut performed. Allergies reviewed. Antibiotics and TXA were administered. A posterolateral incision proximal to the tip of the greater trochanter was made and infiltrated with 0.25% Marcaine with epinephrine. Incision was made with a 10 blade and carried through subcutaneous tissue to identify fascia. Fascia was incised in line with the incision. Blunt dissection was made down to the tip of the greater trochanter. A guide pin was placed on the tip of the greater trochan ter and visualized to be centered on both AP and lateral x-rays. This was inserted at the tip of the greater trochanter and cannulated entry reamer was placed over the guide pin and reamed through the tip of the greater trochanter and into the canal of the proximal femur. Beaded guide pin was placed down to the distal femur and confirmed via x-ray. Length of the nail was measured to be 420 mm. Seq uential reaming was performed up to 12.5 for an 11 mm intramedullary nail. The nail was then placed and impacted to the appropriate level with fluoroscopic guidance. The guide for the nail was then used for lag screw placement. A small distal incision was made for t his and the guide was placed on the lateral aspect of the femur. Guide pin was drilled up through th e lateral aspect of the femur into the center of the femoral head. This was confirmed on both AP and lateral x-rays. The lag screw length was measured to 105 mm. Entry drill and reamer were inserted over the guide pin as well. A cannulated tap was used for unusually dense and hard bone. The cannul ated lag screw was then placed over the guidewire and into the center of the femoral head and confirm ed via x-ray. The construction was then statically locked proximally and the proximal guide was ian jazzy. We then turned our attention to the distal aspect of the femur. Perfect [place] technique was used to place 2 distal locking 5.0 mm screws, size 48 and 58 mm. Their placement was confirmed via x-ray gu idance. Final x-rays were then taken at the distal midshaft and proximal femur, AP and lateral of [facility]. All wounds were then copiously irrigated. The fascia was closed with 0 Vicryl, subcutaneous tissue w ith 2-0 Vicryl and the dermis with 3-0 Monocryl. Wounds were dressed with Dermabond, Steri-Strips, a nd sterile dressings. The patient was safely awakened and extubated and taken to the recovery room i n stable condition. At the end of the case, all surgical counts were correct. All critical portions of the procedure performed by myself, Dr. Ojeda. This operative note was create d by myself, and I was immediately available for emergency cross-coverage at all times. DRAINS: None COMPLICATIONS: None. IMPLANTS: Includes a Synthes 11 x 420 mm left-sided 130 degree TFN, 105 mm TFN lag screw, a 40 and 5 0 mm 5.0 locking screw. /[id number]/MODL
[2018-08-07] MEDS: TAMSULOSIN HCL 0.4 MG CAP PO SCH (08:55)
[2018-08-07] MEDS: ENOXAPARIN 40 MG/0.4 ML SYR SC SCH (08:55)
[2018-08-07] MEDS: METOPROLOL SUCCINATE XR 50 MG TAB PO SCH (08:55)
[2018-08-07] MEDS: LISINOPRIL 10 MG TAB PO SCH (08:55)
[2018-08-07] MEDS: BREO ELLIPTA IH SCH (09:25)
[2018-08-07] MEDS: TIOTROPIUM INHALER 18 MCG/DOSE 5 DOSE/MDI IH SCH (09:25)
--- NOTE | 2018-08-07 11:32 | PDIAF ---
- Diagnosis Diagnosis: femur fx Code Status: Full Code - Medication Management Discharge Medications: electronically signed and located in the Home Medication List. PICC Care - Routine: N/A - Orders Services needed: Registered Nurse, Physical Therapy, Occupational Therapy Isolation Type: None Diet Recommendation: no restrictions on diet Additional Instructions: 20lb FFWB with walker/assistance see handout - Follow Up Care Current Providers and Referrals: Alcides Singh MD [Primary Care Provider] -
[2018-08-07] MEDS ORDERED: DIAZEPAM 5 MG TAB PO ONE (12:03)
[2018-08-07] MEDS: CYCLOBENZAPRINE 10 MG TAB PO PRN (12:05)
--- NOTE | 2018-08-07 12:22 | CPEKG ---
Test Reason : OPEN Blood Pressure : / mmHG Vent. Rate : 071 BPM Atrial Rate : 071 BPM P-R Int : 134 ms QRS Dur : 106 ms QT Int : 403 ms P-R-T Axes : 040 -51 056 degrees QTc Int : 438 ms Sinus rhythm Atrial premature complex LAD, consider left anterior fascicular block Confirmed by Kev Mary ([id number]) on 08/07/2018 12:22:30 PM Referred By: Confirmed By:Kev Mary
[2018-08-07] MEDS: SENNOSIDES 1 TAB PO PRN (13:43)
[2018-08-07 15:46] VITALS: BP 113/75
--- NOTE | 2018-08-07 19:08 | GDS ---
DISCHARGE DIAGNOSIS: 1. Left intertrochanteric femur fracture. 2. Sinus headache. 3. Gait instability. 4. Anemia. 5. Chest pain. 6. Chronic obstructive pulmonary disease. 7. Anxiety with chronic benzodiazepine use and dependency. 8. Paroxysmal atrial fibrillation. CONSULTATIONS: Orthopedics. PHYSICAL EXAM: GENERAL: The patient is alert. VITAL SIGNS: Afebrile at 36.9, pulse 81, respiratory rate 16, blood pressure is 138/68. Saturating 92% on room air. I have seen and evaluated the patien t on the day of discharge. HOSPITAL COURSE: Patient is a 68-year-old male presents after suffering a mechanical fall. He was e valuated and diagnosed with. 1. Left intertrochanteric femur fracture. He is postop day 5 from nail placement regarding this fra cture. He did receive a consultation from Orthopedics and surgical intervention. He will continue o n scheduled Tylenol and p.r.n. pain medication. He does require rehabilitation for strength and cond itioning with physical therapy and occupational therapy. 2. Sinus headache. This has resolved. 3. Gait instability. The patient will continue with therapies for strengthening. 4. Anemia. This is of chronic disease and appears to be stable. 5. Episode of chest pain. He did receive evaluation during this hospitalization with no further wor kup warranted. 6. Anxiety with chronic benzodiazepine use and dependency. The patient has been continued on benzod iazepines. It is recommended that he titrate off in the outpatient setting, but will continue at thi s time to prevent withdrawal syndrome. 7. Paroxysmal atrial fibrillation. He has been in sinus during this hospitalization. We will tony nue his Lopressor. DISPOSITION: The patient will be discharged to [facility] for further rehabilitation and management. There are no pending studies. DISCHARGE MEDICATIONS: Please refer to EMR form. Prescriptions have not been provided at the time o f disposition. Followup will be with Dr. Ojeda as well as the patient's primary care physician. I spent greater than 35 minutes in the care, coordination, and management of this patient's dispositi on. /[id number]/MODL
--- NOTE | 2018-08-08 09:26 | ASDISCHSUM ---
Discharge Information Plan Status:SNF Medically Cleared to Leave: Discharge Date:08/07/2018 04:27 PM CM D/C Disposition: ADT D/C Disposition:Half-Way Facility Projected Discharge Date:08/07/2018 11:00 AM Transportation at D/C: Discharge Delay Reason: Follow-Up Date:08/07/2018 11:00 AM Discharge Slot: Final Diagnosis: Placement Information Referral Type:*Skilled Nursing/SNF Referral ID:[id number] Provider Name:Christiane Wynneulder Address 1:[address] Address 2: City:[place] Selection Factors: State:[place] Patient Contact Information Contact Name:HOWIE Relationship:Other Address: Work Phone: City: [facility] Phone: [facility] Code: Email: Financial Information Financial Class:Medicare Primary Plan Desc:MEDICARE INPATIENT Primary Plan Number:[id number] Secondary Plan Desc:MED[place] Secondary Plan Number:[id number] Assessment Information LACE LACE Acuity / Level of Answers: Yes Care: Did the patient have an inpatient admission? Comorbidities - select Answers: Chronic pulmonary disease all that apply Other Notes: HTN; TBI; Hx of DVT # of Emergency department Answers: 5-8 visits in the last 6 months Social determinants Answers: Homelessness (street, senior care) Mental health diagnosis (anxiety, depression, pers onality disorders, etc.) Score: 16 Date Signed: 08/02/2018 10:19 AM Electronically Signed By:Lisa Cat [facility] CM Progress Note CM Note CM Note Notes: Patient admitted with a left hip fracture, sustained after a mechanical fall. This patient has a complex medical and psychosocial history as well as an unfortunate history of being asked to leave various programs/shelters/resources centers. He has been sleeping outside for the past few weeks after being removed from the [facility]. His PCP is Dr Singh whose office has also provided countless hours of case management. Below is an email from Dr Singh's medicare biller Elsy Huangons: "The warehouse associate driver of utilization for Mr. Ennis is anxiety, social issues, behavioral issues. He has used up all the resources in the area. I removed him from care management as he does not take responsibility for his actions or his care. he is homeless and has been banned from all the shelters for not following the rules. He accepts no responsibility for this. We had him with [facility] - they found him independent housing. He messed that up. He was at [facility] - they would have allowed him to live there, however, he would not sign over his medicaid and receive a stipend. He was at [facility] - he messed that up as he was smoking in his room and his roommate uses oxygen. he fell yesterday and broke his hip, he will have surgery today. I will reach out to the for him. I think [facility] would accept him again - they allow him to smoke - I think it may be the best place for him - he will have to sign over his medicaid. Dr. Singh has tried to talk to him about this in the past. In fact, Dr. Singh wrote him a letter and recommended this. [facility] - [facility] - has banned him for continued use of marijuana on property. we will see what recommendations are for him during this hospital course." For obvious reasons, it will likely be recommended that patient d/c to a SNF and Case Management will do all that we can to help. However, patient's historical lack of compliance may be an obstacle, and we might need to consider alternative options. Patient does not qualify for medical respite, and he is not able to participate in many of the community resources. [employer] of aware of his hospitalization. We will follow. Date Signed: 08/02/2018 10:49 AM Electronically Signed By:Carmina Howell RN [facility] CM Progress Note CM Note CM Note Notes: PT/OT rec SNF today, referrals sent to several SNFs known to accept challenging pts in [employer]. Pt reports he is interested in SNF placement but he is not willing to sign over his Medicaid to [facility] if they are willing to take him back. Pt non-triggering PASRR completed, pt could not recall the diagnosis he takes Zoloft for or how long he has been on the medication. CM to follow. Date Signed: 08/03/2018 06:01 PM Electronically Signed By:ROSMERY Hayden [facility] CM Progress Note CM Note CM Note Notes: [facility] called - they are going to review patient's case, and if he has enough Medicare days remaining, they anticipate being able to accept. They will let us know on Monday 08/06. Date Signed: 08/04/2018 02:17 PM Electronically Signed By:Carmina Howell RN [facility] CM Progress Note CM Note CM Note Notes: Long talk with patient. He wants to participate in [facility] and feels as though he's been given a bad rap from [facility] and [facility]. He would like to talk with their Director- CM can check into that Monday. He has been to [facility] a long time ago and would prefer to go their for rehab. They allow smoking in their smoking areas. CM to learn how many Medicare days he has left for SNF Rehab. This CM wonders if he might be a candidate for In-pt Rehab? Date Signed: 08/05/2018 05:27 PM Electronically Signed By:Samantha Castañeda LCSW [facility] Progress Note CM Note CM Note Notes: Received call from Annia at [facility]. She came in today to assess pt. They are willing to accept pt and are checking to see if he has used any Medicare days. [facility] has also accepted pt. Genevieve from [place] [facility] was supposed to see pt today as well however have not received any feedback on whether she did. Pt is open to [facility]. He is ready for d/c when there is an accepting facility and his Medicare days are known. CM will continue to follow. D/C Plan: SNF Date Signed: 08/06/2018 03:42 PM Electronically Signed By:ROSMERY Veliz Intervention Information Intervention Type:*IM-Signed Date of Service:08/02/2018 02:24 PM Patient Type:Inpatient Staff Member:Lisa Cat Hours: Discipline: Severity: Comment: Intervention Type:*IM-Signed Date of Service:08/07/2018 12:25 PM Patient Type:Inpatient Staff Member:Lisa Cat Hours: Discipline: Severity: Comment:Patient described having increased hip pain. He has informed his nurse and she told hi m that his surgeon would come assess before discharging. Eulogio signed the Medicare form and I left a copy with h mark in case his surgeon would still like t o discharge today.
== END 2018-08-07 16:27 | DRG 481 ==
LOC: EDUNIT# → F3N 17:47
PROVIDERS: ADMIT Internal Medicine; ATTEND Family Medicine
PROC: 0QS706Z Reposition Left Upper Femur with Intramedullary Internal Fixation Device, Open Approach (ICD-10-PCS; principal; 2018-08-02 15:45)
DX: S72.142A Displaced intertrochanteric fracture of left femur, initial encounter for closed fracture (principal); W01.0XXA Fall on same level from slipping, tripping and stumbling without subsequent striking against object, initial encounter; Y92.096 Garden or yard of other non-institutional residence as the place of occurrence of the external cause; Y99.8 Other external cause status; M16.12 Unilateral primary osteoarthritis, left hip; R51 Headache; D63.8 Anemia in other chronic diseases classified elsewhere; J44.9 Chronic obstructive pulmonary disease, unspecified; F17.210 Nicotine dependence, cigarettes, uncomplicated; F41.9 Anxiety disorder, unspecified; F13.20 Sedative, hypnotic or anxiolytic dependence, uncomplicated; I10 Essential (primary) hypertension; I48.0 Paroxysmal atrial fibrillation; Z86.718 Personal history of other venous thrombosis and embolism; Z87.820 Personal history of traumatic brain injury; Z59.0 Homelessness
CPT/HCPCS: 96374; 97110-GP; 97116-GP; 97161-GP; 97166-GO; 97530-GO; 97535-GO; C1713; G8978-GP-CK; G8979-GP-CI; G8987-GO-CK; G8988-GO-CI; J0171; J0690; J1100; J1650; J2060; J2250; J2270; J2370; J2704; J3010; J3360; J7613

== ENCOUNTER → 2018-09-03 | Outpatient (CLI) | payer OTHER, MEDICAID | LOC: FIMAGING 19:01 | PROVIDERS: ATTEND Orthopaedic Surgery | DX: M51.36 Other intervertebral disc degeneration, lumbar region (principal); M51.44 Schmorl's nodes, thoracic region ==

== ENCOUNTER 2018-10-05 16:11 | Emergency (ER) | payer OTHER, MEDICAID ==
--- NOTE | 2018-10-05 16:17 | EDPHY ---
H & P Time Seen by Provider: 10/05/18 16:17 - Personal History Tetanus Vaccine Date: < 10 YEARS - Medical/Surgical History Hx Asthma: Yes Hx Chronic Respiratory Disease: Yes Hx Diabetes: No Hx Cardiac Disease: Yes Hx Renal Disease: No Hx Cirrhosis: No Hx Alcoholism: No Hx HIV/AIDS: No Hx Splenectomy or Spleen Trauma: No Other PMH: CONSTIPATION,SPINAL FUSION, HTN, TBI in 2000, subdural bleed, anxiety , tremors, ULCER- CAUTERIZED 01/2017/PE, bowel obstruction. COPD - Social History Smoking Status: Light smoker Constitutional: Initial Vital Signs Temperature (C) 37.1 C 10/05/18 16:22 Heart Rate 77 10/05/18 16:22 Respiratory Rate 18 10/05/18 16:22 Blood Pressure 135/92 H 10/05/18 16:22 O2 Sat (%) 92 10/05/18 16:22 O2 Delivery Mode Nasal Cannula O2 (L/minute) 3 Allergies/Adverse Reactions: No Known Allergies Allergy (Unverified 10/05/18 16:28) Home Medications: Medication Instructions Recorded ALPRAZolam [Xanax 1 MG (*)] 0.5 - 1 mg PO Q6H PRN 03/20/18 Donepezil HCl 20 mg PO HS 03/20/18 Fluticasone/Vilanterol [Breo 1 puffs IH DAILY 03/20/18 Ellipta 200-25 Mcg INH] Sertraline HCl [Zoloft 100mg (*)] 250 mg PO HS 03/20/18 Tiotropium Inhaler [Spiriva 1 puffs IH DAILY 03/20/18 Handihaler] traMADol [Ultram 50 mg (*)] 50 mg PO Q6H PRN 03/20/18 Dicyclomine [Bentyl 20 MG (*)] 20 mg PO QID PRN tab 03/30/18 Metoprolol Succinate Xr [Toprol Xl 50 mg PO DAILY #30 tab.sr 06/06/18 50 mg (*)] amLODIPine BESYLATE [Norvasc 5 mg 5 mg PO DAILY #30 tab 06/06/18 (*)] hydrOXYzine HCL [hydrOXYzine HCL 25 mg PO HS PRN 06/20/18 (RX)] Ibuprofen/Diphenhydramine Cit 1 each PO HS PRN 08/01/18 [Advil Pm Caplet] Lisinopril [Zestril 10 mg (*)] 10 mg PO DAILY 08/01/18 Sennosides [Senna Lax] 8.6 mg PO BID PRN 08/01/18 Tamsulosin HCl [Flomax 0.4 MG (*)] 0.4 mg PO BID 08/01/18 Acetaminophen [Tylenol ES 500 mg 1,000 mg PO Q8HRS tab 08/07/18 (*)] Cyclobenzaprine [Flexeril 10 MG 5 mg PO TID PRN tab 08/07/18 (*)] Enoxaparin [Lovenox 40 MG (*)] 40 mg SC DAILY syr 08/07/18 Pseudoephedrine HCl [Sudafed 30mg 30 mg PO Q6HRS PRN tab 08/07/18 (OTC)] oxyCODONE IR [Oxycodone Ir (*)] 5 - 10 mg PO Q3HRS PRN tab 08/07/18 Medical Decision Making - Diagnostics Imaging Results: Imaging Impressions Foot X-Ray 10/05/18 16:47 Impression: Negative for fracture. Imaging: I viewed and interpreted images myself ED Course/Re-evaluation: CHIEF COMPLAINT: Possible polypharmacy overdose HISTORY OF PRESENT ILLNESS: The patient is a 68 y/o male with a history of hypertension and COPD arriving from [facility] for evaluation of a possible polypharmacy overdose this afternoon. He denies mistaking his medications and says, "I know I haven't overdosed." All of his medications were sent with him and all pills have been accounted for. These include sertraline, alprazolam, hydroxylysine, tramadol, and Benadryl. It sounds like he had filled new prescriptions on the and nursing staff was unfamiliar with these when seeing them on his bedside table. For not completely clear reasons, they then called EMS for transport. The patient has no complaints and does not want to stay in the hospital. REVIEW OF SYSTEMS: A comprehensive 10 system review of systems is otherwise negative aside from elements mentioned in the history of present illness and medical decision making. PHYSICAL EXAM: HR, BP, O2 Sat, RR. Temp noted General Appearance: Alert, well hydrated, appropriate, and non-toxic appearing. Head: Atraumatic without scalp tenderness or obvious injury Eyes: Pupils equal, round, reactive to light and accommodation, EOMI, no trauma , no injection. Nose: Atraumatic, no rhinorrhea, clear. Throat: Mucus membranes moist. Neck: Supple, nontender, no lymphadenopathy. Respiratory: No retractions, no distress, no wheezes, and no accessory muscle use. Lungs are clear to auscultation bilaterally. Cardiovascular: Regular rate and rhythm, no murmurs, rubs, or gallops. Good capillary refill all extremities. Gastrointestinal: Abdomen is soft, nontender, non-distended, no masses, no rebound, no guarding, no peritoneal signs. Musculoskeletal: Normal active ROM of all extremities, atraumatic. Neurological: Alert, appropriate, and interactive. The patient has non-focal cranial nerves, motor, sensory, and cerebellar exam. Skin: No rashes, good turgor, no nodules on palpation. Past medical history: COPD, hypertension, femur fracture, anemia, chronic benzodiazepine use and dependency, paroxysmal atrial fibrillation Past surgical history: Left femur fracture repair 08/01/2018 Family history: Noncontributory Social history: Previously homeless. Lives at [facility] currently for rehab of left hip fracture. DIAGNOSTICS/PROCEDURES/CRITICAL CARE TIME: Left foot x-ray: negative. DIFFERENTIAL DIAGNOSIS: The differential diagnosis for the patient's presentation included but was not limited to nursing judgement error, appropriate medication use. MEDICAL DECISION MAKING: This is a 68 y/o male who presents asymptomatic after nursing staff called EMS because they were concerned he had overdosed on his medications. The patient adamantly denies this and additionally all of the prescription bottles sent with him show appropriate quantities of medications listed on them compared to when they were filled. It sounds like the nursing staff was unfamiliar with the patient's medications and called EMS out of concern. The patient has remained asymptomatic throughout this event and is eager to leave the hospital. RN here ordered a left foot x-ray because the patient complained of mild pain to him. This x-ray is negative as is my examination of the patient's foot. He will be discharged home with standard instructions. He is comfortable with this plan. Departure - Departure Disposition: Home, Routine, Self-Care Clinical Impression: medication question Condition: Good Instructions: Additional Information Additional Instructions: Continue taking all your medications as directed. Follow up with your primary care provider as needed. Referrals: MASOUD SANCHEZ [Primary Care Provider] - As per Instructions Report Scribed for: King Davidson Report Scribed by: Emily Sebastian Date of Report: 10/05/18 Time of Report: 17:06
[2018-10-05 18:17] VITALS: BP 143/103
--- NOTE | 2018-10-05 18:36 | ASMTCMCOM ---
CM Note CM Note Notes: Eulogio arrives to ED via EMS from [facility] where he has been since his last discharge from this hospital on 08/08/18. See ED report for details. This CM contacted Marifer at to inform that patient is cleared for discharge and return to . Marifer informs this CM that Eulogio had been doing well until he was recently "on pass" over the holidays. Evidently, Eulogio filled several prescriptions while he was out and sunsequently was found to be intoxicated upon his return to . Several prescription bottles were brought into the ED with Eulogio, all of which were prescribed per Dr. Singh. Some of these prescriptions appear to be newly prescribed and others were clearly refills dating back to October,. Marifer states that Eulogio evidently informed DR. Singh that he was not receiving his medications at as prescribed. I have LM with Elsy Patel RN, Estate Agent for Dr. Singh to inform her of patient's ED visit and return to . Transportation arranged via [facility] for [facility] (Medicaid) return to . RN report called to Marifer at per Daniel GEORGE. This CM has confirmed with Daniel GEORGE, Marifer, and [facility] that all medications/prescriptions be given directly to EMS for delivery to staff at and NOT to be given to patient Date Signed: 10/05/2018 06:35 PM Electronically Signed By:Mary Gibson RN
--- NOTE | 2018-10-13 16:03 | ASMTCMCOM ---
CM Note CM Note Notes: Late Entry from 10/09/18: *Please see CM Report 10/05/18 for latest info. This CM received a call back from Elsy Patel RN Director Of Collections ([phone]) for Dr Singh at [facility]. Elsy states that the pt has officially been dismissed from Dr Singh's practice. Pt will be followed by [facility] ([phone]) from here on out. Elsy states that she spoke w/Marifer at [facility] ([phone]) and updated her as well. CM available for further assistance if needed. Date Signed: 10/13/2018 04:03 PM Electronically Signed By:Hailey Maynard RN
== END 2018-10-05 18:55 | disposition home or self-care (01) ==
LOC: EDBD → EDUNIT#
DX: M79.672 Pain in left foot (principal); J44.9 Chronic obstructive pulmonary disease, unspecified; I10 Essential (primary) hypertension; I48.0 Paroxysmal atrial fibrillation

== ENCOUNTER → 2018-11-02 | Outpatient (CLI) | payer OTHER, MEDICAID | LOC: FIMAGING 11:49 | PROVIDERS: ATTEND Internal Medicine Geriatric Medicine | DX: N50.811 Right testicular pain (principal); K86.9 Disease of pancreas, unspecified; R93.3 Abnormal findings on diagnostic imaging of other parts of digestive tract; R91.8 Other nonspecific abnormal finding of lung field; N28.1 Cyst of kidney, acquired ==

== ENCOUNTER → 2018-11-23 | Outpatient (CLI) | payer OTHER, MEDICAID ==
[~2018-11-23] MED LIST changes: +IOPAMIDOL (ISOVUE-300) 100 ML BTL ONE; -TAMSULOSIN HCL 0.4 MG CAP PO SCH
== END ==
LOC: FIMAGING 08:58
PROVIDERS: ATTEND Family Medicine
DX: K86.89 Other specified diseases of pancreas (principal); K76.89 Other specified diseases of liver; J43.9 Emphysema, unspecified; R91.1 Solitary pulmonary nodule; N28.1 Cyst of kidney, acquired; M47.815 Spondylosis without myelopathy or radiculopathy, thoracolumbar region
CPT/HCPCS: 74160; Q9967; 82565-PO

== ENCOUNTER 2018-12-25 01:23 | Inpatient (IN) | payer OTHER, MEDICAID ==
[2018-12-25] MEDS ORDERED: NS 1,000 ML IV ONE ×2 (01:28→01:29)
[2018-12-25] MEDS ORDERED: ceFAZolin 2 GM/DEXTROSE 100 ML IV ONE (01:29)
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
[2018-12-25] MEDS ORDERED: ONDANSETRON 4 MG/2 ML VIAL ONE (01:34)
[2018-12-25] MEDS ORDERED: ONDANSETRON 4 MG/2 ML VIAL IVP ONE (01:34)
[2018-12-25 01:39] LABS: PLATELET COUNT 210 10^3/uL (150-400)
[2018-12-25] MEDS ORDERED: IOPAMIDOL (ISOVUE-300) 100 ML BTL ONE (01:49)
[2018-12-25 01:52] LABS: INR 1.06 (0.83-1.16); PROTIME(PATIENT) 13.4 SEC (12.0-15.0)
[2018-12-25] MEDS ORDERED: ONDANSETRON DISINTEGRATING 4 MG TAB PO PRN (02:26)
[2018-12-25] MEDS ORDERED: NALOXONE HCL 0.4 MG/ML INJ IVP PRN (02:26)
[2018-12-25] MEDS ORDERED: ACETAMINOPHEN 325 MG TAB PO PRN (02:26)
[2018-12-25] MEDS ORDERED: ONDANSETRON 4 MG/2 ML VIAL IVP PRN (02:26)
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
[2018-12-25] MEDS: HYDROCODONE/APAP 5/325 TAB PO PRN (04:15)
[2018-12-25] MEDS ORDERED: ALPRAZolam 0.5 MG TAB PO ONE (05:15)
[2018-12-25] MEDS: IBUPROFEN 600 MG TAB PO SCH ×4 (05:50→21:06)
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
--- NOTE | 2018-12-25 09:35 | ASMTLACE ---
ESAU Acuity / Level of Answers: Yes Care: Did the patient have an inpatient admission? Comorbidities - select Answers: Chronic pulmonary disease all that apply Dementia History of falls Opioid dependence / Chronic pain Other Notes: HTN; AFib; PE; HLD # of Emergency department Answers: 5-8 visits in the last 6 months Social determinants Answers: Mental health diagnosis (anxiety, depression, pers onality disorders, etc.) Score: 23 Date Signed: 12/25/2018 09:34 AM Electronically Signed By:Lisa Cat
[2018-12-25] MEDS: LIDOCAINE 4%/MENTHOL 1% PATCH TD SCH (09:40)
[2018-12-25] MEDS ORDERED: ALBUTEROL 60 PUFFS/8 GM MDI IH PRN (09:49)
[2018-12-25] MEDS ORDERED: SENNOSIDES 1 TAB PO PRN (09:49)
[2018-12-25] MEDS: ENOXAPARIN 40 MG/0.4 ML SYR SC SCH (10:12)
[2018-12-25] MEDS: TIOTROPIUM INHALER 18 MCG/DOSE 5 DOSE/MDI IH SCH (11:11)
[2018-12-25] MEDS: BREO ELLIPTA IH SCH (11:11)
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
[2018-12-25] MEDS: ALPRAZolam 0.5 MG TAB PO PRN ×2 (12:08→18:04)
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
[2018-12-25] MEDS: CYCLOBENZAPRINE 10 MG TAB PO SCH ×2 (16:16→21:03)
--- NOTE | 2018-12-25 16:21 | ASMTCMCOM ---
CM Note CM Note Notes: Pt is a familiar to [facility], complex social history of homelessness, including getting kicked out of numerous shelters and not being able to return. Pt last discharged to [facility] in July. CM spoke with [facility] and they report they have been attempting to issue pt a discharge notice for a number of months because he does not follow the rules and gets medications from outside the facility and brings them in. Joanna from [facility] is unsure if she will be able to take him back once he is medically/psychiatrically cleared and would need a new PASSAR Level 2. [facility] is familiar with pt and will continue to follow. They recommend [facility] or [facility] good [facility] facilities [facility] pt. CM to follow and will make referrals as indicated. CM to follow. Plan: TLC Eval once medically stable; Send [facility] updates regularly. Date Signed: 12/25/2018 04:20 PM Electronically Signed By:VAN Carranza
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
[2018-12-25] MEDS: SENNOSIDES/DOCUSATE SODIUM TAB PO SCH (20:27)
[2018-12-25] MEDS: MIRTAZAPINE 30 MG TAB PO SCH (20:28)
[2018-12-25] MEDS: TAMSULOSIN HCL 0.4 MG CAP PO SCH (20:29)
[2018-12-25] MEDS: DONEPEZIL HCL 5 MG TAB PO SCH (20:29)
[2018-12-25] MEDS: LATANOPROST 0.005% 2.5 ML OPHT DROPS EACHEYE SCH (20:33)
[2018-12-25] MEDS: PATCH REMOVAL 1 EA PATCH TD SCH (21:03)
[2018-12-26] MEDS: ALPRAZolam 0.5 MG TAB PO PRN ×4 (00:16→18:25)
[2018-12-26 04:36] LABS: PLATELET COUNT 171 10^3/uL (150-400)
[2018-12-26] MEDS: IBUPROFEN 600 MG TAB PO SCH ×3 (06:20→21:05)
--- NOTE | 2018-12-26 08:33 | TRAUMAPN ---
Trauma Progress Note Subjective: sleeping soundly, awakened easily-denies pain Objective: Vital Signs Temp Pulse Resp BP Pulse Ox 36.7 C 113 H 20 129/83 H 96 12/26/18 00:00 12/26/18 08:00 12/26/18 08:00 12/26/18 08:00 12/26/18 08:00 Laboratory Results 12/26/18 04:20 12/26/18 04:20 12/25/18 12/26/18 12/27/18 05:59 05:59 05:59 Intake Total 2300 1310 Output Total 480 2950 Balance 1820 -1640 PT 13.4 SEC (12.0-15.0) 12/25/18 Unknown INR 1.06 (0.83-1.16) 12/25/18 Unknown - C-Spine Clearance Cervical Spine Cleared: Yes Provider who Cleared Cervical Spine: Dario Physical Exam - Physical Exam General Appearance: WD/WN, no apparent distress EENT: normal ENT inspection Neck: non-tender Respiratory: normal breath sounds, decreased breath sounds, other (crepitance left lateral chest wall) Cardiac/Chest: regular rate, rhythm, other (left closed tube thoracostomy on suction without air leak, minimal output last 12 hours) Abdomen: non-tender, soft Male Genitalia: deferred Rectal: deferred Skin: warm/dry Extremities: non-tender Neuro/Psych: alert, normal mood/affect, oriented x 3 Time Spent w/Patient (minutes): 15
[2018-12-26] MEDS ORDERED: TIOTROPIUM INHALER 18 MCG/DOSE 5 DOSE/MDI IH SCH (09:00)
[2018-12-26] MEDS: TIOTROPIUM INHALER 18 MCG/DOSE 5 DOSE/MDI IH SCH (09:49)
[2018-12-26] MEDS: TAMSULOSIN HCL 0.4 MG CAP PO SCH ×2 (09:50→21:44)
[2018-12-26] MEDS: MULTIVITAMINS 1 EACH TAB PO SCH (09:50)
[2018-12-26] MEDS: METOPROLOL SUCCINATE XR 50 MG TAB PO SCH (09:50)
[2018-12-26] MEDS: DULoxetine 20 MG CAP PO SCH (09:50)
[2018-12-26] MEDS: CYCLOBENZAPRINE 10 MG TAB PO SCH ×3 (09:50→21:01)
[2018-12-26] MEDS: LISINOPRIL 20 MG TAB PO SCH (09:50)
[2018-12-26] MEDS: ASCORBIC ACID 500 MG TAB PO SCH (09:50)
[2018-12-26] MEDS: ENOXAPARIN 40 MG/0.4 ML SYR SC SCH (09:50)
[2018-12-26] MEDS: LIDOCAINE 4%/MENTHOL 1% PATCH TD SCH (09:51)
[2018-12-26] MEDS: SENNOSIDES/DOCUSATE SODIUM TAB PO SCH ×2 (09:52→21:03)
[2018-12-26] MEDS: BREO ELLIPTA IH SCH (09:53)
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
[2018-12-26] MEDS: HYDROCODONE/APAP 5/325 TAB PO PRN ×2 (14:43→18:40)
--- NOTE | 2018-12-26 16:58 | SOAPPROG ---
Downtime Inpatient MD Late Entry SOAP Note: repeat CXR shows minimal apical pneumothorax will leave CT on H20 seal and recheck CXR in AM
[2018-12-26] MEDS: MIRTAZAPINE 30 MG TAB PO SCH (21:03)
[2018-12-26] MEDS: DONEPEZIL HCL 5 MG TAB PO SCH (21:04)
[2018-12-26] MEDS: PATCH REMOVAL 1 EA PATCH TD SCH (21:09)
[2018-12-26] MEDS: LATANOPROST 0.005% 2.5 ML OPHT DROPS EACHEYE SCH (23:03)
[2018-12-27] MEDS: ALPRAZolam 0.5 MG TAB PO PRN ×4 (00:07→18:16)
[2018-12-27] MEDS: IBUPROFEN 600 MG TAB PO SCH ×3 (05:59→17:20)
[2018-12-27] MEDS: LISINOPRIL 20 MG TAB PO SCH (08:31)
[2018-12-27] MEDS: METOPROLOL SUCCINATE XR 50 MG TAB PO SCH (08:31)
[2018-12-27] MEDS: MULTIVITAMINS 1 EACH TAB PO SCH (08:31)
[2018-12-27] MEDS: CYCLOBENZAPRINE 10 MG TAB PO SCH ×3 (08:31→21:31)
[2018-12-27] MEDS: TAMSULOSIN HCL 0.4 MG CAP PO SCH ×2 (08:31→21:39)
[2018-12-27] MEDS: SENNOSIDES/DOCUSATE SODIUM TAB PO SCH ×2 (08:32→21:29)
[2018-12-27] MEDS: DULoxetine 20 MG CAP PO SCH (08:32)
[2018-12-27] MEDS: ASCORBIC ACID 500 MG TAB PO SCH (08:32)
[2018-12-27] MEDS: LIDOCAINE 4%/MENTHOL 1% PATCH TD SCH (08:33)
[2018-12-27] MEDS: ENOXAPARIN 40 MG/0.4 ML SYR SC SCH (08:33)
[2018-12-27] MEDS: TIOTROPIUM INHALER 18 MCG/DOSE 5 DOSE/MDI IH SCH (12:02)
[2018-12-27] MEDS: BREO ELLIPTA IH SCH (12:33)
[2018-12-27] MEDS: HYDROCODONE/APAP 5/325 TAB PO PRN (12:36)
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
[2018-12-27] MEDS: MIRTAZAPINE 30 MG TAB PO SCH (21:30)
[2018-12-27] MEDS: DONEPEZIL HCL 5 MG TAB PO SCH (21:32)
[2018-12-27] MEDS: LATANOPROST 0.005% 2.5 ML OPHT DROPS EACHEYE SCH (21:35)
[2018-12-27] MEDS: PATCH REMOVAL 1 EA PATCH TD SCH (21:36)
[2018-12-28] MEDS: ALPRAZolam 0.5 MG TAB PO PRN ×2 (00:04→13:29)
[2018-12-28] MEDS: IBUPROFEN 600 MG TAB PO SCH ×2 (06:56→14:03)
--- NOTE | 2018-12-28 07:08 | ASMTLCPROG ---
Notes Note: Notes: The patient stated, "I am not hopeful about my future." He didn't elaborate on his ideation. The patient decline to discuss his legal status, questions/concerns, nor his current feelings/intent. The patient refused to speak further with this headline writer. He stated, "Now is not a good time." The patient agreed to notify nursing staff when he is ready and able. Date Signed: 12/28/2018 07:07 AM Electronically Signed By:Kelin Stewart
[2018-12-28] MEDS: LISINOPRIL 20 MG TAB PO SCH (08:23)
[2018-12-28] MEDS: SENNOSIDES/DOCUSATE SODIUM TAB PO SCH (08:23)
[2018-12-28] MEDS: DULoxetine 20 MG CAP PO SCH (08:23)
[2018-12-28] MEDS: TAMSULOSIN HCL 0.4 MG CAP PO SCH (08:24)
[2018-12-28] MEDS: CYCLOBENZAPRINE 10 MG TAB PO SCH ×2 (08:24→15:26)
[2018-12-28] MEDS: MULTIVITAMINS 1 EACH TAB PO SCH (08:25)
[2018-12-28] MEDS: METOPROLOL SUCCINATE XR 50 MG TAB PO SCH (08:25)
[2018-12-28] MEDS: ASCORBIC ACID 500 MG TAB PO SCH (08:26)
[2018-12-28] MEDS: LIDOCAINE 4%/MENTHOL 1% PATCH TD SCH (08:26)
[2018-12-28] MEDS: ENOXAPARIN 40 MG/0.4 ML SYR SC SCH (08:26)
[2018-12-28] MEDS: BREO ELLIPTA IH SCH (08:48)
[2018-12-28] MEDS: TIOTROPIUM INHALER 18 MCG/DOSE 5 DOSE/MDI IH SCH (08:48)
[2018-12-28 10:14] VITALS: BP 122/81
--- NOTE | 2018-12-28 10:56 | ASMTCMCOM ---
CM Note CM Note Notes: CM met with pt and completed [facility] Mental Status Examination (UMS). Pt scored a 27/30 which indicated his scoring was in the "normal" range for those with a High School education or higher. CM contacted Joanna from [facility] who reports the PA from [facility] started prescribing Aerocept for "memory awareness and confusion" NOT for dementia. Joanna is faxing over ppwk and CM will place in chart. CM will continue to collaborate with TLC team and MD's to coordinate a discharge to inpatient behavioral health unit. Date Signed: 12/28/2018 10:56 AM Electronically Signed By:VAN Carranza
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
--- NOTE | 2018-12-28 16:06 | ASMTDCNOTE ---
Case Management Discharge Discharge Order Complete? Answers: Yes Patient to Obtain Answers: Other Notes: [facility] Medications Transportation [facility]: [facility]Date 12/28/2018 04:30 PM & Time) EMTALA Complete Answers: Yes Case Management Transport Answers: Yes Form Complete Faxed Final Orders Answers: Yes Agency/Facility Transfer Answers: Yes Report Printed & Faxed to Receiving Agency Discharge Comments Notes: CM collaborated with TLC and MDs on ICU to get pt admitted to an inpt psychiatric program. Pt was admitted to [facility]. RN called report. Pt is medically cleared for discharge. CM scheduled transportation through [facility] for 4:40pm. Emtala completed. Discharge packet completed. CM provided pt with clothing for discharge. Pt signed IM and Emtala. CM notified Christiane Arauzjosh of discharge location. Date Signed: 12/28/2018 04:05 PM Electronically Signed By:VAN Carranza
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
[2018-12-28] MEDS ORDERED: FLUTICASONE/SALMETER 250/50MCG DISKUS IH SCH (21:00)
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
--- NOTE | 2018-12-29 11:45 | CPEKG ---
Test Reason : OPEN Blood Pressure : / mmHG Vent. Rate : 089 BPM Atrial Rate : 092 BPM P-R Int : 153 ms QRS Dur : 108 ms QT Int : 371 ms P-R-T Axes : 044 -45 053 degrees QTc Int : 452 ms Sinus rhythm Occasional PACs LAD, consider left anterior fascicular block Confirmed by Kev Mary ([id number]) on 12/29/2018 11:45:30 AM Referred By: Mercedes Bishop Confirmed By:Kev Mary
== END 2018-12-28 16:58 | DRG 199 ==
LOC: EDUNIT# → F2N 03:19
PROVIDERS: ADMIT Surgery; ATTEND Internal Medicine
PROC: 0W9B30Z Drainage of Left Pleural Cavity with Drainage Device, Percutaneous Approach (ICD-10-PCS; principal; 2018-12-25)
DX: S27.0XXA Traumatic pneumothorax, initial encounter (principal); S21.332A Puncture wound without foreign body of left front wall of thorax with penetration into thoracic cavity, initial encounter; X78.1XXA Intentional self-harm by knife, initial encounter; Y92.199 Unspecified place in other specified residential institution as the place of occurrence of the external cause; R45.851 Suicidal ideations; F32.9 Major depressive disorder, single episode, unspecified; J44.9 Chronic obstructive pulmonary disease, unspecified; I10 Essential (primary) hypertension; G89.29 Other chronic pain; I48.91 Unspecified atrial fibrillation; E03.9 Hypothyroidism, unspecified; R26.9 Unspecified abnormalities of gait and mobility; Z98.1 Arthrodesis status; Z87.891 Personal history of nicotine dependence; Z86.711 Personal history of pulmonary embolism; Z86.718 Personal history of other venous thrombosis and embolism; Z87.820 Personal history of traumatic brain injury; Z91.81 History of falling
CPT/HCPCS: 80307; 96365; 97116-GP; 97162-GP; 97165-GO; 97530-GO; 97535-GO; G0480; J1650; J2270; J2405; Q9967